=== PATIENT | female | born 1950 | race Caucasian/White ===

== ENCOUNTER → 2017-05-12 | Outpatient (CLI) | payer OTHER ==
[~2017-05-12] MED LIST: GLC5 PO; GLC500 PO; LISI-461 PO
--- NOTE | 2017-05-12 14:35 | MAMMOGRAPHY REPORT ---
BILATERAL DIGITAL SCREENING MAMMOGRAM TOMOSYNTHESIS WITH CAD: 05/12/2017 CLINICAL HISTORY: Routine screening. TECHNIQUE: Breast tomosynthesis in addition to standard 2D mammography was performed. Current study was also evaluated with a Computer Aided Detection (CAD) system. COMPARISON: Comparison is made to exams dated: 03/03/2016 mammogram, 02/28/2015 mammogram, 11/27/2013 m ammogram, 11/22/2012 mammogram, 04/21/2011 mammogram, and 03/16/2010 mammogram - [facility] enter. BREAST COMPOSITION: The tissue of both breasts is almost entirely fatty. FINDINGS: No suspicious masses, calcifications, or areas of architectural distortion are noted in ei ther breast. There has been no significant interval change compared to prior exams. Scattered bilate ral benign appearing calcifications are again noted. IMPRESSION: ACR BI-RADS CATEGORY 2: BENIGN There is no mammographic evidence of malignancy. A 1 year screening mammogram is recommended. The pa tient will receive written notification of the results. Approximately 10% of breast cancers are not detected with mammography. A negative mammographic report should not delay biopsy if a clinically suggestive mass is present. Shilpa Bernardo M.D. ah/:05/12/2017 14:06:32 [employer]: Mir RAMIREZ(R)(M), [facility] letter sent: Normal 1/2 BI-RADS Code: ACR BI-RADS Category 2: Benign
== END | disposition home or self-care (01) ==
LOC: C.MAMM 13:41
PROVIDERS: ATTEND Family Medicine
DX: Z12.31 Encounter for screening mammogram for malignant neoplasm of breast (principal)

== ENCOUNTER 2017-10-24 22:41 | Observation (INO) | payer OTHER ==
[~2017-10-24] VITALS: Ht 165.1 cm; Wt 80.8 kg
[2017-10-24] MEDS ORDERED: ASPIRIN 324 MG CHEW PO STA (23:04)
[2017-10-24 23:15] LABS: HEMATOCRIT 39.4 % (37-47); HEMOGLOBIN 14.1 g/dL (12.0-16.0); MEAN CELL VOLUME 82.3 fL (80-100); MEAN CORPUSCULAR HEMOGLOBIN 29.4 pg (25-34); MEAN CORPUSCULAR HGB CONC 35.8 g/dl (32-36); MEAN PLATELET VOLUME 9.2 fL (7.4-10.4); PLATELET COUNT 322 K/uL (130-400); RED CELL DISTRIBUTION WIDTH CV 13.8 % (11.5-14.5); RED CELL DISTRIBUTION WIDTH SD 41.3 fL (36.4-46.3); WHITE BLOOD COUNT 9.13 K/uL (4.8-10.8)
--- NOTE | 2017-10-24 23:18 | DIAGNOSTIC IMAGING REPORT ---
CHEST ONE VIEW PORTABLE CLINICAL HISTORY: 67 years-old Female presenting with chest pain. TECHNIQUE: Portable upright AP view of the chest was obtained. COMPARISON: None. FINDINGS: Cardiomediastinal silhouette normal. Main pulmonary artery may be enlarged. No focal opacity. No large effusion or pneumothorax. Osseous structures normal. Upper abdomen normal. IMPRESSION: 1. No acute cardiopulmonary disease. 2. Main pulmonary artery may be enlarged, which could suggest pulmonary hypertension. Electronically signed by: James Craig M.D. 10/24/2017 11:17 PM Dictated Date/Time: 10/24/2017 11:16 PM
[2017-10-24 23:51] LABS: CALCIUM 9.3 mg/dl (8.5-10.1); CKMB 2.8 ng/ml (0.5-3.6); CREATININE 1.06 mg/dl (0.60-1.20); TOTAL PROTEIN 8.9 gm/dl (6.4-8.2)
[2017-10-24 23:59] LABS: BASO % 0.4 %; BASO ABS # 0.04 K/uL (0-0.2); EOS % 1.6 %; EOS ABS # 0.15 K/uL (0-0.5); IG# 0.01 K/uL (0.00-0.02); LYMPH % 50.5 %; LYMPH ABS # 4.61 K/uL (1.2-3.4); MONO % 7.3 %; MONO ABS # 0.67 K/uL (0.11-0.59); NEUT % 40.1 %; NEUT ABS # 3.65 K/uL (1.4-6.5)
[2017-10-24] MEDS ORDERED: SITA100T3 PO (23:59)
[2017-10-24] MEDS ORDERED: METF-383 PO (23:59)
[2017-10-25] VITALS (20 sets, daily range): BP systolic 74–166; BP diastolic 66–101; PULSE 67–99; TEMP 36.3–37; O2SAT 95–99; Ht 165.1 cm; Wt 80.8 kg
[2017-10-25] MEDS ORDERED: MULT-506 PO
[2017-10-25 00:01] LABS: POTASSIUM 4.1 mmol/L (3.5-5.1)
[2017-10-25] MEDS ORDERED: CINN1CAP2 PO (00:01)
[2017-10-25] MEDS ORDERED: OMEG10007 PO (00:01)
[2017-10-25] MEDS ORDERED: GLUCPOW41 PO (00:02)
[2017-10-25] MEDS ORDERED: IV FLUIDS COMPLETED PRN (01:45)
--- NOTE | 2017-10-25 03:29 | History and Physical ---
History & Physical Date & Time of Service: October 25, 2017 at 03:06 Chief Complaint: Chest Pain Primary Care Physician: Sydney Macario M.D. History of Present Illness Source: patient, clinic records, hospital records 67 years old female with past medical history of type 2 diabetes, dyslipidemia, hypertension presented to the ER with chief complaint of chest pain. Patient said today while walking with her dog she developed a substernal chest pain. She said that she thought the pain seems to be related with her acid since she had her dinner about 2 hours prior and she was burping before the pain start. Patient said she went home and lying down, she said the pain worsening and it was located now in the left side of her chest. Then, she developed an achy pain in her left upper extremity and her facial area. Patient described the left-sided chest pain as achy like, grade 5/10. She said by the time she got to the ER the pain resolved. Denies any diaphoresis, vomiting, shortness of breath, palpitation, fever and chills. Past Medical/Surgical History Medical Problems: (1) Chest pain Social History Smoking Status: Never Smoker Allergies Coded Allergies: Albuterol (Verified Allergy, Unknown, tachycardia, 10/25/17) Home Medications Scheduled Aspirin (Aspir-81), 81 MG PO DAILY Metformin Hcl (Glucophage), 850 MG PO BID Multivitamin (Multivitamin), 1 TAB PO DAILY Sitagliptin Phosphate (Januvia), 100 MG PO DAILY Review of Systems Constitutional: No fever, No chills, No sweats Eyes: No eye pain, No diplopia ENT: No nasal symptoms, No sore throat Respiratory: No cough, No sputum, No wheezing, No shortness of breath Cardiovascular: + chest pain, No orthopnea, No claudication, No palpitations Abdomen: No pain, No vomiting, No diarrhea Musculoskeletal: No calf pain Genitourinary - Female: No dysuria Neurologic: No paralysis, No weakness Psychiatric: No substance abuse Endocrine: No fatigue Hematologic / Lymphatic: No abnormal bleeding/bruising Integumentary: No rash, No itch Physical Exam Vital Signs Date Time Temp Pulse Resp B/P (MAP) Pulse Ox O2 Delivery O2 Flow Rate FiO2 10/25/17 02:28 36.6 97 16 164/92 97 Room Air 10/25/17 01:48 92 16 149/84 98 10/25/17 00:01 100 19 146/87 100 Room Air 10/24/17 23:50 91 18 167/88 94 Room Air 10/24/17 23:00 93 20 177/88 99 Room Air 10/24/17 22:55 109 10/24/17 22:51 100 Room Air 10/24/17 22:50 100 Room Air 10/24/17 22:44 36.4 96 20 190/91 97 Room Air General Appearance: WD/WN, no apparent distress Head: normocephalic, atraumatic Eyes: PERRL, EOMI ENT: hearing grossly normal Neck: no JVD, trachea midline Respiratory/Chest: chest non-tender, normal breath sounds, no respiratory distress, no accessory muscle use Cardiovascular: regular rate, rhythm, no JVD Abdomen/GI: normal bowel sounds, non tender, soft Back: no CVA tenderness Extremities/Musculoskelatal: no calf tenderness Neurologic/Psych: no motor/sensory deficits, alert, normal mood/affect, oriented x 3 Skin: warm/dry, no rash Diagnostics Laboratory Results Results Past 24 Hours Test 10/24/17 22:53 10/24/17 23:03 10/25/17 02:17 Range/Units White Blood Count 9.13 4.8-10.8 K/uL Red Blood Count 4.79 4.2-5.4 M/uL Hemoglobin 14.1 12.0-16.0 g/dL Hematocrit 39.4 37-47 % Mean Corpuscular Volume 82.3 80-100 fL Mean Corpuscular Hemoglobin 29.4 25-34 pg Mean Corpuscular Hemoglobin Concent 35.8 32-36 g/dl Platelet Count 322 130-400 K/uL Mean Platelet Volume 9.2 7.4-10.4 fL Neutrophils (%) (Auto) 40.1 % Lymphocytes (%) (Auto) 50.5 % Monocytes (%) (Auto) 7.3 % Eosinophils (%) (Auto) 1.6 % Basophils (%) (Auto) 0.4 % Neutrophils # (Auto) 3.65 1.4-6.5 K/uL Lymphocytes # (Auto) 4.61 1.2-3.4 K/uL Monocytes # (Auto) 0.67 0.11-0.59 K/uL Eosinophils # (Auto) 0.15 0-0.5 K/uL Basophils # (Auto) 0.04 0-0.2 K/uL RDW Standard Deviation 41.3 36.4-46.3 fL RDW Coefficient of Variation 13.8 11.5-14.5 % Immature Granulocyte % (Auto) 0.1 % Immature Granulocyte # (Auto) 0.01 0.00-0.02 K/uL Red Blood Cell Morphology Unremarkable Sodium Level 139 136-145 mmol/L Potassium Level 4.1 3.5-5.1 mmol/L Chloride Level 102 98-107 mmol/L Carbon Dioxide Level 29 21-32 mmol/L Anion Gap 8.0 3-11 mmol/L Blood Urea Nitrogen 16 7-18 mg/dl Creatinine 1.06 0.60-1.20 mg/dl Est Creatinine Clear Calc Drug Dose 55.1 ml/min Estimated GFR () 63.4 Estimated GFR (Non- 54.7 BUN/Creatinine Ratio 14.7 10-20 Random Glucose 192 70-99 mg/dl Calcium Level 9.3 8.5-10.1 mg/dl Total Bilirubin 0.2 0.2-1 mg/dl Aspartate Amino Transf (AST/SGOT) 26 15-37 U/L Alanine Aminotransferase (ALT/SGPT) 29 12-78 U/L Alkaline Phosphatase 52 45-117 U/L Total Creatine Kinase 106 26-192 U/L Creatine Kinase MB 2.8 0.5-3.6 ng/ml Creatine Kinase MB Ratio 2.6 0-3.0 Total Protein 8.9 6.4-8.2 gm/dl Albumin 4.0 3.4-5.0 gm/dl Globulin 4.9 2.5-4.0 gm/dl Albumin/Globulin Ratio 0.8 0.9-2 Chemistry Specimen Hemolysis Bedside Troponin I < 0.030 0-0.045 ng/ml Bedside Glucose 157 70-90 mg/dl Diagnostic Radiology CHEST ONE VIEW PORTABLE CLINICAL HISTORY: 67 years-old Female presenting with chest pain. TECHNIQUE: Portable upright AP view of the chest was obtained. COMPARISON: None. FINDINGS: Cardiomediastinal silhouette normal. Main pulmonary artery may be enlarged. No focal opacity. No large effusion or pneumothorax. Osseous structures normal. Upper abdomen normal. IMPRESSION: 1. No acute cardiopulmonary disease. 2. Main pulmonary artery may be enlarged, which could suggest pulmonary hypertension. Electronically signed by: James Craig M.D. 10/24/2017 11:17 PM Dictated Date/Time: 10/24/2017 11:16 PM Impression Assessment and Plan Chest pain Rule out ACS EKG showed T waves inversion Initial troponin negative Check troponin 2, Consult cardiology Check echo in a.m. Keep n.p.o. for now Continue aspirin Check lipid panel in a.m. repeat EKG in am Currently asymptomatic Continue monitoring telemetry Diabetes type 2 Last hemoglobin A1c 6.8 on 06/30 Hold metformin and Januvia for now Insulin sliding scale Monitor blood sugar DVT prophylaxis On Lovenox subq CODE STATUS full code Advanced Directives Existing Living Will: No Existing Power of Cook Mayonnaise: No Resuscitation Status VTE Prophylaxis Will order VTE Prophylaxis: Yes
[2017-10-25] MEDS ORDERED: ASPI-232 PO (03:38)
[2017-10-25] MEDS ORDERED: GLUCOSE 10 TABS/TUBE PO PRN (03:45)
[2017-10-25] MEDS ORDERED: CARBOHYDRATES FOR HYPOGLYCEMIA PO PRN (03:45)
[2017-10-25] MEDS ORDERED: GLUCOSE 40% GEL 15 GM TUBE PO PRN (03:45)
[2017-10-25] MEDS ORDERED: DEXTROSE 50% 50 ML SYR IV PRN (03:45)
[2017-10-25] MEDS ORDERED: GLUCAGON FOR INJ 1 MG VIAL SQ PRN (03:45)
--- NOTE | 2017-10-25 04:08 | EMERGENCY ROOM VISIT NOTE ---
ED Visit Note First contact with patient: 22:50 I have personally evaluated and examined this patient. I agree with assessment and plan of Queenie Medrano PA-C.
--- NOTE | 2017-10-25 04:43 | EMERGENCY ROOM VISIT NOTE ---
History First contact with patient: 22:49 Chief Complaint: CHEST PAIN Stated Complaint: CHEST PAIN Nursing Triage Summary: pt with indigestion (belching) that started about 1 hr [employer]LECT[employer]UMENT [employer]PA[employer]. then it went into L jaw, L chest, and L arm. pt with nausea and chills at the time. pt describes the pain as "aching" and rates at 2/10 History of Present Illness The patient is a 67 year old female who presents to the Emergency Room with complaints of chest pain. The patient reports that approximately 1 hour prior to arrival, she was walking and developed indigestion. She then developed a discomfort in her left chest, shoulder and jaw. She states the pain was an aching sensation and rates that initial discomfort a 5/10. The indigestion has improved and she states the pain has also improved and now rates her discomfort a 2/10. She was initially nauseous but is no longer nauseous. She states that a few months ago, she had an episode of indigestion, nausea, vomiting and chest pressure. She had some dizziness at that time. Her symptoms resolved and she was not initially evaluated. She has since followed up with her PCP and had an MRI of her brain which was normal. The patient denies any cardiac history but does have a history of diabetes and hypertension. She reports a family history of heart disease in 4 of her 6 siblings, including a brother who of an GA at age 48. She does not smoke. She denies shortness of breath, palpitations or syncope. Review of Systems A complete 10 point review of systems was reviewed with the patient with pertinent positives and negatives as per history of present illness. All else were negative. Past Medical/Surgical History Medical Problems: (1) Chest pain Medical Problems: (1) Chest pain (2) Diabetes mellitus, type II Family History Heart disease Social History Smoking Status: Never Smoker Marital Status: Housing Status: lives with family Current/Historical Medications Scheduled Aspirin (Aspir-81), 81 MG PO DAILY Metformin Hcl (Glucophage), 850 MG PO BID Multivitamin (Multivitamin), 1 TAB PO DAILY Sitagliptin Phosphate (Januvia), 100 MG PO DAILY Physical Exam Vital Signs Date Time Temp Pulse Resp B/P (MAP) Pulse Ox O2 Delivery O2 Flow Rate FiO2 10/25/17 00:01 100 19 146/87 100 Room Air 10/24/17 23:50 91 18 167/88 94 Room Air 10/24/17 23:00 93 20 177/88 99 Room Air 10/24/17 22:55 109 10/24/17 22:51 100 Room Air 10/24/17 22:50 100 Room Air 10/24/17 22:44 36.4 96 20 190/91 97 Room Air Physical Exam VITALS: Vitals are noted on the nurse's note and reviewed by myself. Vital signs stable. GENERAL: This is a 67-year-old female, in no acute distress, nondiaphoretic, well-developed well-nourished. SKIN: The skin was without rashes. HEAD: Normocephalic atraumatic. EARS: External auditory canals clear, tympanic membranes pearly dunn without erythema or effusion bilaterally. EYES: Pupils equal round and reactive to light and accommodation. MOUTH: Mucous membranes moist. Tonsils are not enlarged. Pharynx without erythema or exudate. HEART: Regular rate and rhythm without murmurs gallops or rubs. ABDOMEN: Soft, nontender to palpation. MUSCULOSKELETAL: Strength 5/5 throughout. NEURO: Patient was alert and oriented to person place and time. Medical Decision & Procedures ER Provider Diagnostic Interpretation: CHEST ONE VIEW PORTABLE FINDINGS: Cardiomediastinal silhouette normal. Main pulmonary artery may be enlarged. No focal opacity. No large effusion or pneumothorax. Osseous structures normal. Upper abdomen normal. IMPRESSION: 1. No acute cardiopulmonary disease. 2. Main pulmonary artery may be enlarged, which could suggest pulmonary hypertension. Electronically signed by: James Craig M.D. Laboratory Results 10/24/17 22:53 Red Blood Count 4.79, Mean Corpuscular Volume 82.3, Mean Corpuscular Hemoglobin 29.4, Mean Corpuscular Hemoglobin Concent 35.8, Mean Platelet Volume 9.2, Neutrophils (%) (Auto) 40.1, Lymphocytes (%) (Auto) 50.5, Monocytes (%) (Auto) 7.3, Eosinophils (%) (Auto) 1.6, Basophils (%) (Auto) 0.4, Neutrophils # (Auto) 3.65, Lymphocytes # (Auto) 4.61, Monocytes # (Auto) 0.67, Eosinophils # (Auto) 0.15, Basophils # (Auto) 0.04 10/24/17 22:53 Test 10/24/17 22:53 10/24/17 23:03 White Blood Count 9.13 K/uL (4.8-10.8) Red Blood Count 4.79 M/uL (4.2-5.4) Hemoglobin 14.1 g/dL (12.0-16.0) Hematocrit 39.4 % (37-47) Mean Corpuscular Volume 82.3 fL (80-100) Mean Corpuscular Hemoglobin 29.4 pg (25-34) Mean Corpuscular Hemoglobin Concent 35.8 g/dl (32-36) Platelet Count 322 K/uL (130-400) Mean Platelet Volume 9.2 fL (7.4-10.4) Neutrophils (%) (Auto) 40.1 % Lymphocytes (%) (Auto) 50.5 % Monocytes (%) (Auto) 7.3 % Eosinophils (%) (Auto) 1.6 % Basophils (%) (Auto) 0.4 % Neutrophils # (Auto) 3.65 K/uL (1.4-6.5) Lymphocytes # (Auto) 4.61 K/uL (1.2-3.4) Monocytes # (Auto) 0.67 K/uL (0.11-0.59) Eosinophils # (Auto) 0.15 K/uL (0-0.5) Basophils # (Auto) 0.04 K/uL (0-0.2) RDW Standard Deviation 41.3 fL (36.4-46.3) RDW Coefficient of Variation 13.8 % (11.5-14.5) Immature Granulocyte % (Auto) 0.1 % Immature Granulocyte # (Auto) 0.01 K/uL (0.00-0.02) Red Blood Cell Morphology Unremarkable Anion Gap 8.0 mmol/L (3-11) Est Creatinine Clear Calc Drug Dose 55.1 ml/min Estimated GFR () 63.4 Estimated GFR (Non- 54.7 BUN/Creatinine Ratio 14.7 (10-20) Calcium Level 9.3 mg/dl (8.5-10.1) Total Bilirubin 0.2 mg/dl (0.2-1) Aspartate Amino Transf (AST/SGOT) 26 U/L (15-37) Alanine Aminotransferase (ALT/SGPT) 29 U/L (12-78) Alkaline Phosphatase 52 U/L (45-117) Total Creatine Kinase 106 U/L (26-192) Creatine Kinase MB 2.8 ng/ml (0.5-3.6) Creatine Kinase MB Ratio 2.6 (0-3.0) Total Protein 8.9 gm/dl (6.4-8.2) Albumin 4.0 gm/dl (3.4-5.0) Globulin 4.9 gm/dl (2.5-4.0) Albumin/Globulin Ratio 0.8 (0.9-2) Chemistry Specimen Hemolysis Bedside Troponin I < 0.030 ng/ml (0-0.045) Medications Administered Medications (Trade) Dose Ordered Sig/Saul Route Start Time Stop Time Status Last Admin Dose Admin Aspirin (Aspirin Chew) 324 mg NOW STAT PO 10/24/17 23:04 10/24/17 23:07 DC 10/24/17 23:13 324 MG ECG Per My Interpretation Indication: chest pain Rate (beats per minute): 96 Rhythm: normal sinus Findings: T-wave inversion (Inferior), no ectopy Comparison ECG Date: T-wave inversions are new Medical Decision Differential diagnosis includes acute coronary syndrome, pulmonary embolism, pneumothorax, pericarditis, myocarditis, endocarditis, anxiety, musculoskeletal pain, GERD, costochondritis, pneumonia, among others. The patient is a 67-year-old female who presents today complaining of chest pain. Labs revealed no leukocytosis, anemia or concerning electrolyte abnormalities. Initial troponin was found to be negative. Patient's history is concerning for cardiac source of pain. She is a diabetic and has a strong family history of heart disease. Her EKG shows new T-wave inversions in the inferior leads. The patient was agreeable to admission/observation for further cardiac workup. She was admitted to the [facility] service. The patient was independently evaluated by Dr. River, ED attending physician , who agreed with my assessment and treatment plan. Medication Reconcilliation Current Medication List: was personally reviewed by me Blood Pressure Screening Patient's blood pressure: Elevated blood pressure (Will be followed by hospitalist) Impression Primary Impression: Left sided chest pain Departure Information Dispostion Still a Patient Condition GOOD Referrals Sydney Macario M.D. (PCP) Forms Call Back Authorization, HOME CARE DOCUMENTATION FORM, IMPORTANT VISIT INFORMATION Patient Instructions My [facility]
[2017-10-25] MEDS ORDERED: NURSING VERBAL MED ORDER ONE ×2 (05:00→16:15)
[2017-10-25] MEDS: INSULIN ASPART 100 UNITS/ML 3 ML PEN SC SCH ×4 (05:54→21:00)
[2017-10-25 06:25] LABS: HEMOGLOBIN A1C 6.6 % (4.5-5.6)
[2017-10-25] MEDS ORDERED: INSULIN ASPART 100 UNITS/ML 3 ML PEN SC SCH (06:30)
[2017-10-25] MEDS ORDERED: NITROGLYCERIN 0.4 MG SL PER TAB CHARGE SL PRN (07:00)
[2017-10-25] MEDS: MULTIVITAMIN TAB PO SCH (08:42)
[2017-10-25] MEDS: PANTOprazole SOD 40 MG TAB PO SCH (08:42)
--- NOTE | 2017-10-25 08:42 | Cardiology Consultation ---
Cardiology Consultation Date of Consultation: October 25, 2017 History of Present Illness Virgen Patterson is a 67 year old female seen in cardiology follow up per the request of Dr Jameson for the evaluation of chest discomfort. Patient was in her normal state of health until last evening when she was walking her dog. She experiences dyspepsia with belching that then progressed to left sided chest discomfort that radiated down her left arm and also to her face around her mouth. Her initial vital signs taken at 2244 last night included an elevated initial blood pressure of 190/91 EKG performed at 2250 revealed sinus rhythm at 96 bpm, with findings concerning for a new inferior lateral function pattern with new T- wave inversion in lead aVF, III, nonspecific lateral T-wave with flattening and loss of R-wave progression compared to prior tracing in 2015. Her initial troponin level was within normal limits. Repeat troponin this morning at 529 was mildly elevated at 0.134 repeat EKG was performed at 8:17 AM today with improvement in the lateral R-wave progression. T-wave inversion in leads aVF and III are still present but it is less prominent. The patient states that she feels well. She is completely free of chest discomfort. She states that her entire episode lasted approximately 1/2-2 hours and resolved on its own and she does not think there is a medical intervention that helped. Patient describes having been on medications for several years for type 2 diabetes mellitus. She has a strong family history of ischemic heart disease in her siblings with 2 sisters that have had myocardial infarctions and 2 brothers with coronary heart disease. One brother apparently due to myocardial infarction and another brother had bypass surgery in the past. Past Medical/Surgical History Problem List: Medical Problems: (1) Chest pain (2) Diabetes mellitus, type II History Past Medical History: Past Surgical History: Social History: Family History: Review Of Systems See above for pertinent positives & negatives. A total of 10 systems reviewed and were otherwise negative. Allergies Coded Allergies: Albuterol (Verified Allergy, Unknown, tachycardia, 10/25/17) Medications Reported Home Medications Medications Dose Route/Sig Max Daily Dose Days Date Category Aspir-81 (Aspirin) 81 Mg Tab 81 Mg PO DAILY 10/25/17 Reported Multivitamin (Multivitamins) Tab 1 Tab PO DAILY 10/25/17 Reported Januvia (Sitagliptin Phosphate) 100 Mg Tab 100 Mg PO DAILY 10/24/17 Reported Glucophage (Metformin Hcl) 850 Mg Tab 850 Mg PO BID 10/24/17 Reported Physical Exam Vital Signs (Last 8hrs): Last 8 Hrs Date Time Temp Pulse Resp B/P (MAP) Pulse Ox O2 Delivery O2 Flow Rate FiO2 10/25/17 07:58 36.3 99 16 137/86 (103) 99 Room Air 10/25/17 04:23 36.4 96 16 155/88 (110) 98 Room Air 10/25/17 04:00 Room Air 10/25/17 02:28 36.6 97 16 164/92 97 Room Air 10/25/17 01:48 92 16 149/84 98 General Appearance: Alert and Oriented x3. NAD. Head: Normocephalic Atraumatic. Eyes: PERRLA, EOMI, conjunctiva and sclera clear Neck: Supple. No carotid bruits noted. No JVD. No HJD. Respiratory: Breath sounds clear to auscultation bilaterally. No w/r/r. Cardiovascular: Reg rate and rhythm. S1 and S2 noted. No murmurs, rubs, gallops. PMI non displace. Abdomen: Normal bowel sounds, soft nontender. no abdominal bruits. Extremities: No edema, no clubbing or cyanosis. distal pulses 2/4 bilaterally. Neuro: No focal deficits. Psychiatric: Normal affect. Data Last Resulted 10/24/17 22:53 Red Blood Count 4.79, Mean Corpuscular Volume 82.3, Mean Corpuscular Hemoglobin 29.4, Mean Corpuscular Hemoglobin Concent 35.8, Mean Platelet Volume 9.2, Neutrophils (%) (Auto) 40.1, Lymphocytes (%) (Auto) 50.5, Monocytes (%) (Auto) 7.3, Eosinophils (%) (Auto) 1.6, Basophils (%) (Auto) 0.4, Neutrophils # (Auto) 3.65, Lymphocytes # (Auto) 4.61, Monocytes # (Auto) 0.67, Eosinophils # (Auto) 0.15, Basophils # (Auto) 0.04 Last Resulted 10/24/17 22:53 Past 24 Hours Test 10/24/17 22:53 10/25/17 05:29 Range/Units Creatine Kinase MB 2.8 0.5-3.6 ng/ml Creatine Kinase MB Ratio 2.6 0-3.0 Total Creatine Kinase 106 26-192 U/L Prothromb Time International Ratio 1.0 0.9-1.1 Prothrombin Time 10.0 9.0-12.0 SECONDS Troponin I 0.134 *H 0-0.045 ng/ml EKG as noted above. Telemetry reveals sinus rhythm with occasional PVCs. Assessment & Plan Impression: 67-year-old female 1. Chest pain with transient EKG abnormalities and mild troponin elevation, consistent with non-ST segment elevation acute coronary syndrome 2. Cardiac risk factors of underlying type 2 diabetes mellitus and strong family history of ischemic heart disease 3. Hypertension, blood pressure improved Recommendations: Continue ASA. Bedside echo in process. Recommend definitive cardiac catheterization which will be scheduled for today. Keep NPO except medications. Add metoprolol and statin.
[2017-10-25] MEDS ORDERED: ATORVASTATIN 10 MG TAB PO ONE (08:50)
[2017-10-25] MEDS ORDERED: ENOXAPARIN 40 MG/0.4 ML SYR SQ SCH (09:00)
[2017-10-25] MEDS ORDERED: ASPIRIN 81 MG ECTAB PO SCH (09:00)
[2017-10-25] MEDS ORDERED: ASPIRIN 81 MG CHEW PO STA (09:00)
[2017-10-25] MEDS ORDERED: SODIUM CHLORIDE 0.9% 1000ML 1,000 ML IV SCH ×2 (09:00→10:45)
[2017-10-25] MEDS ORDERED: PERFLUTREN LIPID MICROSPHERE (DEFINITY) IV ONE (09:03)
[2017-10-25] MEDS: METOPROLOL TARTRATE 25 MG TAB PO SCH ×2 (09:12→21:32)
[2017-10-25] MEDS ORDERED: MIDAZOLAM HCL 1 MG/ML 2ML VIAL ONE (09:22)
[2017-10-25] MEDS ORDERED: NiCARDipine HCL INJ 2.5 MG/ML 10 ML AMP ONE (09:22)
[2017-10-25] MEDS ORDERED: HEPARIN SOD (PORCINE) 1000 UNIT/ML 10 ML VIAL ONE (09:22)
[2017-10-25] MEDS ORDERED: NITROGLYCERIN/D5W 100MCG/ML 20ML SYR ONE (09:23)
[2017-10-25] MEDS ORDERED: ASPIRIN 81 MG CHEW ONE (09:26)
[2017-10-25] MEDS ORDERED: FENTANYL CITRATE INJ 50 MCG/1 ML 2 ML VIAL ONE (10:09)
--- NOTE | 2017-10-25 10:21 | Pre Sedation Assessment ---
Pre Sedation Assessment General Date of Sedation: October 25, 2017. Vital Signs Past 12 Hours Date Time Temp Pulse Resp B/P (MAP) Pulse Ox O2 Delivery O2 Flow Rate FiO2 10/25/17 08:00 Room Air 10/25/17 07:58 36.3 99 16 137/86 (103) 99 Room Air 10/25/17 04:23 36.4 96 16 155/88 (110) 98 Room Air 10/25/17 04:00 Room Air 10/25/17 02:28 36.6 97 16 164/92 97 Room Air 10/25/17 01:48 92 16 149/84 98 10/25/17 00:01 100 19 146/87 100 Room Air 10/24/17 23:50 91 18 167/88 94 Room Air 10/24/17 23:00 93 20 177/88 99 Room Air 10/24/17 22:55 109 10/24/17 22:51 100 Room Air 10/24/17 22:50 100 Room Air 10/24/17 22:44 36.4 96 20 190/91 97 Room Air Review Cardiovascular: regular rate, rhythm Lungs: lungs clear Pre-Sedation Airway Assessment Smoking Status: Never Smoker Hx of Sleep Apnea: No Hx of difficult intubation: No Short Thick Neck: No Thyro-mental Distance: > 3 Finger Breadths Oral Cavity: WNL Mallampati Classification: Class II (Sft palate,uvula,fauces visib.) ASA Classification: Class II NPO Status Date of Last Intake of Fluids: October 25, 2017 Time of Last Intake of Fluids: 00:03 Date of Last Intake of Solids: October 25, 2017 Time of Last Intake of Solids: 00:03 Procedure Planning Contraindications for Sedation: None Current Medications Reviewed: Yes Notes The planned sedation has been discussed with the patient. Informed Consent was obtained. I have identified the patient, determined the appropriateness of sedation and have assessed the patient immediately prior to the procedure. All medicine(s) and interventions are by my order.
--- NOTE | 2017-10-25 10:21 | Post Sedation Assessment ---
Post Sedation Assessment General Date of Sedation October 25, 2017. Vital Signs: Vital Signs Past 12 Hours Date Time Temp Pulse Resp B/P (MAP) Pulse Ox O2 Delivery O2 Flow Rate FiO2 10/25/17 08:00 Room Air 10/25/17 07:58 36.3 99 16 137/86 (103) 99 Room Air 10/25/17 04:23 36.4 96 16 155/88 (110) 98 Room Air 10/25/17 04:00 Room Air 10/25/17 02:28 36.6 97 16 164/92 97 Room Air 10/25/17 01:48 92 16 149/84 98 10/25/17 00:01 100 19 146/87 100 Room Air 10/24/17 23:50 91 18 167/88 94 Room Air 10/24/17 23:00 93 20 177/88 99 Room Air 10/24/17 22:55 109 10/24/17 22:51 100 Room Air 10/24/17 22:50 100 Room Air 10/24/17 22:44 36.4 96 20 190/91 97 Room Air Post Procedure Recovery Score Activity: (2) Moves 4 extremities * Respiration: (2) Deep breath/cough Circulation: (2) +/-20% PreAnes Value Consciousness: (2) Fully Awake Oxygen Saturation: (2) > 92% On Room Air Post Anesthesia Score: 10 Discharge Sedation Level of Care: Fast Track Phase II Post Sedation Plan On clinical assessment, the patient appears to have tolerated the sedation without complications. Patient is recovering as anticipated. Patient will continue to be monitored by nursing and may be discharged when sedation discharge criteria are met per below protocol. Upon Completions of procedure and additional 15 minutes continue every 5 minute vital signs and the P.A.R. score; then discharge to a Phase I or Fast Track to Phase II per the following guidelines: * Discharge Patient to appropriate Phase II area if PAR is 8 or greater or return to pre- procedure baseline. The post - procedure orders will be as directed. * If PAR score is less than 8 or not return to pre-procedure baseline then patient will follow Phase I monitoring till PAR is reached for Phase II. The Phase I may be done in procedure room or may call to secure a Phase I area. * If naloxone or flumazenil are used for reversal, hold in Phase I for an additional 60 -120 minutes before discharge to Phase II. Please call the Sedation Physician to re-evaluate and complete post-note for discharge to Phase II area. Do NOT discharge from procedure sedation or Phase 1 until post- sedation evaluation note is complete by procedure /sedation MD Sedation Discharge Instructions to be given to the patient at discharge to home.
--- NOTE | 2017-10-25 10:26 | ECHOCARDIOGRAM REPORT ---
*NOTICE TO RECEIVING LIBERTARIAN AGENCY This information is strictly Confidential and protected under [place] law. [place] law prohibits you from making any further disclosure of this information unless further disclosure is expressly permitted by the written consent of the person to whom it pertains or is authorized by law. A general authorization for the release of medical or other information is not sufficient for this purpose. Hospital accepts no responsibility if the information is made available to any other person, INCLUDING THE PATIENT. Interpretation Summary * Name: MAIKOL MORENO Study Date: 10/25/2017 08:28 AM BP: 137/86 mmHg * Patient Location: [facility] HR: 99 * : 1950 (M/d/yyyy) Gender: Female Height: 65 in * Age: 67 yrs Ethnicity: [place] Weight: 179 lb * Ordering Physician: Ulysses Jameson * Performed By: Khushboo Mello RDCS * * Reason For Study: CHEST PAIN * BSA: 1.9 m2 * -- Conclusions -- * There is mild concentric left ventricular hypertrophy. * There is a moderate sized septal, anteroseptal, and inferior wall motion abnormality with hypokinesis of the segments. * Left ventricular systolic function is mildly reduced. * The LV Ejection Fraction = 45-50%. * Grade I diastolic dysfunction, (abnormal relaxation pattern). * The right ventricular chamber size and systolic function is normal. * There is no significant valvular heart disease. Procedure Details * A complete two-dimensional transthoracic echocardiogram was performed (2D, M-mode, Doppler and color flow Doppler). * A contrast injection of Definity was performed to improve assessment of LV function. * Contrast was injected into an intravenous site in the left arm. * One vial of Definity ultrasound contrast was diluted in normal saline to a total volume of 10 ml. A total of '3' ml of solution was administered during imaging. * Lot # [id number] of Definity utilized for procedure. * Expiration date 08/01. * The attending nurse who injected the contrast agent was MALCOLM LAZO RN. Left Ventricle * The left ventricle is normal in size. * There is mild concentric left ventricular hypertrophy. * Ejection Fraction = 45-50%. * Left ventricular systolic function is mildly reduced. * There is a moderate sized septal, anteroseptal, and inferior wall motion abnormality with hypokinesis of the segments. Right Ventricle * The right ventricle is normal size. * The right ventricular systolic function is normal as assessed by tricuspid annular plane systolic excursion (TAPSE) (normal >1.5 cm). Atria * The left atrial size is normal. * Right atrial size is normal. * There is no evidence of atrial septal defect, but resolution does not allow assessment for a patent foramen ovale. Mitral Valve * The mitral valve is normal. * There is no mitral valve stenosis. * Significant mitral regurgitation is absent. Tricuspid Valve * The tricuspid valve is normal. * There is no tricuspid stenosis. * Significant tricuspid regurgitation is absent. Aortic Valve * The aortic valve is trileaflet. * Aortic stenosis is absent. * There is no significant aortic regurgitation. Pulmonic Valve * The pulmonary valve is not well seen, but the Doppler examination is normal without significant regurgitation or stenosis. Great Vessels * The aortic root and proximal ascending aorta are normal sized. Pericardium/Pleural * There is no pericardial effusion. Great Vessels * Normal inferior vena cava diameter and respiratory variation suggests normal central venous pressure. Left Ventricular Diastolic Function * Grade I diastolic dysfunction, (abnormal relaxation pattern). MMode 2D Measurements and Calculations IVSd 1.4 cm IVSs 1.5 cm LVIDd 4.7 cm LVIDs 3.4 cm LVPWd 0.90 cm LVPWs 1.8 cm IVS/LVPW 1.5 FS 26.8 % EDV(Teich) 101.2 ml ESV(Teich) 48.3 ml EF(Teich) 52.3 % EDV(cubed) 102.3 ml ESV(cubed) 40.2 ml EF(cubed) 60.7 % % IVS thick 13.0 % % LVPW thick 95.5 % LV mass(C)d 194.8 grams LV mass(C)dI 103.2 grams/m\S\2 LV mass(C)s 221.8 grams LV mass(C)sI 117.5 grams/m\S\2 SV(Teich) 52.9 ml SI(Teich) 28.0 ml/m\S\2 SV(cubed) 62.1 ml SI(cubed) 32.9 ml/m\S\2 ACS 1.4 cm LA dimension 4.0 cm asc Aorta Diam 2.7 cm LVOT diam 1.8 cm LVOT area 2.6 cm\S\2 LVAd ap4 29.0 cm\S\2 LVLd ap4 7.8 cm EDV(MOD-sp4) 88.2 ml EDV(sp4-el) 91.3 ml LVAs ap4 18.1 cm\S\2 LVLs ap4 6.4 cm ESV(MOD-sp4) 44.2 ml ESV(sp4-el) 43.4 ml EF(MOD-sp4) 49.8 % EF(sp4-el) 52.5 % LVAd ap2 31.6 cm\S\2 LVLd ap2 7.4 cm EDV(MOD-sp2) 114.6 ml EDV(sp2-el) 115.2 ml LVAs ap2 21.3 cm\S\2 LVLs ap2 6.8 cm ESV(MOD-sp2) 55.7 ml ESV(sp2-el) 56.5 ml EF(MOD-sp2) 51.4 % EF(sp2-el) 50.9 % LVLd %diff -5.95 % EDV(MOD-bp) 104.4 ml LVLs %diff 6.3 % ESV(MOD-bp) 50.5 ml EF(MOD-bp) 51.6 % SV(MOD-sp4) 43.9 ml SI(MOD-sp4) 23.3 ml/m\S\2 SV(MOD-sp2) 58.9 ml SI(MOD-sp2) 31.2 ml/m\S\2 SV(MOD-bp) 53.9 ml SI(MOD-bp) 28.6 ml/m\S\2 SV(sp4-el) 48.0 ml SI(sp4-el) 25.4 ml/m\S\2 SV(sp2-el) 58.6 ml SI(sp2-el) 31.1 ml/m\S\2 Doppler Measurements and Calculations MV E max hina 66.3 cm/sec MV A max hina 118.1 cm/sec MV E/A 0.56 MV dec time 0.15 sec Ao V2 max 114.7 cm/sec Ao max PG 5.3 mmHg Ao max PG (full) 2.6 mmHg KAILEY(V,A) 1.8 cm\S\2 KAILEY(V,D) 1.8 cm\S\2 LV V1 max PG 2.7 mmHg LV V1 max 82.0 cm/sec PA V2 max 60.4 cm/sec PA max PG 1.5 mmHg
--- NOTE | 2017-10-25 10:27 | Cardiac Catheterization ---
Procedure Note Procedure Date October 25, 2017. Pre-Procedure Diagnosis Non STEMI AUC Score 9 Post-Procedure Diagnosis Severe CAD, Decreased LV Systolic Function, Normal Intracardiac Pressures Procedure(s) Performed Coronary Angiography, Left Heart Cath, LV Angiography Name Plate Stamping Machine Operator Dr. Duncan Wharf Hand(s) None Estimated Blood Loss None Medication(s) Heparin, Versed, Lidocaine 1% Summary of Findings See dictated report Hemodynamics Rest Ao: 138/70 Final Ao: 144/76 LV: 138/13 Recommendations PCI without planned CABG Specimens None Radiation Exposure (mGy) 1692 Contrast (mls) 127 Procedural Complication(s) None Disposition PCU ACC Data Cardiac Status Clinical evaluation leading to the procedure CAD Presntation: Unstable angina Coronary Anatomy Dominant: Right Left Main (% Stenosis): Distal (30%) LAD (% Stenosis): Mid (30%) Circumflex (% Stenosis): Normal RCA (% Stenosis): Mid (99%) Left Ventricular Angiography EF (%): 40% Wall Motion: Inferior (Hypokinetic) Closure Device Percutaneous Entry Location: Radial Closure Device: Radial Band
--- NOTE | 2017-10-25 10:32 | Procedure Note ---
Cardiac Cath Report Procedure: 1. Left heart catheterization 2. Coronary angiography 3. Left ventriculogram History: This is a 67-year-old female who was admitted with chest pain and had elevation in her cardiac markers consistent with a non-STEMI. Procedure summary: After informed consent was obtained the patient was taken to the cardiac catheterization lab where she was prepped and draped in the usual manner for right transradial approach. Preformed 5 [place] diagnostic catheters were utilized for the coronary angiograms. A 5 [place] pigtail catheter was utilized for left heart pressures and left ventriculogram. Following the procedure the patient underwent coronary intervention and then was admitted in stable condition. Coronary angiography: Selective injections of the right coronary artery reveal an ulcerated subtotaled stenosis in its mid segment. The right coronary artery is dominant. Selective injections of the left coronary artery reveal a 30% tapering of the distal left main trunk. The left circumflex artery consists principally of a large lateral marginal branch. The left circumflex artery has minor luminal irregularities but is widely patent. The LAD extends to the apex of the heart. The LAD has a 20-30% narrowing in its proximal and mid segment with the remainder the artery being widely patent. The LAD gives off a single first diagonal branch which has a 20-30% narrowing at its origin. The remainder of the diagonal is patent. Left ventriculogram: The left ventricle is of normal size. There is hypokinesis of the inferior and inferior basilar myocardium. The estimated left ventricular ejection fraction is 40%. The mitral valve is competent. The aortic root and ascending aorta have normal morphology and diameter. The LVEDP is 13. Summary: The patient essentially has single vessel coronary artery disease with an ulcerated subtotal stenosis of the right coronary artery. There is hypokinesis of the inferior and inferior basilar myocardium. Recommendations: The patient will have intervention on the right coronary artery.
[2017-10-25] MEDS ORDERED: TICAGRELOR 90 MG TAB PO ONE (10:41)
--- NOTE | 2017-10-25 10:44 | [facility] Post Operative Brief Note ---
Preliminary Procedure Note Procedure Date October 25, 2017. Pre-Procedure Diagnosis Non STEMI AUC Score 8 Post-Procedure Diagnosis Severe CAD, Successful PCI Procedure(s) Performed Drug Eluting Stent Milled Rubber Tender [employer](s) Keila Estimated Blood Loss 10 Medication(s) Heparin, Nitroglycerin Preliminary Findings 90% diffuse mid RCA stenosis with thrombus Successful PCI with single SHARLENE (2.75 x 26 [place]; post-dilated with 3.0 NC). Recommendations PCI without planned CABG Specimens None Anesthesia Moderate Procedural Complication(s) None Disposition PCU
--- NOTE | 2017-10-25 12:50 | Progress Note ---
Medicine Progress Note Date & Time of Visit: October 25, 2017 at 12:50. Subjective Seen resting in bed comfortable Status post cardiac cath and stent placement Chest pain-free Denies dyspnea, dizziness, palpitations, nausea No wrist pain Denies other symptoms Objective Last 8 Hrs Date Time Temp Pulse Resp B/P (MAP) Pulse Ox O2 Delivery O2 Flow Rate FiO2 10/25/17 12:15 74 19 10/25/17 12:00 84 18 10/25/17 12:00 Room Air 10/25/17 11:31 69 16 166/88 (114) 95 10/25/17 11:30 71 14 98 10/25/17 11:16 67 19 151/91 (111) 99 10/25/17 11:15 68 16 98 10/25/17 11:03 68 21 144/84 (104) 95 10/25/17 11:02 70 16 144/84 (104) 97 Room Air 10/25/17 11:00 78 17 10/25/17 10:45 71 147/79 (101) 96 Room Air 10/25/17 10:40 68 18 140/79 (99) 96 Room Air 10/25/17 08:00 Room Air 10/25/17 07:58 36.3 99 16 137/86 (103) 99 Room Air Physical Exam: General-oriented 3, not in distress, speaking sentences, no accessory muscle use Head- atraumatic Eyes- PERRL, EOMI, anicteric ENT- oropharynx clear Neck- supple, no JVD, no adenopathy, no thyromegaly Lungs- clear breath sounds bilaterally, no rales or wheezes Heart- regular rhythm; no murmur, normal rate Abdomen- normal bowel sounds, soft, nontender, nondistended Extremities- no pretibial edema, no calf tenderness; peripheral pulses intact Neuro- alert, oriented x 3; no gross focal motor or sensory deficits Skin- warm & dry Laboratory Results: Last 24 Hours Test 10/24/17 22:53 10/24/17 23:03 10/25/17 02:17 10/25/17 05:29 White Blood Count 9.13 K/uL Red Blood Count 4.79 M/uL Hemoglobin 14.1 g/dL Hematocrit 39.4 % Mean Corpuscular Volume 82.3 fL Mean Corpuscular Hemoglobin 29.4 pg Mean Corpuscular Hemoglobin Concent 35.8 g/dl Platelet Count 322 K/uL Mean Platelet Volume 9.2 fL Neutrophils (%) (Auto) 40.1 % Lymphocytes (%) (Auto) 50.5 % Monocytes (%) (Auto) 7.3 % Eosinophils (%) (Auto) 1.6 % Basophils (%) (Auto) 0.4 % Neutrophils # (Auto) 3.65 K/uL Lymphocytes # (Auto) 4.61 K/uL Monocytes # (Auto) 0.67 K/uL Eosinophils # (Auto) 0.15 K/uL Basophils # (Auto) 0.04 K/uL RDW Standard Deviation 41.3 fL RDW Coefficient of Variation 13.8 % Immature Granulocyte % (Auto) 0.1 % Immature Granulocyte # (Auto) 0.01 K/uL Red Blood Cell Morphology Unremarkable Sodium Level 139 mmol/L Potassium Level 4.1 mmol/L Chloride Level 102 mmol/L Carbon Dioxide Level 29 mmol/L Anion Gap 8.0 mmol/L Blood Urea Nitrogen 16 mg/dl Creatinine 1.06 mg/dl Est Creatinine Clear Calc Drug Dose 55.1 ml/min Estimated GFR () 63.4 Estimated GFR (Non- 54.7 BUN/Creatinine Ratio 14.7 Random Glucose 192 mg/dl Calcium Level 9.3 mg/dl Total Bilirubin 0.2 mg/dl Aspartate Amino Transf (AST/SGOT) 26 U/L Alanine Aminotransferase (ALT/SGPT) 29 U/L Alkaline Phosphatase 52 U/L Total Creatine Kinase 106 U/L Creatine Kinase MB 2.8 ng/ml Creatine Kinase MB Ratio 2.6 Total Protein 8.9 gm/dl Albumin 4.0 gm/dl Globulin 4.9 gm/dl Albumin/Globulin Ratio 0.8 Chemistry Specimen Hemolysis Bedside Troponin I < 0.030 ng/ml Bedside Glucose 157 mg/dl Prothrombin Time 10.0 SECONDS Prothromb Time International Ratio 1.0 Estimated Average Glucose 143 mg/dl Hemoglobin A1c 6.6 % Troponin I 0.134 ng/ml Triglycerides Level 92 mg/dl Cholesterol Level 179 mg/dl HDL Cholesterol 53 mg/dl LDL Cholesterol, Calculated 108 mg/dl VLDL Cholesterol, Calculated 18 mg/dl Cholesterol/HDL Ratio 3.4 Test 10/25/17 05:53 10/25/17 10:28 10/25/17 11:01 10/25/17 11:32 Bedside Glucose 157 mg/dl 134 mg/dl Kaolin Activated Coagulation Time 246 SECONDS Troponin I 0.290 ng/ml Assessment & Plan NON-ST ELEVATION [place] Status post cardiac cath with stent placement to the RCA on October 25, [address] En Aguilar added to aspirin Metoprolol started Continue atorvastatin Appreciate cardiology service recommendations DIABETES MELLITUS TYPE 2 Last hemoglobin A1c 6.8 on 06/30 Hold metformin and Januvia for now Insulin sliding scale Monitor blood sugar DVT prophylaxis On Lovenox subq CODE STATUS full code DISPOSITION Anticipate discharge home tomorrow when cleared by cardiology Current Inpatient Medications: Current Inpatient Medications Medications (Trade) Dose Ordered Sig/Saul Route Start Time Stop Time Status Last Admin Dose Admin Miscellaneous (Iv Fluids Completed) 1 ea PRN PRN N/A 10/25/17 01:45 10/25/18 01:44 Multivitamins (Multivitamin Tab) 1 tab DAILY PO 10/25/17 09:00 11/24/17 08:59 Glucose (Glucose 40% Gel) 15-30 GRAMS 15 GRAMS... UD PRN PO 10/25/17 03:45 11/24/17 03:44 Glucose (Glucose Chew Tab) 4-8 Tablets 4 Tabl... UD PRN PO 10/25/17 03:45 11/24/17 03:44 Dextrose (Dextrose 50% 50ML Syringe) 25-50ML 25ML FOR ... UD PRN IV 10/25/17 03:45 11/24/17 03:44 Glucagon (Glucagon Inj) 1 mg UD PRN SQ 10/25/17 03:45 11/24/17 03:44 Carbohydrates (Carbohydrates For Hypoglycemia) 15-30 GRAMS 15 grams if BSG 54-69... UD PRN PO 10/25/17 03:45 11/24/17 03:44 Pantoprazole Sodium (Protonix Tab) 40 mg QAM PO 10/25/17 09:00 11/24/17 08:59 Insulin Aspart (novoLOG ASPART) SLIDING SCALE If C... Q6 SC 10/25/17 06:00 11/24/17 05:59 Nitroglycerin (Nitrostat Tab) 0.4 mg PRN PRN SL 10/25/17 07:00 11/24/17 06:59 Atorvastatin Calcium (Lipitor Tab) 10 mg QAM PO 10/26/17 09:00 11/25/17 08:59 Metoprolol Tartrate (Lopressor Tab) 25 mg BID PO 10/25/17 09:00 11/24/17 08:59 10/25/17 09:12 25 MG Sodium Chloride 1,000 ml @ 100 mls/hr Q10H IV 10/25/17 09:00 10/25/17 18:59 10/25/17 09:11 100 MLS/HR Aspirin (Ecotrin Tab) 81 mg QAM PO 10/26/17 09:00 11/25/17 08:59 Sodium Chloride 1,000 ml @ 100 mls/hr Q10H IV 10/25/17 10:45 10/25/17 15:44 10/25/17 12:44 100 MLS/HR Ticagrelor (Brilinta Tab) 90 mg BID PO 10/25/17 21:00 11/24/17 20:59
--- NOTE | 2017-10-25 15:08 | Cardiac Catheterization ---
Procedure Note Procedure Date October 25, 2017. Pre-Procedure Diagnosis Non STEMI AUC Score 8 Post-Procedure Diagnosis Severe CAD, Successful PCI Procedure(s) Performed Drug Eluting Stent Laceworker anabel Cost And Risk Analysis Manager(s) wendie Estimated Blood Loss 15 Medication(s) Fentanyl, Heparin, Nicardipine, Nitroglycerin, Versed, Lidocaine 1% ticagrelor Summary of Findings Indication: High risk NSTEMI Access: 6 FR right radial artery Catheters: JR4 guide Findings: For full details of patient's coronary angiography please cath report dictated by Dr. Duncan. Briefly, patient found to have single vessel disease with a 90% stenosis involving the mid RCA. Decision to proceed with PCI. -- PCI -- Antithrombotic therapy: Heparin, Ticagrelor Procedure: RCA cannulated with JR4 guide BMW wire passed across lesion into distal vessel Mid RCA lesion predilated with 2.5 compliant balloon Dilated lesion stented with 2.75 x 26 [place] SHARLENE Stent post-dilated with 3.0 noncompliant balloon IC vasodilators administered for spasm Post procedure THERESE 3 flow, stent well expanded with minimal residual stenosis and no apparent cardiac complications. Arterial Closure: TR Band Summary: 1. Successful PCI of mid RCA with single drug-eluting stent (2.75 x 26 [place]; post dilated with 3.0 NC) Recommendations: To PCU for continued monitoring Loaded with ticagrelor Continue dual-antiplatelet therapy for at least 1 year Continue statin, and ASCVD risk factor modification Consult cardiac Rehab Hemodynamics Rest Ao: 138/70/101 Final Ao: 129/64/91 LV: 138/13 Recommendations PCI without planned CABG Specimens None Radiation Exposure (mGy) 2824 Contrast (mls) 157 Fluids (cc crystalloids) 105 Drains None Anesthesia Moderate Procedural Complication(s) None Disposition PCU ACC Data Cardiac Status Clinical evaluation leading to the procedure CAD Presntation: Non STEMI Anginal Classification: CCS IV Heart Failure: No, NYHA Class: CCS I Cardiogenic Shock w/in 24Hrs: No Cardiac Arrest w/in 24Hrs: No Imaging studies past 6 months: Yes Stress studies past 6 months: No Diagnostic Physician's Name: Chang Duncan, DO Status: Urgent Closure Device Percutaneous Entry Location: Radial Closure Device: Radial Band Recommendations: PCI without planned CABG PCI Indication: PCI for high risk Non-STEMI Lesion Segment Name: mid RCA Culprit Artery: Yes Stenosis Prior to Rx (%): 90 Chronic Total Occlusion: No IVUS: No FFR: No Pre-Procedure THERESE Flow: 3 Previously Treated Lesion: No Lesion Complexity: Non-High/Non-C Lesion Length (mm): 20 Thrombus Present: Yes Bifurcation Lesion: No Guidewire Across Lesion: Yes Guidewire: Stenosis Post-Procedure (%): 0 Post-Procedure THERESE Flow: 3 Device(s) Deployed: Yes Intraprocedure Events Significant Dissection: No Perforation: No
[2017-10-25] MEDS: TICAGRELOR 90 MG TAB PO SCH (21:33)
[2017-10-26 05:19] VITALS: BP 116/50; PULSE 84; TEMP 36.6; O2SAT 97
[2017-10-26] MEDS: INSULIN ASPART 100 UNITS/ML 3 ML PEN SC SCH ×2 (07:00→11:00)
[2017-10-26 08:00] VITALS: BP 134/67; PULSE 82; TEMP 36.8; O2SAT 97
[2017-10-26] MEDS: TICAGRELOR 90 MG TAB PO SCH (08:12)
[2017-10-26] MEDS: PANTOprazole SOD 40 MG TAB PO SCH (09:00)
[2017-10-26] MEDS: MULTIVITAMIN TAB PO SCH (09:00)
[2017-10-26] MEDS ORDERED: ATORVASTATIN 10 MG TAB PO SCH (09:00)
[2017-10-26] MEDS ORDERED: ASPIRIN 81 MG ECTAB PO SCH (09:00)
[2017-10-26] MEDS ORDERED: ATORVASTATIN 20 MG TAB PO ONE (09:20)
[2017-10-26] MEDS ORDERED: LISINOPRIL 2.5 MG TAB PO ONE (09:20)
--- NOTE | 2017-10-26 09:55 | Cardiology Follow-Up ---
Subjective General Date of Service: October 26, 2017. Chief Complaint: follow up chest pain Pt evaluation today including: conversation w/ patient, physical exam History of Present Illness The patient is a 67 year old female seen in follow up. She feels well. Denies chest pain or shortness of breath. Am EKG is pending. Allergies Coded Allergies: Albuterol (Verified Allergy, Unknown, tachycardia, 10/25/17) Social History Smoking Status: Never Smoker Hx Tobacco Use In Past Year?: No Hx Alcohol Use - Type And Amou: Yes (Occasional 1/2 glass wine or beer) Hx Substance Use - Type And Am: No Problem List Medical Problems: (1) Left sided chest pain Status: Acute Physical Exam Vital Signs Last Vital Signs Documentation Date Time Temp Pulse Resp B/P (MAP) Pulse Ox O2 Delivery O2 Flow Rate FiO2 10/26/17 08:00 36.8 82 16 134/67 (89) 97 Room Air Physical Exam Constitutional: Level of Distress: NAD Neck: supple Lungs: Auscultation: no wheezing, no rales/crackles, no rhonchi Cardiovascular: Heart Auscultation: RRR, normal S2, no rubs Extremities: no edema, no varicosities, pertinent finding (right wrist , clean dry and intact. ) Neurologic: Gait & Station: pertinent finding (no focal deficits ) Assessment and Plan Assessment and Plan Impression: 67 year old female 1. NSTEMI, 90% culprit mid RCA stenosis treated with a drug eluting stent (2.75 x 26 [place]) 2. Dyslipidemia 3. DM2 Plan: Patient has significant concerns about medications. She had declined taking her am medications with the exception of ASA and Brilinta. She has cost concerns about the Brilinta. Declined metoprolol and atorvastatin. She notes that she had lightheadedness with lisinopril in the past and declines this medication. Her LVEF was > 40% without clinical heart failure, however given DM2 would like for her to be on lisinopril half-way. Plan: Continue Low dose ASA 81 mg , life long. Pt agreeable to this. Due to cost concerns , will DC Brilinta and transition to clopidogrel. Need to load with clopidogrel, 300 mg this afternoon (just had Brilinta) so need to wait a few hours, then clopidogrel 75 mg daily after starting am of 10/27. Metoprolol succinate 25 mg daily. Pt agreeable to trial of atorvastatin 10 mg. I would have like her to take at least 20 mg however she declines. Plan for cardiology follow up in 2-4 weeks. Pt stable for DC after clopidogrel dose at 4 pm. Laboratory Results Last 24 Hours Test 10/25/17 10:28 10/25/17 11:01 10/25/17 11:32 10/25/17 16:28 Kaolin Activated Coagulation Time 246 SECONDS Bedside Glucose 134 mg/dl 127 mg/dl Troponin I 0.290 ng/ml Test 10/25/17 20:45 10/26/17 07:36 Bedside Glucose 119 mg/dl 182 mg/dl
[2017-10-26] MEDS ORDERED: METOPROLOL SUCC 25MG EXT REL TAB PO ONE (10:00)
[2017-10-26] MEDS ORDERED: ATORVASTATIN 10 MG TAB PO ONE (10:15)
--- NOTE | 2017-10-26 10:17 | Cardiology Progress Note ---
Cardiology Progress Note Date of Service October 26, 2017. Cardiology Progress Note EKG performed this morning was reviewed and reveals stable findings of sinus rhythm. Inferior T-wave inversion is noted as well as subtle T-wave inversion in leads V3 to V6. These EKG changes are consistent with her RCA territory infarct for which she underwent PCI yesterday.
[2017-10-26 12:23] VITALS: BP 163/77; PULSE 79; TEMP 36.9; O2SAT 99
[2017-10-26] MEDS ORDERED: CLOP1TAB5 PO (13:47)
[2017-10-26] MEDS ORDERED: NTRSLP4 SL (13:47)
[2017-10-26] MEDS ORDERED: LPT10 PO (13:47)
[2017-10-26] MEDS ORDERED: TPRSR25 PO (13:47)
--- NOTE | 2017-10-26 13:57 | Progress Note ---
Medicine Progress Note Date & Time of Visit: October 26, 2017 at 13:49. Subjective seen resting in bed, comfortable in good spirits states she feels much better overall denies recurrence of chest pain no dyspnea, dizziness, nausea no bleeding denies other symptoms states she is ready and would like to be discharged today Objective Last 8 Hrs Date Time Temp Pulse Resp B/P (MAP) Pulse Ox O2 Delivery O2 Flow Rate FiO2 10/26/17 12:23 36.9 79 20 163/77 (105) 99 Room Air 10/26/17 08:00 Room Air 10/26/17 08:00 36.8 82 16 134/67 (89) 97 Room Air Physical Exam: General-oriented 3, not in distress, speaking sentences, no accessory muscle use Eyes- anicteric Neck- supple, no JVD Lungs- clear breath sounds bilaterally Heart- regular rhythm; no murmur, normal rate Abdomen- normal bowel sounds, soft, nontender Extremities- no pretibial edema, no calf tenderness Neuro- alert, oriented x 3; no gross focal motor or sensory deficits Skin- warm & dry Laboratory Results: Last 24 Hours Test 10/25/17 16:28 10/25/17 20:45 10/26/17 07:36 Bedside Glucose 127 mg/dl 119 mg/dl 182 mg/dl Assessment & Plan NON-ST ELEVATION MYOCARDIAL INFARCTION Status post cardiac cath with stent placement to the RCA on October 25, [address] En Aguilar added to aspirin Metoprolol started Continue atorvastatin discharge medications per Cardiology recommendations: ASA 81mg po daily Plavix 75mg po daily Metoprolol 25mg po daily Atorvastatin 10mg po daily ff up with [facility] Dr. Fish in 2 weeks DIABETES MELLITUS TYPE 2 A1c 6.6 resume Metformin 72 hours after Cardiac Cath (Sunday October 29, 2017) resume Januvia CODE STATUS full code DISPOSITION discharge home ff up with PCP in 3-5 days ff up with [facility] Dr. Fish in 2 weeks Current Inpatient Medications: Current Inpatient Medications Medications (Trade) Dose Ordered Sig/Saul Route Start Time Stop Time Status Last Admin Dose Admin Miscellaneous (Iv Fluids Completed) 1 ea PRN PRN N/A 10/25/17 01:45 10/25/18 01:44 Multivitamins (Multivitamin Tab) 1 tab DAILY PO 10/25/17 09:00 11/24/17 08:59 Glucose (Glucose 40% Gel) 15-30 GRAMS 15 GRAMS... UD PRN PO 10/25/17 03:45 11/24/17 03:44 Glucose (Glucose Chew Tab) 4-8 Tablets 4 Tabl... UD PRN PO 10/25/17 03:45 11/24/17 03:44 Dextrose (Dextrose 50% 50ML Syringe) 25-50ML 25ML FOR ... UD PRN IV 10/25/17 03:45 11/24/17 03:44 Glucagon (Glucagon Inj) 1 mg UD PRN SQ 10/25/17 03:45 11/24/17 03:44 Carbohydrates (Carbohydrates For Hypoglycemia) 15-30 GRAMS 15 grams if BSG 54-69... UD PRN PO 10/25/17 03:45 11/24/17 03:44 Pantoprazole Sodium (Protonix Tab) 40 mg QAM PO 10/25/17 09:00 11/24/17 08:59 Nitroglycerin (Nitrostat Tab) 0.4 mg PRN PRN SL 10/25/17 07:00 11/24/17 06:59 Aspirin (Ecotrin Tab) 81 mg QAM PO 10/26/17 09:00 11/25/17 08:59 10/26/17 08:12 81 MG Insulin Aspart (novoLOG ASPART) SLIDING SCALE If C... ACHS SC 10/25/17 16:15 11/24/17 16:14 Clopidogrel Bisulfate (plAVix TAB) 300 mg TODAY@1600 ONCE PO 10/26/17 16:00 10/26/17 16:01 Metoprolol Succinate (Toprol Xl Tab) 25 mg QAM PO 10/27/17 09:00 11/26/17 08:59 Atorvastatin Calcium (Lipitor Tab) 10 mg QAM PO 10/27/17 09:00 11/26/17 08:59
--- NOTE | 2017-10-26 14:07 | Discharge Instructions ---
Discharge Instructions Date of Service October 26, 2017. Admission Reason for Admission: Chest Pain Discharge Discharge Diagnosis / Problem: NON ST ELEVATION MYOCARDIAL INFARCTION Discharge Goals Goal(s): Diagnostic testing, Therapeutic intervention Activity Recommendations Activity Limitations: as noted below (NO HEAVY EXERTION UNTIL RE-EVALUATED BY PRIMARY CARE PHYSICIAN.) Lifting Limitations: until after follow-up appointment Exercise/Sports Limitations: until after follow-up appointment Driving or Machine Use: NO DRIVING UNTIL RE-EVALUATED BY PRIMARY CARE PHYSICIAN . Instructions / Follow-Up Instructions / Follow-Up PLEASE REVIEW YOUR NEW MEDICATION LIST AND ALWAYS FOLLOW INSTRUCTIONS CAREFULLY. DO NOT TAKE METFORMIN UNTIL SUNDAY OCTOBER 29, 2017. FOLLOW UP WITH PRIMARY CARE PHYSICIAN DR. ISAMAR PAZ (ASSOCIATE OF DR. MG) ON SATURDAY OCTOBER 28, 2017 AT 1:00PM AT [facility]. FOLLOW UP WITH DISASTER OR DAMAGE CONTROL SPECIALIST DR. BOYLE IN 2 WEEKS. THE CLINIC WILL CALL YOU FOR AN APPOINTMENT. Home Care: * Take your medications exactly as directed. Don't skip doses. * Remember that recovery after a heart attack takes time. Plan to rest for at lease 4-8 weeks while you recover. Then return to normal activity when your doctor says it's okay. * Ask your doctor about joining a heart rehabilitation program. * Tell your doctor if you are feeling depressed. Feelings of sadness are common after a heart attack, but it is important that you speak to someone if you are feeling overwhelmed by these feelings. * If you are having chest pain, call 911 for an ambulance. Do NOT drive yourself to the hospital. * Ask your family members to learn CPR. * Learn to take your own blood pressure and pulse. Keep a record of your results. Ask your doctor when you should seek emergency medical attention. He or she will tell you which blood pressure reading is dangerous. Lifestyle Changes: * Maintain a healthy weight. Get help to lose any extra pounds. * Cut back on salt. * Limit canned, dried, packaged, and fast foods. * Don't add salt to your food. * Season foods with herbs instead of salt when you cook. * Break the smoking habit. Enroll in a stop-smoking program to improve your chances of success. * Limit fatty foods. * Ask your doctor about having your lipid levels checked regularly. * Build up your activity according to your doctor's recommendation. * Ask your doctor when it's okay to resume sexual activity. * Try to manage stress. Follow Up: It is important for you to keep your follow up appointments with your medical provider. Current Hospital Diet Patient's current hospital diet: Diabetes Type 2 Diet, AHA Diet (Heart Healthy) Discharge Diet Recommended Diet: AHA Diet (Heart Healthy), Diabetes Type 2 Diet Procedures Procedures Performed: CARDIAC CATHETERIZATION Pending Studies Studies pending at discharge: yes List of pending studies: REPEAT BLOODWORK SCHEDULED Laboratory Results Hemoglobin A1c Test 10/25/17 05:29 Range/Units Estimated Average Glucose 143 mg/dl Hemoglobin A1c 6.6 H 4.5-5.6 % Lipid Panel Test 10/25/17 05:29 Range/Units Triglycerides Level 92 0-150 mg/dl Cholesterol Level 179 0-200 mg/dl HDL Cholesterol 53 mg/dl Cholesterol/HDL Ratio 3.4 LDL Cholesterol, Calculated 108 mg/dl Medical Emergencies . Who to Call and When: Medical Emergencies: If at any time you feel your situation is an emergency, please call 911 immediately. Call 911 immediately or go to your nearest Emergency Room if you experience any of the following: Warning Signs and Symptoms of a Heart Attack * Chest pain that is not relieved by medication * Shortness of breath . Non-Emergent Contact Non-Emergency issues call your: Primary Care Provider, Analyst Business Analysis Call Non-Emergent contact if: you have a fever, your pain is not controlled, your pain is worsening, wound has increased drainage, wound has increased redness, wound has increased pain, you have any medication questions . . "Provider Documentation" section prepared by Alexander Mtz. . AMI Core Measures Reason no ASA as I/P: Treatment provided - N/A Reason no ASA at D/C: Treatment provided - N/A Reason no statin as I/P: Treatment provided - N/A Reason no statin at D/C: Treatment provided - N/A
--- NOTE | 2017-10-26 14:15 | Discharge Summary ---
Discharge Summary Date of Service October 26, 2017. Discharge Summary Admission Date: October 25, 2017 at 01:18 Discharge Date: October 26, 2017 Discharge Disposition: Home Principal Diagnosis: NON-ST ELEVATION MYOCARDIAL INFARCTION Secondary Diagnoses/Problems: Please refer to hospital course below. Procedures: s/p CARDIAC CATHETERIZATION/STENT TO THE RCA PLACEMENT DR. OCAMPO/ DR. ZACKARY HILL Consultations: AQUATIC DIRECTOR DR. BOYLE Pending Studies/Follow-Up: PLEASE REFER TO HOSPITAL COURSE BELOW. Medication Reconciliation New Medications: Clopidogrel Bisulfate (Plavix) 75 Mg Tab 1 TAB PO DAILY for 30 Days, #30 TAB 2 Refills Atorvastatin (Lipitor) 10 Mg Tab 10 MG PO QAM for 30 Days, #30 TAB 2 Refills Metoprolol Succinate (Metoprolol Succinate ER) 25 Mg Tabcr 25 MG PO QAM for 30 Days, #30 TAB 2 Refills Nitroglycerin (Nitrostat) 0.4 Mg/1 Tab Subl 0.4 MG SL PRN PRN for Chest Pain for 30 Days, #20 TABS 1 Refill take 1 dose for chest pain. If pain is unrelieved3 to 5 minutes after 1 dose, call 911 immediately Continued Medications: Aspirin (Aspir-81) 81 Mg Tab 81 MG PO DAILY, TAB Metformin Hcl (Glucophage) 850 Mg Tab 850 MG PO BID, TAB Multivitamin (Multivitamin) Tab 1 TAB PO DAILY, TAB Sitagliptin Phosphate (Januvia) 100 Mg Tab 100 MG PO DAILY, TAB Admission Information HPI (per Admitting provider): 67 years old female with past medical history of type 2 diabetes, dyslipidemia, hypertension presented to the ER with chief complaint of chest pain. Patient said today while walking with her dog she developed a substernal chest pain. She said that she thought the pain seems to be related with her acid since she had her dinner about 2 hours prior and she was burping before the pain start. Patient said she went home and lying down, she said the pain worsening and it was located now in the left side of her chest. Then, she developed an achy pain in her left upper extremity and her facial area. Patient described the left-sided chest pain as achy like, grade 5/10. She said by the time she got to the ER the pain resolved. Denies any diaphoresis, vomiting, shortness of breath, palpitation, fever and chills. Physical Exam (per Admitting): General Appearance: WD/WN, no apparent distress Head: normocephalic, atraumatic Eyes: PERRL, EOMI ENT: hearing grossly normal Neck: no JVD, trachea midline Respiratory/Chest: chest non-tender, normal breath sounds, no respiratory distress, no accessory muscle use Cardiovascular: regular rate, rhythm, no JVD Abdomen/GI: normal bowel sounds, non tender, soft Back: no CVA tenderness Extremities/Musculoskelatal: no calf tenderness Neurologic/Psych: no motor/sensory deficits, alert, normal mood/affect, oriented x 3 Skin: warm/dry, no rash Hospital Course NON-ST ELEVATION MYOCARDIAL INFARCTION presented with left sided chest discomfort troponin increased from 0.1 to 0.2 ekg showed new t wave changes - lead III and avf Status post cardiac cath with stent placement to the RCA on October 25, [address] Zackary Hill Brilinta added to aspirin--> changed to Plavix for insurance coverage reasons Metoprolol started Continued atorvastatin discharge medications per Cardiology recommendations: ASA 81mg po daily Plavix 75mg po daily Metoprolol 25mg po daily Atorvastatin 10mg po daily ff up with Super[employer]ide[employer] Dr. Boyle in 2 weeks DIABETES MELLITUS TYPE 2 A1c 6.6 resume Metformin 72 hours after Cardiac Cath (Sunday October 29, 2017) resume Januvia DISPOSITION discharge home ff up with PCP in 3-5 days ff up with Supervising Film [employer] Videot[employer] Editor Dr. Boyle in 2 weeks Total time spent on discharge = 40 minutes This includes examination of the patient, discharge planning, medication reconciliation, and communication with other providers. Discharge Instructions Discharge Instructions Date of Service October 26, 2017. Admission Reason for Admission: Chest Pain Discharge Discharge Diagnosis / Problem: NON ST ELEVATION MYOCARDIAL INFARCTION Discharge Goals Goal(s): Diagnostic testing, Therapeutic intervention Activity Recommendations Activity Limitations: as noted below (NO HEAVY EXERTION UNTIL RE-EVALUATED BY PRIMARY CARE PHYSICIAN.) Lifting Limitations: until after follow-up appointment Exercise/Sports Limitations: until after follow-up appointment Driving or Machine Use: NO DRIVING UNTIL RE-EVALUATED BY PRIMARY CARE PHYSICIAN . Instructions / Follow-Up Instructions / Follow-Up PLEASE REVIEW YOUR NEW MEDICATION LIST AND ALWAYS FOLLOW INSTRUCTIONS CAREFULLY. DO NOT TAKE METFORMIN UNTIL SUNDAY OCTOBER 29, 2017. FOLLOW UP WITH PRIMARY CARE PHYSICIAN DR. ISAMAR PAZ (ASSOCIATE OF DR. MG) ON SATURDAY OCTOBER 28, 2017 AT 1:00PM AT [facility]. FOLLOW UP WITH AQUATIC DIRECTOR DR. BOYLE IN 2 WEEKS. THE CLINIC WILL CALL YOU FOR AN APPOINTMENT. Home Care: * Take your medications exactly as directed. Don't skip doses. * Remember that recovery after a heart attack takes time. Plan to rest for at lease 4-8 weeks while you recover. Then return to normal activity when your doctor says it's okay. * Ask your doctor about joining a heart rehabilitation program. * Tell your doctor if you are feeling depressed. Feelings of sadness are common after a heart attack, but it is important that you speak to someone if you are feeling overwhelmed by these feelings. * If you are having chest pain, call 911 for an ambulance. Do NOT drive yourself to the hospital. * Ask your family members to learn CPR. * Learn to take your own blood pressure and pulse. Keep a record of your results. Ask your doctor when you should seek emergency medical attention. He or she will tell you which blood pressure reading is dangerous. Lifestyle Changes: * Maintain a healthy weight. Get help to lose any extra pounds. * Cut back on salt. * Limit canned, dried, packaged, and fast foods. * Don't add salt to your food. * Season foods with herbs instead of salt when you cook. * Break the smoking habit. Enroll in a stop-smoking program to improve your chances of success. * Limit fatty foods. * Ask your doctor about having your lipid levels checked regularly. * Build up your activity according to your doctor's recommendation. * Ask your doctor when it's okay to resume sexual activity. * Try to manage stress. Follow Up: It is important for you to keep your follow up appointments with your medical provider. Current Hospital Diet Patient's current hospital diet: Diabetes Type 2 Diet, AHA Diet (Heart Healthy) Discharge Diet Recommended Diet: AHA Diet (Heart Healthy), Diabetes Type 2 Diet Procedures Procedures Performed: CARDIAC CATHETERIZATION Pending Studies Studies pending at discharge: yes List of pending studies: REPEAT BLOODWORK SCHEDULED Laboratory Results Hemoglobin A1c Test 10/25/17 05:29 Range/Units Estimated Average Glucose 143 mg/dl Hemoglobin A1c 6.6 H 4.5-5.6 % Lipid Panel Test 10/25/17 05:29 Range/Units Triglycerides Level 92 0-150 mg/dl Cholesterol Level 179 0-200 mg/dl HDL Cholesterol 53 mg/dl Cholesterol/HDL Ratio 3.4 LDL Cholesterol, Calculated 108 mg/dl Medical Emergencies . Who to Call and When: Medical Emergencies: If at any time you feel your situation is an emergency, please call 911 immediately. Call 911 immediately or go to your nearest Emergency Room if you experience any of the following: Warning Signs and Symptoms of a Heart Attack * Chest pain that is not relieved by medication * Shortness of breath . Non-Emergent Contact Non-Emergency issues call your: Primary Care Provider, Supervising Film Or Videotape Editor Call Non-Emergent contact if: you have a fever, your pain is not controlled, your pain is worsening, wound has increased drainage, wound has increased redness, wound has increased pain, you have any medication questions . . "Provider Documentation" section prepared by Alexander Mtz. . AMI Core Measures Reason no ASA as I/P: Treatment provided - N/A Reason no ASA at D/C: Treatment provided - N/A Reason no statin as I/P: Treatment provided - N/A Reason no statin at D/C: Treatment provided - N/A
[2017-10-26 15:47] VITALS: BP 163/77; PULSE 79; TEMP 36.9; O2SAT 99
[2017-10-26] MEDS ORDERED: CLOPIDOGREL BISULFATE 300 MG TAB PO ONE (16:00)
[2017-10-26 16:15] VITALS: BP 114/86; PULSE 108; TEMP 36.7; O2SAT 95
[2017-10-27] MEDS ORDERED: ATORVASTATIN 20 MG TAB PO SCH (09:00)
[2017-10-27] MEDS ORDERED: LISINOPRIL 2.5 MG TAB PO SCH (09:00)
[2017-10-27] MEDS ORDERED: ATORVASTATIN 10 MG TAB PO SCH (09:00)
[2017-10-27] MEDS ORDERED: METOPROLOL SUCC 25MG EXT REL TAB PO SCH (09:00)
== END 2017-10-26 16:15 | disposition home or self-care (01) ==
LOC: C.EDB 22:42 → C.MED 10-25 01:18 → ENRESERV 10-25 01:40 → C.2E 10-25 11:05
PROVIDERS: ADMIT Internal Medicine; ATTEND Internal Medicine
DX: I21.4 Non-ST elevation (NSTEMI) myocardial infarction (principal); I25.10 Atherosclerotic heart disease of native coronary artery without angina pectoris; E11.9 Type 2 diabetes mellitus without complications; I10 Essential (primary) hypertension; E78.5 Hyperlipidemia, unspecified; Z82.49 Family history of ischemic heart disease and other diseases of the circulatory system; Z79.82 Long term (current) use of aspirin; Z79.84 Long term (current) use of oral hypoglycemic drugs; Z79.899 Other long term (current) drug therapy; Z88.8 Allergy status to other drugs, medicaments and biological substances
CPT/HCPCS: 93458; C9600

== ENCOUNTER 2023-05-19 00:05 | Inpatient (IN) ==
[2023-05-19] MEDS ORDERED: oxyCODONE HCL IR 5 MG TAB (IMMEDIATE RELEASE) PO STA (00:57)
--- NOTE | 2023-05-19 00:59 | Emergency Department Note ---
History of Present Illness General Chief complaint: Wrist Pain Stated complaint: WRIST INJURY - RT Time Seen by Provider: 05/19/23 00:20 History of Present Illness Maximum Pain Intensity: 2 NAME: MAIKOL MORENO AGE: 73 SEX: F : 1950 ARRIVES VIA: Walk-In INFORMANT: Patient ED PROVIDER(S): SANGEETA Dobbs, Bernardino Jenkins MD The patient is a 73-year-old female who arrives to the emergency department for evaluation of right wrist pain after walking her dog and tripping. The patient has an obvious deformity, there is ecchymosis noted to the top of the hand. She is neurovascularly intact upon assessment. She denies any pain in her forearm elbow or shoulder. She did not hit her head, and she had no precipitating events. Home Medications Medication Instructions Recorded Confirmed Type aspirin 81 mg tablet,delayed 81 mg PO QAM 05/19/23 05/19/23 History release glipizide 5 mg tablet, extended 5 mg PO QAM 05/19/23 05/19/23 History release 24 hr metformin 850 mg tablet 850 mg PO BID 05/19/23 05/19/23 History metoprolol succinate 25 mg 37.5 mg PO QAM 05/19/23 05/19/23 History tablet,extended release 24 hr multivitamin 1 tab PO DAILY 05/19/23 05/19/23 History nitroglycerin 0.4 mg sublingual 0.4 mg sublingual UD PRN Chest Pain 05/19/23 05/19/23 History tablet rosuvastatin 5 mg tablet 5 mg PO QAM 05/19/23 05/19/23 History Allergies Allergy/AdvReac Type Severity Reaction Status Date / Time albuterol Allergy Unknown tachycardia Verified 05/19/23 01:00 Past Med/Surg History Medical History Diabetes mellitus, type II Surgical History (Updated 05/19/23 @ 01:44 by Pablo Roque MD) Stented coronary artery Social History Smoking Status: Former smoker Tobacco Type: Cigarettes Feels Safe at Home: Yes Physical Exam Vital Signs Vital Signs - 24 hr 05/19/23 00:12 05/19/23 01:28 05/19/23 01:28 Temperature 36.0 C L Temperature Source Temporal Artery Scan Pulse Rate 80 85 Pulse Rate from SpO2 Sensor Respiratory Rate 20 15 Respiratory Effort / Characteristics Non-Labored Spontaneous Respiratory Depth Normal Blood Pressure 148/66 H 154/71 H Blood Pressure Mean 93 92 Pulse Oximetry 100 Oxygen Delivery Method Room Air Sepsis New/Unexplained Change in Mental Status No Sepsis Action Taken by Nursing No Action Required 05/19/23 01:30 05/19/23 01:30 05/19/23 01:40 Temperature Temperature Source Pulse Rate 90 104 H Pulse Rate from SpO2 Sensor 90 Respiratory Rate 16 24 Respiratory Effort / Characteristics Respiratory Depth Blood Pressure 164/81 H Blood Pressure Mean 122 Pulse Oximetry 100 Oxygen Delivery Method Sepsis New/Unexplained Change in Mental Status Sepsis Action Taken by Nursing 05/19/23 01:50 05/19/23 02:00 Temperature Temperature Source Pulse Rate 88 89 Pulse Rate from SpO2 Sensor 88 89 Respiratory Rate 18 14 Respiratory Effort / Characteristics Respiratory Depth Blood Pressure Blood Pressure Mean Pulse Oximetry 100 99 Oxygen Delivery Method Sepsis New/Unexplained Change in Mental Status Sepsis Action Taken by Nursing General: Awake, alert and oriented. No acute distress. Well developed, hydrated and nourished. Appears stated age. Skin: Skin in warm, dry and intact without rashes or lesions. Appropriate color for ethnicity. Nailbeds pink with no cyanosis or clubbing. Head: The head is normocephalic and atraumatic without tenderness, visible or palpable masses, depressions, or scarring. Hair is of normal texture and evenly distributed. Neck: The neck is supple without adenopathy. Trachea is midline. Thyroid gland is normal without masses. Carotid pulse 2+ bilaterally without bruit. No JVD. Cardiac: The external chest is normal in appearance without lifts, heaves, or thrills. Heart rate and rhythm are normal. No murmurs, gallops, or rubs are auscultated. S1 and S2 are heard and are of normal intensity. Respiratory: The chest wall is symmetric and without deformity. No signs of trauma. Chest wall is non-tender. No signs of respiratory distress. Lung sounds are clear in all lobes bilaterally without rales, rhonchi, or wheezes. Abdominal: Abdomen is soft, symmetric, and non-tender without distention. There are no visible lesions or scars. The aorta is midline without bruit or visible pulsation. Umbilicus is midline without herniation. Bowel sounds are present and normoactive in all four quadrants. No masses, hepatomegaly, or splenomegaly are noted. Spine: Neck and back are without deformity, external skin changes, or signs of trauma. Curvature of the cervical, thoracic, and lumbar spine are within normal limits. Bony features of the shoulders and hips are of equal height bilaterally. No tenderness noted on palpation of the spinous processes. Spinous processes are midline. Cervical, thoracic, and lumbar paraspinal muscles are not tender and are without spasm. No discomfort is noted with flexion, extension, and mxbw-[id number] rotation of the cervical spine, full range of motion is noted. Full range of motion including flexion, extension, and [id number] rotation of the thoracic and lumbar spine are noted and without discomfort. Straight leg raise test is negative bilaterally. Sensation to the upper and lower extremities is normal bilaterally. No clonus is noted. Credit Rating Inspector strength is normal bilaterally. Dorsi/plantar flexion is normal bilaterally. Extremities: Lower extremities are atraumatic in appearance without tenderness or deformity. Right wrist deformity, edema, ecchymosis. Pt is able to touch thumb to all fingers, and make hitchiker sign. Muscle strength is 5/5 bilaterally. Tendon function is normal. Capillary refill is less than 3 seconds in all extremities. Pulses palpable. Neurological: The patient is awake, alert and oriented to person, place, and time with normal speech. Motor function is normal with muscle strength 5/5 bilaterally to upper and lower extremities. Sensation is intact bilaterally. Reflexes 2+ bilaterally. Cranial nerves are intact. Cerebellar function is intact. Memory is normal and thought process is intact. Psychiatric: Appropriate mood and affect. Good judgement and insight. No visual or auditory hallucinations. No suicidal or homicidal ideation. Course Consultations Consultation #1: Dr. Roque was consulted for orthopedic reduction. He will use a hematoma block for anesthetic. Time: 01:39 Consultation #2: Dr. Mclean was consulted for the incidental EKG findings. Troponin 5.0. Time: 02:05 Administered Medications Heparin Sodium/Dextrose (Heparin Sodium/Dextrose) 25,000 units in 500 mls @ 14 mls/hr IV .Q24H [facility]; Protocol Stop: 06/18/23 02:44 Last Admin: 05/19/23 03:33 Dose: 700 units/hr, 14 mls/hr Documented By: KIA Co-signed By: NAINA Discontinued Medications Aspirin (Aspirin Chew 324 Mg) 324 mg PO NOW STA Stop: 05/19/23 02:49 Last Admin: 05/19/23 03:09 Dose: 324 mg Documented By: KIA Bupivacaine HCl (Bupivacaine 0.5 % 5 Mg/1 Ml Mpf 30ml Vial) 30 ml INFIL NOW ONE Stop: 05/19/23 01:27 Last Admin: 05/19/23 01:42 Dose: 30 ml Documented By: VICENAT Heparin Sodium (Porcine) (Heparin Sod (Porcine) 1000 Unit/Ml) 4,000 units IV NOW ONE Stop: 05/19/23 03:01 Last Admin: 05/19/23 03:35 Dose: 4,000 units Documented By: KIA Co-signed By: NAINA Heparin Sodium/Dextrose (Heparin Iv Adult Wt-Based Low-Dose W/ Initial Bolus Protocol) 1 each IV NOW STA; Protocol Stop: 05/19/23 02:25 Last Admin: 05/19/23 03:34 Dose: 1 each Documented By: KIA Lidocaine/Epinephrine (Lidocaine 1%/Epinephrine 1:100,000 50 Ml Vial) 30 ml INFIL NOW ONE Stop: 05/19/23 01:27 Last Admin: 05/19/23 01:42 Dose: 30 ml Documented By: VICENTA Oxycodone HCl (Oxycodone Hcl Ir 5 Mg Tab (Immediate Release)) 5 mg PO NOW STA Stop: 05/19/23 00:58 Last Admin: 05/19/23 01:10 Dose: 5 mg Documented By: VICENTA Medical Decision Making Differential Diagnosis Fracture, subluxation, dislocation, contusion, ligamentous injury, neurovascular, compartment syndrome, rhabdomyolysis, as well as other pathologies. Medical Records Attestation: I reviewed the patient's medical records. Home Medications Current Medication List: was personally reviewed by me Laboratory Data Slight leukocytosis, troponin 5.0. 05/19/23 01:11 05/19/23 01:11 Lab Results 05/19/23 05/19/23 05/19/23 Range/Units 01:11 01:40 02:54 WBC 10.92 H (4.8-10.8) K/ul RBC 4.29 (4.20-5.40) M/uL Hgb 12.4 (12.0-16.0) g/dl Hct 36.3 L (37.0-47.0) % MCV 84.6 (80.0-100.0) fL MCH 28.9 (25.0-34.0) pg MCHC 34.2 (32.0-36.0) g/dL RDW Std Deviation 39.8 (36.4-46.3) fL RDW Coeff of Kirill 13.1 (11.5-14.5) % Plt Count 300 (130-400) K/uL MPV 9.4 (9.4-12.4) fL Immature Gran % (Auto) 0.3 % Neut % (Auto) 69.9 % Lymph % (Auto) 22.7 % [place] % (Auto) 6.0 % Eos % (Auto) 0.6 % Baso % (Auto) 0.5 % Neut # (Auto) 7.64 H (1.40-6.50) K/uL Lymph # (Auto) 2.48 (1.20-3.40) K/uL [place] # (Auto) 0.65 H (0.11-0.59) K/uL Eos # (Auto) 0.07 (0.00-0.50) K/uL Baso # (Auto) 0.05 (0.00-0.20) K/uL Immature Gran # (Auto) 0.03 (0.01-0.20) K/uL PT 10.9 (9.0-12.0) Seconds INR 1.0 (0.9-1.1) APTT 26 (21-31) Seconds PTT Ratio 0.9 Heparin Anti-Xa, Unfract < 0.10 L (0.3-0.7) IU/ml Sodium 131 L (136-145) mmol/L Potassium 4.3 (3.5-5.1) mmol/L Chloride 97 L (98-107) mmol/L Carbon Dioxide 24 (21-32) mmol/L Anion Gap 10 (3-11) BUN 21 (6-23) mg/dl Creatinine 0.74 (0.6-1.2) mg/dl Est Cr Clr Drug Dosing 61.8 ml/min Est GFR ( Amer) 93.8 ml/min Est GFR (Non-Af Amer) 80.9 ml/min BUN/Creatinine Ratio 28.4 H (10-20) Glucose 142 H (70-99(Fasting)) mg/dl Calcium 10.0 (8.6-10.3) mg/dl Total Bilirubin 0.4 (0.2-1.0) mg/dl AST 28 (13-39) U/L ALT 17 (7-52) U/L Alkaline Phosphatase 35 (34-104) U/L Troponin I High Sens 5.0 4.9 (0-14) pg/ml Total Protein 7.8 (6.0-8.3) gm/dl Albumin 4.3 (3.4-5.0) gm/dl Globulin 3.5 (2.5-4.0) gm/dl Albumin/Globulin Ratio 1.2 (0.9-2) Imaging Data Attestation: I personally reviewed and interpreted this imaging study as follows: My Impression: Initial impression distal radial head fracture, dislocation, ulnar styloid fracture. Blood Pressure Blood Pressure Findings: Elevated blood pressure Blood Pressure Disposition: elevated BP felt to be situational Head Trauma GCS Score: 15 MDM Narrative The patient is a 73-year-old female who arrives to the emergency department for the above-stated complaint. Upon examination the patient is neurovascularly intact. The patient does have an obvious deformity of the right wrist. X-ray imaging shows a distal radial head fracture with dislocation, as well as a ulnar styloid fracture. The patient was provided 5 mg of oxycodone by mouth for pain. Dr. Roque was consulted as well as my attending physician Dr. Jenkins. Dr. Roque initially recommended moderate sedation with reduction. An EKG was performed for a preop purpose, which showed an incidental ST depression lateral and inferiorly. The patient does have a known history of a prior PCI. The patient reports no chest pain now or within the last few months to a year. I have the access was obtained, basic labs as well as a troponin were ordered. Based on the EKG findings and the short timeframe since the patient last ate Dr. Roque chose to do a hematoma block. Cardiology will be consulted with the results of troponin as well as the incidental EKG findings. Dr. Mclean was consulted, he recommended to consult interventional cardiology based on the infarct pattern of the EKG. The patient was admitted to [facility] at [address]30. Dr. Jenkins placed orders to heparinize the patient, a repeat EKG was ordered at this time at this time, which looks closer to baseline. Impression & Plan Fracture of wrist Discharge Plan Visit Data Chief Complaint: Wrist Pain Stated Complaint: WRIST INJURY - RT ED Provider: Bernardino Jenkins ED Midlevel Provider: Evangelina Bhatti Discharge Problem: Fracture of wrist Discharge Instructions Interventions: ED Discharge Assessment Last Done: 05/19/23 03:49
[2023-05-19] MEDS ORDERED: BUPIVACAINE 0.5 % 5 MG/1 ML MPF 30ML VIAL INFIL ONE (01:26)
[2023-05-19] MEDS ORDERED: LIDOCAINE 1%/EPINEPHRINE 1:100,000 50 ML VIAL INFIL ONE (01:26)
--- NOTE | 2023-05-19 01:47 | Orthopedic Consultation ---
Date of Consultation May 19, 2023 Assessment & Plan (1) Closed fracture of right wrist: IMPRESSION: R distal radius and Ulnar styloid fractures, displaced, closed. PLAN: Discussed findings with patient and . Recommended closed reduction following hematoma block. Risks and benefits discussed. Consent signed. RICE Patient tolerated CR well refer to procedure note for further details Cast care instructions and compartment syndrome warning signs given. Follow-up in 1 week in the office with x-rays in plaster. Present on Admission?: Yes History of Present Illness Reason for Consultation: R wrist fracture Requesting Physician: Claudette Roque Attending Physician: Fabrizio Bhatti History of Present Illness 73 yo RHD female FODUANE injuring her R wrist. Came to ED x-rays were obtained and I was consulted for further evaluation and treatment of displaced distal radius and ulnar styloid fractures. Patient noting some numbness in her ulnar 1.5 digits. Allergies Allergy/AdvReac Type Severity Reaction Status Date / Time albuterol Allergy Unknown tachycardia Verified 05/19/23 01:00 Home Medications Medication Instructions Recorded Confirmed Type aspirin 81 mg tablet,delayed 81 mg PO QAM 05/19/23 05/19/23 History release glipizide 5 mg tablet, extended 5 mg PO QAM 05/19/23 05/19/23 History release 24 hr metformin 850 mg tablet 850 mg PO BID 05/19/23 05/19/23 History metoprolol succinate 25 mg 37.5 mg PO QAM 05/19/23 05/19/23 History tablet,extended release 24 hr multivitamin 1 tab PO DAILY 05/19/23 05/19/23 History nitroglycerin 0.4 mg sublingual 0.4 mg sublingual UD PRN Chest Pain 05/19/23 05/19/23 History tablet rosuvastatin 5 mg tablet 5 mg PO QAM 05/19/23 05/19/23 History Patient History Medical History Diabetes mellitus, type II Surgical History (Updated 05/19/23 @ 01:44 by Pablo Roque MD) Stented coronary artery Social History Smoking Status: Former smoker Tobacco Type: Cigarettes Feels Safe at Home: Yes Review of Systems Review of Systems: All systems reviewed & are unremarkable except as noted in HPI & below Physical Exam Physical Exam: RUE:Sensation to light touch intact to median distribution, diminished to ulnar 1.5 digits. Motor intact to median, radial, ulnar, AIN, PIN. 2+ radial pulse. Obvious deformity. Skin intact. Tenderness to palpation, distal radius and ulna. No tenderness in anatomic snuff box or volarly about the scaphoid. Results & Data Vital Signs (Past 12 Hours) Vital Signs Temp Pulse Resp BP Pulse Ox O2 Del Method 05/19/23 01:30 90 16 100 05/19/23 01:30 164/81 H 05/19/23 01:28 154/71 H 05/19/23 01:28 85 15 05/19/23 00:12 36.0 C L 80 20 148/66 H 100 Room Air Diagnostic Findings Laboratory Results WBC 10.92 K/ul (4.8-10.8) H 05/19/23 01:11 RBC 4.29 M/uL (4.20-5.40) 05/19/23 01:11 Hgb 12.4 g/dl (12.0-16.0) 05/19/23 01:11 Hct 36.3 % (37.0-47.0) L 05/19/23 01:11 MCV 84.6 fL (80.0-100.0) 05/19/23 01:11 MCH 28.9 pg (25.0-34.0) 05/19/23 01:11 MCHC 34.2 g/dL (32.0-36.0) 05/19/23 01:11 RDW Std Deviation 39.8 fL (36.4-46.3) 05/19/23 01:11 RDW Coeff of Kirill 13.1 % (11.5-14.5) 05/19/23 01:11 Plt Count 300 K/uL (130-400) 05/19/23 01:11 MPV 9.4 fL (9.4-12.4) 05/19/23 01:11 Immature Gran % (Auto) 0.3 % 05/19/23 01:11 Neut % (Auto) 69.9 % 05/19/23 01:11 Lymph % (Auto) 22.7 % 05/19/23 01:11 [place] % (Auto) 6.0 % 05/19/23 01:11 Eos % (Auto) 0.6 % 05/19/23 01:11 Baso % (Auto) 0.5 % 05/19/23 01:11 Neut # (Auto) 7.64 K/uL (1.40-6.50) H 05/19/23 01:11 Lymph # (Auto) 2.48 K/uL (1.20-3.40) 05/19/23 01:11 [place] # (Auto) 0.65 K/uL (0.11-0.59) H 05/19/23 01:11 Eos # (Auto) 0.07 K/uL (0.00-0.50) 05/19/23 01:11 Baso # (Auto) 0.05 K/uL (0.00-0.20) 05/19/23 01:11 Immature Gran # (Auto) 0.03 K/uL (0.01-0.20) 05/19/23 01:11 Radiology: 3 views right wrist show a displaced distal radius and ulnar styloid fractures. (1) Closed fracture of right wrist Encounter type: initial encounter Qualified Code(s): S62.101A - Fracture of unspecified carpal bone, right wrist, initial encounter for closed fracture
--- NOTE | 2023-05-19 01:50 | Emergency Department Note ---
ED Visit Note I was consulted by the Advanced Practice Provider SANGEETA Dobbs. I personally made/approved the management plan and take responsibility for the patient management. I performed a substantive portion of the visit. This includes the aspects of: -MDM Patient presented due to concern for a fall while playing with the dog and suffered a right wrist fracture. After speak with orthopedics they were requesting a possible sedation so screening EKG and blood work were obtained given the patient's prior history of CAD. Patient's EKG showed possible inferior [place] elevations with associated depressions in the lateral and high lateral leads. The seem to be an acute change from the comparison I could review from December 23, 2021 given these concerns does not think the patient could be sedated and would need to be discussed further with cardiology. After further discussion recommend repeating an EKG and potentially discussing with interventional cardiology. Patient has no chest pain or shortness of breath this does not feel similar to when she had prior CA in the past which was associated with chest discomfort associated jaw pain and burping. I consulted with Dr. Roque who did perform a hematoma block and reduce the patient's right upper extremity fracture. Subsequently did speak with Dr. Mclean with [facility] cardiology room recommended EKG and if still concerning considering discussing with interventional cardiology. Patient was ordered IV heparin and aspirin. After review of the patient's repeat EKG he does agree the patient should be admitted but does not necessarily think that the patient needs to go to the [facility] especially in light of the patient's lack of symptoms. Repeat troponin is negative. I did convey these recommendations to Dr. Tapia who is the admitting physician. Critical Care: I have personally spent 35 minutes of critical care time in direct management of this patient. This includes bedside care, interpretation of diagnostic studies, and testing, discussion with consultants, patient, and family members, and other require inpatient management activities. This 35 minutes is in excess of all separately billable procedures. -I independently interpreted the following studies: EKG at 116 Normal sinus rhythm, rate of 80, normal intervals, right axis deviation, borderline elevation inferiorly with depressions in the lateral and high lateral leads which is an acute change from comparison December 23, 2021 Repeat EKG obtained at 244 Normal sinus rhythm, rate of 79, normal intervals, normal axis, T wave inversions and depressions inferiorly. This is a change from the prior completed. Imaging: I informally interpreted the patient's right wrist x-ray which does show fracture. .
[2023-05-19 01:54] LABS: Basophils # (auto) 0.05 K/uL (0.00-0.20); Basophils % (auto) 0.5 %; Eosinophils # (auto) 0.07 K/uL (0.00-0.50); Eosinophils % (auto) 0.6 %; Hematocrit (blood only) 36.3 % (37.0-47.0); Hemoglobin 12.4 g/dl (12.0-16.0); Immature Granulocytes # (auto) 0.03 K/uL (0.01-0.20); Immature Granulocytes % (auto) 0.3 %; Lymphocytes # (auto) 2.48 K/uL (1.20-3.40); Lymphocytes % (auto) 22.7 %; Mean Corpuscular Hemoglobin 28.9 pg (25.0-34.0); Mean Corpuscular Hgb Conc 34.2 g/dL (32.0-36.0); Mean Corpuscular Volume 84.6 fL (80.0-100.0); Mean Platelet Volume 9.4 fL (9.4-12.4); Monocytes # (auto) 0.65 K/uL (0.11-0.59); Neutrophils # (auto) 7.64 K/uL (1.40-6.50); Neutrophils % (auto) 69.9 %; Platelet Count 300 K/uL (130-400); RDW Coefficient of Variation 13.1 % (11.5-14.5); RDW Standard Deviation 39.8 fL (36.4-46.3); Red Blood Count 4.29 M/uL (4.20-5.40); White Blood Count 10.92 K/ul (4.8-10.8)
[2023-05-19 02:05] LABS: Albumin Globulin Ratio 1.2 (0.9-2); Albumin Level 4.3 gm/dl (3.4-5.0); BUN Creatinine Ratio 28.4 (10-20); Bilirubin,Total 0.4 mg/dl (0.2-1.0); Creatinine Clr Calc Pharmacy 61.8 ml/min; Est GFR (African American) 93.8 ml/min; Est GFR (Non-African American) 80.9 ml/min; Globulin 3.5 gm/dl (2.5-4.0); Potassium 4.3 mmol/L (3.5-5.1); Total Protein 7.8 gm/dl (6.0-8.3)
--- NOTE | 2023-05-19 02:09 | Operative Report ---
Post Operative Report Pre & Post Diagnosis Pre-Op Dx: Closed, displaced distal radius and non displaced ulnar styloid fractures Post-Op Dx: Closed, displaced distal radius and non displaced ulnar styloid fractures I identified the patient and participated in the time-out.: Yes Procedure Closed reduction right wrist fracture Surgeon Pablo Roque MD Horse Racetrack Manager n/a Estimated Blood Loss 0 Findings Consistent with Post-Op Diagnosis Specimens n/a Complications none Indications 73 yo RHD F sustained a displaced R wrist fx following a FOOSH. Description of Procedure A multidisciplinary time-out was performed identifying the correct patient and the right upper limb as the correct and operative limb for closed reduction. The fracture was palpated and dorsal edge marked. The area was prepped with Betadine followed by an alcohol wipe.Then a combination of 1% Lidocaine with epi and 0.5% Marcaine for total of 10 cc was used to preform a hematoma block in the standard fashion. The patient was placed in finger traps with 10 pounds of counter traction on the humerus. After several minutes, a closed reduction was preformed in the standard fashion by re-creating the injury and reducing the fragments. There was improved alignment. There was near anatomic reduction of the distal radius and ulna fractures that was maintained while applying the sugar tong splint. The sugar tongue splint was well padded and given a 3-point mold. Portable x- rays again showed a near anatomic reduction. The patient tolerated the procedure well and had improved sensation in all digits, her motor was intact, her pain was reduced. POST-OP INSTRUCTIONS. The patient will continue with the splint until their follow-up for minimum 2 weeks. The patient will follow up with me within 7 days with repeat x-rays AP and lateral of the right wrist in plaster. Pain medication was given to be used as needed. Ice and elevate the affected hand. They were given cast care and compartment syndrome warning signs. No lifting with affected hand. I attest to the content of the Intraoperative Record and any orders documented therein. Any exceptions are noted below.
[2023-05-19] MEDS ORDERED: Heparin IV Adult Wt-Based Low-Dose w/ INITIAL Bolus Protocol IV STA (02:24)
[2023-05-19] MEDS ORDERED: HEPARIN SOD (PORCINE) 1000 UNIT/ML IV ONE ×2 (02:40→03:00)
[2023-05-19] MEDS ORDERED: ASPIRIN CHEW 324 MG PO STA (02:48)
[2023-05-19 03:24] LABS: ANTI-Xa, UFH(UnfractionatedHep < 0.10 IU/ml (0.3-0.7); Partial Thromboplastin Ratio 0.9; Partial Thromboplastin Time 26 Seconds (21-31); Prothrombin Time 10.9 Seconds (9.0-12.0)
[2023-05-19] MEDS: HEPARIN SODIUM/DEXTROSE 25,000 UNITS/500 ML BAG IV SCH (03:33)
[2023-05-19] MEDS ORDERED: NITROGLYCERIN SL 0.4 MG/TAB TAB SL PRN ×2 (03:48)
[2023-05-19] MEDS ORDERED: POLYETHYLENE (MIRALAX) 17 GM PACK PO PRN (03:48)
[2023-05-19] MEDS ORDERED: MoRPHine SULFATE 4 MG/ML 1 ML CARP\\VIAL IV PRN (03:48)
[2023-05-19] MEDS ORDERED: SODIUM CHLORIDE 0.9% 1,000 ML IV SCH (03:48)
[2023-05-19] MEDS ORDERED: GLUCOSE 40% GEL 15 GM TUBE PO PRN (05:27)
[2023-05-19] MEDS ORDERED: GLUCAGON FOR INJ 1 MG VIAL SQ PRN (05:27)
[2023-05-19] MEDS ORDERED: GLUCOSE 10 TAB/TUBE PO PRN (05:27)
[2023-05-19] MEDS ORDERED: CARBOHYDRATES FOR HYPOGLYCEMIA PO PRN (05:27)
[2023-05-19] MEDS ORDERED: DEXTROSE 50% 50 ML SYRINGE IV PRN (05:27)
--- NOTE | 2023-05-19 05:44 | History & Physical Report ---
Date of Service May 19, 2023 Assessment & Plan (1) Fracture of wrist: Plan: 71-year-old female with past medical history significant for type 2 diabetes, hyperlipidemia, history of paroxysmal SVT, hypertension, history of CAD s/p stent, history of microscopic colitis, history of hyponatremia presents with fall and found to have Closed right displaced distal radius and nondisplaced ulnar styloid fractures and abnormal ekg. Status post mechanical fall Closed right displaced distal radius and nondisplaced ulnar styloid fractures S/p closed reduction by Ortho in ER Pain control Further management as per orthopedics Abnormal EKG Patient had borderline ST elevations in inferior leads and repeat EKG showing ST depressions inferior leads History of CAD s/p RCA stent Patient asymptomatic. 2 sets of troponin negative ER discussed with cardiology Currently starting on IV heparin and received aspirin npo for now We will follow serial cardiac enzymes and echo Close monitor in tele Cardiology consult in a.m. History of CAD s/p stent On aspirin , statin and beta-toño Diabetes We will hold glipizide and metformin Insulin sliding scale We will monitor blood sugars Hyperlipidemia On statin History of SVT On metoprolol DVT prophylaxis IV heparin Disposition Telemetry floor Full code Admission and Anticipated Discharge Date Admission Date: May 19, 2023 History of Present Illness Chief Complaint: S/p fall, right distal radius fracture. EKG changes Primary Care Provider: Yenny Miller MD 71-year-old female with past medical history significant for type 2 diabetes, hyperlipidemia, history of paroxysmal SVT, hypertension, history of CAD s/p stent, history of microscopic colitis, history of hyponatremia presents with fall and found to have Closed right displaced distal radius and nondisplaced uln ar styloid fractures . Patient states she was playing with her dog when she fell on her right hand. Did not hit her head. Denies any headache. Vision is okay. No runny nose. No cough. No chest pain/shortness of breath. No nausea. No sweating. No dizziness. No abdominal pain. Normal bowel and bladder movements. No blood in the stools or black stools. Patient states she walked about 6000 steps today and she did not had any chest pain while walking. Currently resting comfortably and hemodynamically stable. Past medical history. As mentioned above. Past surgical history. Cardiac cath .colonoscopy. Bilateral cataracts. Social history. Smoked 1.5 pack a day for 15 years. Quit in 1980. Alcohol 2 standard drinks of alcohol per week. No drug use. Family history. Mother had breast cancer. Father had stroke. Sister had diabetes, hypertension, heart disorder. Brother has diabetes. Allergies Allergy/AdvReac Type Severity Reaction Status Date / Time albuterol Allergy Unknown tachycardia Verified 05/19/23 01:00 Home Medications Medication Instructions Recorded Confirmed Type aspirin 81 mg tablet,delayed 81 mg PO QAM 05/19/23 05/19/23 History release glipizide 5 mg tablet, extended 5 mg PO QAM 05/19/23 05/19/23 History release 24 hr metformin 850 mg tablet 850 mg PO BID 05/19/23 05/19/23 History metoprolol succinate 25 mg 37.5 mg PO QAM 05/19/23 05/19/23 History tablet,extended release 24 hr multivitamin 1 tab PO DAILY 05/19/23 05/19/23 History nitroglycerin 0.4 mg sublingual 0.4 mg sublingual UD PRN Chest Pain 05/19/23 05/19/23 History tablet rosuvastatin 5 mg tablet 5 mg PO QAM 05/19/23 05/19/23 History Past Med/Surg History Medical History Diabetes mellitus, type II Surgical History (Updated 05/19/23 @ 01:44 by Pablo Roque MD) Stented coronary artery Social History Smoking Status: Former smoker Tobacco Type: Cigarettes Feels Safe at Home: Yes Review of Systems Review of Systems: All systems reviewed & are unremarkable except as noted in HPI & below Physical Exam Physical Exam: General- Not in distress Head- atraumatic Eyes- PERRL. ENT- oropharynx clear Neck- supple, no JVD. Lungs- clear to auscultation no wheezing or crackles Heart- regular rhythm; no murmur, no gallop. Abdomen- normal bowel sounds, soft, nontender, no distension Extremities- no pretibial edema, right hand and forearm in dressing Neuro- alert, oriented x 3; PERRL, no facial palsy; no dysarthria; moves extremities. Skin- warm & dry Results & Data Results & Data Vital Signs (Past 12 Hours) Vital Signs Temp Pulse Resp BP Pulse Ox O2 Del Method 05/19/23 04:35 71 05/19/23 03:45 80 05/19/23 02:00 89 14 99 05/19/23 01:50 88 18 100 05/19/23 01:40 104 H 24 05/19/23 01:30 90 16 100 05/19/23 01:30 164/81 H 05/19/23 01:28 154/71 H 05/19/23 01:28 85 15 05/19/23 00:12 36.0 C L 80 20 148/66 H 100 Room Air Diagnostic Findings Laboratory Results WBC 10.92 K/ul (4.8-10.8) H 05/19/23 01:11 RBC 4.29 M/uL (4.20-5.40) 05/19/23 01:11 Hgb 12.4 g/dl (12.0-16.0) 05/19/23 01:11 Hct 36.3 % (37.0-47.0) L 05/19/23 01:11 MCV 84.6 fL (80.0-100.0) 05/19/23 01:11 MCH 28.9 pg (25.0-34.0) 05/19/23 01:11 MCHC 34.2 g/dL (32.0-36.0) 05/19/23 01:11 RDW Std Deviation 39.8 fL (36.4-46.3) 05/19/23 01:11 RDW Coeff of Kirill 13.1 % (11.5-14.5) 05/19/23 01:11 Plt Count 300 K/uL (130-400) 05/19/23 01:11 MPV 9.4 fL (9.4-12.4) 05/19/23 01:11 Immature Gran % (Auto) 0.3 % 05/19/23 01:11 Neut % (Auto) 69.9 % 05/19/23 01:11 Lymph % (Auto) 22.7 % 05/19/23 01:11 Clare % (Auto) 6.0 % 05/19/23 01:11 Eos % (Auto) 0.6 % 05/19/23 01:11 Baso % (Auto) 0.5 % 05/19/23 01:11 Neut # (Auto) 7.64 K/uL (1.40-6.50) H 05/19/23 01:11 Lymph # (Auto) 2.48 K/uL (1.20-3.40) 05/19/23 01:11 Clare # (Auto) 0.65 K/uL (0.11-0.59) H 05/19/23 01:11 Eos # (Auto) 0.07 K/uL (0.00-0.50) 05/19/23 01:11 Baso # (Auto) 0.05 K/uL (0.00-0.20) 05/19/23 01:11 Immature Gran # (Auto) 0.03 K/uL (0.01-0.20) 05/19/23 01:11 PT 10.9 Seconds (9.0-12.0) 05/19/23 01:40 INR 1.0 (0.9-1.1) 05/19/23 01:40 APTT 26 Seconds (21-31) 05/19/23 01:40 PTT Ratio 0.9 05/19/23 01:40 Heparin Anti-Xa, Unfract < 0.10 IU/ml (0.3-0.7) L 05/19/23 01:40 Sodium 131 mmol/L (136-145) L 05/19/23 01:11 Potassium 4.3 mmol/L (3.5-5.1) 05/19/23 01:11 Chloride 97 mmol/L (98-107) L 05/19/23 01:11 Carbon Dioxide 24 mmol/L (21-32) 05/19/23 01:11 Anion Gap 10 (3-11) 05/19/23 01:11 BUN 21 mg/dl (6-23) 05/19/23 01:11 Creatinine 0.74 mg/dl (0.6-1.2) 05/19/23 01:11 Est Cr Clr Drug Dosing 61.8 ml/min 05/19/23 01:11 Est GFR ( Amer) 93.8 ml/min 05/19/23 01:11 Est GFR (Non-Af Amer) 80.9 ml/min 05/19/23 01:11 BUN/Creatinine Ratio 28.4 (10-20) H 05/19/23 01:11 Glucose 142 mg/dl (70-99(Fasting)) H 05/19/23 01:11 Calcium 10.0 mg/dl (8.6-10.3) 05/19/23 01:11 Total Bilirubin 0.4 mg/dl (0.2-1.0) 05/19/23 01:11 AST 28 U/L (13-39) 05/19/23 01:11 ALT 17 U/L (7-52) 05/19/23 01:11 Alkaline Phosphatase 35 U/L (34-104) 05/19/23 01:11 Troponin I High Sens 4.9 pg/ml (0-14) 05/19/23 02:54 Total Protein 7.8 gm/dl (6.0-8.3) 05/19/23 01:11 Albumin 4.3 gm/dl (3.4-5.0) 05/19/23 01:11 Globulin 3.5 gm/dl (2.5-4.0) 05/19/23 01:11 Albumin/Globulin Ratio 1.2 (0.9-2) 05/19/23 01:11 ECG Additional Comments: ECG. Normal sinus rhythm rate of 80. Borderline ST elevations in inferior leads. Repeat ECG. Normal sinus rhythm rate of 79. ST depressions in inferior leads Code Status & VTE Plan VTE Prophylaxis Plan VTE Prophylaxis will be ordered: Yes
[2023-05-19] MEDS: traMADol HCL 50 MG TABLET PO PRN ×2 (06:33→11:44)
[2023-05-19] MEDS: INSULIN ASPART PER UNIT CHARGE SC SCH ×3 (06:41→18:21)
--- NOTE | 2023-05-19 06:51 | XRay Report ---
XR wrist RT min 3V routine CLINICAL HISTORY: post reduction COMPARISON: Right wrist radiographs performed earlier today. FINDINGS: Interval reduction and casting is noted. Alignment of the distal right radial fracture has significantly improved post reduction. Fracture is in near anatomic alignment. Ulnar styloid fractur e is again noted. No additional fractures are present. IMPRESSION: 1. Significant improvement in alignment of the distal right radial fracture post reduction. 2. Redemonstration of the ulnar styloid fracture. ACT 112: Negative or not required by law. Electronically signed by: Enoch Cason M.D. 05/19/2023 6:50 AM
--- NOTE | 2023-05-19 07:13 | XRay Report ---
XR wrist RT min 3V routine CLINICAL HISTORY: Right wrist trauma. COMPARISON: None FINDINGS: There is an acute moderately displaced and comminuted distal right radial fracture with in tra-articular extension. There is dorsal tilt of the distal component. There is a mildly displaced fr acture of the ulnar styloid. Carpal bones are intact. No additional fractures are identified. There i s right wrist soft tissue swelling. Vascular calcification is incidentally noted. IMPRESSION: 1. Acute moderately displaced, comminuted distal right radial fracture with intra-articular extension and dorsal tilt of the distal component. 2. Acute mildly displaced fracture of the ulnar styloid. ACT 112: Negative or not required by law. Electronically signed by: Enoch Cason M.D. 05/19/2023 7:11 AM
[2023-05-19 07:28] LABS: Basophils # (auto) 0.04 K/uL (0.00-0.20); Basophils % (auto) 0.4 %; Eosinophils # (auto) 0.01 K/uL (0.00-0.50); Eosinophils % (auto) 0.1 %; Hematocrit (blood only) 32.6 % (37.0-47.0); Hemoglobin 11.2 g/dl (12.0-16.0); Immature Granulocytes # (auto) 0.03 K/uL (0.01-0.20); Immature Granulocytes % (auto) 0.3 %; Lymphocytes # (auto) 2.43 K/uL (1.20-3.40); Lymphocytes % (auto) 21.8 %; Mean Corpuscular Hemoglobin 28.9 pg (25.0-34.0); Mean Corpuscular Hgb Conc 34.4 g/dL (32.0-36.0); Mean Platelet Volume 9.2 fL (9.4-12.4); Monocytes # (auto) 0.54 K/uL (0.11-0.59); Monocytes % (auto) 4.8 %; Neutrophils % (auto) 72.6 %; Platelet Count 282 K/uL (130-400); RDW Standard Deviation 38.9 fL (36.4-46.3); Red Blood Count 3.88 M/uL (4.20-5.40); White Blood Count 11.15 K/ul (4.8-10.8)
[2023-05-19 07:32] LABS: BUN Creatinine Ratio 29.3 (10-20); Calcium 9.2 mg/dl (8.6-10.3); Creatinine Clr Calc Pharmacy 78.9 ml/min; Est GFR (African American) 106.7 ml/min; Est GFR (Non-African American) 92.1 ml/min; Magnesium 1.7 mg/dl (1.7-2.4)
[2023-05-19 07:40] LABS: Troponin I High Sensitivity 4.7 pg/ml (0-14)
[2023-05-19 08:39] LABS: Estimated Average Glucose 134 mg/dl; Hemoglobin A1C 6.3 % (4.5-5.6)
[2023-05-19] MEDS: ROSUVASTATIN CALCIUM 5 MG TAB PO SCH (08:40)
[2023-05-19] MEDS: ASPIRIN 81 MG ECTAB PO SCH (08:40)
[2023-05-19] MEDS: MULTIVITAMIN TAB PO SCH (08:40)
[2023-05-19] MEDS: METOPROLOL SUCC 25MG EXT REL TAB PO SCH (08:40)
--- OUTSIDE RECORDS SUMMARY | 2023-05-19 09:12 | External Medical Summary ---
Author Name Unknown Address Unknown Organization [id number]:LAB[facility] [place] - [address] [facility] [address] Laboratory Report Ordering Provider Test Date Status GUALBERTO DIAZ 04/05/2023 15:17:39 Final Observation Date Value Abnormality Reference (Units ) Status HbA1C 04/05/2023 15:17:39 6.1 Above high normal 4. 0-5.6 (%) Final The use of HbA1c to monitor glycemic status is based on normal hemoglobin and HbA composition. This test should not be used in patients with abnormal hemoglobin that affects the half life of the red blood cell or the in vivo glycation rates. Glucose, estimated average 04/05/2023 15:17:39 128 Above high normal <126 (mg/dL) Virgil blackwood Performing Location [facility] [place] - [address] [facility] [address]
--- OUTSIDE RECORDS SUMMARY | 2023-05-19 09:12 | External Medical Summary | Summary of Care ---
Author Name Unknown Organization [facility] Address [address] [place] [address] Phone [phone] Care Team Providers Care Director Of Environmental Services Name Role Phone Yenny Miller MD Primary Care Provider [phone] Encounter Details Date Type Department Care Team (Late st Contact Info) Description 05/09/2023 11:30 AM EST Nurse Only Ancillary [facility] [address] [place] [id number] [facility] [address] Ar[facility] Allergies Active Allergy Reactions Criticality Noted Date Comments Albuterol Sulfate 03/23/2006 Heart racing documented as of this encounter (statuses as of 05/09/2023) Medications Medication Sig Dispensed Refills Start Date End Date Status Glucose Blood (FASTTAKE TEST) STRP Test up to 4 times a day 100 Strip 5 04/12/2016 Active Aspirin 81 MG Tablet Take 1 Tablet by mouth in the morning. 0 Active Co Q 10 100 MG Oral Capsule one pill each day 0 10/01/2021 Active Glucosamine-Chondroi tin 500-400 MG Oral Capsule Take 1 Capsule by mouth in the morning. 0 10/01/2021 Active NATURAL SUPPLEMENT Take by mouth daily. Melva curcumin supplement. Takes it once daily. Also has boswellin in it 0 Active Rosuvastatin Calcium 5 MG Oral Tablet (Crestor)Indications :Dyslipidemia, goal LDL below 70,Coronary artery disease involving [place] coronary artery of [place] heart without angina pectoris,S/P drug eluting coronary stent placement TAKE ONE TABLET BY MOUTH EVERY MORNING 90 Tablet 3 10/01/2022 10/01/2023 Active Metoprolol Succinate ER 25 MG Oral Tablet Extended Release 24 Hour (toPROL XL)Indications:Old [place] (myocardial infarction),Paroxysm al SVT (supraventricular tachycardia) TAKE ONE AND ONE-HALF TABLETS BY MOUTH EVERY MORNING 135 Tablet 2 02/15/2023 Active glipiZIDE ER 5 MG Oral Tablet Extended Release 24 Hour (Glucotrol XL)Indications:Type 2 diabetes mellitus with hemoglobin A1c goal of less than 8.0% (HCC) TAKE ONE TABLET BY MOUTH EVERY DAY 100 Tablet 1 03/11/2023 Active Nitroglycerin 0.4 MG Sublingual Tablet Sublingual (Nitrostat)Indicatio ns:Chest discomfort,S/P drug eluting coronary stent placement,Coronary artery disease involving [place] coronary artery of [place] heart without angina pectoris Place 1 Tablet under the tongue as needed for Chest pain. May repeat 3 times. If chest pain continues, call 911. 25 Tablet 1 03/14/2023 Active metFORMIN HCl 850 MG Oral Tablet (Glucophage)Indicati ons:Type 2 diabetes mellitus with hemoglobin A1c goal of less than 7.0% (HCC) TAKE ONE TABLET BY MOUTH TWICE A DAY 200 Tablet 1 04/05/2023 04/04/2024 Active Niacinamide 100 MG Oral Tablet Take 100 mg by mouth in the morning. 0 Active Zoster Vac Recomb Adjuvanted 50 MCG/0.5ML Intramuscular Suspension Reconstituted (Shingrix)Indication s:Need for shingles vaccine Inject 0.5 mL into a large muscle now and repeat dose in 60 to 180 days 1 Each 1 04/05/2023 Active documented as of this encounter (statuses as of 05/09/2023) Active Problems Problem Noted Date Diagnosed Date Paroxysmal SVT (supraventricular tachycardia) Hyponatremia 10/09/2021 Arthritis of knee 10/01/2021 FHx: breast cancer in first degree relative 01/2021 Thyroid nodule 06/30/2020 Overview: 09/01--Stable thyroid nodules 08/03-US>2 colloid cysts in the right thyroid lobe measuring about 1.2 x 0.6 x 0.8 cm and a small 0.5 cm nodule in the left inferior lobe., TSH normal 12/30, repeat ultrasound in 1 year Microscopic colitis 02/20/2020 Overview: csoep 03/02--bx-c/w same -DrSuvock rec -Pepto Bismol 3 caplets three times per day.x 8 wks. History of colonoscopy 07/30/2019 Encounter for screening mammogram for breast can cer 07/30/2019 Overview: 11/30-benign, fatty, boo like Ca+-stable--rpt 1 yr Mom breast ca age 58, sister age 66. Screening for osteoporosis 07/30/2019 Bilateral hearing loss 05/16/2018 S/P drug eluting coronary stent placement 2017 Overview: 10/2017; stress echo 09/25/21>fixed inferior and inferoseptal wall motion abnormality without ischemia.Exercise capacity is below average .Test terminated secondary shortness of breath, fatigue, and hip discomfort.; EF 55-59%,mild LVH, gr 1 DD, mild aortic sclerosis;Basal inferior scar with akinesis now present. History of non-ST elevation myocardial infarctio n (NSTEMI) 10/28/2017 Coronary artery disease invo lving [place] coronary artery of [place] heart without angina pectoris 10/28/2017 Dyslipidemia, goal LDL below 70 10/28/2017 HTN, goal below 140/80 01/31/2012 Overview: Per HTN Protocol #27. Type 2 diabetes mellitus wit h hemoglobin A1c goal of less than 8.0% 04/10/2009 Overview: Per Diabetes Taxonomy. ICD-10 update of inactive term History of nonadherence to medical treatment 05/2006 documented as of this encounter (statuses as of 05/09/2023) Resolved Problems Problem Noted Date Diagnosed Date Resolved Date Type 2 diabetes mellitus with polyneuropathy 9 07/30/2019 Asthma in remission 09/24/2014 08/04/19 18 Severe obesity with body mas s index (BMI) of 35.0 to 39.9 with serious comorbidity 11/24/2009 Overview: Per Obesity Protocol, #19 ICD-10 update of inactive diagnosis Acute bronchitis, antibiotics not indicated 10/05/2009 01/13/2010 HTN, GOAL BELOW 130/80 07/09/200902/02 Overview: Per HTN Taxonomy. Dyslipidemia, goal LDL below 100 05/26/2009 10/28/2017 Overview: Per Lipid Taxonomy. BENIGN NEOPLASM LG BOWEL 06/28/2006 Overview: Colonoscopy 06/20/06--hyperplastic polyps--repeat 5 years ADVANCE DIRECTIVE INFORMATION 03/23/2006 10/28/2017 Overview: No, Advance Directive brochure offered , patient declined. Non-toxic multinodular goiter 01/08/2005 07/30/2019 Diabetic polyneuropathy 09/14/200407/14 Overview: ICD-10 update of inactive term HTN, goal below 140/90 03/12/200307/09 Overview: Per HTN Taxonomy. Chronic rhinitis 01/11/2003 03/24/2006 Allergic rhinitis 08/07/2002 03/24/2006 MENOPAUSE - age 49 05/28/1999 6 Type 2 diabetes mellitus wit h hemoglobin A1c goal of less than 7.0% 05/20/1998 04/10/2009 Overview: Per Diabetes Taxonomy. ICD-10 update of inactive term Mixed dyslipidemia 03/31/1998 9 Overview: Per Lipid Taxonomy. Menstruation, irregular 03/25/199803/13 documented as of this encounter (statuses as of 05/09/2023) Immunizations Name Administration Dates Next Due COVID-19 mRNA, LNP-s, No Pre serve, 2-Dose Series (Moderna) 08/18/2020,07/21/2020 COVID-19, mRNA, LNP-s, PF, B ooster, 100mcg/0.5mg (Moderna) 01/25/2022,04/17/2021 Pneumococcal Conjugate Vacc, 13 Valent (Prevnar) 02/21/2017 Pneumococcal Conjugate Vaccine, 20-valent (Prevn ar20) 05/09/2023 Seasonal Influenza, Quadrivalent Hd (Fluzone Hd) 04/02/2022 Seasonal Influenza, Quadrivalent, No Preserve, I M 04/13/2019,03/24/2018 Seasonal Influenza, Split, IIV3, With Preserve, Inj 04/19/2007 TD, Preservative Free 12/18/2020 TDAP (age 11 and older)(Adacel) 03/04/2009 Varicella Zoster Vaccine (Adult) 09/24/2014 Zoster Vaccine Recombinant (Shingrix) 04/05/2023 documented as of this encounter Social History Tobacco Use Types Packs/Day Years Used Date Smoking Tobacco: Former Cigarettes 1.5 15 Smokeless Tobacco: Never Quit: 06/13/1982 Comments:quit 1980 Alcohol Use Standard Drinks/Week Comments Yes 2 (1 standard drink = 0.6 oz pur e alcohol) week AUDIT-C Answer Date Recorded Q1: How often do you have a drink containing alc ohol? 2-3 times a week 03/11/2021 Q2: How many drinks containi ng alcohol do you have on a typical day when you are drinking? 1 or 2 03/11/2021 Q3: How often do you have si x or more drinks on one occasion? Not asked 03/11/2021 PHQ-2 Answer Date Recorded PHQ Adult Total Score 0 10/01/2022 Hunger Vital Sign Answer Date Recorded Worried About Running Out of Food in the Last Ye ar Never true 07/30/2019 Ran Out of Food in the Last Year Never true 07/30/2019 Sex and Gender Information Value Date Recorded Sex Assigned at Female 07/30/2019 2:18 PM EST Gender Identity Female 07/30/2019 2:18 PM EST Sexual Orientation Straight 07/30/2019 2: 18 PM EST Job Start Date Occupation Industry Not on file Not on file Not on file documented as of this encounter Nursing Notes * Sisi Orellana LPN - 05/09/2023 11:25 AM EST Pre-Administration Time Out Procedure Performed: Yes Patient Identified (Ask Name/Date of ): Yes Does the patient have a fever greater than 101 degrees today? No Patient allergic to latex? No Has the patient ever fainted after receiving an injection? No VFC Stock: No Immunization(s) verified: Yes, Immunization Name: Prevnar 20 (PCV20), VIS Sheet(s) given: Yes Verified Side and Site: Yes Verified Shot(s) with Parent(s)/Patient: Yes documented in this encounter Plan of Treatment Upcoming Encounters Date Type Department Care Team (Late st Contact Info) Description 06/15/2023 11:00 AM EST Nurse Only Ancillary [facility] [place] [address] [facility] [place] [id number] Nurse, Int Med [address] [facility] [place] [address] 10/07/2023 11:00 AM EDT Office Visit General Internal Medicine [facility] [place] [address] [facility] [place] [phone] Yenny Miller MD [address] [facility] [place] [id number] Health Maintenance Due Date Last Done Comments DXA Scan 1950 Hepatitis C Screening 1969 Cologuard 1996 Fecal Occult Blood Test 1996 Sigmoidoscopy 1996 Hepatitis B (1 of 3 - Risk 3-dose series) 2011 COVID-19 Vaccine ( season) 2023 01/25/2022, 04/17/2021, 08/18/2020, Additional history exists Influenza Vaccine (FLU shot) (#1) 2023 04/02/2022, 04/13/2019, 03/24/2018, Additional history exists Zoster Vaccines (3 of 3) 05/31/2023 04/05/2023, 09/11 Mammogram 08/21/2023 08/20/2022, 07/15, 11/26/2019, Additional history exists Diabetic Eye Exam 09/08/2023 09/07/2022, , 05/12/2021, Additional history exists Albumin/Creatinine Ratio 09/30/2023 023, 10/01/2021, 06/23/2020, Additional history exists B-12 09/30/2023 09/29/2022, 05/13, 10/01/2021, Additional history exists Depression Screening 10/02/2023 10/01/2022 Diabetic Foot Exam 10/02/2023 10/01/2022, 0 10/01/2021, 06/23/2020, Additional history exists HbA1c 10/05/2023 04/05/2023, 09/11, 05/07/2022, Additional history exists GFR 04/05/2024 04/05/2023, 09/11, 04/30/2022, Additional history exists Colonoscopy 02/12/2030 02/13/2020, 07/2019, 03/27/2012, Additional history exists Colorectal Cancer Screening 02/12/2030 DTaP,Tdap,and Td Vaccines (3 - Td or Tdap) 12/18/2030 12/18/2020, 03/04/2009 Pneumococcal Vaccine: 65+ Years Completed 05/09/2023, 02/21/2017, 03/12/2003 GARDASIL-HPV IMMUNIZATION SERIES Aged Out No longer eligible based on patient's age to complete this topic MENINGOCOCCAL (MENACTRA/MENVEO) Aged Out No longer eligible based on patient's age to complete this topic documented as of this encounter Medical Devices Implanted Type Area Enterprise Application Architect Device Identifier Shelf Expiration Date Model / Serial / Lot Lens Intraoc 17.0 - [id number] - [id number] Implanted:Qty: 1 on 10/19/2022 by Monty Farmer MD at OR [facility] Left: Eye [employer] 01/10/2027 [id number] / [id number] / [id number] Lens Intraoc 15.5 - [id number] - [id number] Implanted:Qty: 1 on 10/26/2022 by Monty Farmer MD at OR [facility] Right: Eye [employer] 05/12/2027 [id number] / [id number] / [id number] documented as of this encounter Visit Diagnoses Diagnosis Need for pneumococcal vaccination- Primary Need for prophylactic vaccination against streptococcus pneumoniae (pneumococcus) documented in this encounter Advance Directives Latest Code Status on File Code Status Date Activated Date Inactivated Comments No Code 10/26/2022 7:56 AM 10/26/2022 1:58 PM This order reflects the patients wishes and were consensually agreed upon. Question Answer Comments Discussion of Advance Directives occurred with: Patient Does the patient have a Living Will? No Does the patient have Health Care Power of Geospatial Developer? No Code Status History Code Status Date Activated Date Inactivated Comments No Code 10/19/2022 6:54 AM 10/19/2022 1:31 PM This or daksha reflects the patients wishes and were consensually agreed upon. Question Answer Comments Discussion of Advance Directives occurred with: Patient Does the patient have a Living Will? No Does the patient have Health Care Power of Geospatial Developer? No Care Teams Director Of Environmental Services Relationship Specialty Start Date End Date Yenny Miller MD [address] [place] [address] PCP - General Internal Medicine 07/30/19 documented as of this encounter
--- OUTSIDE RECORDS SUMMARY | 2023-05-19 09:12 | External Medical Summary | Summary of Care ---
Author Name Unknown Organization [facility] Address [address] [place] [address] Phone [phone] Care Team Providers Care Mine Captain Name Role Phone Yenny Miller MD Primary Care Provider [phone] Reason for Visit * Reason Comments Medication Refill Encounter Details Date Type Department Care Team (Late st Contact Info) Description 04/05/2023 Refill General Internal Medicine [facility] [address] [facility] [place] [id number] Yenny Miller [facility] [address] [facility] [address] Type 2 diabetes mellitus with hemoglobin A1c goal of less than 7.0% ([facility]) Allergies Active Allergy Reactions Criticality Noted Date Comments Albuterol Sulfate 03/23/2006 Heart racing documented as of this encounter (statuses as of 04/05/2023) Medications Medication Sig Dispensed Refills Start Date End Date Status Glucose Blood (FASTTAKE TEST) STRP Test up to 4 times a day 100 Strip 5 04/12/2016 Active Aspirin 81 MG Tablet Take 1 Tablet by mouth in the morning. 0 Active Co Q 10 100 MG Oral Capsule one pill each day 0 10/01/2021 Active Glucosamine-Chondro itin 500-400 MG Oral Capsule Take 1 Capsule by mouth in the morning. 0 10/01/2021 Active NATURAL SUPPLEMENT Take by mouth daily. Melva curcumin supplement. Takes it once daily. Also has boswellin in it 0 Active Zoster Vac Recomb Adjuvanted 50 MCG/0.5ML Intramuscular Suspension Reconstituted (Shingrix)Indicatio ns:Need for shingles vaccine Inject 0.5 mL into a large muscle now and repeat dose in 60 to 180 days 1 Each 1 10/01/2022 Active Rosuvastatin Calcium 5 MG Oral Tablet (Crestor)Indication s:Dyslipidemia, goal LDL below 70,Coronary artery disease involving [place] coronary artery of [place] heart without angina pectoris,S/P drug eluting coronary stent placement TAKE ONE TABLET BY MOUTH EVERY MORNING 90 Tablet 3 10/01/2022 4 Active Metoprolol Succinate ER 25 MG Oral Tablet Extended Release 24 Hour (toPROL XL)Indications:Old [place] (myocardial infarction),Paroxys mal SVT (supraventricular tachycardia) TAKE ONE AND ONE-HALF TABLETS BY MOUTH EVERY MORNING 135 Tablet 2 02/15/2023 Active glipiZIDE ER 5 MG Oral Tablet Extended Release 24 Hour (Glucotrol XL)Indications:Type 2 diabetes mellitus with hemoglobin A1c goal of less than 8.0% (HCC) TAKE ONE TABLET BY MOUTH EVERY DAY 100 Tablet 1 03/11/2023 Active Nitroglycerin 0.4 MG Sublingual Tablet Sublingual (Nitrostat)Indicati ons:Chest discomfort,S/P drug eluting coronary stent placement,Coronary artery disease involving [place] coronary artery of [place] heart without angina pectoris Place 1 Tablet under the tongue as needed for Chest pain. May repeat 3 times. If chest pain continues, call 911. 25 Tablet 1 03/14/2023 Active metFORMIN HCl 850 MG Oral Tablet (Glucophage)Indicat ions:Type 2 diabetes mellitus with hemoglobin A1c goal of less than 7.0% (HCC) TAKE ONE TABLET BY MOUTH TWICE A DAY 200 Tablet 1 04/05/2023 4 Active metFORMIN HCl 850 MG Oral Tablet (Glucophage)Indicat ions:Type 2 diabetes mellitus with hemoglobin A1c goal of less than 7.0% (HCC) TAKE ONE TABLET BY MOUTH TWICE A DAY 200 Tablet 1 09/21/2022 3 Discontinue d(Refill) documented as of this encounter (statuses as of 04/05/2023) Active Problems Problem Noted Date Diagnosed Date Paroxysmal SVT (supraventricular tachycardia) Hyponatremia 10/09/2021 Arthritis of knee 10/01/2021 FHx: breast cancer in first degree relative 07/0 01/2021 Thyroid nodule 06/30/2020 Overview: 09/01--Stable thyroid [...] (NSTEMI) 10/28/2017 Coronary artery disease invo lving [place] coronary artery of [place] heart without angina pectoris 10/28/2017 Dyslipidemia, goal LDL below 70 10/28/2017 HTN, goal below 140/80 01/31/2012 Overview: Per HTN Protocol #27. Type 2 diabetes mellitus wit h hemoglobin A1c goal of less than 8.0% 04/10/2009 Overview: Per Diabetes Taxonomy. ICD-10 update of inactive term History of nonadherence to medical treatment 05/2006 documented as of this encounter (statuses as of 04/05/2023) Resolved Problems Problem Noted Date Diagnosed Date [...] as of this encounter (statuses as of 04/05/2023) Immunizations Name Administration Dates Next Due COVID-19 mRNA, LNP-s, No Pre serve, 2-Dose Series (Moderna) 08/18/2020,07/21/2020 COVID-19, mRNA, LNP-s, PF, B ooster, 100mcg/0.5mg (Moderna) 01/25/2022,04/17/2021 Pneumococcal Conjugate Vacc, 13 Valent (Prevnar) 02/21/2017 Seasonal Influenza, Quadrivalent Hd (Fluzone Hd) 04/02/2022 Seasonal Influenza, Quadrivalent, No Preserve, I M 04/13/2019,03/24/2018 Seasonal Influenza, Split, IIV3, With Preserve, Inj 04/19/2007 TD, Preservative Free 12/18/2020 TDAP (age 11 and older)(Adacel) 03/04/2009 Varicella Zoster Vaccine (Adult) 09/24/2014 documented as of this encounter Social History [...] on file documented as of this encounter Miscellaneous Notes * Telephone Encounter - Chavez Brown, [facility] - 04/05/2023 12:45 PM EDTSigned Prescriptions: Disp Refills metFORMIN HCl 850 MG Oral Tablet (Glucopha*200 Ta*1 Sig: TAKE ONE TABLET BY MOUTH TWICE A DAYAuthorizing Provider: Neelima MILLER User: CHAVEZ BROWN------ documented in this encounter Plan of Treatment Upcoming Encounters Date Type Department Care Team (Late st Contact Info) Description 04/05/2023 2:00 PM EDT Office Visit General Internal Medicine [facility] [place] [address] [place], [place] [phone] Yenny Miller MD [address] [place] [address] Health Maintenance Due Date Last Done Comments DXA Scan 1950 Hepatitis C Screening 1969 Cologuard 1996 Fecal Occult Blood Test 1996 Sigmoidoscopy 1996 Hepatitis B (1 of 3 - Risk 3-dose series) 2011 Zoster Vaccines (2 of 3) 11/19/2014 09/24/2014 Pneumococcal Vaccine: 65+ Years (3 - PPSV23 or PCV20) 02/21/2018 02/21/2017, 03/12/2003 COVID-19 Vaccine ( season) 2023 01/25/2022, 04/17/2021, 08/18/2020, Additional history exists Influenza Vaccine (FLU shot) (#1) 2023 04/02/2022, 04/13/2019, 03/24/2018, Additional history exists HbA1c 03/31/2023 09/29/2022, 04/14, 10/01/2021, Additional history exists Mammogram 08/21/2023 08/20/2022, 07/15, 11/26/2019, Additional history exists DIABETES-EYE EXAM 09/08/2023 09/07/2022, , 05/12/2021, Additional history exists Albumin/Creatinine Ratio 09/30/2023 023, 10/01/2021, 06/23/2020, Additional history exists B-12 09/30/2023 09/29/2022, 05/13, 10/01/2021, Additional history exists GFR 09/30/2023 09/29/2022, 04/13, 03/03/2022, Additional history exists Depression Screening 10/02/2023 10/01/2022 Diabetic Foot Exam 10/02/2023 10/01/2022, 0 10/01/2021, 06/23/2020, Additional history exists Colonoscopy 02/12/2030 02/13/2020, 07/2019, 03/27/2012, Additional history exists Colorectal Cancer Screening 02/12/2030 DTaP,Tdap,and Td Vaccines (3 - Td or Tdap) 12/18/2030 12/18/2020, 03/04/2009 GARDASIL-HPV IMMUNIZATION SERIES Aged Out No longer eligible based on patient's age to complete this topic MENINGOCOCCAL (MENACTRA/MENVEO) Aged Out No longer eligible based on patient's age to complete this topic documented as of this encounter Medical Devices Implanted Type Area Community Health Educator Device Identifier Shelf Expiration Date Model / Serial / Lot Lens Intraoc 17.0 - [id number] - [id number] Implanted:Qty: 1 on 10/19/2022 by Monty Farmer MD at [facility] Left: Eye [employer] LOMB 01/10/2027 [id number] / [id number] / [id number] Lens Intraoc 15.5 - [id number] - [id number] Implanted:Qty: 1 on 10/26/2022 by Monty Farmer MD at [facility] Right: Eye [employer]CH [employer] LOMB 05/12/2027 [id number] / [id number] / [id number] documented as of this encounter Visit Diagnoses Diagnosis Type 2 diabetes mellitus with hemoglobin A1c goal of less than 7.0% (HCC) documented in this encounter Advance Directives Latest Code Status on File Code Status Date Activated Date Inactivated Comments No Code 10/26/2022 7:56 AM 10/26/2022 1:58 PM This order reflects the patients wishes and were consensually agreed upon. Question Answer Comments Discussion of Advance Directives occurred with: Patient Does the patient have a Living Will? No Does the patient have Health Care Power of Sports Lawyer? No Code Status History Code Status Date Activated Date Inactivated Comments No Code 10/19/2022 6:54 AM 10/19/2022 1:31 PM This or daksha reflects the patients wishes and were consensually agreed upon. Question Answer Comments Discussion of Advance Directives occurred with: Patient Does the patient have a Living Will? No Does the patient have Health Care Power of Sports Lawyer? No Care Teams Mine Captain Relationship Specialty Start Date End Date Yenny Miller MD [address] [place] [address] PCP - General Internal Medicine 07/30/19 documented as of this encounter
--- OUTSIDE RECORDS SUMMARY | 2023-05-19 09:12 | External Medical Summary | Summary of Care ---
Author Name Unknown Organization [facility] Address [address] [place] [address] Phone [phone] Care Team Providers Care Cone Winder Name Role Phone Yenny Miller MD Primary Care Provider [phone] Reason for Visit * Reason Comments Outpatient Testing Encounter Details Date Type Department Care Team (Late st Contact Info) Description 04/05/2023 3:10 PM EDT Laboratory Laboratory [facility] [address] [place] [id number] [facility] [address] [facility] [place] [address] Dyslipidemia, goal LDL below 70; Type 2 diabetes mellitus with hemoglobin A1c goal of less than 8.0% ([facility]); HTN, goal below 140/80; History of hepatitis B vaccination Allergies Active Allergy Reactions Criticality Noted Date [...] goal LDL below 70,Coronary artery disease involving [place] coronary artery of [place] heart without angina pectoris,S/P drug eluting coronary stent placement TAKE ONE TABLET BY MOUTH EVERY MORNING 90 Tablet 3 10/01/2022 10/01/2023 Active Metoprolol Succinate ER 25 MG Oral Tablet Extended Release 24 Hour (toPROL XL)Indications:Old [place] (myocardial infarction),Paroxysm al SVT (supraventricular tachycardia) TAKE [...] eluting coronary stent placement,Coronary artery disease involving [place] coronary artery of [place] heart without angina pectoris Place 1 Tablet [...] FHx: breast cancer in first degree relative /01/2021 Thyroid nodule 06/30/2020 Overview: 09/01--Stable thyroid nodules [...] (NSTEMI) 10/28/2017 Coronary artery disease invo lving [place] coronary artery of [place] heart without angina pectoris 10/28/2017 Dyslipidemia, goal [...] on file documented as of this encounter Plan of Treatment Upcoming Encounters Date Type Department Care Team (Late st Contact Info) Description 05/09/2023 11:30 AM EST Nurse Only [facility] [address] [place] [address] Nurse, Int Med [address] [place] [address] 06/15/2023 11:00 AM EST Nurse Only Ancillary [facility] [place] [address] [place] [address] Nurse, Int Med [address] [facility] [place] [address] 10/07/2023 11:00 AM EDT Office Visit [facility] [place] [address] [facility] [place] [address] Yenny Miller MD [address] [facility] [place] [id number] Pending Results Name Type Priority Associated Diagnoses Date /Time ALT Lab Routine Dyslipidemia, goal LDL below 70 Type 2 diabetes mellitus with hemoglobin A1c goal of less than 8.0% (HCC) 04/05/2023 3:17 PM EDT HEMOGLOBIN A1C Lab Routine Type 2 diabetes mellitus with hemoglobin A1c goal of less than 8.0% ([facility]) 04/05/2023 3:17 PM EDT LDL CHOLESTEROL (DIRECT MEASURE) Lab Routine Dyslipidemia, goal LDL below 70 Type 2 diabetes mellitus with hemoglobin A1c goal of less than 8.0% ([facility]) 04/05/2023 3:17 PM EDT BASIC METABOLIC PANEL Lab Routine Type 2 diabetes mellitus with hemoglobin A1c goal of less than 8.0% (HCC) HTN, goal below 140/80 04/05/2023 3:17 PM EDT HEPATITIS B SURFACE ANTIBODY Lab Routine History of hepatitis B vaccination 04/05/2023 3:17 PM EDT Health Maintenance Due Date Last Done Comments DXA Scan 1950 Hepatitis C Screening 1969 Cologuard 1996 Fecal Occult Blood Test 1996 Sigmoidoscopy 1996 Hepatitis B (1 of 3 - Risk 3-dose series) 2011 Pneumococcal Vaccine: 65+ Years (3 - PPSV23 or PCV20) 02/21/2018 02/21/2017, 03/12/2003 COVID-19 Vaccine ( season) 2023 01/25/2022, 04/17/2021, 08/18/2020, Additional history exists Influenza Vaccine (FLU shot) (#1) 2023 04/02/2022, 04/13/2019, 03/24/2018, Additional history exists HbA1c 03/31/2023 09/29/2022, 04/14, 10/01/2021, Additional history exists Zoster Vaccines (3 of [...] 06/23/2020, Additional history exists Colonoscopy 02/12/2030 02/13/2020, 090 07/2019, 03/27/2012, Additional history exists Colorectal Cancer Screening 02/12/2030 DTaP,Tdap,and Td Vaccines (3 - Td or Tdap) 12/18/2030 12/18/2020, 03/04/2009 GARDASIL-HPV IMMUNIZATION SERIES Aged Out No longer eligible based on patient's age to complete this topic MENINGOCOCCAL (MENACTRA/MENVEO) Aged Out No longer eligible based on patient's age to complete this topic documented as of this encounter Medical Devices Implanted Type Area Tunneling Machine Operator Device Identifier Shelf Expiration Date Model / Serial / Lot Lens Intraoc 17.0 - [id number] - [id number] Implanted:Qty: 1 on 10/19/2022 by Monty Farmer MD at [facility] Left: Eye [employer]OMB 01/10/2027 [id number] / [id number] / [id number] Lens Intraoc 15.5 - [id number] - [id number] Implanted:Qty: 1 on 10/26/2022 by Monty Farmer MD at [facility] Right: Eye [employer]CH [employer] LOMB 05/12/2027 [id number] / [id number] / [id number] documented as of this encounter Visit Diagnoses Diagnosis Dyslipidemia, goal LDL below 70 Other and unspecified hyperlipidemia Type 2 diabetes mellitus with hemoglobin A1c goal of less than 8.0% (HCC) HTN, goal below 140/80 Unspecified essential hypertension History of hepatitis B vaccination Other specified conditions influencing health status documented in this encounter Advance Directives Latest Code Status on File Code Status Date Activated Date Inactivated Comments No Code 10/26/2022 7:56 AM 10/26/2022 1:58 PM This order reflects the patients wishes and were consensually agreed upon. Question Answer Comments Discussion of Advance Directives occurred with: Patient Does the patient have a Living Will? No Does the patient have Health Care Power of External Relations Director? No Code Status History Code Status Date Activated Date Inactivated Comments No Code 10/19/2022 6:54 AM 10/19/2022 1:31 PM This or daksha reflects the patients wishes and were consensually agreed upon. Question Answer Comments Discussion of Advance Directives occurred with: Patient Does the patient have a Living Will? No Does the patient have Health Care Power of External Relations Director? No Care Teams Cone Winder Relationship Specialty Start Date End Date Yenny Miller MD [address] [place] [address] PCP - General Internal Medicine 07/30/19 documented as of this encounter
--- OUTSIDE RECORDS SUMMARY | 2023-05-19 09:12 | External Medical Summary | Summary of Care ---
Author Name Unknown Organization [facility] Address [address] [place] [address] Phone [phone] Care Team Providers Care Simulation Educator Name Role Phone Yenny Miller MD Primary Care Provider [phone] Reason for Visit * Reason Comments Follow Up The pt stated she is here for a routine follow up appointment today Encounter Details Date Type Department Care Team (Late st Contact Info) Description 04/05/2023 2:00 PM EDT Office Visit General Internal Medicine [facility] [address] [facility] [place] [id number] Yenny Miller MD [address] [place] [address] Type 2 diabetes mellitus with hemoglobin A1c goal of less than 8.0% ([facility])*; Need for shingles vaccine; Dyslipidemia, goal LDL below 70; Coronary artery disease involving [place] coronary artery of [place] heart without angina pectoris; HTN, goal below 140/80; Paroxysmal SVT (supraventricular tachycardia); Screening for osteoporosis; Encounter for screening mammogram for breast cancer; Need for pneumococcal vaccination; Status post cataract extraction, unspecified laterality; Encounter for long-term (current) use of medications; History of hepatitis B vaccination Allergies Active [...] one pill each day 0 10/01/2021 Active Glucosamine-Chondr oitin 500-400 MG Oral Capsule Take 1 Capsule by mouth in the morning. 0 10/01/2021 Active NATURAL SUPPLEMENT Take by mouth daily. Melva curcumin supplement. Takes it once daily. Also has boswellin in it 0 Active Rosuvastatin Calcium 5 MG Oral Tablet (Crestor)Indicatio ns:Dyslipidemia, goal LDL below 70,Coronary artery disease involving [place] coronary artery of [place] heart without angina pectoris,S/P drug eluting coronary stent placement TAKE ONE TABLET BY MOUTH EVERY MORNING 90 Tablet 3 10/01/2022 4 Active Metoprolol Succinate ER 25 MG Oral Tablet Extended Release 24 Hour (toPROL XL)Indications:Old DE (myocardial infarction),Paroxy smal SVT (supraventricular tachycardia) TAKE ONE AND ONE-HALF TABLETS BY MOUTH EVERY MORNING 135 Tablet 2 02/15/2023 Active glipiZIDE ER 5 MG Oral Tablet Extended Release 24 Hour (Glucotrol XL)Indications:Typ e 2 diabetes mellitus with hemoglobin A1c goal of less than 8.0% (HCC) TAKE ONE TABLET BY MOUTH EVERY DAY 100 Tablet 1 03/11/2023 Active Nitroglycerin 0.4 MG Sublingual Tablet Sublingual (Nitrostat)Indicat ions:Chest discomfort,S/P drug eluting coronary stent placement,Coronary artery disease involving [place] coronary artery of [place] heart without angina pectoris Place 1 Tablet under the tongue as needed for Chest pain. May repeat 3 times. If chest pain continues, call 911. 25 Tablet 1 03/14/2023 Active metFORMIN HCl 850 MG Oral Tablet (Glucophage)Indica tions:Type 2 diabetes mellitus with hemoglobin A1c goal of less than 7.0% (HCC) TAKE ONE TABLET BY MOUTH TWICE A DAY 200 Tablet 1 04/05/2023 4 Active Niacinamide 100 MG Oral Tablet Take 100 mg by mouth in the morning. 0 Active Zoster Vac Recomb Adjuvanted 50 MCG/0.5ML Intramuscular Suspension Reconstituted (Shingrix)Indicati ons:Need for shingles vaccine Inject 0.5 mL into a large muscle now and repeat dose in 60 to 180 days 1 Each 1 04/05/2023 Active Zoster Vac Recomb Adjuvanted 50 MCG/0.5ML Intramuscular Suspension Reconstituted (Shingrix)Indicati ons:Need for shingles vaccine Inject 0.5 mL into a large muscle now and repeat dose in 60 to 180 days 1 Each 1 10/01/2022 3 Discontinued Zoster Vac Recomb Adjuvanted 50 MCG/0.5ML Intramuscular Suspension Reconstituted (Shingrix) Inject 0.5 mL into a large muscle now and repeat dose in 60 to 180 days 1 Each 1 04/05/2023 3 Discontinued documented as of this encounter (statuses as [...] (NSTEMI) 10/28/2017 Coronary artery disease invo lving [place] coronary artery of [place] heart without angina pectoris 10/28/2017 Dyslipidemia, goal [...] on file documented as of this encounter Last Filed Vital Signs Vital Sign Reading Time Taken Comments Blood Pressure 106/60 04/05/2023 2:06 PM EDT Pulse 79 04/05/2023 2:06 PM EDT Temperature 36.3 C (97.3 F) 04/05/2023 2:06 PM ED T Respiratory Rate - - Oxygen Saturation 98% 04/05/2023 2:06 PM EDT Inhaled Oxygen Concentration - - Weight 67.6 kg (149 lb) 04/05/2023 2:06 PM EDT Height - - Body Mass Index 24.79 10/26/2022 8:00 AM EDT documented in this encounter Progress Notes * Francisco J Conway LPN - 04/05/2023 2:14 PM EDT Pre-Administration Time Out Procedure Performed: Yes Patient Identified (Ask Name/Date of ): Yes Does the patient have a fever greater than 101 degrees today? No Patient allergic to latex? No Has the patient ever fainted after receiving an injection? No VFC Stock: Yes, medicare Immunization(s) verified: Yes, Immunization Name: Shingrix, VIS Sheet(s) given: Yes Verified Side and Site: Yes Verified Shot(s) with Parent(s)/Patient: Yes * Yenny Miller MD - 04/05/2023 2:00 PM EDT SUBJECTIVE: Virgen Patterson is a 71 year old female. 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 She follows up with Dr. Fish. Last ekg rev. On metoprolol XL 25 mg and taken off lisinopril during that time, was on Plavix for about a year and half and she went off of it in April and resumed aspirin. , also on Crestor 5 mg daily, nitroglycerin p.r.n. sublingual 08/10/21- c/o chest discomfort and lightheadedness. Notes 1st episode was 08/05/2021, had a burning sensation/chest pressure in her retrosternal area which is relieved with sublingual nitroglycerin, since then had intermittent episodes of lightheadedness, dizziness, maybe a little palpitations which is short-lived, no shortness of breath or diaphoresis. Today after breakfast she had another feeling of lightheadedness and dizziness and a a bubble like feeling her chest which lasted for about an hour and resolved spontaneously. Most of these have occurred at rest, none on exertion. Denies symptoms of heartburn. No URI symptoms. No unilateral weakness or numbness of the extremities. No swaying to any particular side. 08/10/21>EKG--NSR at 73 bpm, LAD, minimal voltage criteria for LVH maybe normal variant, inferiorinfarct as well as anterolateral infarct age undetermined, similar to prior EKG 08/22/21>7 day zio monitor--predominantly NSR. rare ectopic beats, 13 short runs of SVT fastest of 6 beats at 164 bpm, longest at 10 seconds at rate of 131 bpm, sx correlated with sensed ectopics and atrial bigeminy. Trial of increasing metoprolol xl 25 mg 1 tablet to 1.5 tablets =37.5 mg/per day 09/23/21>ExSE>Interpretation Summary The stress echo demonstrates a fixed inferior and inferoseptal wall motion abnormality without ischemia. Exercise capacity is below average .>Test terminated secondary shortness of breath, fatigue, andhip discomfort. Resting Study: The qualitative LV ejection fraction is 55-59% (normal). The wall thickness is mildly increased in segments with normal wall motion. The base inferior wall appears scarred and akinetic. The base inferoseptum is hypokinetic. The left ventricular diastolic function is mildly abnormal (grade I). Mild aortic valve sclerosis is present. There is no evidence of pulmonary hypertension. Compared to last available study changes are noted as follows: Basal inferior scar with akinesis now present. 10/01/2021--tolerating higher dose of the metoprolol, denies any fatigue or weakness. No recurrent chest discomfort. Denies any symptoms of claudication in the lower extremities 04/03--had cardiology follow-up in October, 1 year follow-up was advised. Evaluated by Dr. Demarco for hyponatremia since 11/01, adv -decrease intake of fluids by 10% and increase protein in her diet. She drinks about 4-5 cups of regular coffee and about 4 cups of water per day. She has not changed fluid intake, has tried increase protein in her diet, advised of the need for labs in 2 weeks after the changes as per last result note by Dr. Demarco Admits symptoms of a burning sensation her mouth and cannot eat spices or certain toothpaste, saw her dentist who recommended a different type of a toothpaste without the froth called her low toothpaste. Denies any heartburn or sour eructations. No ulcers in the mouth or angle of the mouth. Denies drinking very hot fluids. Exam is normal, advised to decrease intake of caffeine in the diet 10/03--She had been given Kenalog in oral base by her dentist. seen in May for symptoms of glossitis-normal CBC, ferritin 30, T sat 22% normal B12, folate, zinc-. Symptoms have resolved now, she had lost weight, states she is gaining back now. 02/01/23--seen for RS CP 01/21/23> EKG unchanged, has not had any recurrent symptoms, last stress test negative in September 2021, advisedthat if she has any recurrent symptoms she will need to come in for eval or go to the ED for evaluation. Blood pressure lower than normal, remains asymptomatic, continue same dose for now. 04/04--no sx now, saw card 03/14/23--no chg done. Gradual wt loss 20 lbs in last yr--is eating less since senior living, has more energy, no symptoms ofdizziness, all other ROS neg 07/03--c/o mild short term memory problem few months--inc in last 2 mths. No safety issues. Older sister 06/01 from compln diabetes. No LOPEZ. No weakness/numbness/tingling of face or extremities. -reads novels. -does not do puzzles-has ordered books, MRI brain 2017--chr sm vs ds. 07/0380-zyjl-iac- and refer to Neurology--had eval 09/24/20--rec neuropsych testing--was not yunier and she defesr now in December 3104/03--states she received a call to schedule her neuropsychology appointment and she is to call them back. Did not yunier Type 2 diabetes for greater than 20 years. Urine for microalbumin-10/29.-, 07/03; Eye exam -05/03/19.DrTalone->05/12/21->03/05 Foot exam normal-07/30/2019, 06/23/2020, B12 normal at 05/31.,10/03 Was on lisinopril 10mg dc -since 2017 after nstemi when bb added--consider adding 2.5mg--defers today SP cataract surgery by Dr. Farmer Left 10/19/2022, Right 10/26/2022 at [facility]. Got bifocals line which she ware snot like' Was On Invokana since 02/2015, metformin 850 mg twice a day many years.--lost close to 30 lb since then. 11/30 A1c was 7.3%, was off invokana sec uti and n/t metformin reg due to recent diarrhoea. --adv to resume Metformin as no diff off med. 07/03-now on glipzide 5 mg since 01/23/20 . Gained back few lbs. Diarrhea better now 12/31-sl wt gain, eating more, labs due -denies symptoms of hypoglycemia--04/03;10/03 04/04--no sx hypoglycemia despite wt loss, labs awaited. Carotid Doppler:<50% stenosis 07/01 Rpt 2 years.>same 07/03 H/o goiter on the chart, last ultrasound many years ago showed 1 lobe slightly larger than the other and subcentimeter nodules. She denies feeling a lump.TSH nml 2011. 08/31 US NECK-2 COLLOID CYST RIGHT THYROID LOBE LARGEST 1.2 X 0.6 X 0.8 CM, SMALL HYPOECHOIC NODULE INFERIOR LEFT THYROID LOBE 0.5 CM RECOMMEND FOLLOW-UP ULTRASOUND IN 1 YEAR 08/19/21>Ultrasound of the neck .Multiple colloid cysts noted bilaterally, the largest measuring approximately 0.5 x 0.8 x 1.2 cm in the right interpolar region.A hypoechoic nodule in the isthmus measures 0.3 x 0.7 x 0.9 cm.--stable TSH nml 10/01;04/02 HYpercalcemia: 07/03-Urine Microalbumin test Is negative. A1c improved,nml lipids,b12,neg RPR. Sodium low at 132, Calcium high at 10.4. - 10/01--Calcium remains high, sodium at 134,normal vitamin-D, PTH,TSH, negative thyroid antibodies.LFT normal except total protein borderline high 10/31-SPEP;BJP neg, LEWIS nml--refer endo -appt 01/08/21 12/18/20-ch labs 10/01/2021--Endocrinology telemedicine visit 04/02- CMP Na 134, Ca hi nl 10.2-; PTH supp at 19, VD 32, nml TSH,Ft4,Mg,phos,PTHRp,--nml was advised to STOP calcium supplement and vitamin A and advised to schedule DEXA scan, f/u prn. 10/03-ca ULN, willing to yunier dexa Chronic tinnitus. MRI of the brain 09/28 no acute findings, chronic small vessel ischemic changes. Ex-smoker smoked 1 and half pack a day for 15 years quit in 1982. Denies drug or alcohol use. Osteoarthritis of the knee left greater than right had x-rays 11/2017 Also has a mild chronic swelling of her right 3rd finger and uses a splint at night, history of trigger finger in the past. She takes collagen supplement. Colonoscopy 2007 hyperplastic polyp. 03/24 no polyps,erythema the colon which was biopsied, sigmoid diverticulosis, pathology showed microscopic colitis and was advised to follow-up if had sx Diarrhea-repeat was recommended in 10 years. 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 --stool culture, O/P,c diff ordered.--all neg 01/02/20 Ultrasound abdomen-. Labs-. Normal TSH, lipase, CBC CMP except potassium low, started potassium supplements XRAY KUB-Opacity in the pelvis which might be distended urinary bladder but other etiologies are inthe differential including pelvic mass>>pelvic US was ordered US abd >Mild hepatic steatosis.;Gallbladder adenomyomatosis. Layering sludge in the gallbladder.No evidence of acute cholecystitis. Refer to GI, has appointment 01/11/2020>> rec CTAP; low residue diet, yunier csope, daily probiotic, bentyl 10mg bid 01/16/20---continues to have intermittent diarrhea somewhat better, has not started Bentyl yet due tofear of side effects Only CT abd was ordered>wants to know if she needs it or wait till US pelvis. Csope 02/13/20-nml ex sig tics>-path c/w lymphocytic colitis. Saw GI 03/26/20-- having ongoing diarrhea, w nausea, weight loss, despite use of PeptoBismol + Imodium. - Trial Budesonide 9mg daily x 8 weeks, then 6mg daily x 2 weeks, 3mg daily x 3 weeks - Bentyl 10mg BID prn abd cramping - Continue to avoid NSAIDs, PPIs, high dose ASAs. 07/03--took budesonide few wks only--sx better now.--did take bentyl prn cramps. 10/03-denies gi sx., no sx 04/04., nml BM 1/d G2/P 1 L1 A1. Pap negative 2013. US pelvis 01/18/20--Ultrasound of the pelvis was technically limited due to overlying gas but overallno abnormalities were noted.;TV study not tolerated. FH breast ca -mother at age 58, sister age 66. Mammogram [facility] Neg 04/2017-benign, fatty, boo like Ca+-stable--rpt 1 yr>neg 08/05/21;08/20/22 Willing to yunier dexa now-ordered 10/01/2022-not yunier yet No headache,UR symptoms, neck swelling, chest pain, palpitations, shortness of breath, leg edema No nausea,vomiting or heartburn, constipation or diarrhea, blood in the stool or black stool, abdominal pain. No blood in the urine, no urinary problems. No night sweats, no unusual bleeding/bruising, no weight loss and no swollen nodes. No excessive thirst Or urination. No fatigue/xs dry skin. No rash, new/changing skin lesions. Denies feelings of depression or anxiety, sleeps good. No snoring/ skidder operator headache/excessive daytime sleepiness or fatigue Discussed reg shingrix vaccine- and had deferred in past---willing to get today Defers flu vac today Discussed about covid booster, RSV vaccine. Needs prevnar 20--defers today Immunization History Administered Date(s) Administered COVID-19 mRNA, LNP-s, No Preserve, 2-Dose Series (Moderna) 07/21/2020, 08/18/2020 COVID-19, mRNA, LNP-s, PF, Booster, 100mcg/0.5mg (Moderna) 04/17/2021, 01/25/2022 Pneumococcal Conjugate Vacc, 13 Valent (Prevnar) 02/21/2017 Pneumococcal Polysaccharide PPV23 (Pneumovax) 03/12/2003 Seasonal Influenza, Quadrivalent Hd (Fluzone Hd) 04/02/2022 Seasonal Influenza, Quadrivalent, No Preserve, IM 03/24/2018, 04/13/2019 Seasonal Influenza, Split, IIV3, With Preserve, Inj 04/19/2007 TD, Preservative Free 12/18/2020 TDAP (age 11 and older)(Adacel) 03/04/2009 Varicella Zoster Vaccine (Adult) 09/24/2014 Hemoglobin AIC Results: Lab Results Component Value Date/Time HEMOGLOBIN A1C - [facility] 6.3 (H) 09/29/2022 11:01 AM HEMOGLOBIN A1C - [facility] 6.3 (H) 05/07/2022 11:08 AM HEMOGLOBIN A1C - [facility] 6.3 (H) 10/01/2021 09:29 AM HEMOGLOBIN A1C - [facility] 6.2 (H) 06/23/2020 04:20 PM HEMOGLOBIN A1C - [facility] 7.4 (H) 11/29/2019 04:35 PM HEMOGLOBIN A1C - [facility] 7.3 (H) 05/18/2019 02:41 PM Hemoglobin Results: Lab Results Component Value Date/Time HGB - [facility] 13.1 09/29/2022 11:01 AM HGB - [facility] 12.8 05/25/2022 01:20 PM HGB - [facility] 14.4 01/01/2020 01:32 PM HGB - [facility] 14.1 06/21/2014 03:38 PM HGB - [facility] 13.4 03/21/2008 09:34 AM Sodium Results: Lab Results Component Value Date/Time SODIUM - [facility] 136 09/29/2022 11:01 AM SODIUM - [facility] 134 (L) 04/30/2022 12:40 PM SODIUM - [facility] 133 (L) 03/03/2022 12:23 PM SODIUM - [facility] 132 (L) 06/23/2020 04:20 PM SODIUM - [facility] 141 01/12/2020 12:07 PM SODIUM - [facility] 142 01/07/2020 11:29 AM SODIUM, RANDOM URINE - [facility] 25 04/30/2022 12:40 PM SODIUM, RANDOM URINE - [facility] 53 03/03/2022 12:27 PM SODIUM, RANDOM URINE - [facility] 69 10/19/2021 04:11 PM Results for orders placed or performed during the hospital encounter of 10/26/22 GLUCOSE METER, POINT OF CARE Result Value Ref Range Glucose Meter 124 (H) 70 - 120 mg/dL . Patient Active Problem List Diagnosis Code History of nonadherence to medical treatment Z91.199 Type 2 diabetes mellitus with hemoglobin A1c goal of less than 8.0% (HCC) E11.9 HTN, goal below 140/80 I10 S/P drug eluting coronary stent placement Z95.5 History of non-ST elevation myocardial infarction (NSTEMI) I25.2 Coronary artery disease involving [place] coronary artery of [place] heart without angina pectoris I25.10 Dyslipidemia, goal LDL below 70 E78.5 Bilateral hearing loss H91.93 History of colonoscopy Z98.890 Encounter for screening mammogram for breast cancer Z12.31 Screening for osteoporosis Z13.820 Microscopic colitis K52.839 Thyroid nodule E04.1 FHx: breast cancer in first degree relative Z80.3 Arthritis of knee M17.10 Hyponatremia E87.1 Paroxysmal SVT (supraventricular tachycardia) I47.10 Current Outpatient Medications Medication Sig Dispense Refill Aspirin 81 MG Tablet Take 1 Tablet by mouth in the morning. Co Q 10 100 MG Oral Capsule one pill each day glipiZIDE ER 5 MG Oral Tablet Extended Release 24 Hour (Glucotrol XL) TAKE ONE TABLET BY MOUTH EVERY DAY 100 Tablet 1 Glucosamine-Chondroitin 500-400 MG Oral Capsule Take 1 Capsule by mouth in the morning. Glucose Blood (FASTTAKE TEST) STRP Test up to 4 times a day 100 Strip 5 metFORMIN HCl 850 MG Oral Tablet (Glucophage) TAKE ONE TABLET BY MOUTH TWICE A DAY 200 Tablet 1 Metoprolol Succinate ER 25 MG Oral Tablet Extended Release 24 Hour (toPROL XL) TAKE ONE AND ONE-HALF TABLETS BY MOUTH EVERY MORNING 135 Tablet 2 NATURAL SUPPLEMENT Take by mouth daily. Melva curcumin supplement. Takes it once daily. Also has boswellin in it Niacinamide 100 MG Oral Tablet Take 100 mg by mouth in the morning. Nitroglycerin 0.4 MG Sublingual Tablet Sublingual (Nitrostat) Place 1 Tablet under the tongue as needed for Chest pain. May repeat 3 times. If chest pain continues, call 911. 25 Tablet 1 Rosuvastatin Calcium 5 MG Oral Tablet (Crestor) TAKE ONE TABLET BY MOUTH EVERY MORNING 90 Tablet 3 No current facility-administered medications for this visit. Review of patient's allergies indicates: Allergen Reactions Albuterol Sulfate Heart racing Social History Tobacco Use Smoking status: Former Packs/day: 1.50 Years: 15.00 Additional pack years: 0.00 Total pack years: 22.50 Types: Cigarettes Smokeless tobacco: Never Tobacco comments: quit 1980 Vaping Use Vaping Use: Never used Substance Use Topics Alcohol use: Yes Alcohol/week: 2.0 standard drinks of alcohol Types: 2 5 oz of wine per week Comment: week Drug use: No OBJECTIVE: BP 106/60 | Pulse 79 | Temp 36.3 C (97.3 F) | Wt 67.6 kg (149 lb) | LMP 02/24/1998 | SpO2 98% |BMI 24.79 kg/m | BSA 1.76 m PHYSICAL EXAM: General: alert, healthy, no distress, well nourished and well developed Head: Normocephalic, atraumatic Eye Exam: PERRLA, EOMI, Conjunctiva are pink and non-injected, sclera clear Ears: External ears normal, Canal clear, Tm normal (jill LOPEZ) Nose: no mucosal erythema, no mucosal edema, no purulent discharge Oropharynx: no exudate and no erythema, mucous membranes moist, mid tongue is fissured, no erythema Neck: supple, no bruits, no JVD, thyroid normal size, non-tender, without nodularity Lymph: No palpable lymphadenopathy. Heart: Regular rhythm and rate, no murmurs and no gallops Lungs: lungs clear to auscultation Abdomen: Soft, loose skin folds from wt loss non-tender, normal bowel sounds, no masses or organomegaly, no bruits Extremities: no edema, no clubbing, no cyanosis. FROM hips, Rt knee, sl dec flexion lt knee with crepitus left >rt Neuro Exam: alert & oriented x 3 with fluent speech, no focal motor/sensory deficits, gait normal Skin: skin color, texture, turgor are normal, no rashes ASSESSMENT/PLAN: Type 2 diabetes mellitus with hemoglobin A1c goal of less than 8.0% ([facility]) (Primary) Labs on file today - VITAMIN B12; Future; Expected date: 10/05/2023 - ALT; Future; Expected date: 10/05/2023 - BASIC METABOLIC PANEL; Future; Expected date: 10/05/2023 - LIPID PANEL WITH DIRECT LDL IF TG IS HIGH; Future; Expected date: 10/05/2023 - HEMOGLOBIN A1C; Future; Expected date: 10/05/2023 - ALBUMIN / CREATININE RATIO, URINE; Future; Expected date: 10/05/2023 Need for shingles vaccine - ZOSTER VACCINE RECOMB, 2 DOSE, IM (SHINGRIX) - Zoster Vac Recomb Adjuvanted 50 MCG/0.5ML Intramuscular Suspension Reconstituted (Shingrix); Inject 0.5 mL into a large muscle now and repeat dose in 60 to 180 days Dyslipidemia, goal LDL below 70 - ALT; Future; Expected date: 10/05/2023 - LIPID PANEL WITH DIRECT LDL IF TG IS HIGH; Future; Expected date: 10/05/2023 Coronary artery disease involving [place] coronary artery of [place] heart without angina pectoris - ALT; Future; Expected date: 10/05/2023 - LIPID PANEL WITH DIRECT LDL IF TG IS HIGH; Future; Expected date: 10/05/2023 HTN, goal below 140/80 - BASIC METABOLIC PANEL; Future; Expected date: 10/05/2023 Paroxysmal SVT (supraventricular tachycardia) Screening for osteoporosis Encounter for screening mammogram for breast cancer [place] Need for pneumococcal vaccination - PNEUMOCOCCAL VACC, PCV20, IM ([id number]); Future; Expected date: 04/19/2023 Status post cataract extraction, unspecified laterality Encounter for long-term (current) use of medications - VITAMIN B12; Future; Expected date: 10/05/2023 History of hepatitis B vaccination - HEPATITIS B SURFACE ANTIBODY; Future; Expected date: 04/05/2023 ct current meds Await labs See f/u below 40 min total time spent with patient, time spent reviewing subspecialty notes, diagnostic studies done, follow-up orders/medication refills,over 1/2 time spent in counseling, coordinating care. Follow Up: Return in about 6 months (around 10/05/2023) for Return with Physician, Labs Today, Fasting Labs 2-5 Days Before Next Visit. | For: Return with Physician, Labs Today, Fasting Labs 2-5 Days Before Next Visit | Check-out note: Nurse appt 1 mth prevnar 20, 2 mths shingrix #2. Yunier dexa (This note was completed using the dictation program Fluency Direct. As such, there may be misspellings, word substitutions, or other variations that should not change the essence of the clinical content of this encounter note. If there is need for further clarification, please direct questions to the provider listed above.) Patient and / caregiver verbalizes understanding of above instructions and agrees with plan of care. Yenny Miller MD 04/05/2023 documented in this encounter Nursing Notes * Francisco J Conway LPN - 04/05/2023 2:06 PM EDT Chief Complaint Patient presents with Follow Up The pt stated she is here for a routine follow up appointment today documented in this encounter Plan of Treatment Upcoming Encounters Date Type Department Care Team (Late st Contact Info) Description 05/09/2023 11:30 AM EST Nurse Only Ancillary [facility] [address] [facility] [place] [id number] Nurse, Int Med [address] [place] [address] [place] [id number] 06/15/2023 11:00 AM EST Nurse Only Ancillary [facility] [address] [facility] [place] [address] Nurse, Int Med [address] [facility] [place] [id number] 10/07/2023 11:00 AM EDT Office Visit General Internal Medicine [facility] [address] [facility] [place] [id number] [facility] [address] Pending Results Name Type Priority Associated Diagnoses Date /Time HEPATITIS B SURFACE ANTIBODY Lab Routine History of hepatitis B vaccination 04/05/2023 3:17 PM EDT Scheduled Orders Name Type Priority Associated Diagnoses Orde r Schedule VITAMIN B12 Lab Routine Type 2 diabetes mellitus with hemoglobin A1c goal of less than 8.0% (HCC) Encounter for long-term (current) use of medications Expected: 10/05/2023 (Approximate), Expires: 04/05/2024 ALT Lab Routine Type 2 diabetes mellitus with hemoglobin A1c goal of less than 8.0% (HCC) Dyslipidemia, goal LDL below 70 Coronary artery disease involving [place] coronary artery of [place] heart without angina pectoris Expected: 10/05/2023 (Approximate), Expires: 04/05/2024 BASIC METABOLIC PANEL Lab Routine Type 2 diabetes mellitus with hemoglobin A1c goal of less than 8.0% (HCC) HTN, goal below 140/80 Expected: 10/05/2023 (Approximate), Expires: 04/05/2024 LIPID PANEL WITH DIRECT LDL IF TG IS HIGH Lab Routine Type 2 diabetes mellitus with hemoglobin A1c goal of less than 8.0% (HCC) Dyslipidemia, goal LDL below 70 Coronary artery disease involving [place] coronary artery of [place] heart without angina pectoris Expected: 10/05/2023 (Approximate), Expires: 04/05/2024 HEMOGLOBIN A1C Lab Routine Type 2 diabetes mellitus with hemoglobin A1c goal of less than 8.0% ([facility]) Expected: 10/05/2023 (Approximate), Expires: 04/05/2024 ALBUMIN / CREATININE RATIO, URINE Lab Routine Type 2 diabetes mellitus with hemoglobin A1c goal of less than 8.0% ([facility]) Expected: 10/05/2023 (Approximate), Expires: 04/05/2024 HEPATITIS B SURFACE ANTIBODY Lab Routine History of hepatitis B vaccination Expected: 04/05/2023 (Approximate), Expires: 04/04/2024 Health Maintenance Due Date Last Done Comments DXA Scan 1950 Hepatitis C Screening 1969 Cologuard 1996 Fecal Occult Blood Test 1996 Sigmoidoscopy 1996 Hepatitis B (1 of 3 - Risk 3-dose series) 2011 Pneumococcal Vaccine: 65+ Years (3 - PPSV23 or PCV20) 02/21/2018 02/21/2017, 03/12/2003 COVID-19 Vaccine ( - season) 2023 01/25/2022, 04/17/2021, 08/18/2020, Additional history [...] 10/01/2022, 0 10/01/2021, 06/23/2020, Additional history exists GFR 04/05/2024 04/05/2023, 09/11, [...] this encounter Medical Devices Implanted Type Area Crumb Packer Device Identifier Shelf Expiration Date Model / Serial / Lot Lens Intraoc 17.0 - [id number] - [id number] Implanted:Qty: 1 on 10/19/2022 by Monty Farmer MD at [facility] Left: Eye [employer] 01/10/2027 [id number] / [id number] / [id number] Lens Intraoc 15.5 - [id number] - [id number] Implanted:Qty: 1 on 10/26/2022 by Monty Farmer MD at [facility] Right: Eye [employer] 05/12/2027 [id number] / [id number] / [id number] documented as of this encounter Visit Diagnoses Diagnosis Type 2 diabetes mellitus with hemoglobin A1c goal of less than 8.0% (HCC)- Primary Need for shingles vaccine Need for prophylactic vaccination and inoculation against other viral diseases Dyslipidemia, goal LDL below 70 Other and unspecified hyperlipidemia Coronary artery disease involving [place] coronary artery of [place] heart without angina pectoris HTN, goal below 140/80 Unspecified essential hypertension Paroxysmal SVT (supraventricular tachycardia) Paroxysmal supraventricular tachycardia Screening for osteoporosis Special screening for osteoporosis Encounter for screening mammogram for breast cancer Need for pneumococcal vaccination Need for prophylactic vaccination against streptococcus pneumoniae (pneumococcus) Status post cataract extraction, unspecified laterality Encounter for long-term (current) use of medications Encounter for long-term (current) use of other medications History of hepatitis B vaccination Other specified [...] the patient have Health Care Power of Snowboard Instructor? No Code Status History Code Status Date Activated Date Inactivated Comments No Code 10/19/2022 6:54 AM 10/19/2022 1:31 PM This or daksha reflects the patients wishes and were consensually agreed upon. Question Answer Comments Discussion of Advance Directives occurred with: Patient Does the patient have a Living Will? No Does the patient have Health Care Power of Snowboard Instructor? No Care Teams Simulation Educator Relationship Specialty Start Date End Date Yenny Miller MD [address] [place] [address] PCP - General Internal Medicine 07/30/19 documented as of this encounter"
--- OUTSIDE RECORDS SUMMARY | 2023-05-19 09:12 | External Medical Summary ---
Author Name Unknown Address Unknown Organization K09:[facility] [place] [address] Laboratory Report Ordering Provider Test Date Status GUALBERTO DIAZ 04/05/2023 15:17:39 Final Observation Date Value Abnormality Reference (Units ) Status ALT (Alanine aminotransferase) 04/05/2023 15:17:39 18 10-35 (U/L) Final Performing Location [facility] [place] [address]
--- OUTSIDE RECORDS SUMMARY | 2023-05-19 09:12 | External Medical Summary ---
Author Name Unknown Address Unknown Organization [id number]:[facility] [place] [address] [place] [address] Laboratory Report Ordering Provider Test Date Status GUALBERTO DIAZ 04/05/2023 15:17:39 Final Observation Date Value Abnormality Reference (Units ) Status LDL, (direct) 04/05/2023 15:17:39 51 <=129 (mg/dL) Final LDL Cholesterol Reference Ra nges (mg/dL):
<70 Target level for high risk ASCVD patient
<100 Optimal for general population
100-129 Near optimal for general population
130-159 Borderline high
160-189 High
>=190 Very high Performing Location [facility] - [address] [place] [address]
--- OUTSIDE RECORDS SUMMARY | 2023-05-19 09:13 | External Medical Summary | Summary of Care ---
Author Name Unknown Organization [facility] Address [address] [place] [address] Phone [phone] Care Team Providers Care Chief Lock Tender Operator Name Role Phone Yenny Miller MD Primary Care Provider [phone] Reason for Visit * Reason Comments Follow Up Encounter Details Date Type Department Care Team Description 03/14/2023 Office Visit Cardiology, [facility] [address] [place] [id number] Sheeba Thao PA-C [address] [place] [id number] Coronary artery disease involving [place] coronary artery of [place] heart without angina pectoris*; Chest discomfort; S/P drug eluting coronary stent placement; Dyslipidemia, goal LDL below 70; HTN, goal below 140/80 Allergies Active Allergy Reactions Severity Noted Date Comments Albuterol Sulfate 03/23/2006 Heart racing documented as of this encounter (statuses as of 04/01/2023) Medications Medication Sig Dispensed Refills Start Date [...] goal LDL below 70,Coronary artery disease involving [place] coronary artery of [place] heart without angina pectoris,S/P drug eluting coronary stent placement TAKE ONE TABLET BY MOUTH EVERY MORNING 90 Tablet 3 10/01/2022 4 Active metFORMIN HCl 850 MG Oral Tablet (Glucophage)Indicat ions:Type 2 diabetes mellitus with hemoglobin A1c goal of less than 7.0% (HCC) TAKE ONE TABLET BY MOUTH TWICE A DAY 200 Tablet 1 09/21/2022 4 Active Metoprolol Succinate ER 25 MG Oral Tablet Extended Release 24 Hour (toPROL XL)Indications:Old [place] (myocardial infarction),Paroxys mal SVT (supraventricular tachycardia) TAKE [...] eluting coronary stent placement,Coronary artery disease involving [place] coronary artery of [place] heart without angina pectoris Place 1 Tablet under the tongue as needed for Chest pain. May repeat 3 times. If chest pain continues, call 911. 25 Tablet 1 03/14/2023 Active Nitroglycerin 0.4 MG Sublingual Tablet Sublingual (Nitrostat)Indicati ons:Chest discomfort,Coronary artery disease involving [place] coronary artery of [place] heart without angina pectoris,S/P drug eluting coronary stent placement Place under the tongue 1 Tablet as needed for Pain, Chest. May repeat 3 times. If chest pain continues, call 911. 25 Tablet 0 08/10/2021 3 Discontinue d(Refill) documented as of this encounter (statuses as of 04/01/2023) Active Problems Problem Noted Date Paroxysmal SVT (supraventricular tachyca rdia) 04/02/2022 Hyponatremia 10/09/2021 Arthritis of knee 10/01/2021 FHx: breast cancer in first degree relat lian 12/18/2020 Thyroid nodule 06/30/2020 Overview: 09/01--Stable thyroid nodules [...] colonoscopy 07/30/2019 Encounter for screening mammogram for br east cancer 07/30/2019 Overview: 11/30-benign, fatty, boo like Ca+-stable--rpt 1 yr Mom breast ca age 58, sister age 66. Screening for osteoporosis 07/30/2019 Bilateral hearing loss 05/16/2018 S/P drug eluting coronary stent placemen t 10/28/2017 Overview: 10/2017; stress echo 09/25/21>fixed inferior and inferoseptal wall motion abnormality without ischemia.Exercise capacity is below average .Test terminated secondary shortness of breath, fatigue, and hip discomfort.; EF 55-59%,mild LVH, gr 1 DD, mild aortic sclerosis;Basal inferior scar with akinesis now present. History of non-ST elevation myocardial i nfarction (NSTEMI) 10/28/2017 Coronary artery disease invo lving [place] coronary artery of [place] heart without angina pectoris 10/28/2017 Dyslipidemia, goal LDL below 70 10/29/19 HTN, goal below 140/80 01/31/2012 Overview: Per HTN Protocol #27. Type 2 diabetes mellitus with hemoglobin A1c goal of less than 8.0% 04/10/2009 Overview: Per Diabetes Taxonomy. ICD-10 update of inactive term History of nonadherence to medical treat ment 03/24/2006 documented as of this encounter (statuses as of 04/01/2023) Resolved Problems Problem Noted Date Resolved Date Type 2 diabetes mellitus with polyneuropathy 08/201807/30/2019 Asthma in remission 09/24/2014 08/04/2017 Severe obesity with body mas s index (BMI) of 35.0 to 39.9 with serious comorbidity 11/24/2009 10/28/2017 Overview: Per Obesity Protocol, #19 ICD-10 update of inactive diagnosis Acute bronchitis, antibiotics not indicated 09/1201/13/2010 HTN, GOAL BELOW 130/80 07/09/2009 2 Overview: Per HTN Taxonomy. Dyslipidemia, goal LDL below 100 05/26/2009 10/28/2017 Overview: Per Lipid Taxonomy. BENIGN NEOPLASM LG BOWEL 06/28/2006 018 Overview: Colonoscopy 06/20/06--hyperplastic polyps--repeat 5 years ADVANCE DIRECTIVE INFORMATION 03/23/2006 Overview: No, Advance Directive brochure offered , patient declined. Non-toxic multinodular goiter 01/08/2005 Diabetic polyneuropathy 09/14/2004 07/30/19 20 Overview: ICD-10 update of inactive term HTN, goal below 140/90 03/12/2003 0 Overview: Per HTN Taxonomy. Chronic rhinitis 01/11/2003 03/24/2006 Allergic rhinitis 08/07/2002 03/24/2006 MENOPAUSE - age 49 05/28/1999 03/24/2006 Type 2 diabetes mellitus wit h hemoglobin A1c goal of less than 7.0% 05/20/1998 04/10/2009 Overview: Per Diabetes Taxonomy. ICD-10 update of inactive term Mixed dyslipidemia 03/31/1998 05/26/2009 Overview: Per Lipid Taxonomy. Menstruation, irregular 03/25/1998 03/24/20 06 documented as of this encounter (statuses as of 04/01/2023) Immunizations Name Administration Dates Next Due COVID-19 [...] 1.5 15 Smokeless Tobacco: Never Quit: 06/13/1982 Tobacco Cessation:Counseling Given: Not Answered Comments:quit 1980 Alcohol Use Standard Drinks/Week Comments Yes 2 (1 standard drink = 0.6 oz pur e alcohol) week Alcohol Habits Answer Date Recorded How often do you have a drink containing alcohol ? 2-3 times a week 03/11/2021 How many drinks containing a lcohol do you have on a typical day when you are drinking? 1 or 2 03/11/2021 How often do you have six or more drinks on one occasion? Not asked 03/11/2021 Food Insecurity Answer Date Recorded Within the past 12 months, y ou worried that your food would run out before you got money to buy more. Never true 07/30/2019 Within the past 12 months, t he food you bought just didn't last and you didn't have money to get more. Never true 07/30/2019 Sex Assigned at Date Recorded Female 07/30/2019 2:[address] Job Start Date Occupation Industry Not on file Not on file Not on file documented as of this encounter Last Filed Vital Signs Vital Sign Reading Time Taken Comments Blood Pressure 136/66 03/14/2023 10:33 AM EDT Pulse 72 03/14/2023 10:33 AM EDT Temperature - - Respiratory Rate 12 03/14/2023 10:33 AM EDT Oxygen Saturation 93% 03/14/2023 10:33 AM EDT Inhaled Oxygen Concentration - - Weight 67.8 kg (149 lb 8 oz) 03/14/2023 10:33 AM EDT Height - - Body Mass Index 24.88 10/26/2022 8:00 AM EDT documented in this encounter Progress Notes * Sheeba Thao PA-C - 03/14/2023 10:37 AM EDT Cardiology F/U: CHIEF COMPLAINT: coronary heart disease, dyslipidemia SUBJECTIVE: Virgen Patterson is a 72 year old female who presents today for routine cardiology follow-up. Last clinic evaluation approximately 1.[address] Fish. History includes: 1. Coronary heart disease, NSTEMI, 90% culprit mid RCA stenosis treated with a drug eluting stent (2.75 x 26 [place]) 10/25/17 with Nonobstructive disease was noted elsewhere including a 30% distal left main stenosis, mild luminal irregularities in the circumflex coronary artery, 20-30% stenosis in theproximal to mid LAD, and 20 to 30% stenosis at the ostium of the first diagonal. Evidence of inferior WMA noted on echo 2. Dyslipidemia 3. DM2 4. Aortic valve sclerosis She presents today feeling well. Denies acute complaints. BP controlled. She recalls an episode of chest pain many months ago, took 1 SL nitro but unsure if this helped. No recurrence. No exertional chest pain. No chest pain, shortness of breath, palpitations, dizziness, syncope or near syncope. No orthopnea,PND, or increased lower extremity edema. No fever, chills, cough, hematochezia, melena, or hemoptysis. Review of Systems: See HPI for pertinent positives. All others negative, other than those noted in HPI. Patient Active Problem List Diagnosis Code History of nonadherence to medical treatment Z91.199 Type 2 diabetes mellitus with hemoglobin A1c goal of less than 8.0% (HCC) E11.9 HTN, goal below 140/80 I10 S/P drug eluting coronary stent placement Z95.5 History of non-ST elevation myocardial infarction (NSTEMI) I25.2 Coronary artery disease involving [place] coronary artery of [place] heart without angina pectoris I25.10 Dyslipidemia, goal LDL below 70 E78.5 Bilateral hearing loss H91.93 History of colonoscopy Z98.890 Encounter for screening mammogram for breast cancer Z12.31 Screening for osteoporosis Z13.820 Microscopic colitis K52.839 Thyroid nodule E04.1 FHx: breast cancer in first degree relative Z80.3 Arthritis of knee M17.10 Hyponatremia E87.1 Paroxysmal SVT (supraventricular tachycardia) I47.10 Social History Tobacco Use Smoking status: Former Packs/day: 1.50 Years: 15.00 Pack years: 22.50 Types: Cigarettes Smokeless tobacco: Never Tobacco comments: quit 1980 Vaping Use Vaping Use: Never used Substance Use Topics Alcohol use: Yes Alcohol/week: 2.0 standard drinks Types: 2 5 oz of wine per week Comment: week Drug use: No Family History Problem Relation Age of Onset Cancer Mother breast cancer, at age 63 Stroke Father Diabetes Brother Diabetes Brother Diabetes Sister Diabetes Sister Hypertension Sister Heart Disorder Sister Heart Disorder Sister Endocrine Disorder Sister thyroid Past Surgical History: Procedure Laterality Date CARDIAC CATH INJ. FOR CORONARY ANGIOGRAPHY COLONOSCOPY, DIAGNOSTIC (RECTUM) 03/27/2012 COLONOSCOPY FLEXIBLE PROXIMAL DIAGNOSTIC performed by Tobi Matt MD at [facility] , REPEAT COLONOSCOPY IN 10 YEARS COLONOSCOPY, DIAGNOSTIC (RECTUM) 02/13/2020 microscopic colitis on bx / COLONOSCOPY FLEXIBLE PROXIMAL DIAGNOSTIC performed by Khushboo Sandoval DO at ENDOSCOPY [facility] COLONOSCOPY, GI REFERRAL OP 06/20/2006 hyperplastic polyps--repeat 5 years REMOVE CATARACT, INSERT LENS PROSTH Left 10/19/2022 Left EXTRACAPSULAR CATARACT REMOVAL WITH INTRAOCULAR LENS performed by Monty Farmer MD at OR [facility] REMOVE CATARACT, INSERT LENS PROSTH Right 10/26/2022 Right EXTRACAPSULAR CATARACT REMOVAL WITH INTRAOCULAR LENS performed by Monty Farmer MD at OR [facility] VAGINAL DELIVERY ONLY x 1 Review of patient's allergies indicates: Allergen Reactions Albuterol Sulfate Heart racing Current Outpatient Medications Medication Sig Dispense Refill Aspirin 81 MG Tablet Take 1 Tablet by mouth in the morning. Nitroglycerin 0.4 MG Sublingual Tablet Sublingual (Nitrostat) Place under the tongue 1 Tablet as needed for Pain, Chest. May repeat 3 times. If chest pain continues, call 911. 25 Tablet 0 Co Q 10 100 MG Oral Capsule one pill each day Glucosamine-Chondroitin 500-400 MG Oral Capsule Take 1 Capsule by mouth in the morning. NATURAL SUPPLEMENT Take by mouth daily. Melva curcumin supplement. Takes it once daily. Also has boswellin in it Rosuvastatin Calcium 5 MG Oral Tablet (Crestor) TAKE ONE TABLET BY MOUTH EVERY MORNING 90 Tablet 3 metFORMIN HCl 850 MG Oral Tablet (Glucophage) TAKE ONE TABLET BY MOUTH TWICE A DAY 200 Tablet 1 Metoprolol Succinate ER 25 MG Oral Tablet Extended Release 24 Hour (toPROL XL) TAKE ONE AND ONE-HALF TABLETS BY MOUTH EVERY MORNING 135 Tablet 2 glipiZIDE ER 5 MG Oral Tablet Extended Release 24 Hour (Glucotrol XL) TAKE ONE TABLET BY MOUTH EVERY DAY 100 Tablet 1 Glucose Blood (FASTTAKE TEST) STRP Test up to 4 times a day 100 Strip 5 Zoster Vac Recomb Adjuvanted 50 MCG/0.5ML Intramuscular Suspension Reconstituted (Shingrix) Inject 0.5 mL into a large muscle now and repeat dose in 60 to 180 days 1 Each 1 No current facility-administered medications for this visit. OBJECTIVE/PHYSICAL EXAMINATION: BP 136/66 (BP Site: Left Arm, BP Position: Sitting, BP Cuff Size: Regular) | Pulse 72 | Resp 12 | Wt 67.8 kg (149 lb 8 oz) | LMP 02/24/1998 | SpO2 93% | BMI 24.88 kg/m | BSA 1.76 m On my repeat 130/58 General: no acute distress and stated age Eyes: conjunctiva are pink and non-injected, sclera clear Neck: normal jugular venous pulse, no hepatojugular reflux Chest: normal shape and normal respiratory effort Lungs: clear to auscultation and percussion Cardiac Exam: - regular heart sounds, no murmurs, rubs, or gallops Abdomen: not examined Musculoskeletal: no gait disturbance, no weakness Extremities: no edema and no cyanosis Neuro: grossly normal exam Psych: appropriate affect and insight. Data: EKG reviewed from January 2023: Normal sinus rhythm Left axis deviation Inferior infarct (cited on or before 04-FEB-2020) Abnormal ECG When compared with ECG of 10-AUG-2021 15:20, Criteria for Anterior infarct are no longer Present Criteria for Anterolateral infarct are no longer Present Summary of exercise stress echocardiogram performed 09/23/2021: Exercise capacity is below average . With patient completing 3 minutes and 44 seconds on a Markie protocol Test terminated secondary shortness of breath, fatigue, and hip discomfort. Resting Study: The qualitative LV ejection [...] Basal inferior scar with akinesis now present. Seven day ZIO classroom monitor performed July, with predominant rhythm sinus rhythm averageheart 70 beats per minute. Thirteen relatively brief episodes of SVT were observed. Latest Reference Range & Units 09/29/22 11:01 Triglycerides <=174 mg/dL 59 Cholesterol <200 mg/dL 130 Non-HDL Cholesterol <=159 mg/dL 60 HDL Cholesterol >49 mg/dL 70 LDL Cholesterol <=129 mg/dL 48 Latest Reference Range & Units Most Recent Sodium 135 - 146 mmol/L 136 09/29/22 11:01 Potassium 3.5 - 5.1 mmol/L 4.4 09/29/22 11:01 Chloride 98 - 107 mmol/L 99 09/29/22 11:01 CO2 22 - 32 mmol/L 26 09/29/22 11:01 BUN 6 - 20 mg/dL 14 09/29/22 11:01 Creatinine 0.5 - 1.0 mg/dL 0.8 09/29/22 11:01 Estimated Glomerular Filtration Rate >=60 mL/min 84 09/29/22 11:01 Anion Gap 7 - 15 mmol/L 11 09/29/22 11:01 Glucose 70 - 120 mg/dL 127 (H) 09/29/22 11:01 Calcium 8.4 - 10.2 mg/dL 10.2 09/29/22 11:01 Calcium, Ionized 1.13 - 1.32 mmol/L 1.34 (H) 12/18/20 09:50 Magnesium 1.5 - 2.6 mg/dL 1.8 03/18/21 11:49 Phosphorus 2.5 - 4.8 mg/dL 4.1 03/18/21 11:49 Protein 6.0 - 8.3 g/dL 7.7 03/18/21 11:49 Cortisol 2.5 - 19.5 ug/dL 14.8 01/07/21 09:27 Estimated Average Glucose <126 mg/dL 134 (H) 09/29/22 11:01 Folic Acid >4.5 ng/mL >20.0 05/25/22 13:20 Lipase 13 - 60 U/L 17 01/01/20 13:32 Osmolality, Serum 278 - 305 mOsm/kg 310 (H) 04/30/22 12:40 Vitamin A (Retinol) 38 - 98 mcg/dL 57 03/18/21 11:49 ZINC 60 - 130 mcg/dL 88 05/25/22 13:20 (H): Data is abnormally high ASSESSMENT: 70 year old year old female ICD-10-CM 1. Coronary artery disease involving [place] coronary artery of [place] heart without angina [id number] 2. Chest discomfort R07.89 3. S/P drug eluting coronary stent placement Z95.5 4. Dyslipidemia, goal LDL below 70 E78.5 5. HTN, goal below 140/80 I10 PLAN: One episode of remote chest pain reported, many months ago. No acute EKG changes in January 2023, after event. No recurrence. Stress echo last year was negative for inducible ischemia but low workload achieved. Will continue to monitor symptoms. Patient to notify clinic with any new or worsening issues BP controlled Lipids controlled The patient is to continue all current medications as listed above. No changes were made at today'svisit. Recommend regular aerobic exercise. [place] goal would be minimum of 30 minutes done daily. Exercise can be done in divided time periods if needed. Told to avoid extremes in temperature. I spent a total of 30 minutes on the date of service in preparation, delivery, and documentation ofthe care provided to Virgen Patterson excluding any time spent in the performance of separately billed services. The patient agrees to the above plan and will call with additional questions or concerns. ER with all emergencies advised. Follow-up: Return in about 6 months (around 09/13/2023). | Check-out note: [address] Abe Thao PA-C Department of Cardiology This chart was completed in part utilizing [employer] Speech Voice Recognition Software. Grammatical errors, random word insertions, prounoun errors, and incomplete sentences are an occasional consequence of this system due to software limitations, ambient noise, and hardware issues. Any formal questions or concerns about the content, text, or information contained within the body of this dictation should be directly addressed to the provider for clarification. documented in this encounter Nursing Notes * Megan Urrutia CMA - 03/14/2023 10:30 AM EDT Examination Room: 1 Name: Virgen Patterson Date of : (1950). Reason for Visit: f/u Interim Hospitalization(s): none Problems/Concerns: denies Chest Pain/SOB: denies [facility] Discussed: No My [facility] is a way you can talk to your provider online through e-mail. Would you like to sign up? I can activate it for you? ALREADY ACTIVE Patient was instructed to not get up on the exam table until directed and assisted by their provider; patient is to remain seated in the chair/ wheelchair/ exam table for fall prevention and safety reasons. Patient is aware to have assistance to step down off exam table with personnel. Patient voiced full comprehension of instructions. documented in this encounter Plan of Treatment Upcoming Encounters Date Type Specialty Care Team Description 04/05/2023 Office Visit Internal Medicine Yenny Miller MD [address] [place] [address] Health Maintenance Due Date Last Done Comments DXA Scan 1950 Hepatitis C Screening 1969 Cologuard 1996 Fecal Occult Blood Test 1996 Sigmoidoscopy 1996 Zoster Vaccines (2 of 3) 11/19/2014 09/24/2014 [...] on patient's age to complete this topic Hepatitis B Aged Out No longer eligi ble based on patient's age to complete this topic MENINGOCOCCAL (MENACTRA/MENVEO) Aged Out No longer eligible based on patient's age to complete this topic documented as of this encounter Medical Devices Implanted Type Area Sludge Control Attendant Device Identifier Shelf Expiration Date Model / Serial / Lot Lens Intraoc 17.0 - [id number] - [id number] Implanted:Qty: 1 on 10/19/2022 by Monty Farmer MD at OR [facility] Left: Eye [employer]OM[employer] 01/10/2027 [id number] / [id number] / [id number] Lens Intraoc 15.5 - [id number] - [id number] Implanted:Qty: 1 on 10/26/2022 by Monty Farmer MD at OR [facility] Right: Eye BA[employer]CH [employer] LOMB 05/12/2027 [id number] / [id number] / [id number] documented as of this encounter Visit Diagnoses Diagnosis Coronary artery disease involving [place] coronary artery of [place] heart without angina pectoris- Primary Chest discomfort Other chest pain S/P drug eluting coronary stent placement Postsurgical percutaneous transluminal coronary angioplasty status Dyslipidemia, goal LDL below 70 Other and unspecified hyperlipidemia HTN, goal below 140/80 Unspecified essential hypertension documented in this encounter Advance Directives Latest Code Status on File Code Status Date Activated Date Inactivated Comments No Code 10/26/2022 7:56 AM 10/26/2022 1:58 PM This order reflects the patients wishes and were consensually agreed upon. Question Answer Comments Discussion of Advance Directives occurred with: Patient Does the patient have a Living Will? No Does the patient have Health Care Power of Station Inspector? No Code Status History Code Status Date Activated Date Inactivated Comments No Code 10/19/2022 6:54 AM 10/19/2022 1:31 PM This or daksha reflects the patients wishes and were consensually agreed upon. Question Answer Comments Discussion of Advance Directives occurred with: Patient Does the patient have a Living Will? No Does the patient have Health Care Power of Station Inspector? No Care Teams Chief Lock Tender Operator Relationship Specialty Start Date End Date Yenny Miller MD [address] [place] [address] PCP - General Internal Medicine 07/30/19 documented as of this encounter"
--- OUTSIDE RECORDS SUMMARY | 2023-05-19 09:13 | External Medical Summary ---
Author Name Unknown Address Unknown Organization K09:[facility] [place] [address] Laboratory Report Ordering Provider Test Date Status GUALBERTO DIAZ 04/05/2023 15:17:39 Final Observation Date Value Abnormality Reference (Units ) Status BUN 04/05/2023 15:17:39 13 6-20 (mg/dL) Final Creatinine 04/05/2023 15:17:39 0.7 0.5-1.0 (mg/dL) Final Glomerular filtration rate/1.73 sq M.predicted [Volume Rate/Area] in Serum, Plasma or Blood by Creatinine-based formula (CKD-EPI) 04/05/2023 15:17:39 >90 >=60 (mL/min) Final eGFR is calculated based on the CKD-EPI 2020 equation SODIUM 04/05/2023 15:17:39 135 135-146 (m mol/L) Final Potassium 04/05/2023 15:17:39 4.3 3.5-5.1 (m mol/L) Final Cl 04/05/2023 15:17:39 97 Below low normal 98- 107 (mmol/L) Final CO2 04/05/2023 15:17:39 27 22-32 (mmo l/L) Final Anion gap 04/05/2023 15:17:39 11 7-15 (mmol /L) Final Glucose 04/05/2023 15:17:39 251 Above high normal 70 -120 (mg/dL) Final Calcium 04/05/2023 15:17:39 10.1 8.4-10.2 ( mg/dL) Final Performing Location [facility] [place] [address]
--- OUTSIDE RECORDS SUMMARY | 2023-05-19 09:13 | External Medical Summary | Summary of Care ---
Author Name Unknown Organization [facility] Address [address] [place] [address] Phone [phone] Care Team Providers Care Speech Teacher Name Role Phone Yenny Miller MD Primary Care Provider [phone] Encounter Details Date Type Department Care Team Description 02/28/2023 Orders Only General Internal Medicine [facility] 200 [facility] [place] [address] Yenny Miller MD 200 [place] [address] Allergies Active Allergy Reactions Severity Noted Date Comments Albuterol Sulfate 03/23/2006 Heart racing documented as of this encounter (statuses as of 02/28/2023) Medications Medication Sig Dispensed Refills Start Date End Date Status Glucose Blood (FASTTAKE TEST) STRP Test up to 4 times a day 100 Strip 5 04/12/2016 Active Aspirin 81 MG Tablet Take 1 Tablet by mouth in the morning. 0 Active Nitroglycerin 0.4 MG Sublingual Tablet Sublingual (Nitrostat)Indicatio ns:Chest discomfort,Coronary artery disease involving [place] coronary artery of [place] heart without angina pectoris,S/P drug eluting coronary stent placement Place under the tongue 1 Tablet as needed for Pain, Chest. May repeat 3 times. If chest pain continues, call 911. 25 Tablet 0 08/10/2021 Active Co Q 10 100 MG Oral [...] goal LDL below 70,Coronary artery disease involving [place] coronary artery of [place] heart without angina pectoris,S/P drug eluting coronary stent placement TAKE ONE TABLET BY MOUTH EVERY MORNING 90 Tablet 3 10/01/2022 10/01/2023 Active metFORMIN HCl 850 MG Oral Tablet (Glucophage)Indicati ons:Type 2 diabetes mellitus with hemoglobin A1c goal of less than 7.0% (HCC) TAKE ONE TABLET BY MOUTH TWICE A DAY 200 Tablet 1 09/21/2022 09/21/2023 Active glipiZIDE ER 5 MG Oral Tablet Extended Release 24 Hour (Glucotrol XL)Indications:Type 2 diabetes mellitus with hemoglobin A1c goal of less than 8.0% (HCC) TAKE ONE TABLET BY MOUTH EVERY DAY 100 Tablet 1 08/27/2022 08/27/2023 Active Metoprolol Succinate ER 25 MG Oral Tablet Extended Release 24 Hour (toPROL XL)Indications:Old [place] (myocardial infarction),Paroxysm al SVT (supraventricular tachycardia) (HCC) TAKE ONE AND ONE-HALF TABLETS BY MOUTH EVERY MORNING 135 Tablet 2 02/15/2023 Active documented as of this encounter (statuses as of 02/28/2023) Active Problems Problem Noted Date Paroxysmal SVT [...] (NSTEMI) 10/28/2017 Coronary artery disease invo lving [place] coronary artery of [place] heart without angina pectoris 10/28/2017 Dyslipidemia, goal LDL below 70 10/29/19 HTN, goal below 140/80 01/31/2012 Overview: Per HTN Protocol #27. Type 2 diabetes mellitus with hemoglobin A1c goal of less than 8.0% 04/10/2009 Overview: Per Diabetes Taxonomy. ICD-10 update of inactive term History of nonadherence to medical treat ment 03/24/2006 documented as of this encounter (statuses as of 02/28/2023) Resolved Problems Problem Noted Date Resolved Date [...] as of this encounter (statuses as of 02/28/2023) Immunizations Name Administration Dates Next Due COVID-19 [...] Encounters Date Type Specialty Care Team Description 03/14/2023 Office Visit Cardiology Sheeba hTao PA-C [address] [place] [address] 04/05/2023 Office Visit [facility] [address] Health Maintenance Due Date Last Done Comments DXA Scan 1950 Hepatitis C Screening 1968 Cologuard 1996 Fecal Occult Blood Test 1996 Sigmoidoscopy 1996 Zoster Vaccines (2 of 3) 11/19/2014 09/24/2014 Pneumococcal Vaccine: 65+ Years (3 - PPSV23 or PCV20) 02/21/2018 02/21/2017, 03/12/2003 COVID-19 Vaccine (5 - Moderna series) 03/22/2022 01/25/2022, 04/17/2021, 08/18/2020, Additional history exists Influenza Vaccine (FLU shot) (#1) 2023 04/02/2022, 04/13/2019, 03/24/2018, Additional history exists HbA1c 03/31/2023 09/29/2022, 04/14, 10/01/2021, Additional history exists Mammogram 08/21/2023 08/20/2022, 07/15, 11/26/2019, Additional history exists Albumin/Creatinine Ratio 09/30/2023 023, 10/01/2021, 06/23/2020, Additional history exists B-12 09/30/2023 09/29/2022, 05/13, 10/01/2021, Additional history exists GFR 09/30/2023 09/29/2022, 04/13, 03/03/2022, Additional history exists Depression Screening 10/02/2023 10/01/2022 Diabetic Foot Exam 10/02/2023 10/01/2022, 0 10/01/2021, 06/23/2020, Additional history exists DIABETES-EYE EXAM 02/29/2024 09/07/2022, , 05/12/2021, Additional history exists Colonoscopy 02/12/2030 02/13/2020, 0907/2019, 03/27/2012, Additional history exists Colorectal Cancer Screening [...] this encounter Medical Devices Implanted Type Area Photographic Laboratory Technician Device Identifier Shelf Expiration Date Model / Serial / Lot Lens Intraoc 17.0 - [id number] - [id number] Implanted:Qty: 1 on 10/19/2022 by Monty Farmer MD at OR [facility] Left: Eye BAUSCH & LOMB 01/10/2027 [id number] / [id number] / [id number] Lens Intraoc 15.5 - [id number] - [id number] Implanted:Qty: 1 on 10/26/2022 by Monty Farmer MD at OR [facility] Right: Eye BAUSCH & LOMB 05/12/2027 [id number] / [id number] / [id number] documented as of this encounter Procedures Procedure Name Priority Date/Time Associated Diagnosis Comments DIABETIC EYE EXAM Routine 07/14/2022 documented in this encounter Results * DIABETIC EYE EXAM (07/14/2022) 07/14/2022 History Per Patient OTHER OUTSIDE LAB (SEE SCANNED REPORT) documented in this encounter Advance Directives Latest Code Status on File Code Status Date Activated Date Inactivated Comments No Code 10/26/2022 7:56 AM 10/26/2022 1:58 PM This order reflects the patients wishes and were consensually agreed upon. Question Answer Comments Discussion of Advance Directives occurred with: Patient Does the patient have a Living Will? No Does the patient have Health Care Power of Sap Solutions Architect? No Code Status History Code Status Date Activated Date Inactivated Comments No Code 10/19/2022 6:54 AM 10/19/2022 1:31 PM This or daksha reflects the patients wishes and were consensually agreed upon. Question Answer Comments Discussion of Advance Directives occurred with: Patient Does the patient have a Living Will? No Does the patient have Health Care Power of Sap Solutions Architect? No Care Teams Speech Teacher Relationship Specialty Start Date End Date Yenny Miller MD [address] [place] [address] PCP - General Internal Medicine 07/30/19 documented as of this encounter
--- OUTSIDE RECORDS SUMMARY | 2023-05-19 09:13 | External Medical Summary | Summary of Care ---
Author Name Unknown Organization [facility] Address [address] [place] [address] Phone [phone] Care Team Providers Care Spot Welder Name Role Phone Yenny Miller MD Primary Care Provider [phone] Encounter Details Date Type Department Care Team Description 02/23/2023 Orders Only General Internal Medicine [facility] 200 [facility] [place] [address] Yenny Miller MD 200 [facility] [place] [address] Allergies Active Allergy Reactions Severity Noted Date Comments Albuterol Sulfate 03/23/2006 Heart racing documented as of this encounter (statuses as of 02/23/2023) Medications Medication Sig Dispensed Refills Start Date End Date Status Glucose Blood (FASTTAKE TEST) STRP Test up to 4 times a day 100 Strip 5 04/12/2016 Active Aspirin 81 MG Tablet Take 1 Tablet by mouth in the morning. 0 Active Nitroglycerin 0.4 MG Sublingual Tablet Sublingual (Nitrostat)Indicatio ns:Chest discomfort,Coronary artery disease involving [place] coronary artery of [place] heart without angina pectoris,S/P drug eluting coronary [...] goal LDL below 70,Coronary artery disease involving [place] coronary artery of [place] heart without angina pectoris,S/P drug eluting coronary [...] Tablet Extended Release 24 Hour (toPROL XL)Indications:Old [place] (myocardial infarction),Paroxysm al SVT (supraventricular tachycardia) (HCC) TAKE ONE AND ONE-HALF TABLETS BY MOUTH EVERY MORNING 135 Tablet 2 02/15/2023 Active documented as of this encounter (statuses as of 02/23/2023) Active Problems Problem Noted Date Paroxysmal SVT [...] (NSTEMI) 10/28/2017 Coronary artery disease invo lving [place] coronary artery of [place] heart without angina pectoris 10/28/2017 Dyslipidemia, goal LDL below 70 10/29/19 HTN, goal below 140/80 01/31/2012 Overview: Per HTN Protocol #27. Type 2 diabetes mellitus with hemoglobin A1c goal of less than 8.0% 04/10/2009 Overview: Per Diabetes Taxonomy. ICD-10 update of inactive term History of nonadherence to medical treat ment 03/24/2006 documented as of this encounter (statuses as of 02/23/2023) Resolved Problems Problem Noted Date Resolved Date [...] as of this encounter (statuses as of 02/23/2023) Immunizations Name Administration Dates Next Due COVID-19 [...] Team Description 03/14/2023 Office Visit Cardiology Sheeba Thao PA-C [address] [place] [address] 04/05/2023 Office Visit Internal Medicine [facility] [address] Health Maintenance Due Date Last Done Comments [...] 07/15, 11/26/2019, Additional history exists DIABETES-EYE EXAM 09/09/2023 09/07/2022, , 05/03/2019, Additional history exists Albumin/Creatinine Ratio 09/30/2023 023, 10/01/2021, 06/23/2020, Additional history exists B-12 09/30/2023 09/29/2022, 05/13, 10/01/2021, Additional history exists GFR 09/30/2023 09/29/2022, 04/13, 03/03/2022, Additional history exists Depression Screening 10/02/2023 10/01/2022 Diabetic Foot Exam 10/02/2023 10/01/2022, 0 10/01/2021, 06/23/2020, Additional history exists Colonoscopy 02/12/2030 02/13/2020, 09/0 07/2019, 03/27/2012, Additional history exists Colorectal Cancer [...] this encounter Medical Devices Implanted Type Area City Tax Auditor Device Identifier Shelf Expiration Date Model / Serial / Lot Lens Intraoc 17.0 - [id number] - [id number] Implanted:Qty: 1 on 10/19/2022 by Monty Farmer MD at OR [facility] Left: Eye BAUSCH & LOMB 01/10/2027 [id number] / [id number] / [id number] Lens Intraoc 15.5 - [id number] - [id number] Implanted:Qty: 1 on 10/26/2022 by Monty Farmer MD at OR [facility] Right: Eye BAUSCH & LOMB 05/12/2027 [id number] / [id number] / [id number] documented as of this encounter Procedures Procedure Name Priority Date/Time Associated Diagnosis Comments DIABETIC EYE EXAM Routine 09/07/2022 documented in this encounter Results * DIABETIC EYE EXAM (09/07/2022) 09/07/2022 Monty Farmer MD OTHER OUTSIDE LAB (SEE SCANNED REPORT) documented [...] the patient have Health Care Power of Dipper Clock And Watch Hands? No Code Status History Code Status Date Activated Date Inactivated Comments No Code 10/19/2022 6:54 AM 10/19/2022 1:31 PM This or daksha reflects the patients wishes and were consensually agreed upon. Question Answer Comments Discussion of Advance Directives occurred with: Patient Does the patient have a Living Will? No Does the patient have Health Care Power of Dipper Clock And Watch Hands? No Care Teams Spot Welder Relationship Specialty Start Date End Date Yenny Miller MD 200 [place] [address] PCP - General Internal Medicine 07/30/19 documented as of this encounter
--- OUTSIDE RECORDS SUMMARY | 2023-05-19 09:13 | External Medical Summary | Summary of Care ---
Author Name Unknown Organization [facility] Address [address] [place] [address] Phone [phone] Care Team Providers Care Dog Licenser Name Role Phone Yenny Miller MD Primary Care Provider [phone] Reason for Visit * Reason Comments Medication Refill Encounter Details Date Type Department Care Team Description 03/10/2023 Refill General Internal Medicine [facility] 200 [facility] [place], [place] [id number] Yenny Miller MD 200 [facility] [place], [place] [id number] Type 2 diabetes mellitus with hemoglobin A1c goal of less than 8.0% ([facility]) Allergies Active Allergy Reactions Severity Noted Date Comments Albuterol Sulfate 03/23/2006 Heart racing documented as of this encounter (statuses as of 03/11/2023) Medications Medication Sig Dispensed Refills Start Date End Date Status Glucose Blood (FASTTAKE TEST) STRP Test up to 4 times a day 100 Strip 5 04/12/2016 Active Aspirin 81 MG Tablet Take 1 Tablet by mouth in the morning. 0 Active Nitroglycerin 0.4 MG Sublingual Tablet Sublingual (Nitrostat)Indicati ons:Chest discomfort,Coronary artery disease involving [place] coronary artery of [place] heart without angina pectoris,S/P drug eluting coronary [...] goal LDL below 70,Coronary artery disease involving [place] coronary artery of [place] heart without angina pectoris,S/P drug eluting coronary [...] EVERY DAY 100 Tablet 1 03/11/2023 Active glipiZIDE ER 5 MG Oral Tablet Extended Release 24 Hour (Glucotrol XL)Indications:Type 2 diabetes mellitus with hemoglobin A1c goal of less than 8.0% (HCC) TAKE ONE TABLET BY MOUTH EVERY DAY 100 Tablet 1 08/27/2022 3 Discontinue d(Refill) documented as of this encounter (statuses as of 03/11/2023) Active Problems Problem Noted Date Paroxysmal SVT (supraventricular tachyca rdia) 04/02/2022 Hyponatremia 10/09/2021 Arthritis of knee 10/01/2021 FHx: breast cancer in first degree relat lian 12/18/2020 Thyroid nodule 06/30/2020 Overview: 3/22--Stable thyroid nodules 08/03-US>2 colloid cysts in the [...] (NSTEMI) 10/28/2017 Coronary artery disease invo lving [place] coronary artery of [place] heart without angina pectoris 10/28/2017 Dyslipidemia, goal LDL below 70 10/29/19 18 HTN, goal below 140/80 01/31/2012 Overview: Per HTN Protocol #27. Type 2 diabetes mellitus with hemoglobin A1c goal of less than 8.0% 04/10/2009 Overview: Per Diabetes Taxonomy. ICD-10 update of inactive term History of nonadherence to medical treat ment 03/24/2006 documented as of this encounter (statuses as of 03/11/2023) Resolved Problems Problem Noted Date Resolved Date [...] as of this encounter (statuses as of 03/11/2023) Immunizations Name Administration Dates Next Due COVID-19 [...] encounter Miscellaneous Notes * Telephone Encounter - Tita Cope, [facility] - 03/11/2023 6:38 AM EDTSigned Prescriptions: Disp Refills glipiZIDE ER 5 MG Oral Tablet Extended Rel*100 Ta*1 Sig: TAKE ONE TABLET BY MOUTH EVERY DAYAuthorizing Provider: Neelima MILLER User: TITA COPE------ documented in this encounter Plan of Treatment Upcoming Encounters Date Type Specialty Care Team Description 03/14/2023 Office Visit Cardiology Sheeba Thao PA-C [address] [place] [address] 04/05/2023 Office Visit Internal Medicine Yenny Miller MD 200 [facility] [place] [address] Health Maintenance Due Date Last Done Comments [...] this encounter Medical Devices Implanted Type Area Profile Grinder Technician Device Identifier Shelf Expiration Date Model / Serial / Lot Lens Intraoc 17.0 - [id number] - [id number] Implanted:Qty: 1 on 10/19/2022 by Monty aFrmer MD at OR [facility] Left: Eye BAUSCH & LOMB 01/10/2027 [id number] / [id number] / [id number] Lens Intraoc 15.5 - [id number] - [id number] Implanted:Qty: 1 on 10/26/2022 by Monty Farmer MD at [facility] Right: Eye BAUSCH & LOMB 05/12/2027 [id number] / [id number] / [id number] documented as of this encounter Visit Diagnoses Diagnosis Type 2 diabetes mellitus with hemoglobin A1c goal of less than 8.0% (HCC) documented in this encounter Advance Directives [...] the patient have Health Care Power of Power Saw Operator? No Code Status History Code Status Date Activated Date Inactivated Comments No Code 10/19/2022 6:54 AM 10/19/2022 1:31 PM This or daksha reflects the patients wishes and were consensually agreed upon. Question Answer Comments Discussion of Advance Directives occurred with: Patient Does the patient have a Living Will? No Does the patient have Health Care Power of Power Saw Operator? No Care Teams Dog Licenser Relationship Specialty Start Date End Date Yenny Miller MD [address] [place] [address] PCP - General Internal Medicine 07/30/19 documented as of this encounter
--- OUTSIDE RECORDS SUMMARY | 2023-05-19 09:13 | External Medical Summary ---
Author Name Unknown Address Unknown Organization K01:[facility] [address] [place] [address] Laboratory Report Ordering Provider Test Date Status GUALBERTO DIAZ 04/05/2023 15:17:39 Final Observation Date Value Abnormality Reference (Units) Status Hepatitis B virus surface Ab [Units/volume] in Serum or Plasma by Immunoassay 04/05/2023 15:17:39 10.9 (mIU/mL) Final Hepatitis B virus surface Ab [Presence] in Serum by Immunoassay 04/05/2023 15:17:39 Indeterminate Final HEPATITIS B SURFACE ANTIBODY, INTERPRETATION 04/05/2023 15:17:39 Suggest repeat testing in 1 to 3 months. Final POSITIVE: >=11.5 mIU/mL
INDETERMINATE: 8.5-<11.5 mIU/mL
NEGATIVE: <8.5 mIU/mL Performing Location [facility] [address] [place] [address]
--- OUTSIDE RECORDS SUMMARY | 2023-05-19 09:13 | External Medical Summary | Summary of Care ---
Author Name Unknown Organization [facility] Address [address] [place] [address] Phone [phone] Care Team Providers Care Armoured Corps Officer Name Role Phone Yenny Miller MD Primary Care Provider [phone] Reason for Visit * Reason Onset Date Comments Health Maintenance 02/21/2023 Encounter Details Date Type Department Care Team Description 02/21/2023 Telephone General Internal Medicine [facility] [place] 200 [facility] [place] [id number] [facility] MD 200 [facility] [address] [facility] Allergies Active Allergy Reactions Severity Noted Date Comments Albuterol Sulfate 03/23/2006 Heart racing documented as of this encounter (statuses as of 02/21/2023) Medications Medication Sig Dispensed Refills Start Date End Date Status Glucose Blood (FASTTAKE TEST) STRP Test up to 4 times a day 100 Strip 5 04/12/2016 Active Aspirin 81 MG Tablet Take 1 Tablet by mouth in the morning. 0 Active Nitroglycerin 0.4 MG Sublingual Tablet Sublingual (Nitrostat)Indicatio ns:Chest discomfort,Coronary artery disease involving [place] coronary artery of [place] heart without angina pectoris,S/P drug eluting coronary [...] goal LDL below 70,Coronary artery disease involving [place] coronary artery of [place] heart without angina pectoris,S/P drug eluting coronary [...] Tablet Extended Release 24 Hour (toPROL XL)Indications:Old [place] (myocardial infarction),Paroxysm al SVT (supraventricular tachycardia) (HCC) TAKE ONE AND ONE-HALF TABLETS BY MOUTH EVERY MORNING 135 Tablet 2 02/15/2023 Active documented as of this encounter (statuses as of 02/21/2023) Active Problems Problem Noted Date Paroxysmal SVT [...] (NSTEMI) 10/28/2017 Coronary artery disease invo lving [place] coronary artery of [place] heart without angina pectoris 10/28/2017 Dyslipidemia, goal LDL below 70 10/29/19 HTN, goal below 140/80 01/31/2012 Overview: Per HTN Protocol #27. Type 2 diabetes mellitus with hemoglobin A1c goal of less than 8.0% 04/10/2009 Overview: Per Diabetes Taxonomy. ICD-10 update of inactive term History of nonadherence to medical treat ment 03/24/2006 documented as of this encounter (statuses as of 02/21/2023) Resolved Problems Problem Noted Date Resolved Date [...] as of this encounter (statuses as of 02/21/2023) Immunizations Name Administration Dates Next Due COVID-19 [...] encounter Miscellaneous Notes * Telephone Encounter - Hali Beard LPN - 02/21/2023 12:03 PM EDT Care Gaps Comprehensive Care Outreach Last Office/Telemedicine Visit: 01/31/2023 (in office), Visit date not found (telemedicine) Next Office Visit: 04/05/2023 Hemoglobin AIC Results: Lab Results Component Value Date/Time HEMOGLOBIN A1C - [facility] 6.3 (H) 09/29/2022 11:01 AM HEMOGLOBIN A1C - [facility] 6.3 (H) 05/07/2022 11:08 AM HEMOGLOBIN A1C - [facility] 6.3 (H) 10/01/2021 09:29 AM HEMOGLOBIN A1C - [facility] 6.2 (H) 06/23/2020 04:20 PM HEMOGLOBIN A1C - [facility] 7.4 (H) 11/29/2019 04:35 PM HEMOGLOBIN A1C - [facility] 7.3 (H) 05/18/2019 02:41 PM Reviewed Health Maintenance below: Health Maintenance Topic Date Due DXA Scan Never done Hepatitis C Screening Never done Zoster Vaccines (2 of 3) 11/19/2014 Pneumococcal Vaccine: 65+ Years (3 - PPSV23 or PCV20) 02/21/2018 COVID-19 Vaccine (5 - Moderna series) 03/22/2022 DIABETES-EYE EXAM 05/12/2022 Influenza Vaccine (FLU shot) (1) 02/11/2023 HbA1c 03/31/2023 Dexa Eye requested Labs already ordered Care Gap Outreach Action Taken: Unable to reach documented in this encounter Plan of Treatment Upcoming Encounters Date Type Specialty Care Team Description 03/14/2023 Office Visit Cardiology Sheeba Thao PA-C [address] [place] [address] 04/05/2023 Office Visit Internal Medicine Yenny Miller MD 200 [place] [address] Health Maintenance Due Date Last Done Comments DXA Scan 1950 Hepatitis C Screening 1969 Cologuard 1996 Fecal Occult Blood Test 1996 Sigmoidoscopy 1996 Zoster Vaccines (2 of 3) 11/19/2014 09/24/2014 Pneumococcal Vaccine: 65+ Years (3 - PPSV23 or PCV20) 02/21/2018 02/21/2017, 03/12/2003 COVID-19 Vaccine (5 - Moderna series) 03/22/2022 01/25/2022, 04/17/2021, 08/18/2020, Additional history exists DIABETES-EYE EXAM 05/12/2022 05/12/2021, , 12/09/2016, Additional history exists Influenza Vaccine (FLU shot) [...] this encounter Medical Devices Implanted Type Area Admissions Coordinator Device Identifier Shelf Expiration Date Model / Serial / Lot Lens Intraoc 17.0 - [id number] - [id number] Implanted:Qty: 1 on 10/19/2022 by Monty Farmer MD at [facility] Left: Eye BAUSCH & LOMB 01/10/2027 [id number] / [id number] / [id number] Lens Intraoc 15.5 - [id number] - [id number] Implanted:Qty: 1 on 10/26/2022 by Monty Farmer MD at OR [facility] Right: Eye BAUSCH & LOMB 05/12/2027 [id number] / [id number] / [id number] documented as of this encounter Advance Directives Latest Code Status on File Code Status Date Activated Date Inactivated Comments No Code 10/26/2022 7:56 AM 10/26/2022 1:58 PM This order reflects the patients wishes and were consensually agreed upon. Question Answer Comments Discussion of Advance Directives occurred with: Patient Does the patient have a Living Will? No Does the patient have Health Care Power of Placing Judge? No Code Status History Code Status Date Activated Date Inactivated Comments No Code 10/19/2022 6:54 AM 10/19/2022 1:31 PM This or daksha reflects the patients wishes and were consensually agreed upon. Question Answer Comments Discussion of Advance Directives occurred with: Patient Does the patient have a Living Will? No Does the patient have Health Care Power of Placing Judge? No Care Teams Armoured Corps Officer Relationship Specialty Start Date End Date Yenny Miller MD 200 [place] [address] PCP - General Internal Medicine 07/30/19 documented as of this encounter
--- OUTSIDE RECORDS SUMMARY | 2023-05-19 09:14 | External Medical Summary | Summary of Care ---
Author Name Unknown Organization [facility] Address [address] [place] [address] Phone [phone] Care Team Providers Care Hand Bander Name Role Phone Yenny Miller MD Primary Care Provider [phone] Reason for Visit * Reason Comments Follow Up Encounter Details Date Type Department Care Team Description 01/31/2023 Office Visit General Internal Medicine [facility] [address] [facility] [place] [id number] Yenny Miller MD [address] [place], [place] [id number] History of chest pain*; Coronary artery disease involving [place] coronary artery of [place] heart without angina pectoris; Screening for osteoporosis Allergies Active Allergy Reactions Severity Noted Date Comments Albuterol Sulfate 03/23/2006 Heart racing documented as of this encounter (statuses as of 02/14/2023) Medications Medication Sig Dispensed Refills Start Date End Date Status Glucose Blood (FASTTAKE TEST) STRP Test up to 4 times a day 100 Strip 5 04/12/2016 Active Aspirin 81 MG Tablet Take 1 Tablet by mouth in the morning. 0 Active Nitroglycerin 0.4 MG Sublingual Tablet Sublingual (Nitrostat)Indicat ions:Chest discomfort,Coronar y artery disease involving [place] coronary artery of [place] heart without angina pectoris,S/P drug eluting coronary [...] goal LDL below 70,Coronary artery disease involving [place] coronary artery of [place] heart without angina pectoris,S/P drug eluting coronary stent placement TAKE ONE TABLET BY MOUTH EVERY MORNING 90 Tablet 3 10/01/2022 4 Active metFORMIN HCl 850 MG Oral Tablet (Glucophage)Indica tions:Type 2 diabetes mellitus with hemoglobin A1c goal of less than 7.0% (HCC) TAKE ONE TABLET BY MOUTH TWICE A DAY 200 Tablet 1 09/21/2022 4 Active glipiZIDE ER 5 MG Oral Tablet Extended Release 24 Hour (Glucotrol XL)Indications:Typ e 2 diabetes mellitus with hemoglobin A1c goal of less than 8.0% (HCC) TAKE ONE TABLET BY MOUTH EVERY DAY 100 Tablet 1 08/27/2022 4 Active Metoprolol Succinate ER 25 MG Oral Tablet Extended Release 24 Hour (toPROL XL)Indications:Old [place] (myocardial infarction),Paroxy smal SVT (supraventricular tachycardia) (HCC) TAKE ONE AND ONE-HALF TABLETS BY MOUTH EVERY MORNING 135 Tablet 1 07/31/2022 4 Active Triamcinolone Acetonide 0.1 % Mouth/Throat Paste (Kenalog In Orabase) 0 05/18/2022 3 Discontinued documented as of this encounter (statuses as of 02/14/2023) Active Problems Problem Noted Date Paroxysmal SVT [...] (NSTEMI) 10/28/2017 Coronary artery disease invo lving [place] coronary artery of [place] heart without angina pectoris 10/28/2017 Dyslipidemia, goal LDL below 70 10/29/19 18 HTN, goal below 140/80 01/31/2012 Overview: Per HTN Protocol #27. Type 2 diabetes mellitus with hemoglobin A1c goal of less than 8.0% 04/10/2009 Overview: Per Diabetes Taxonomy. ICD-10 update of inactive term History of nonadherence to medical treat ment 03/24/2006 documented as of this encounter (statuses as of 02/14/2023) Resolved Problems Problem Noted Date Resolved Date [...] as of this encounter (statuses as of 02/14/2023) Immunizations Name Administration Dates Next Due COVID-19 mRNA, LNP-s, No Pre serve, 2-Dose Series (Moderna) 08/18/2020,07/21/2020 Covid-19 Mrna, Lnp-s, No Preserve, Booster (Mode rna) 01/25/2022,04/17/2021 Pneumococcal Conjugate Vacc, 13 Valent (Prevnar) [...] Sign Reading Time Taken Comments Blood Pressure 104/58 01/31/2023 7:56 AM EDT Pulse 72 01/31/2023 7:56 AM EDT Temperature 35.8 C (96.4 F) 01/31/2023 7:56 AM ED T Respiratory Rate - - Oxygen Saturation 99% 01/31/2023 7:56 AM EDT Inhaled Oxygen Concentration - - Weight 68.5 kg (151 lb) 01/31/2023 7:56 AM EDT Height - - Body Mass Index 25.13 10/26/2022 8:00 AM EDT documented in this encounter Progress Notes * Yenny Miller MD - 01/31/2023 8:13 AM EDT SUBJECTIVE: Virgen Patterson is a 72 year old female. Chief Complaint Patient presents with Follow Up HPI: Patient presents today for follow-up regarding chest pain. She called in on January 22 after having had an episode of chest pain on 01/21/2023 after she had been doing some yd work. Pain was located behind the sternum, radiated to the neck. Did not have any associated shortness of breath dizziness or diaphoresis. She thinks it may have lasted for about 10 minutes, took 1 nitroglycerin with re lief, had headache thereafter has not had any recurrent symptoms since. She is continued to do exertional activities like yd work and walking. Denies any symptoms of heartburn Has lost 7 lb since September, states she is been busy with [employer] work. Has a good appetite, no fever chills or night sweats. Wt Readings from Last 4 Encounters: 01/31/23 68.5 kg (151 lb) 10/26/22 71.7 kg (158 lb) 10/19/22 71.7 kg (158 lb) 10/01/22 71.7 kg (158 lb 1.6 oz) BP Readings from Last 4 Encounters: 01/31/23 104/58 10/26/22 115/48 10/19/22 128/57 10/01/22 124/56 PMH-Hypertension, dyslipidemia, Non ST-elevation [place] 10/28, had drug-eluting stent to the RCA, 30% blockages other arteries. She follows up with Dr. Fish. On metoprolol XL 25 mg and taken off lisinopril during that time, was on Plavix for about a year and half and she went off of it in April and resumed aspirin. , also on Crestor 5 mg daily, nitroglycerin p.r.n. sublingual 08/10/21>EKG--NSR at 73 bpm, LAD, minimal voltage [...] of breath, fatigue, andhip discomfort. Resting Study: EF 55-59%, mild LVH ;The base inferior wall appears scarred and akinetic., base inferoseptum is hypokinetic. Gr 1 DD, A sclerosis : Basal inferior scar with akinesis now present. 10/01/2021--tolerating higher dose of the metoprolol, denies any fatigue or weakness. No recurrent chest discomfort. Denies any symptoms of claudication in the lower extremities 04/03--had cardiology follow-up in October, 1 year follow-up was advised. 01/31/[id number] at 67 bpm, LAD, inf inf -is to prior ekg SP cataract surgery Discussed Pneumovax she defers, discussed Shingrix, defers today TSH Results: Lab Results Component Value Date/Time TSH - [facility] 1.08 04/30/2022 12:40 PM TSH - [facility] 0.92 03/18/2021 11:49 AM TSH - [facility] 1.02 09/24/2020 09:04 AM TSH - [facility] 0.42 01/01/2020 01:32 PM TSH - [facility] 1.33 12/16/2011 09:13 AM TSH - [facility] 1.04 03/21/2008 09:34 AM Patient Active Problem List Diagnosis Code History of nonadherence to medical treatment Z91.199 Type 2 diabetes mellitus with hemoglobin A1c goal of less than 8.0% ([facility]) E11.9 HTN, goal below 140/80 I10 S/P drug eluting coronary stent placement Z95.5 History of non-ST elevation myocardial infarction (NSTEMI) I25.2 Coronary artery disease involving [place] coronary artery of [place] heart without angina pectoris I25.10 Dyslipidemia, goal LDL below 70 E78.5 Bilateral hearing loss H91.93 History of colonoscopy Z98.890 Encounter for screening mammogram for breast cancer Z12.31 Screening for osteoporosis Z13.820 Microscopic colitis K52.839 Thyroid nodule E04.1 FHx: breast cancer in first degree relative Z80.3 Arthritis of knee M17.10 Hyponatremia E87.1 Paroxysmal SVT (supraventricular tachycardia) (HCC) I47.1 Current Outpatient Medications Medication Sig Dispense Refill Glucose Blood (FASTTAKE TEST) STRP Test up to 4 times a day 100 Strip 5 Aspirin 81 MG Tablet Take 1 Tablet [...] MOUTH TWICE A DAY 200 Tablet 1 glipiZIDE ER 5 MG Oral Tablet Extended Release 24 Hour (Glucotrol XL) TAKE ONE TABLET BY MOUTH EVERY DAY 100 Tablet 1 Metoprolol Succinate ER 25 MG Oral Tablet Extended Release 24 Hour (toPROL XL) TAKE ONE AND ONE-HALF TABLETS BY MOUTH EVERY MORNING 135 Tablet 1 Nitroglycerin 0.4 MG Sublingual Tablet Sublingual (Nitrostat) Place under the tongue 1 Tablet as needed for Pain, Chest. May repeat 3 times. If chest pain continues, call 911. 25 Tablet 0 Zoster Vac Recomb Adjuvanted 50 MCG/0.5ML Intramuscular Suspension Reconstituted (Shingrix) Inject 0.5 mL into a large muscle now and repeat dose in 60 to 180 days 1 Each 1 No current facility-administered medications for this visit. Review of patient's allergies indicates: Allergen Reactions Albuterol Sulfate Heart racing OBJECTIVE: BP 104/58 | Pulse 72 | Temp 35.8 C (96.4 F) (Tympanic) | Wt 68.5 kg (151 lb) | LMP 02/24/1998 |SpO2 99% | BMI 25.13 kg/m | BSA 1.77 m PHYSICAL EXAM: General: alert, healthy, no distress, well developed Neck: supple, no adenopathy, thyroid Not enlarged without nodularity Heart: regular rhythm and rate,No murmurs. Lungs: lungs clear to auscultation Extremities: no edema ASSESSMENT/PLAN: History of chest pain (Primary) - EKG; Future; Expected date: 01/31/2023 - EKG Coronary artery disease involving [place] coronary artery of [place] heart without angina pectoris - EKG; Future; Expected date: 01/31/2023 - EKG --EKG -NSR at 67 bpm., LAD, inferior infarct seen on prior EKG, EKG unchanged, has not had any recurrent symptoms, last stress test negative in September 2021, advisedthat if she has any recurrent symptoms she will need to come in for eval or go to the ED for evaluation. Blood pressure lower than normal, remains asymptomatic, continue same dose for now. Screening for osteoporosis Follow Up: Return in about 2 months (around 04/02/2023) for Return with Physician, Fasting Labs 2-5Days Before Next Visit. | For: Return with Physician, Fasting Labs 2-5 Days Before Next Visit | Check-out note: Pl yunier dexa, ordered in September (This note was completed using the dictation program Fluency Direct. As such, there may be misspellings, word substitutions, or other variations that should not change the essence of the clinical content of this encounter note. If there is need for further clarification, please direct questions to the provider listed above.) Patient and / caregiver verbalize understanding of above instructions and agrees with plan of care. Yenny Miller MD 01/31/2023 documented in this encounter Procedure Notes * Jarrett Mclean MD - 01/31/2023 8:47 AM EDTAssociated Order(s): EKG REASON FOR STUDY: H\\O CHEST PAIN CONCLUSIONS: Normal sinus rhythm Left axis deviation Inferior infarct (cited on or before 04-FEB-2020) Abnormal ECG When compared with ECG of 10-AUG-2021 15:20, Criteria for Anterior infarct are no longer Present Criteria for Anterolateral infarct are no longer Present Ventricular Rate: 67 Atrial Rate: 67 [place] Interval: 148 QRS Duration: 110 QT/QTc: 400/422 ms P-R-T [place]: 18 : -35 : -2 degrees documented in this encounter Nursing Notes * Sisi Orellana LPN - 01/31/2023 7:56 AM EDT Chief Complaint Patient presents with Follow Up documented in this encounter Plan of Treatment Upcoming Encounters Date Type Specialty Care Team Description 03/14/2023 Office Visit Cardiology Sheeba Thao PA-C [address] [place] [address] 04/05/2023 [facility] Visit [facility] [address] [facility] Maintenance Due Date Last Done Comments [...] 09/30/2023 09/29/2022, 04/13, 03/03/2022, Additional history exists DIABETES-FOOT EXAM 10/02/2023 10/01/2022, 0 10/01/2021, 06/23/2020, Additional history exists Depression Screening, Annual for Pts 12 and Over 10/02/2023 10/01/2022 Colonoscopy 02/12/2030 02/13/2020, 07/2019, 03/27/2012, Additional history [...] this encounter Medical Devices Implanted Type Area Flag Maker Device Identifier Shelf Expiration Date Model / Serial / Lot Lens Intraoc 17.0 - [id number] - [id number] Implanted:Qty: 1 on 10/19/2022 by Monty Farmer MD at OR [facility] Left: Eye BAUSCH & LOMB 01/10/2027 [id number] / [id number] / [id number] Lens Intraoc 15.5 - [id number] - [id number] Implanted:Qty: 1 on 10/26/2022 by Monty Farmer MD at OR [facility] Right: Eye BAUSCH & LOMB 05/12/2027 [id number] / [id number] / [id number] documented as of this encounter Procedures Procedure Name Priority Date/Time Associated Diagnosis Comments [place] ECG ROUTINE ECG W/LEAST 12 LDS I&R ONLY Routine 01/31/2023 8:47 AM EDT History of chest pain Coronary artery disease involving [place] coronary artery of [place] heart without angina pectoris documented in this encounter Results * EKG (01/31/2023 8:47 AM EDT) 01/31/2023 8:47 AM EDT Procedure Note Jarrett Mclean MD - 01/31/2023 8:47 AM EDT REASON FOR STUDY: H\\O CHEST PAIN CONCLUSIONS: Normal sinus rhythm Left axis deviation Inferior infarct (cited on or before 04-FEB-2020) Abnormal ECG When compared with ECG of 10-AUG-2021 15:20, Criteria for Anterior infarct are no longer Present Criteria for Anterolateral infarct are no longer Present Ventricular Rate: 67 Atrial Rate: 67 [place] Interval: 148 QRS Duration: 110 QT/QTc: 400/422 ms P-R-T [place]: 18 : -35 : -2 degrees Yenny Miller MD EKG [facility] documented in this encounter Visit Diagnoses Diagnosis History of chest pain- Primary Personal history of other specified diseases Coronary artery disease involving [place] coronary artery of [place] heart without angina pectoris Screening for osteoporosis Special screening for osteoporosis documented in this encounter Advance Directives Latest Code Status on File Code Status Date Activated Date Inactivated Comments No Code 10/26/2022 7:56 AM 10/26/2022 1:58 PM This order reflects the patients wishes and were consensually agreed upon. Question Answer Comments Discussion of Advance Directives occurred with: Patient Does the patient have a Living Will? No Does the patient have Health Care Power of Senior Ios Software Engineer? No Code Status History Code Status Date Activated Date Inactivated Comments No Code 10/19/2022 6:54 AM 10/19/2022 1:31 PM This or daksha reflects the patients wishes and were consensually agreed upon. Question Answer Comments Discussion of Advance Directives occurred with: Patient Does the patient have a Living Will? No Does the patient have Health Care Power of Senior Ios Software Engineer? No Care Teams Hand Bander Relationship Specialty Start Date End Date Yenny Miller MD [address] [place] [id number] PCP - General Internal Medicine 07/30/19 documented as of this encounter"
--- OUTSIDE RECORDS SUMMARY | 2023-05-19 09:14 | External Medical Summary | Summary of Care ---
Author Name Unknown Organization [facility] Address [address] [place] [address] Phone [phone] Care Team Providers Care Kinesiology Internship Name Role Phone Yenny Miller MD Primary Care Provider [phone] Reason for Visit * Reason Comments Medication Refill Encounter Details Date Type Department Care Team Description 02/13/2023 Refill General Internal Medicine [facility] 200 [facility] [place] [id number] Yenny Miller MD [address] [place], [place] [id number] [place] (myocardial infarction); Paroxysmal SVT (supraventricular tachycardia) ([facility]) Allergies Active Allergy Reactions Severity Noted Date Comments Albuterol Sulfate 03/23/2006 Heart racing documented as of this encounter (statuses as of 02/15/2023) Medications Medication Sig Dispensed Refills Start Date End Date Status Glucose Blood (FASTTAKE TEST) STRP Test up to 4 times a day 100 Strip 5 04/12/2016 Active Aspirin 81 MG Tablet Take 1 Tablet by mouth in the morning. 0 Active Nitroglycerin 0.4 MG Sublingual Tablet Sublingual (Nitrostat)Indicati ons:Chest discomfort,Coronary artery disease involving [place] coronary artery of [place] heart without angina pectoris,S/P drug eluting coronary [...] goal LDL below 70,Coronary artery disease involving [place] coronary artery of [place] heart without angina pectoris,S/P drug eluting coronary [...] Tablet Extended Release 24 Hour (toPROL XL)Indications:Old [place] (myocardial infarction),Paroxys mal SVT (supraventricular tachycardia) (HCC) TAKE ONE AND ONE-HALF TABLETS BY MOUTH EVERY MORNING 135 Tablet 2 02/15/2023 Active Metoprolol Succinate ER 25 MG Oral Tablet Extended Release 24 Hour (toPROL XL)Indications:Old [place] (myocardial infarction),Paroxys mal SVT (supraventricular tachycardia) (HCC) TAKE ONE AND ONE-HALF TABLETS BY MOUTH EVERY MORNING 135 Tablet 1 07/31/2022 3 Discontinue d(Refill) documented as of this encounter (statuses as of 02/15/2023) Active Problems Problem Noted Date Paroxysmal SVT [...] (NSTEMI) 10/28/2017 Coronary artery disease invo lving [place] coronary artery of [place] heart without angina pectoris 10/28/2017 Dyslipidemia, goal LDL below 70 10/29/19 18 HTN, goal below 140/80 01/31/2012 Overview: Per HTN Protocol #27. Type 2 diabetes mellitus with hemoglobin A1c goal of less than 8.0% 04/10/2009 Overview: Per Diabetes Taxonomy. ICD-10 update of inactive term History of nonadherence to medical treat ment 03/24/2006 documented as of this encounter (statuses as of 02/15/2023) Resolved Problems Problem Noted Date Resolved Date [...] as of this encounter (statuses as of 02/15/2023) Immunizations Name Administration Dates Next Due COVID-19 [...] encounter Miscellaneous Notes * Telephone Encounter - Jacinto Ayon, [facility] - 02/15/2023 9:56 AM EDT Signed Prescriptions: Disp Refills Metoprolol Succinate ER 25 MG Oral Tablet *135 Ta*2 Sig: TAKE ONE AND ONE-HALF TABLETS BY MOUTH EVERY MORNINGAuthorizing Provider: Neelima MILLER User: JACINTO AYON documented in this encounter Plan of Treatment Upcoming Encounters Date Type Specialty Care Team Description 03/14/2023 Office Visit Cardiology Sheeba Thao, [place] [address] [place] [address] 04/05/2023 Office Visit [facility] [address] [facility] Maintenance Due Date Last Done Comments [...] this encounter Medical Devices Implanted Type Area Federal Mediation Commissioner Device Identifier Shelf Expiration Date Model / Serial / Lot Lens Intraoc 17.0 - [id number] - [id number] Implanted:Qty: 1 on 10/19/2022 by Monty Farmer MD at OR [facility] Left: Eye BAUSCH & LOMB 01/10/2027 [id number] / [id number] / [id number] Lens Intraoc 15.5 - [id number] - [id number] Implanted:Qty: 1 on 10/26/2022 by Monty Farmer MD at OR [facility] Right: Eye BAUSCH & LOMB 05/12/2027 [id number] / [id number] / [id number] documented as of this encounter Visit Diagnoses Diagnosis Old [place] (myocardial infarction) Old myocardial infarction Paroxysmal SVT (supraventricular tachycardia) (HCC) Paroxysmal supraventricular tachycardia documented in this encounter Advance Directives Latest Code Status on File Code Status Date Activated Date Inactivated Comments No Code 10/26/2022 7:56 AM 10/26/2022 1:58 PM This order reflects the patients wishes and were consensually agreed upon. Question Answer Comments Discussion of Advance Directives occurred with: Patient Does the patient have a Living Will? No Does the patient have Health Care Power of Child Nutrition Director? No Code Status History Code Status Date Activated Date Inactivated Comments No Code 10/19/2022 6:54 AM 10/19/2022 1:31 PM This or daksha reflects the patients wishes and were consensually agreed upon. Question Answer Comments Discussion of Advance Directives occurred with: Patient Does the patient have a Living Will? No Does the patient have Health Care Power of Child Nutrition Director? No Care Teams Kinesiology Internship Relationship Specialty Start Date End Date Yenny Miller MD 200 [place] [address] PCP - General Internal Medicine 07/30/19 documented as of this encounter
[2023-05-19 10:07] LABS: ANTI-Xa, UFH(UnfractionatedHep 0.53 IU/ml (0.3-0.7)
--- NOTE | 2023-05-19 12:33 | Cardiology Consultation ---
Date of Consultation May 19, 2023 Assessment & Plan (1) Abnormal EKG: (2) Chronic coronary artery disease: (3) Fracture of wrist: Plan 73-year-old female with known coronary disease prior right coronary stent implantation 2018 presents with a mechanical fall and right wrist fracture. Patient with severe wrist pain while in the ER. EKG done as part of preoperative screening demonstrated transient ST elevation in inferior leads. ST segment abnormalities resolved with pain relief Serial troponins negative EKG today without persistent ST elevation but with deeper T wave inversion inferiorly Echocardiogram with preserved LV systolic function very subtle hypokinesis in ferior posterior base Impression: 1. Abnormal EKG with acute and transient ST elevation possibly vagal mediated with severe pain. No evidence of infarct by EKG, echo and troponin post resolve. Would continue aspirin metoprolol as per prehospital, lipid-lowering therapy IV heparin begun after EKG. Would continue 24 hours Consider further investigation versus stress test depending on clinical Cardiology will follow History of Present Illness Reason for Consultation: Abnormal EKG Requesting Physician: Dr. Alegria Attending Physician: Kaleb Alegria MD History of Present Illness Patient is a 73-year-old female with ongoing cardiac concerns which include 1. Coronary heart disease, NSTEMI, 90% culprit mid RCA stenosis treated with a drug eluting stent (2.75 x 26 [place]) 10/25/17 with Nonobstructive disease was noted elsewhere including a 30% distal left main stenosis, mild luminal irregularities in the circumflex coronary artery, 20-30% stenosis in the proximal to mid LAD, and 20 to 30% stenosis at the ostium of the first diagonal. Evidence of inferior WMA noted on echo. Normal stress echocardiogram 09/13/2021 2. Dyslipidemia 3. DM2 4. Aortic valve sclerosis Patient presented this admission having suffered a mechanical fall while playing with her dog with resultant injury to her right wrist. No cardiac complaints of chest pain shortness of breath tachycardia palpitations dizziness lightheadedness syncope or near syncope Patient compliant with previous medications In ER substantial pain in the right wrist, underwent closed reduction of fracture with relief of pain EKG prior to procedure demonstrated ST elevation in inferior leads which resolved on repeat EKG Troponin serially negative Given substantial EKG changes patient anticoagulated Currently without complaint this morning. No recent change in exercise capacity, angina or congestive heart failure No fevers chills unexplained infections. No bleeding difficulties Allergies Allergy/AdvReac Type Severity Reaction Status Date / Time albuterol Allergy Unknown tachycardia Verified 05/19/23 01:00 Home Medications Medication Instructions Recorded Confirmed Type aspirin 81 mg tablet,delayed 81 mg PO QAM 05/19/23 05/19/23 History release glipizide 5 mg tablet, extended 5 mg PO QAM 05/19/23 05/19/23 History release 24 hr metformin 850 mg tablet 850 mg PO BID 05/19/23 05/19/23 History metoprolol succinate 25 mg 37.5 mg PO QAM 05/19/23 05/19/23 History tablet,extended release 24 hr multivitamin 1 tab PO DAILY 05/19/23 05/19/23 History nitroglycerin 0.4 mg sublingual 0.4 mg sublingual UD PRN Chest Pain 05/19/23 05/19/23 History tablet rosuvastatin 5 mg tablet 5 mg PO QAM 05/19/23 05/19/23 History Patient History Medical History Diabetes mellitus, type II Surgical History Stented coronary artery Social History Smoking Status: Never smoker Tobacco Type: Cigarettes Second Hand Exposure: No; Do You Dip or Chew Tobacco: No; Tobacco Cessation Education Requested by Patient: No Hx Alcohol Use: Yes Alcohol type: wine and hard liquor Hx Substance Use: No Preferred Language: Tajik Communication Ability: Effective Film Editor Required: No Beliefs That Will Affect Care: None Current Living Situation: Spouse Other Information That Helps Us Care for You: No Feels Safe at Home: Yes Safety Concerns: Feels Safe At This Time Assistive Devices: None Review of Systems Review of Systems: All systems reviewed & are unremarkable except as noted in HPI & below Physical Exam Constitutional: WD/WN, vitals as above Eyes: PERRL, conjunctivae normal, anicteric sclerae ENMT: external ear and nose normal, oropharynx normal Neck: trachea midline, no thyromegaly Respiratory: normal respiratory effort, lungs clear to auscultation Cardiovascular: Rate/Rhythm: regular rate and regular rhythm Heart Sounds: normal S1 and normal S2; no gallop and no murmur Palpation: normal PMI Vessels: normal carotid upstroke; no JVD and no carotid bruit Extremities: no edema Gastrointestinal (Abdomen): normal bowel sounds, soft, nontender, no hepatosplenomegaly Skin: no rashes, warm and dry Right wrist bandaged Neurologic: PERRL, EOMI, accommodation nl, no face palsy, no dysarthria Psychiatric: A+Ox3, euthymic affect Results & Data Vital Signs (Past 12 Hours) Vital Signs Temp Pulse Pulse Resp BP BP Pulse Ox 05/19/23 08:14 36.6 C 79 20 124/66 96 05/19/23 07:37 05/19/23 07:37 77 18 124/66 97 05/19/23 06:45 75 05/19/23 04:35 71 05/19/23 03:45 80 05/19/23 02:00 89 14 99 05/19/23 01:50 88 18 100 05/19/23 01:40 104 H 24 05/19/23 01:30 90 16 100 05/19/23 01:30 164/81 H 05/19/23 01:28 154/71 H 05/19/23 01:28 85 15 Pulse Ox O2 Del Method O2 Del Method 05/19/23 08:14 Room Air 05/19/23 07:37 97 Room Air 05/19/23 07:37 Room Air 05/19/23 06:45 05/19/23 04:35 05/19/23 03:45 05/19/23 02:00 05/19/23 01:50 05/19/23 01:40 05/19/23 01:30 05/19/23 01:30 05/19/23 01:28 05/19/23 01:28 Laboratory Results Laboratory Results - last 24 hr 05/19/23 05/19/23 05/19/23 01:11 01:40 02:54 WBC 10.92 H RBC 4.29 Hgb 12.4 Hct 36.3 L MCV 84.6 MCH 28.9 MCHC 34.2 RDW Std Deviation 39.8 RDW Coeff of Kirill 13.1 Plt Count 300 MPV 9.4 Immature Gran % (Auto) 0.3 Neut % (Auto) 69.9 Lymph % (Auto) 22.7 [place] % (Auto) 6.0 Eos % (Auto) 0.6 Baso % (Auto) 0.5 Neut # (Auto) 7.64 H Lymph # (Auto) 2.48 [place] # (Auto) 0.65 H Eos # (Auto) 0.07 Baso # (Auto) 0.05 Immature Gran # (Auto) 0.03 PT 10.9 INR 1.0 APTT 26 PTT Ratio 0.9 Heparin Anti-Xa, Unfract < 0.10 L Sodium 131 L Potassium 4.3 Chloride 97 L Carbon Dioxide 24 Anion Gap 10 BUN 21 Creatinine 0.74 Est Cr Clr Drug Dosing 61.8 Est GFR ( Amer) 93.8 Est GFR (Non-Af Amer) 80.9 BUN/Creatinine Ratio 28.4 H Glucose 142 H POC Glucose Estimat Average Glucose Hemoglobin A1c Calcium 10.0 Magnesium Total Bilirubin 0.4 AST 28 ALT 17 Alkaline Phosphatase 35 Troponin I High Sens 5.0 4.9 Total Protein 7.8 Albumin 4.3 Globulin 3.5 Albumin/Globulin Ratio 1.2 05/19/23 05/19/23 05/19/23 07:02 09:34 12:20 WBC 11.15 H RBC 3.88 L Hgb 11.2 L Hct 32.6 L MCV 84.0 MCH 28.9 MCHC 34.4 RDW Std Deviation 38.9 RDW Coeff of Kirill 13.0 Plt Count 282 MPV 9.2 L Immature Gran % (Auto) 0.3 Neut % (Auto) 72.6 Lymph % (Auto) 21.8 [place] % (Auto) 4.8 Eos % (Auto) 0.1 Baso % (Auto) 0.4 Neut # (Auto) 8.10 H Lymph # (Auto) 2.43 [place] # (Auto) 0.54 Eos # (Auto) 0.01 Baso # (Auto) 0.04 Immature Gran # (Auto) 0.03 PT INR APTT PTT Ratio Heparin Anti-Xa, Unfract 0.53 Sodium 130 L Potassium 4.0 Chloride 100 Carbon Dioxide 22 Anion Gap 8 BUN 17 Creatinine 0.58 L Est Cr Clr Drug Dosing 78.9 Est GFR ( Amer) 106.7 Est GFR (Non-Af Amer) 92.1 BUN/Creatinine Ratio 29.3 H Glucose 134 H POC Glucose 146 H Estimat Average Glucose 134 Hemoglobin A1c 6.3 H Calcium 9.2 Magnesium 1.7 Total Bilirubin AST ALT Alkaline Phosphatase Troponin I High Sens 4.7 Total Protein Albumin Globulin Albumin/Globulin Ratio
--- NOTE | 2023-05-19 13:51 | Communication Note ---
Date of Service: May 19, 2023 Patient seen and examined at bedside. She reports mild discomfort on her right arm; no other complaints No complaints of chest pain or pressure Discussed with cardiology; recommended to keep on IV heparin for another day Continue to monitor on telemetry On physical examination; Constitutional: WD/WN, vitals as above, NAD, sitting up in bed, pleasant, conversing easily Respiratory: normal respiratory effort, lungs clear to auscultation, no wheeze, rales, rhonchi. Normal insp/exp effort, no accessory muscle use Cardiovascular: RRR, no murmur, no edema Vessels: no JVD or carotid bruit Chest: normal inspection of chest Abdomen: normal bowel sounds, soft, nontender, no hepatosplenomegaly Musculoskeletal: no cyanosis or clubbing, extremities motor strength 5/5 Skin: no rashes, warm and dry normal turgor Neurologic: PERRL, EOMI, accommodation nl, no face palsy, no dysarthria CN's II- XI intact bilaterally and moves all extremities Psychiatric: A+Ox3, euthymic affect
--- NOTE | 2023-05-19 14:18 | Electrocardiogram Report ---
Test Reason : Blood Pressure : / mmHG Vent. Rate : 080 BPM Atrial Rate : 080 BPM P-R Int : 146 ms QRS Dur : 112 ms QT Int : 372 ms P-R-T Axes : -07 063 067 degrees QTc Int : 429 ms Normal sinus rhythm Nonspecific ST and T wave abnormality Abnormal ECG When compared with ECG of 23-DEC-2021 16:37, Fusion complexes are no longer Present QRS axis Shifted right ST now depressed in Lateral leads Nonspecific T wave abnormality now evident in Lateral leads Confirmed by Tobi Galvan ([id number]) on 05/19/2023 2:18:45 PM Referred By: REFERRED SELF Confirmed By:Tobi Galvan
--- NOTE | 2023-05-19 14:19 | Electrocardiogram Report ---
Test Reason : Blood Pressure : / mmHG Vent. Rate : 084 BPM Atrial Rate : 084 BPM P-R Int : 160 ms QRS Dur : 100 ms QT Int : 362 ms P-R-T Axes : 038 -13 011 degrees QTc Int : 427 ms Normal sinus rhythm Septal infarct , age undetermined Abnormal ECG When compared with ECG of 19-MAY-2023 01:16, (unconfirmed) Questionable change in QRS axis ST now depressed in Inferior leads Nonspecific T wave abnormality now evident in Inferior leads Confirmed by Tobi Galvan ([id number]) on 05/19/2023 2:18:54 PM Referred By: REFERRED SELF Confirmed By:Tobi Galvan
--- NOTE | 2023-05-19 14:20 | Electrocardiogram Report ---
Test Reason : Blood Pressure : / mmHG Vent. Rate : 079 BPM Atrial Rate : 079 BPM P-R Int : 170 ms QRS Dur : 100 ms QT Int : 370 ms P-R-T Axes : 028 -17 -13 degrees QTc Int : 424 ms Normal sinus rhythm Anteroseptal infarct (cited on or before 19-MAY-2023) Abnormal ECG When compared with ECG of 19-MAY-2023 02:31, (unconfirmed) No significant change was found Confirmed by Tobi Galvan ([id number]) on 05/19/2023 2:19:57 PM Referred By: REFERRED SELF Confirmed By:Tobi Galvan
--- NOTE | 2023-05-19 14:29 | Electrocardiogram Report ---
Test Reason : Blood Pressure : / mmHG Vent. Rate : 069 BPM Atrial Rate : 069 BPM P-R Int : 150 ms QRS Dur : 106 ms QT Int : 388 ms P-R-T Axes : 008 -40 -18 degrees QTc Int : 415 ms Normal sinus rhythm Left axis deviation Inferior infarct , age undetermined Cannot rule out Anterior infarct (cited on or before 19-MAY-2023) Abnormal ECG When compared with ECG of 19-MAY-2023 02:44, (unconfirmed) Inferior infarct is now Present Confirmed by Tobi Galvan ([id number]) on 05/19/2023 2:29:12 PM Referred By: REFERRED SELF Confirmed By:Tobi Galvan
--- NOTE | 2023-05-19 14:56 | Orthopedic Progress Note ---
Date of Service May 19, 2023 Assessment & Plan (1) Fracture of wrist: Plan: The importance of icing and elevating the wrist frequently was discussed with the patient. The tingling of the finger may be related to the finger traps that were used. It may also be related to swelling and her fracture. We will continue to monitor this. It should resolve with time. Importance of moving her digits as well as icing and elevating to reduce swelling was discussed. Nothing by mouth until she is evaluated by cardiology. She is stable from an orthopedic standpoint and may be discharged when ready. Input from the other services should be obtained to assess appropriateness for discharge. Follow-up in the office in 1 week for x-rays in her plaster. Appointment has been made for May 26 at 230. Call with any other concerns. Admission and Anticipated Discharge Date Admission Date: May 19, 2023 Subjective This 73 year old female was seen in her room C9, for reevaluation of her right wrist. She was splinted in plaster overnight. She currently states that her wrist is painful. She is wondering when she can eat. She is also being evaluated by cardiology. She denies any numbness or tingling. No other complaints. Physical Exam Physical Exam: General: Well-developed, well-nourished, elderly female, in no acute distress. Sitting in bed. Alert and oriented. Skin: Warm and dry with good turgor. Splint is in place on the right forearm and wrist. She has visible edema at her digits. No ecchymosis yet. Musculoskeletal: Evaluation of the right wrist reveals it to be in a plaster splint. She has intact motor function to the FDS and FDP tendons through isolation when each digit. She is unable to make a full fist secondary to swelling. Thumb circumduction, extension, flexion, and abduction are intact. Neurologic: Gross sensation is intact across each of the digits of the right hand. She complains of some decreased sensation across the pad of the ring finger. Capillary refill is equal for each of the digits. Results & Data Vital Signs (Past 12 Hours) Vital Signs Temp Pulse Pulse Resp BP Pulse Ox Pulse Ox 05/19/23 08:14 36.6 C 79 20 124/66 96 05/19/23 07:37 97 05/19/23 07:37 77 18 124/66 97 05/19/23 06:45 75 05/19/23 04:35 71 05/19/23 03:45 80 O2 Del Method O2 Del Method 05/19/23 08:14 Room Air 05/19/23 07:37 Room Air 05/19/23 07:37 Room Air 05/19/23 06:45 05/19/23 04:35 05/19/23 03:45
[2023-05-19 16:28] LABS: ANTI-Xa, UFH(UnfractionatedHep 0.37 IU/ml (0.3-0.7)
[2023-05-19] MEDS ORDERED: PNEUMOCOCCAL VACCINE (PCV20) 20-VAL CONJ-DIP CRM/PF 0.5 ML SYR IM ONE (18:00)
[2023-05-19] MEDS ORDERED: INFLUENZA VACCINE HIGH-DOSE (HD-IIV4) PF 65+ 0.7mL SYR IM ONE (18:00)
[2023-05-19] MEDS: ACETAMINOPHEN 325 MG TAB PO PRN (19:36)
[2023-05-19 23:01] LABS: ANTI-Xa, UFH(UnfractionatedHep 0.29 IU/ml (0.3-0.7)
[2023-05-20] MEDS: INSULIN ASPART PER UNIT CHARGE SC SCH ×2 (00:20→11:52)
[2023-05-20] MEDS: HEPARIN SODIUM/DEXTROSE 25,000 UNITS/500 ML BAG IV SCH (04:49)
[2023-05-20] MEDS: ACETAMINOPHEN 325 MG TAB PO PRN (05:43)
[2023-05-20 06:03] LABS: ANTI-Xa, UFH(UnfractionatedHep 0.36 IU/ml (0.3-0.7)
[2023-05-20] MEDS ORDERED: INSULIN ASPART PER UNIT CHARGE SC SCH (07:50)
[2023-05-20] MEDS: MULTIVITAMIN TAB PO SCH (10:11)
[2023-05-20] MEDS: ROSUVASTATIN CALCIUM 5 MG TAB PO SCH (10:11)
[2023-05-20] MEDS: METOPROLOL SUCC 25MG EXT REL TAB PO SCH (10:12)
[2023-05-20] MEDS: ASPIRIN 81 MG ECTAB PO SCH (10:12)
[2023-05-20 11:49] LABS: ANTI-Xa, UFH(UnfractionatedHep 0.24 IU/ml (0.3-0.7)
--- NOTE | 2023-05-20 12:37 | Cardiology Progress Note ---
Date of Service May 20, 2023 Assessment & Plan (1) Abnormal EKG: (2) Chronic coronary artery disease: (3) Fracture of wrist: Plan Discussed options of management in detail with patient patient currently asymptomatic. Acute ST segment changes on EKG likely precipitated by acute response to pain, blood pressure and heart Underlying coronary disease remains concerning but no recent symptoms of angina or decline in exercise capacity Patient to be discharged today Stress nuclear imaging as outpatient Follow-up cardiology being arranged Admission and Anticipated Discharge Date Admission Date: May 19, 2023 Subjective Patient seen and examined, chart, medications, telemetry reviewed Only issues are her right wrist pain no chest pains, shortness of breath, tachypalpitations No arrhythmias on telemetry EKG without acute changes with improved T wave inversion inferiorly Troponin serially negative Results & Data Vital Signs (Past 12 Hours) Vital Signs Pulse Pulse Resp BP Pulse Ox O2 Del Method 05/20/23 08:18 79 18 138/61 96 Room Air 05/20/23 07:14 64 05/20/23 05:48 66 18 148/58 H 96 Room Air 05/20/23 05:00 68 9 L 97 05/20/23 04:00 75 14 05/20/23 03:00 58 L 14 05/20/23 02:00 67 14 05/20/23 01:00 74 12 Laboratory Results Laboratory Results - last 24 hr 05/19/23 05/19/23 05/19/23 12:53 15:04 16:16 Heparin Anti-Xa, Unfract 0.37 POC Glucose 213 H Troponin I High Sens 4.5 05/19/23 05/19/23 05/19/23 18:07 18:56 22:26 Heparin Anti-Xa, Unfract 0.29 L POC Glucose 129 H Troponin I High Sens 5.5 05/20/23 05/20/23 05/20/23 00:02 05:18 08:15 Heparin Anti-Xa, Unfract 0.36 POC Glucose 185 H 137 H Troponin I High Sens 05/20/23 11:09 Heparin Anti-Xa, Unfract 0.24 L POC Glucose Troponin I High Sens
--- NOTE | 2023-05-20 12:40 | Electrocardiogram Report ---
Test Reason : Blood Pressure : / mmHG Vent. Rate : 077 BPM Atrial Rate : 077 BPM P-R Int : 154 ms QRS Dur : 110 ms QT Int : 372 ms P-R-T Axes : 032 -38 023 degrees QTc Int : 420 ms Normal sinus rhythm Left axis deviation Minimal voltage criteria for LVH, may be normal variant Possible Anterior infarct (cited on or before 19-MAY-2023) Abnormal ECG When compared with ECG of 19-MAY-2023 10:12, T wave inversion no longer evident in Inferior leads Nonspecific T wave abnormality no longer evident in Anterolateral leads Confirmed by Tobi Galvan ([id number]) on 05/20/2023 12:40:09 PM Referred By: REFERRED SELF Confirmed By:Tobi Galvan
--- NOTE | 2023-05-20 15:28 | Discharge Summary ---
Date of Service May 20, 2023 Admission HPI Per Admitting Provider 71-year-old female with past medical history significant for type 2 diabetes, hyperlipidemia, history of paroxysmal SVT, hypertension, history of CAD s/p stent, history of microscopic colitis, history of hyponatremia presents with fall and found to have Closed right displaced distal radius and nondisplaced ulnar styloid fractures . Patient states she was playing with her dog when she fell on her right hand. Did not hit her head. Denies any headache. Vision is okay. No runny nose. No cough. No chest pain/shortness of breath. No nausea. No sweating. No dizziness. No abdominal pain. Normal bowel and bladder movements. No blood in the stools or black stools. Patient states she walked about 6000 steps today and she did not had any chest pain while walking. Currently resting comfortably and hemodynamically stable. Past medical history. As mentioned above. Past surgical history. Cardiac cath .colonoscopy. Bilateral cataracts. Social history. Smoked 1.5 pack a day for 15 years. Quit in 1980. Alcohol 2 standard drinks of alcohol per week. No drug use. Family history. Mother had breast cancer. Father had stroke. Sister had diabetes, hypertension, heart disorder. Brother has diabetes. Admission Exam Per Admitting Provider General- Not in distress Head- atraumatic Eyes- PERRL. ENT- oropharynx clear Neck- supple, no JVD. Lungs- clear to auscultation no wheezing or crackles Heart- regular rhythm; no murmur, no gallop. Abdomen- normal bowel sounds, soft, nontender, no distension Extremities- no pretibial edema, right hand and forearm in dressing Neuro- alert, oriented x 3; PERRL, no facial palsy; no dysarthria; moves extremities. Skin- warm & dry Principal Diagnosis Abnormal EKG Fracture of right wrist Discharge Exam Constitutional: WD/WN, vitals as above, NAD, sitting up in bed, pleasant, conversing easily Respiratory: normal respiratory effort, lungs clear to auscultation, no wheeze, rales, rhonchi. Normal insp/exp effort, no accessory muscle use Cardiovascular: RRR, no murmur, no edema Vessels: no JVD or carotid bruit Chest: normal inspection of chest Abdomen: normal bowel sounds, soft, nontender, no hepatosplenomegaly Musculoskeletal: Splint present over right wrist. Skin: no rashes, warm and dry normal turgor Neurologic: PERRL, EOMI, accommodation nl, no face palsy, no dysarthria CN's II- XI intact bilaterally and moves all extremities Psychiatric: A+Ox3, euthymic affect Discharge Data Allergies Allergy/AdvReac Type Severity Reaction Status Date / Time albuterol Allergy Unknown tachycardia Verified 05/19/23 01:00 Consultations 05/19/23 02:28 ED Decision to Admit Stat 05/19/23 08:00 Consult Cardiology Routine Consult Orthopedic Surgery Routine Hospital Course (1) Fracture of wrist: 71-year-old female with past medical history significant for type 2 diabetes, hyperlipidemia, history of paroxysmal SVT, hypertension, history of CAD s/p stent, history of microscopic colitis, history of hyponatremia presents with fall and found to have Closed right displaced distal radius and nondisplaced ulnar styloid fractures and abnormal ekg. Mechanical fall Closed right displaced distal radius and nondisplaced ulnar styloid fractures S/p closed reduction by Ortho in ER Pain control Follow-up as outpatient with orthopedics Abnormal EKG Patient had borderline ST elevations in inferior leads and repeat EKG showing ST depressions inferior leads History of CAD s/p RCA stent Patient asymptomatic. 2 sets of troponin negative ER discussed with cardiology Currently starting on IV heparin and received aspirin Patient was placed on heparin drip for 24 hours. Discharged home with instruction to follow-up with cardiology and outpatient stress test Total Time Total Time Spent Total Time Spent (In Minutes): 35 Total Time Includes: Examination of the Patient, Discharge Planning, Medication Reconciliation, Communication With Other Providers and Other Discharge Plan Discharge Items Patient Disposition: Home - Self-Care Reason For Visit: FALL, EKG CHANGES Discharge Diagnosis: Fracture of wrist status post reduction Unstable angina Activity: Resume your previous activity Non-emergency contact: Primary Care Provider Call non-emergency contact if: you have any medication questions and your symptoms worsen Follow-up/Referrals: Pablo Roque MD [Physician] - 05/26/23 2:30 pm Yenny Miller MD [Primary Care Provider] - (Date & Time 05/25/2023 4:00 PM Provider Yenny Miller MD Department General Internal Medicine [facility] ) Diet: Regular Addtl Attending Provider Instructions: You were admitted to the hospital due to fracture of right distal radius. Dr. Pablo Roque from orthopedic saw you during the hospitalization. He recommends to continue the splint until follow-up for minimum of 2 weeks. Need to follow-up with him within 7 days and repeat x-ray AP and lateral of right wrist in plaster. You can use [id number] Tylenol for pain control. Ice and elevate the affected hand. You were also evaluated by cardiology during the hospitalization due to EKG changes. Please continue to take your medication as prescribed. Cardiology will call you with an appointment for stress test. Ice and elevate the arm frequently to reduce pain/swelling. Keep the splint on and dry at all times call the orthopedic office for any sudden increase in pain Pending Studies at Discharge: No Stand-Alone Forms: My [facility], Smoking Cessation Medications and DC Order Prescriptions: Continued glipizide 5 mg tablet extended release 24hr 5 mg PO QAM metformin 850 mg tablet 850 mg PO BID nitroglycerin 0.4 mg tablet, sublingual 0.4 mg sublingual UD PRN (Reason: Chest Pain) rosuvastatin 5 mg tablet 5 mg PO QAM multivitamin Tablet 1 tab PO DAILY metoprolol succinate 25 mg tablet extended release 24 hr 37.5 mg PO QAM aspirin 81 mg Tablet,Delayed Release (Dr/Ec) 81 mg PO QAM Discharge Orders: Discharge Order (Routine); Ordered 05/20/23 Ordered By: Kaleb Rodriguez/Other Patient Handouts: Managing Type 2 Diabetes Admission Data Admit Date/Time: 05/19/23 03:13 Attending Provider: Kaleb Alegria Admit Provider: Bradford Tapia Primary Care Provider: Yenny Miller Other Providers: Bradford Tapia; Jarrett Mclean; Pablo Roque Other Interventions: Discharge Summary Assessment (RN) Last Done: 05/20/23 12:20
== END 2023-05-20 12:50 | disposition home or self-care (01) | DRG 563 ==
LOC: ED 00:05 → EDINP 03:13

== ENCOUNTER 2023-12-03 20:53 | Inpatient (IN) ==
--- OUTSIDE RECORDS SUMMARY | 2023-12-03 20:59 | External Medical Summary | Summary of Care ---
Author Name Unknown Organization [facility] Address [address] [place] [address] Phone [phone] Care Team Providers Care Chair Frame Builder Name Role Phone Yenny Miller MD Primary Care Provider Reason for Visit * Reason Comments Outpatient Testing Encounter Details Date Type Department Care Team (Late st Contact Info) Description 11/01/2023 11:00 AM EDT Laboratory Laboratory, [facility] [address] [place] [address] [facility] [address] [place] [address] Hyponatremia Allergies Active Allergy Reactions Criticality Noted Date Comments Albuterol Sulfate 03/23/2006 Heart racing documented as of this encounter (statuses as of 11/01/2023) Medications Medication Sig Dispensed Refills Start Date End Date Status Glucose Blood (FASTTAKE TEST) STRP Test up to 4 times a day 100 Strip 5 04/12/2016 Active Aspirin 81 MG Tablet Take 1 Tablet by mouth in the morning. Active Co Q 10 100 MG Oral Capsule one pill each day 10/01/2021 Activ e Glucosamine-Chondr oitin 500-400 MG Oral Capsule Take 1 Capsule by mouth in the morning. 10/01/2021 Active NATURAL SUPPLEMENT Take by mouth daily. Melva curcumin supplement. Takes it once daily. Also has boswellin in it Active Metoprolol Succinate ER 25 MG Oral Tablet Extended Release 24 Hour (toPROL XL)Indications:Old [place] (myocardial infarction),Paroxy smal SVT (supraventricular tachycardia) (HCC) TAKE ONE AND ONE-HALF TABLETS BY MOUTH EVERY MORNING 135 Tablet 2 02/15/2023 Active Nitroglycerin 0.4 MG Sublingual Tablet Sublingual (Nitrostat)Indicat ions:Chest discomfort,S/P drug eluting coronary stent placement,Coronary artery disease involving douglas coronary artery of douglas heart without angina pectoris Place 1 Tablet under the tongue as needed for Chest pain. May repeat 3 times. If chest pain continues, call 911. 25 Tablet 1 03/14/2023 Active Niacinamide 100 MG Oral Tablet Take 100 mg by mouth in the morning. Active metFORMIN HCl 850 MG Oral Tablet (Glucophage)Indica tions:Type 2 diabetes mellitus with hemoglobin A1c goal of less than 7.0% (HCC) TAKE ONE TABLET BY MOUTH TWICE A DAY 200 Tablet 1 09/20/2023 09/19/2024 Active glipiZIDE ER 5 MG Oral Tablet Extended Release 24 Hour (Glucotrol XL)Indications:Typ e 2 diabetes mellitus with hemoglobin A1c goal of less than 8.0% (HCC) TAKE ONE TABLET BY MOUTH EVERY DAY 100 Tablet 2 09/26/2023 Active Rosuvastatin Calcium 5 MG Oral Tablet (Crestor)Indicatio ns:Dyslipidemia, goal LDL below 70,Coronary artery disease involving douglas coronary artery of douglas heart without angina pectoris,S/P drug eluting coronary stent placement TAKE ONE TABLET BY MOUTH EVERY day 90 Tablet 1 09/30/2023 09/29/2024 Active documented as of this encounter (statuses as of 11/01/2023) Active Problems Problem Noted Date Diagnosed Date [...] day.x 8 wks. History of colonoscopy 07/30/2019 Bilateral hearing loss 05/16/2018 S/P drug [...] (NSTEMI) 10/28/2017 Coronary artery disease invo lving douglas coronary artery of douglas heart without angina pectoris 10/28/2017 Dyslipidemia, goal LDL below 70 10/28/2017 HTN, goal below 140/80 01/31/2012 Overview: Per HTN Protocol #27. Type 2 diabetes mellitus wit h hemoglobin A1c goal of less than 8.0% 04/10/2009 Overview: Per Diabetes Taxonomy. ICD-10 update of inactive term History of nonadherence to medical treatment 05/2006 documented as of this encounter (statuses as of 11/01/2023) Resolved Problems Problem Noted Date Diagnosed Date Resolved Date Encounter for screening mamm ogram for breast cancer 07/30/2019 10/06/2023 Overview: 11/30-benign, fatty, boo like Ca+-stable--rpt 1 yr Mom breast ca age 58, sister age 66. Screening for osteoporosis 07/30/2019 0 10/06/2023 Type 2 diabetes mellitus with polyneuropathy 9 [...] ICD-10 update of inactive term Mixed dyslipidemia 03/31/1998200 9 Overview: Per Lipid Taxonomy. Menstruation, irregular 03/25/199803/13 documented as of this encounter (statuses as of 11/01/2023) Immunizations Name Administration Dates Next Due COVID-19 [...] Vaccine (Adult) 09/24/2014 Zoster Vaccine Recombinant (Shingrix) 06/15/2023 ,04/05/2023 documented as of this encounter Social History [...] Answer Date Recorded PHQ Adult Total Score 4 10/07/2023 Hunger Vital Sign Answer Date Recorded Worried [...] Care Team (Late st Contact Info) Description 01/03/2024 11:45 AM EDT Imaging [facility] 2nd Floor Cardiology, [place] [address] [address] Gw, Excess Time Radiology [address] [address] 02/02/2024 1:30 PM EDT Office Visit Cardiology, [facility] [address] [place] [address] Devin Fish DO [address] [place] [address] 03/06/2024 2:30 PM EDT Imaging Radiology, [facility] [address] [facility] [place] [address] 04/09/2024 8:20 AM EDT Office Visit General Internal Medicine [facility] [address] [facility] [place] [address] Yenny Miller MD [address] [facility] [place] [address] Pending Results Name Type Priority Associated Diagnoses Date /Time TSH WITH FREE T4 IF INDICATED Lab Routine Hyponatremia 11/01/2023 11:10 AM EDT OSMOLALITY, SERUM Lab Routine Hyponatremia 11/01/2023 11:10 AM EDT HEPATIC FUNCTION PANEL Lab Routine Hyponatremia 11/01/2023 11:10 AM EDT BASIC METABOLIC PANEL Lab Routine Hyponatremia 11/01/2023 11:10 AM EDT Health Maintenance Due Date Last Done Comments DXA Scan 1950 Hepatitis C Screening 1969 Cologuard 1996 Fecal Occult Blood Test 1996 Sigmoidoscopy 1996 COVID-19 Vaccine ( season) 2023 01/25/2022, 04/17/2021, 08/18/2020, Additional history exists Diabetic Eye Exam 09/08/2023 09/07/2022, , 07/14/2022, Additional history exists Influenza Vaccine (FLU shot) (Season Ended) 2024 04/02/2022, 04/13/2019, 03/24/2018, Additional history exists HbA1c 04/07/2024 10/07/2023, 03/14, 09/29/2022, Additional history exists Mammogram 08/22/2024 08/23/2023, 08/11, 08/20/2022, Additional history exists Albumin/Creatinine Ratio 10/06/2024 024, 09/29/2022, 10/01/2021, Additional history exists B-12 10/06/2024 10/07/2023, 09/11, 05/25/2022, Additional history exists Depression Screening 10/06/2024 10/07/2023, 10/07/19 24 Diabetic Foot Exam 10/06/2024 10/07/2023, 0 10/01/2022, 10/01/2021, Additional history exists GFR 10/06/2024 10/07/2023, 03/14, 09/29/2022, Additional history exists Colonoscopy 02/12/2030 02/13/2020, 07/2019, 03/27/2012, Additional history exists Colorectal Cancer Screening 02/12/2030 DTaP,Tdap,and Td Vaccines (3 - Td or Tdap) 12/18/2030 12/18/2020, 03/04/2009 Pneumococcal Vaccine: 65+ Years Completed 05/09/2023, 02/21/2017, 03/12/2003 Zoster Vaccines Completed 06/15/2023, 03/14, 09/24/2014 GARDASIL-HPV IMMUNIZATION SERIES Aged Out No longer eligible based on patient's age to complete this topic Hepatitis B Aged Out No longer eligi ble based on patient's age to complete this topic MENINGOCOCCAL (MENACTRA/MENVEO) Aged Out No longer eligible based on patient's age to complete this topic documented as of this encounter Medical Devices Implanted Type Area Nail Artist Device Identifier Shelf Expiration Date Model / Serial / Lot Lens Intraoc 17.0 - [id number] - [id number] Implanted:Qty: 1 on 10/19/2022 by Monty Farmer MD at OR [facility] Left: Eye [employer]USCH [employer] LOMB 01/10/2027 [id number] / [id number] / [id number] Lens Intraoc 15.5 - [id number] - [id number] Implanted:Qty: 1 on 10/26/2022 by Monty Farmer MD at [facility] Right: Eye BAUSCH & LOMB 05/12/2027 [id number] / [id number] / [id number] documented as of this encounter Visit Diagnoses Diagnosis Hyponatremia Hyposmolality and/or hyponatremia documented in this encounter Advance Directives * No Code (Latest Code Status on File) Date Activated Date Inactivated Comments 10/26/2022 7:56 AM 10/26/2022 1:58 PM This order r eflects the patients wishes and were consensually agreed upon. Question Answer Comments Discussion of Advance Directives occurred with: Patient Does the patient have a Living Will? No Does the patient have Health Care Power of Attor rocío? No * No Code Date Activated Date Inactivated Comments 10/19/2022 6:54 AM 10/19/2022 1:31 PM This order ref lects the patients wishes and were consensually agreed upon. Question Answer Comments Discussion of Advance Directives occurred with: Patient Does the patient have a Living Will? No Does the patient have Health Care Power of Attor rocío? No Care Teams Chair Frame Builder Relationship Specialty Start Date End Date Yenny Miller MD [address] [facility] [place] [address] PCP - General Internal Medicine 07/30/19 documented as of this encounter
--- OUTSIDE RECORDS SUMMARY | 2023-12-03 20:59 | External Medical Summary | Summary of Care ---
Author Name Unknown Organization [facility] Address [address] [place] [address] Phone [phone] Care Team Providers Care Meat Scrubber Name Role Phone Yenny Miller MD Primary Care Provider [phone] Encounter Details Date Type Department Care Team (Late st Contact Info) Description 11/18/2023 Orders Only General Internal Medicine [facility] [address] [facility] [place] [id number] Yenny Miller MD [address] [place] [address] Allergies Active Allergy Reactions Criticality Noted Date Comments Albuterol Sulfate 03/23/2006 Heart racing documented as of this encounter (statuses as of 11/18/2023) Medications Medication Sig Dispensed Refills Start Date [...] daily. Also has boswellin in it Active Nitroglycerin 0.4 MG Sublingual Tablet Sublingual (Nitrostat)Indicat ions:Chest discomfort,S/P drug eluting coronary stent placement,Coronary artery disease involving [place] coronary artery of [place] heart without angina pectoris Place 1 [...] goal LDL below 70,Coronary artery disease involving [place] coronary artery of [place] heart without angina pectoris,S/P drug eluting coronary stent placement TAKE ONE TABLET BY MOUTH EVERY day 90 Tablet 1 09/30/2023 09/29/2024 Active Metoprolol Succinate ER 25 MG Oral Tablet Extended Release 24 Hour (toPROL XL)Indications:Old [place] (myocardial infarction),Paroxy smal SVT (supraventricular tachycardia) (HCC) TAKE ONE AND ONE-HALF TABLETS BY MOUTH EVERY MORNING 135 Tablet 2 11/08/2023 Active documented as of this encounter (statuses as of 11/18/2023) Active Problems Problem Noted Date Diagnosed Date [...] (NSTEMI) 10/28/2017 Coronary artery disease invo lving [place] coronary artery of [place] heart without angina pectoris 10/28/2017 Dyslipidemia, goal LDL below 70 10/28/2017 HTN, goal below 140/80 01/31/2012 Overview: Per HTN Protocol #27. Type 2 diabetes mellitus wit h hemoglobin A1c goal of less than 8.0% 04/10/2009 Overview: Per Diabetes Taxonomy. ICD-10 update of inactive term History of nonadherence to medical treatment 05/2006 documented as of this encounter (statuses as of 11/18/2023) Resolved Problems Problem Noted Date Diagnosed Date [...] as of this encounter (statuses as of 11/18/2023) Immunizations Name Administration Dates Next Due COVID-19 [...] Preserve, Inj 04/19/2007 TD, Preservative Free 12/18/2020 TDAP, Age 7 and older, IM (Adacel) 03/04/2009 Varicella Zoster Vaccine (Adult) 09/24/2014 Zoster [...] Care Team (Late st Contact Info) Description 12/13/2023 1:40 PM EDT Office Visit Nephrology, [facility] [address] [place] [address] [address] Russell Morales MD [address] [place] [address] 01/03/2024 11:45 AM EDT Imaging [facility] 2nd Floor Cardiology, [place] [address] [facility] [place] [address] Gw, Excess Time Radiology [address] [place] [address] 02/02/2024 1:30 PM EDT Office Visit Cardiology, [facility] [address] [facility] [place] [address] Devin Fish, DO [address] [place] [address] 03/06/2024 2:30 PM EDT Imaging Radiology, [address] [place] [address] 04/09/2024 8:20 AM EDT Office Visit General Internal Medicine [facility] [address] [facility] [place] [address] Yenny Miller MD [address] [facility] [place] [address] 05/22/2024 8:30 AM EST Therapy Neuropsychology [facility] [address] [facility] [place] [address] Prince Horner, PhD [address] [facility] [place] [address] Pending Results Name Type Priority Associated Diagnoses Date /Time DIABETIC EYE EXAM Other Routine 024 Health Maintenance Due Date Last Done Comments [...] 0 10/01/2022, 10/01/2021, Additional history exists GFR 11/09/2024 11/10/2023, 10/12, 10/07/2023, Additional history exists Colonoscopy 02/12/2030 02/13/2020, 07/2019, [...] this encounter Medical Devices Implanted Type Area Dispatcher Automobile Rental Device Identifier Shelf Expiration Date Model / Serial / Lot Lens Intraoc 17.0 - [id number] - [id number] Implanted:Qty: 1 on 10/19/2022 by Monty Farmer MD at [facility] Left: Eye [employer]USCH [employer] LOMB 01/10/2027 [id number] / [id number] / [id number] Lens Intraoc 15.5 - [id number] - [id number] Implanted:Qty: 1 on 10/26/2022 by Monty Farmer MD at [facility] Right: Eye BAUSCH & LOMB 05/12/2027 [id number] / [id number] / [id number] documented as of this encounter Advance Directives * No Code [...] Power of Attor rocío? No Care Teams Meat Scrubber Relationship Specialty Start Date End Date Yenny Miller MD [address] [place] [address] PCP - General Internal Medicine 07/30/19 documented as of this encounter
--- OUTSIDE RECORDS SUMMARY | 2023-12-03 20:59 | External Medical Summary | Summary of Care ---
Author Name Unknown Organization [facility] Address [address] [place] [address] Phone [phone] Care Team Providers Care Wool Classer Name Role Phone Yenny Miller MD Primary Care Provider [phone] Reason for Visit * Reason Onset Date Comments Test Results 11/11/2023 Encounter Details Date Type Department Care Team (Late st Contact Info) Description 11/11/2023 [facility] [address] [facility] [place] [address] Jocelyn Demarco MD [facility] [address] Test Results Allergies Active Allergy Reactions Criticality Noted Date Comments Albuterol Sulfate 03/23/2006 Heart racing documented as of this encounter (statuses as of 11/17/2023) Medications Medication Sig Dispensed Refills Start Date [...] eluting coronary stent placement,Coronary artery disease involving hug[place] coronary artery of hughes heart without angina pectoris Place 1 Tablet [...] goal LDL below 70,Coronary artery disease involving hughes coronary artery of hughes heart without angina pectoris,S/P drug eluting coronary [...] as of this encounter (statuses as of 11/17/2023) Active Problems Problem Noted Date Diagnosed Date [...] (NSTEMI) 10/28/2017 Coronary artery disease invo lving hughes coronary artery of hughes heart without angina pectoris 10/28/2017 Dyslipidemia, goal LDL below 70 10/28/2017 HTN, goal below 140/80 01/31/2012 Overview: Per HTN Protocol #27. Type 2 diabetes mellitus wit h hemoglobin A1c goal of less than 8.0% 04/10/2009 Overview: Per Diabetes Taxonomy. ICD-10 update of inactive term History of nonadherence to medical treatment 05/2006 documented as of this encounter (statuses as of 11/17/2023) Resolved Problems Problem Noted Date Diagnosed Date [...] as of this encounter (statuses as of 11/17/2023) Immunizations Name Administration Dates Next Due COVID-19 [...] encounter Miscellaneous Notes * Telephone Encounter - Kathya García LPN - 11/17/2023 9:53 AM EDT Noted * Telephone Encounter - Kathya García LPN - 11/11/2023 11:43 AM EDT Valve Inspector Please find apt in end November for follow up Thank you * Telephone Encounter - Kathya García LPN - 11/11/2023 11:23 AM EDT Spoke with patient She has had no n/v/d Denies confusion Taking po fluids without difficulty Last fall was in 06/04 She does advise nurse her normal fluid intake is about 80 oz per day but week before labs reduced to 50 oz daily Pt unsure why she has follow up will Dr Morales would like to remain with Dr Demarco's care Pt aware will do repeat labs Pt is advised not to change fluid intake for these labs Orders placed in [facility] lab system Pt advised will have her scheduled with Dr Demarco infollow up * Telephone Encounter - Kathya García LPN - 11/11/2023 11:19 AM EDT ----- Message from Jocelyn Demarco MD sent at 11/11/2023 5:34 AM EDT ----- Haven't seen this pt in over a year, so somewhat out of touch on her status. She does have upcoming appt w/ a partner of mine, advise she keep that appt >any worse diarrhea than usual? >how much fluid drinking in a day? >recommend bmp, ur/ser osms, ur electrolytes -ER if falls, n/v, confusion, inability to tolerate po, other worrisome sx Dr Antwan dial documented in this encounter Plan of Treatment Upcoming Encounters Date Type Department Care Team (Late st Contact Info) Description 12/13/2023 1:40 PM EDT Office Visit Nephrology, [facility] [address] [place] [address] [place] [address] Russell Morales MD [address] [facility] [place] [address] 01/03/2024 11:45 AM EDT Imaging [facility] 2nd Floor Cardiology, [place] [address] [place] [address] Gw, Excess Time Radiology [address] [place] [address] 02/02/2024 1:30 PM EDT Office Visit Cardiology, [facility] [address] [place] [address] Devin Fish, DO [address] [place] [address] 03/06/2024 2:30 PM EDT Imaging Radiology, [address] [place] [address] 04/09/2024 8:20 AM EDT Office Visit General Internal Medicine [facility] [address] [facility] [place] [address] Yenny Miller MD [address] [facility] [place] [address] 05/22/2024 8:30 AM EST Therapy Neuropsychology [facility] [address] [facility] [place] [address] Prince Horner, PhD [address] [facility] [place] [address] Scheduled Orders Name Type Priority Associated Diagnoses Orde r Schedule BASIC METABOLIC PANEL Lab Routine Hyponatremia HTN, goal below 140/80 Expected: 11/11/2023 (Approximate), Expires: 11/10/2024 OSMOLALITY, URINE Lab Routine Hyponatremia HTN, goal below 140/80 Expected: 11/11/2023 (Approximate), Expires: 11/10/2024 OSMOLALITY, SERUM Lab Routine Hyponatremia HTN, goal below 140/80 Expected: 11/11/2023 (Approximate), Expires: 11/10/2024 ELECTROLYTES, RANDOM URINE Lab Routine Hyponatremia HTN, goal below 140/80 Expected: 11/11/2023 (Approximate), Expires: 11/10/2024 Health Maintenance Due Date Last Done Comments [...] this encounter Medical Devices Implanted Type Area Silver Service Waiter Device Identifier Shelf Expiration Date Model / Serial / Lot Lens Intraoc 17.0 - [id number] - [id number] Implanted:Qty: 1 on 10/19/2022 by Monty Faremr MD at OR [facility] Left: Eye BAUSCH [employer] LOMB 01/10/2027 [id number] / [id number] / [id number] Lens Intraoc 15.5 - [id number] - [id number] Implanted:Qty: 1 on 10/26/2022 by Monty Farmer MD at OR [facility] Right: Eye BAUSCH & LOMB 05/12/2027 [id number] / [id number] / [id number] documented as of this encounter Visit Diagnoses Diagnosis Hyponatremia- Primary Hyposmolality and/or hyponatremia HTN, goal below 140/80 Unspecified essential hypertension documented in this encounter Advance Directives * [...] Power of Attor rocío? No Care Teams Wool Classer Relationship Specialty Start Date End Date Yenny Miller MD [address] [place] [address], [place] [address] PCP - General Internal Medicine 07/30/19 documented as of this encounter
--- OUTSIDE RECORDS SUMMARY | 2023-12-03 20:59 | External Medical Summary ---
Author Name Unknown Address Unknown Organization [facility] [address] [place] [address] Laboratory Report Ordering Provider Test Date Status GUALBERTO DIAZ 11/01/2023 11:10:36 Final Observation Date Value Abnormality Reference (Units ) Status Albumin 11/01/2023 11:10:36 4.5 3.8-5.0 (g/dL) Final AST (Aspartate aminotransferase) 11/01/2023 11:10:36 24 10-35 (U/L) Final Alk Phos 11/01/2023 11:10:36 42 35-130 (U/L) Final ALT (Alanine aminotransferase) 11/01/2023 11:10:36 18 10-35 (U/L) Final Bilirubin, Total 11/01/2023 11:10:36 0.5 <=1.2 (mg/dL) Final Bilirubin, Direct 11/01/2023 11:10:36 <0.2 0.0-0.3 (mg/dL) Final Protein 11/01/2023 11:10:36 7.8 6.0-8.3 (g/dL) Final [facility] [address] [place] [address]
--- OUTSIDE RECORDS SUMMARY | 2023-12-03 20:59 | External Medical Summary | Summary of Care ---
Author Name Unknown Organization [facility] Address [address] [place] [address] Phone [phone] Care Team Providers Care Petroleum Refining Firer Name Role Phone Yenny Miller MD Primary Care Provider [phone] Encounter Details Date Type Department Care Team (Late st Contact Info) Description 10/12/2023 Telephone General Internal Medicine [facility] [address] [facility] [place] [id number] Yenny Miller MD 200 [place] [address] Allergies Active Allergy Reactions Criticality Noted Date Comments Albuterol Sulfate 03/23/2006 Heart racing documented as of this encounter (statuses as of 10/14/2023) Medications Medication Sig Dispensed Refills Start Date End Date Status Glucose Blood (FASTTAKE TEST) STRP Test up to 4 times a day 100 Strip 5 04/12/2016 Active Aspirin 81 MG Tablet Take 1 Tablet by mouth in the morning. 0 Active Co Q 10 100 MG Oral Capsule one pill each day 0 10/01/2021 Activ e Glucosamine-Chondr oitin 500-400 MG Oral Capsule Take 1 Capsule by mouth in the morning. 0 10/01/2021 Active NATURAL SUPPLEMENT Take by mouth daily. Melva curcumin supplement. Takes it once daily. Also has boswellin in it 0 Active Metoprolol Succinate ER 25 MG Oral Tablet Extended Release 24 Hour (toPROL XL)Indications:Old [place] (myocardial infarction),Paroxy smal SVT (supraventricular tachycardia) (HCC) TAKE ONE AND ONE-HALF TABLETS BY MOUTH EVERY MORNING 135 Tablet 2 02/15/2023 Active Nitroglycerin 0.4 MG Sublingual Tablet Sublingual (Nitrostat)Indicat ions:Chest discomfort,S/P drug eluting coronary stent placement,Coronary artery disease involving chickahominy indians-eastern division coronary artery of chickahominy indians-eastern division heart without angina pectoris Place 1 Tablet under the tongue as needed for Chest pain. May repeat 3 times. If chest pain continues, call 911. 25 Tablet 1 03/14/2023 Active Niacinamide 100 MG Oral Tablet Take 100 mg by mouth in the morning. 0 Active metFORMIN HCl 850 MG Oral Tablet [...] goal LDL below 70,Coronary artery disease involving chickahominy indians-eastern division coronary artery of chick[place]om[place] indians-eastern division heart without angina pectoris,S/P drug eluting coronary stent placement TAKE ONE TABLET BY MOUTH EVERY day 90 Tablet 1 09/30/2023 09/29/2024 Active documented as of this encounter (statuses as of 10/14/2023) Active Problems Problem Noted Date Diagnosed Date [...] (NSTEMI) 10/28/2017 Coronary artery disease invo lving chickahominy indians-eastern division coronary artery of chickahominy indians-eastern division heart without angina pectoris 10/28/2017 Dyslipidemia, goal LDL below 70 10/28/2017 HTN, goal below 140/80 01/31/2012 Overview: Per HTN Protocol #27. Type 2 diabetes mellitus wit h hemoglobin A1c goal of less than 8.0% 04/10/2009 Overview: Per Diabetes Taxonomy. ICD-10 update of inactive term History of nonadherence to medical treatment 05/2006 documented as of this encounter (statuses as of 10/14/2023) Resolved Problems Problem Noted Date Diagnosed Date [...] as of this encounter (statuses as of 10/14/2023) Immunizations Name Administration Dates Next Due COVID-19 [...] Care Team (Late st Contact Info) Description 02/02/2024 1:30 PM EDT Office Visit Cardiology, [facility] [address] [place] [address] Devin Fish DO [address] [place] [address] 03/06/2024 2:30 PM EDT Imaging Radiology, [address] [place] [address] 04/09/2024 8:20 AM EDT Office Visit General Internal Medicine [address] [place] [address] [place] [address] Yenny Miller MD [address] [facility] [place] [address] Health Maintenance Due Date Last Done Comments [...] this encounter Medical Devices Implanted Type Area Machine Assembler Supervisor Device Identifier Shelf Expiration Date Model / Serial / Lot Lens Intraoc 17.0 - [id number] - [id number] Implanted:Qty: 1 on 10/19/2022 by Monty Farmer MD at OR [facility] Left: Eye [employer] 01/10/2027 [id number] / [id number] / [id number] Lens Intraoc 15.5 - [id number] - [id number] Implanted:Qty: 1 on 10/26/2022 by Monty Farmer MD at OR [facility] Right: Eye [employer] 05/12/2027 [id number] / [id number] / [id number] documented as of this encounter Advance Directives [...] the patient have Health Care Power of Education Program Associate? No Code Status History Code Status Date Activated Date Inactivated Comments No Code 10/19/2022 6:54 AM 10/19/2022 1:31 PM This or daksha reflects the patients wishes and were consensually agreed upon. Question Answer Comments Discussion of Advance Directives occurred with: Patient Does the patient have a Living Will? No Does the patient have Health Care Power of Education Program Associate? No Care Teams Petroleum Refining Firer Relationship Specialty Start Date End Date Yenny Miller MD [address] [place], [place] [address] [place] [address] PCP - General Internal Medicine 07/30/19 documented as of this encounter
--- OUTSIDE RECORDS SUMMARY | 2023-12-03 20:59 | External Medical Summary ---
Author Name Unknown Address Unknown Organization K01:[facility] - [address] [place] [address] Laboratory Report Ordering Provider Test Date Status GUALBERTO DIAZ 11/01/2023 12:24:35 Final Observation Date Value Abnormality Reference (Units ) Status Sodium, Urine 11/01/2023 12:24:35 45 (mmol/ L) Final Performing Location [facility] - [address] [place] [address]
--- OUTSIDE RECORDS SUMMARY | 2023-12-03 20:59 | External Medical Summary ---
Author Name Unknown Address Unknown Organization K0G:[facility] - [address] [place] [address] Laboratory Report Ordering Provider Test Date Status GUALBERTO DIAZ 11/01/2023 11:10:36 Final Observation Date Value Abnormality Reference (Units ) Status BUN 11/01/2023 11:10:36 17 6-20 (mg/dL) Final Creatinine 11/01/2023 11:10:36 0.7 0.5-1.0 (mg/dL) Final Glomerular filtration rate/1.73 sq M.predicted [Volume Rate/Area] in Serum, Plasma or Blood by Creatinine-based formula (CKD-EPI) 11/01/2023 11:10:36 89 >=60 (mL/min) Final eGFR is calculated based on the CKD-EPI 2020 equation Sodium 11/01/2023 11:10:36 128 Below low normal 135 -146 (mmol/L) Final Potassium 11/01/2023 11:10:36 4.7 3.5-5.1 (m mol/L) Final Cl 11/01/2023 11:10:36 94 Below low normal 98- 107 (mmol/L) Final CO2 11/01/2023 11:10:36 22 22-32 (mmo l/L) Final Anion gap 11/01/2023 11:10:36 12 7-15 (mmol /L) Final Glucose 11/01/2023 11:10:36 146 Above high normal 70 -120 (mg/dL) Final Calcium 11/01/2023 11:10:36 10.0 8.4-10.2 ( mg/dL) Final Performing Location [facility] [address] - [address] [place] [address]
--- OUTSIDE RECORDS SUMMARY | 2023-12-03 20:59 | External Medical Summary | Continuity of Care Document ---
Author Name Unknown Organization [place] [address] [address] [place] [place] [address] Address [address] [place] [id number] Care Team Providers Care Early Head Start Teacher Name Role Phone Yenny Miller Primary Care Physician [phone] Encounter [facility] [id number] Date(s): 10/06/23 - 10/06/23 [facility] [address] [address] [facility] [address] [place] [address] Encounter Diagnosis Right wrist fracture(Discharge Diagnosis) - 10/06/23 Discharge Disposition: Home or Self Care Attending Physician: MD Mya, Pablo A Allergies, Adverse Reactions, Alerts Substance Reaction Severity Status albuterol tachycardia Active Medications aspirin Start: 05/26/23 14:45:00 EST, 81 mg =, PO, Daily Start Date: 05/26/23 Status: Ordered glipiZIDE 5 mg oral tablet, extended release Start: 05/26/23 14:44:00 EST, 1 tab, PO, Daily Start Date: 05/26/23 Status: Ordered metFORMIN 850 mg oral tablet Start: 05/26/23 14:44:00 EST, 1 tab, PO, bid Start Date: 05/26/23 Status: Ordered Metoprolol Succinate ER 25 mg oral tablet, extended release Start: 05/26/23 14:44:00 EST, 1 tab, PO, Daily Start Date: 05/26/23 Status: Ordered nitroglycerin 0.4 mg sublingual tablet Start: 05/26/23 14:44:00 EST Start Date: 05/26/23 Status: Ordered rosuvastatin 5 mg oral tablet Start: 05/26/23 14:44:00 EST, 1 tab, PO, Daily Start Date: 05/26/23 Status: Ordered Mental Status 10/06/23 Barriers to Learning one year None evide nt Mandatory Health Literacy Documentation Yes Health Literacy Communication Barriers N ever Primary Language Armenian Problem List Condition Confirmation Course Effective Dates Status Health St atus Informant Diabetes Confirmed Active Right wrist fracture Confirmed Active Heart disease Confirmed Active High blood pressure Confirmed Active Diagnosis Diagnosis Type Effective Dates Health Status Cl inical Service Informant Right wrist fracture Discharge Diagnosis 10/06/23 Social History Social History Type Response Smoking Status Never smoked cigaret selene Sex Female Ortho Outpt Note * MD Mya, Pablo A: MODIFY Jacinto Welch: PERFORM, MODIFY Jacinto Welch: MODIFY, MODIFY Jacinto Welch: MODIFY Event Display: Ortho Outpt Note Authored Date: [id number] Name:MAIKOL MORENO Patient Number:[id number] :1950 Date of Service:10/06/2023 CHIEF COMPLAINT: F/u right wrist HPI: [id number] presents today fora f/u of her right nondisplaced distal radius and ulnar styloid fracture that was reduced in the ER on 05/19/2023. She isdoing well and is out of the brace at today's visit. She has some occasional nighttime tingling, depending on her position. The tingling is in her entire hand. Today she rates her pain as a 0/10. ROS: Refer to the HPI. PHYSICAL EXAM: Focusing on the patient'srightupper extremity: Brisk cap refill < 2 seconds Sensation to light touch is intact distally Motor to the median, radial, ulnar, AIN,PIN nerves are intact. - Tenderness to palpation + Swelling on the ulna aspect ROM: Limited supination, lacks 5 Full pronation Lacking 15 wrist flexion Lacking 10 wrist extension RADIOGRAPHY: I obtained and personally interpreted3 views (AP, oblique and lateral) of the right wrist which shows acceptable alignment andrelatively well maintained alignment and increasedconsolidation of theintra-articular distal radius fracture and ulnar styloid fracture. I reviewed x-rays taken previously, 3 views (AP, oblique and lateral) of the right wrist which shows acceptable alignment andrelatively well maintained alignment and consolidation of theintra-articular distal radius fracture and ulnar styloid fracture. IMPRESSION: [id number] with 1) An intraarticular distal radius fracture and ulnar styloid fractures, closed,subsequent visit,routine healing, s/p closed reduction in the ER on 05/19/2023 with 2) Occasional hand numbness, potentially developing carpal tunnel syndrome vs diabetic neuropathy GOAL: Return to normal activity PLAN: - RICE. - They may use anti-inflammatories alternating with Tylenol as needed for pain. - Continue with formal PT for ROM and strengthening. Also work on nerve glide exercises. A new order was placed. - If tingling is persistent, consider use of nighttime wrist splint. If symptoms worsen consider anEMG/NCS study Follow-up in4-6 months for clinical evaluation ATTESTATION: IJacinto, scribing forand in the presence of, Pablo Roque, on this date,10/06/2023 11:04:15. I, Dr. Roque, saw and examined the patient with Jacinto Welch acting as my scribe. I reviewed thenote and agree with the documented findings and the plan of care I developed. Electronic Signature on File Electronically Reviewed/Signed by: Jacinto Welch Author Signature Dt/Tm:10/06/2023 11:08 AM Electronically Reviewed/Signed by: Jacinto Welch Cosigner Signature Dt/Tm: 10/06/2023 11:09 AM Electronically Reviewed/Signed by: Pablo Roque MD Cosigner Signature Dt/Tm: 10/06/2023 01:52 PM [facility] Die Tester Department of Orthopaedics and Rehabilitation [facility] [address], [place] [address] DS Patient Care team information Care Team Personnel Name: MD Paul, Yenny Position: Referring DIRECT Member Role: Primary Care Provider Address: Address: [address] [place] [address]
--- OUTSIDE RECORDS SUMMARY | 2023-12-03 20:59 | External Medical Summary | Summary of Care ---
Author Name Unknown Organization [facility] Address [address] [place] [address] Phone [phone] Care Team Providers Care Casino Operations Supervisor Name Role Phone Yenny Miller MD Primary Care Provider [phone] Reason for Referral * Evaluate & Treat - Unlimited Visits (Within 30 days (routine)) - Authorized Specialty Diagnoses / Procedures Referred By Carlton mccall Referred To Contact Nephrology Diagnoses Hyponatremia Yenny Miller MD [address] [place] [address] [place] [address] Referral ID Status Reason Start Date Expiration Date Visits Requested Visits Authorized [id number] Authorized Specialty Services Required 11/03/2023 999 999 Question Answer Referral Priority Within 30 days (routine) Where should this appointment be scheduled? [facility] What condition is this patient being seen for? Electrolyte Problem Reason for Visit * Reason Onset Date Comments Test Results 11/03/2023 Encounter Details Date Type Department Care Team (Late st Contact Info) Description 11/03/2023 Telephone General Internal Medicine [address] [place] [address] [facility] [place] [address] Yenny Miller MD 200 [facility] [place] [address] Test Results Allergies Active Allergy Reactions Criticality Noted Date Comments Albuterol Sulfate 03/23/2006 Heart racing documented as of this encounter (statuses as of 11/04/2023) Medications Medication Sig Dispensed Refills Start Date [...] eluting coronary stent placement,Coronary artery disease involving iroquois coronary artery of iroquois heart without angina pectoris Place 1 Tablet under the tongue as needed for Chest pain. May repeat 3 times. If chest pain continues, call 911. 25 Tablet 1 03/14/2023 Active Niacinamide 100 MG Oral Tablet Take 100 mg by mouth in the morning. Active metFORMIN HCl 850 MG Oral Tablet (Glucophage)Indica tions:Type 2 diabetes mellitus with hemoglobin A1c goal of less than 7.0% ([facility]) TAKE ONE TABLET BY MOUTH TWICE A [...] goal LDL below 70,Coronary artery disease involving iroquois coronary artery of iroquois heart without angina pectoris,S/P drug eluting coronary stent placement TAKE ONE TABLET BY MOUTH EVERY day 90 Tablet 1 09/30/2023 09/29/2024 Active documented as of this encounter (statuses as of 11/04/2023) Active Problems Problem Noted Date Diagnosed Date [...] (NSTEMI) 10/28/2017 Coronary artery disease invo lving iroquois coronary artery of iroquois heart without angina pectoris 10/28/2017 Dyslipidemia, goal LDL below 70 10/28/2017 HTN, goal below 140/80 01/31/2012 Overview: Per HTN Protocol #27. Type 2 diabetes mellitus wit h hemoglobin A1c goal of less than 8.0% 04/10/2009 Overview: Per Diabetes Taxonomy. ICD-10 update of inactive term History of nonadherence to medical treatment 05/2006 documented as of this encounter (statuses as of 11/04/2023) Resolved Problems Problem Noted Date Diagnosed Date [...] as of this encounter (statuses as of 11/04/2023) Immunizations Name Administration Dates Next Due COVID-19 [...] encounter Miscellaneous Notes * Telephone Encounter - Vaughn Leary OSA - 11/04/2023 1:00 PM EDT Pt is aware doesn't want to schedule an appt for the rash at this time will do labs after 11/08 * Telephone Encounter - Sola Stone MED ASSIST - 11/03/2023 10:33 AM EDT Myg sent and given number to schedule Please assist * Telephone Encounter - Yenny Miller MD - 11/03/2023 10:[address] [facility] appt for eval rash * Telephone Encounter - Sola Stone MED ASSIST - 11/03/2023 9:34 AM EDT Patient aware and verbalized understanding Referral pended for nephro Pt stated she has mites and has itchiness/rash since Tuesday and was wondering if something could besent - should she be seen? Please advise * Telephone Encounter - Sola Stone MED ASSIST - 11/03/2023 9:29 AM EDT ----- Message from Yenny Miller MD sent at 11/02/2023 7:54 PM EDT ----- Normal TSH, LFT,BMP with hyponatremia to 128 now, serum osmolality low normal -Strict fluid restriction to 40 oz per day, refer back to nephrology -repeat BMP 1 week ( -pl review and advice) documented in this encounter Plan of Treatment Upcoming Encounters Date Type Department Care Team (Late st Contact Info) Description 12/13/2023 1:40 PM EDT Office Visit Nephrology, [facility] [place] [address] [place] [address] Russell Morales MD 200 [facility] [place] [address] 01/03/2024 11:45 AM EDT Imaging [facility] [address] [employer] [place] [address] Gw, Excess Time Radiology 132 [facility] [place] [address] 02/02/2024 1:30 PM EDT Office Visit Cardiology, [facility] [address] [facility] [place] [address] Devin Fish, 132 [facility] [place] [address] 03/06/2024 2:30 PM EDT Imaging Radiology, [facility] [address] [place] [address] [place] [address] 04/09/2024 8:20 AM EDT Office Visit General Internal Medicine [facility] [address] [place] [address] Yenny Miller MD 200 [facility] [address] [facility] [place] [address] Scheduled Referrals Name Type Priority Associated Diagnoses Orde r Schedule NEPHROLOGY REFERRAL OP Referral Within 30 days (routine) Hyponatremia Ordered: 11/03/2023 Health Maintenance Due Date Last Done Comments [...] 0 10/01/2022, 10/01/2021, Additional history exists GFR 10/31/2024 11/01/2023, 09/12, 04/05/2023, Additional history exists Colonoscopy 02/12/2030 02/13/2020, 09/07/2019, 03/27/2012, Additional history exists Colorectal Cancer Screening [...] this encounter Medical Devices Implanted Type Area Air Conditioning Mechanic Device Identifier Shelf Expiration Date Model / Serial / Lot Lens Intraoc 17.0 - [id number] - [id number] Implanted:Qty: 1 on 10/19/2022 by Monty Farmer MD at OR [facility] Left: Eye [employer] 01/10/2027 [id number] / [id number] / [id number] Lens Intraoc 15.5 - [id number] - [id number] Implanted:Qty: 1 on 10/26/2022 by Monty Farmer MD at OR [facility] Right: Eye [employer]OMB 05/12/2027 [id number] / [id number] / [id number] documented as of this encounter Visit Diagnoses Diagnosis Hyponatremia- Primary Hyposmolality and/or hyponatremia documented in this encounter [...] Power of Attor rocío? No Care Teams Casino Operations Supervisor Relationship Specialty Start Date End Date Yenny Miller MD 200 [facility] [place], [place] [address] PCP - General Internal Medicine 07/30/19 documented as of this encounter
--- OUTSIDE RECORDS SUMMARY | 2023-12-03 20:59 | External Medical Summary ---
Author Name Unknown Address Unknown Organization K09:[facility] [place] [address] Laboratory Report Ordering Provider Test Date Status GUALBERTO DIAZ 11/10/2023 11:13:02 Final Observation Date Value Abnormality Reference (Units ) Status BUN 11/10/2023 11:13:02 15 6-20 (mg/dL) Final Creatinine 11/10/2023 11:13:02 0.7 0.5-1.0 (mg/dL) Final Glomerular filtration rate/1.73 sq M.predicted [Volume Rate/Area] in Serum, Plasma or Blood by Creatinine-based formula (CKD-EPI) 11/10/2023 11:13:02 >90 >=60 (mL/min) Final eGFR is calculated based on the CKD-EPI 2020 equation Sodium 11/10/2023 11:13:02 132 Below low normal 135 -146 (mmol/L) Final Potassium 11/10/2023 11:13:02 4.9 3.5-5.1 (m mol/L) Final Cl 11/10/2023 11:13:02 96 Below low normal 98- 107 (mmol/L) Final CO2 11/10/2023 11:13:02 25 22-32 (mmo l/L) Final Anion gap 11/10/2023 11:13:02 11 7-15 (mmol /L) Final Glucose 11/10/2023 11:13:02 219 Above high normal 70 -120 (mg/dL) Final Calcium 11/10/2023 11:13:02 10.0 8.4-10.2 ( mg/dL) Final Performing Location [facility] [place] [address]
--- OUTSIDE RECORDS SUMMARY | 2023-12-03 20:59 | External Medical Summary | Summary of Care ---
Author Name Unknown Organization [facility] Address [address] [place] [address] Phone [phone] Care Team Providers Care Boardmarker Name Role Phone Yenny Miller MD Primary Care Provider [phone] Reason for Visit * Reason Comments Outpatient Testing Encounter Details Date Type Department Care Team (Late st Contact Info) Description 11/10/2023 11:10 AM EDT Laboratory Laboratory [facility] [address] [place] [id number] [facility] [address] [place] [address] Hyponatremia Allergies Active Allergy Reactions Criticality Noted Date Comments Albuterol Sulfate 03/23/2006 Heart racing documented as of this encounter (statuses as of 11/10/2023) Medications Medication Sig Dispensed Refills Start Date [...] eluting coronary stent placement,Coronary artery disease involving [place] coronary artery of resighini heart without angina pectoris Place 1 Tablet [...] goal LDL below 70,Coronary artery disease involving [place] coronary artery of resigh[place] heart without angina pectoris,S/P drug eluting coronary stent placement TAKE ONE TABLET BY MOUTH EVERY day 90 Tablet 1 09/30/2023 09/29/2024 Active Metoprolol Succinate ER 25 MG Oral Tablet Extended Release 24 Hour (toPROL XL)Indications:Old [place] (myocardial infarction),Paroxy smal SVT (supraventricular tachycardia) (HCC) TAKE ONE AND ONE-HALF TABLETS BY MOUTH EVERY MORNING 135 Tablet 2 11/08/2023 Active documented as of this encounter (statuses as of 11/10/2023) Active Problems Problem Noted Date Diagnosed Date [...] (NSTEMI) 10/28/2017 Coronary artery disease invo lving resighini coronary artery of resighini heart without angina pectoris 10/28/2017 Dyslipidemia, goal LDL below 70 10/28/2017 HTN, goal below 140/80 01/31/2012 Overview: Per HTN Protocol #27. Type 2 diabetes mellitus wit h hemoglobin A1c goal of less than 8.0% 04/10/2009 Overview: Per Diabetes Taxonomy. ICD-10 update of inactive term History of nonadherence to medical treatment 05/2006 documented as of this encounter (statuses as of 11/10/2023) Resolved Problems Problem Noted Date Diagnosed Date [...] as of this encounter (statuses as of 11/10/2023) Immunizations Name Administration Dates Next Due COVID-19 [...] Description 12/13/2023 1:40 PM EDT Office Visit [facility] [address] [place] [address] [address] Russell Morales MD [address] [place] [address] [place] [address] 01/03/2024 11:45 AM EDT Imaging [facility] 2nd Floor Cardiology, [place] [address] [place] [address] Gw, Excess Time Radiology [address] [place] [address] 02/02/2024 1:30 PM EDT Office Visit Cardiology, [facility] [address] [place] [address] Devin Fish, DO [address] [place] [address] 03/06/2024 2:30 PM EDT Imaging Radiology, [facility] [address] [place] [address] 04/09/2024 8:20 AM EDT Office Visit General Internal Medicine [facility] [address] [place] [address] Yenny Miller MD [address] [facility] [place] [address] Pending Results Name Type Priority Associated Diagnoses Date /Time BASIC METABOLIC PANEL Lab STAT Hyponatremia 11/10/2023 11:13 AM EDT Health Maintenance Due Date Last [...] 04/05/2023, Additional history exists Colonoscopy 02/12/2030 02/13/2020, 07/2019, [...] this encounter Medical Devices Implanted Type Area Benzol Still Operator Device Identifier Shelf Expiration Date Model / Serial / Lot Lens Intraoc 17.0 - [id number] - [id number] Implanted:Qty: 1 on 10/19/2022 by Monty Farmer MD at OR [facility] Left: Eye BAUSCH & LOMB 01/10/2027 [id number] / [id number] / [id number] Lens Intraoc 15.5 - [id number] - [id number] Implanted:Qty: 1 on 10/26/2022 by Monty Farmer MD at OR [facility] Right: Eye BAUSCH & LOMB 05/12/2027 [id number] / [id number] / [id number] documented as of this encounter Visit Diagnoses [...] Power of Attor rocío? No Care Teams Boardmarker Relationship Specialty Start Date End Date Yenny Miller MD [address] [place] [address] PCP - General Internal Medicine 07/30/19 documented as of this encounter
--- OUTSIDE RECORDS SUMMARY | 2023-12-03 20:59 | External Medical Summary ---
Author Name Unknown Address Unknown Organization K01:LABORATORY [facility] - [address] [place] [address] Laboratory Report Ordering Provider Test Date Status GUALBERTO DIAZ 11/01/2023 12:24:35 Final Observation Date Value Abnormality Reference (Units ) Status Osmolality, Urine 11/01/2023 12:24:35 476 50 -1200 (mOsm/kg) Final Performing Location [facility] - [address] [place] [address]
--- OUTSIDE RECORDS SUMMARY | 2023-12-03 20:59 | External Medical Summary | Summary of Care ---
Author Name Unknown Organization [facility] Address [address] [place] [address] Phone [phone] Care Team Providers Care Vp Analytics Name Role Phone Yenny Miller MD Primary Care Provider [phone] Encounter Details Date Type Department Care Team (Late st Contact Info) Description 10/19/2023 Orders Only PATIENT PORTAL DO NOT DELETE THIS DEPT USED BY [place]A [place] [id number] Allergies Active Allergy Reactions Criticality Noted Date Comments Albuterol Sulfate 03/23/2006 Heart racing documented as of this encounter (statuses as of 10/19/2023) Medications Medication Sig Dispensed Refills Start Date [...] Tablet Extended Release 24 Hour (toPROL XL)Indications:Old [place] (myocardial infarction),Paroxy smal SVT (supraventricular tachycardia) (HCC) TAKE ONE AND ONE-HALF TABLETS BY MOUTH EVERY MORNING 135 Tablet 2 02/15/2023 Active Nitroglycerin 0.4 MG Sublingual Tablet Sublingual (Nitrostat)Indicat ions:Chest discomfort,S/P drug eluting coronary stent placement,Coronary artery disease involving [place] coronary artery of [place] heart without angina pectoris Place 1 Tablet [...] goal LDL below 70,Coronary artery disease involving [place] coronary artery of [place] heart without angina pectoris,S/P drug eluting coronary stent placement TAKE ONE TABLET BY MOUTH EVERY day 90 Tablet 1 09/30/2023 09/29/2024 Active documented as of this encounter (statuses as of 10/19/2023) Active Problems Problem Noted Date Diagnosed Date [...] (NSTEMI) 10/28/2017 Coronary artery disease invo lving [place] coronary artery of [place] heart without angina pectoris 10/28/2017 Dyslipidemia, goal LDL below 70 10/28/2017 HTN, goal below 140/80 01/31/2012 Overview: Per HTN Protocol #27. Type 2 diabetes mellitus wit h hemoglobin A1c goal of less than 8.0% 04/10/2009 Overview: Per Diabetes Taxonomy. ICD-10 update of inactive term History of nonadherence to medical treatment 05/2006 documented as of this encounter (statuses as of 10/19/2023) Resolved Problems Problem Noted Date Diagnosed Date [...] as of this encounter (statuses as of 10/19/2023) Immunizations Name Administration Dates Next Due COVID-19 [...] 02/02/2024 1:30 PM EDT Office Visit Cardiology, [facility] [address] [place] [address] Devin Fish, [address] [place] [address] 03/06/2024 2:30 PM EDT Imaging Radiology, [address] [place] [address] 04/09/2024 8:20 AM EDT Office Visit General Internal Medicine [address] [place] [address] [place] [address] Yenny Miller MD [address] [facility] [place] [address] Health Maintenance Due Date Last Done Comments [...] 09/29/2022, Additional history exists Colonoscopy 02/12/2030 02/13/2020, 09/0 [...] this encounter Medical Devices Implanted Type Area Well Puller Head Device Identifier Shelf Expiration Date Model / Serial / Lot Lens Intraoc 17.0 - [id number] - [id number] Implanted:Qty: 1 on 10/19/2022 by Monty Farmer MD at OR [facility] Left: Eye BAUSCH & LOMB 01/10/2027 [id number] / [id number] / [id number] Lens Intraoc 15.5 - [id number] - [id number] Implanted:Qty: 1 on 10/26/2022 by Monty Farmer MD at OR [facility] Right: Eye BAUSCH & LOMB 05/12/2027 [id number] / [id number] / [id number] documented as of this encounter Advance Directives [...] the patient have Health Care Power of Airconditioning Plant Operator? No Code Status History Code Status Date Activated Date Inactivated Comments No Code 10/19/2022 6:54 AM 10/19/2022 1:31 PM This or daksha reflects the patients wishes and were consensually agreed upon. Question Answer Comments Discussion of Advance Directives occurred with: Patient Does the patient have a Living Will? No Does the patient have Health Care Power of Airconditioning Plant Operator? No Care Teams Vp Analytics Relationship Specialty Start Date End Date Yenny Miller MD [address] [place] [address] PCP - General Internal Medicine 07/30/19 documented as of this encounter
--- OUTSIDE RECORDS SUMMARY | 2023-12-03 20:59 | External Medical Summary | Summary of Care ---
Author Name Unknown Organization [facility] Address [address] [place] [address] Phone [phone] Care Team Providers Care Staff Mechanical Engineer Name Role Phone Yenny Miller MD Primary Care Provider [phone] Reason for Visit * Reason Comments Outpatient Testing Encounter Details Date Type Department Care Team (Late st Contact Info) Description 11/01/2023 11:00 AM EDT Laboratory Laboratory, [facility] [address] [place] [address] [facility] [address] [place] [address] Hyponatremia Allergies Active Allergy Reactions Criticality Noted [...] eluting coronary stent placement,Coronary artery disease involving [place] coronary artery of [place] heart without angina pectoris Place 1 Tablet [...] goal LDL below 70,Coronary artery disease involving [place] coronary artery of [place] heart without angina pectoris,S/P drug eluting coronary [...] (NSTEMI) 10/28/2017 Coronary artery disease invo lving [place] coronary artery of [place] heart without angina pectoris 10/28/2017 Dyslipidemia, goal [...] Info) Description 01/03/2024 11:45 AM EDT Imaging [facility] 2nd Floor Cardiology, [place] [address] [address] Gw, Excess Time Radiology [address] [place] [address] 02/02/2024 1:30 PM EDT Office Visit Cardiology, [facility] [address] [place] [address] Devin Fish DO [address] [place] [address] 03/06/2024 2:30 PM EDT Imaging Radiology, [facility] [address] [facility] [place] [address] 04/09/2024 8:20 AM EDT Office Visit General Internal Medicine [facility] [address] [facility] [place] [address] Yenny Miller MD [address] [facility] [place] [address] Pending Results Name Type Priority Associated Diagnoses [...] this encounter Medical Devices Implanted Type Area Door Clamp Operator Device Identifier Shelf Expiration Date Model / Serial / Lot Lens Intraoc 17.0 - [id number] - [id number] Implanted:Qty: 1 on 10/19/2022 by Monty Farmer MD at OR [facility] Left: Eye BAUSCH & LOMB 01/10/2027 [id number] / [id number] / [id number] Lens Intraoc 15.5 - [id number] - [id number] Implanted:Qty: 1 on 10/26/2022 by Monty Farmer MD at [facility] Right: Eye BAUSCH & LOMB 05/12/2027 [id number] / [id number] / [id number] documented as of this encounter Visit Diagnoses [...] Power of Attor rocío? No Care Teams Staff Mechanical Engineer Relationship Specialty Start Date End Date Yenny Miller MD [address] [facility] [place] [place] [address] PCP - General Internal Medicine 07/30/19 documented as of this encounter
--- OUTSIDE RECORDS SUMMARY | 2023-12-03 20:59 | External Medical Summary | Summary of Care ---
Author Name Unknown Organization [facility] Address [address] [place] [address] Phone [phone] Care Team Providers Care Cotton Presser Name Role Phone Yenny Miller MD Primary Care Provider [phone] Reason for Visit * Reason Comments Outpatient Testing Encounter Details Date Type Department Care Team (Late st Contact Info) Description 11/01/2023 11:00 AM EDT Laboratory Laboratory, [facility] [address] [place] [address] [facility] [address] [place] [address] Hyponatremia Allergies Active Allergy Reactions Criticality Noted [...] Tablet Extended Release 24 Hour (toPROL XL)Indications:Old [place] (myocardial infarction),Paroxy smal SVT (supraventricular tachycardia) (HCC) TAKE ONE AND ONE-HALF TABLETS BY MOUTH EVERY MORNING 135 Tablet 2 02/15/2023 Active Nitroglycerin 0.4 MG Sublingual Tablet Sublingual (Nitrostat)Indicat ions:Chest discomfort,S/P drug eluting coronary stent placement,Coronary artery disease involving [place] coronary artery of mi'kmaq heart without angina pectoris Place 1 Tablet [...] goal LDL below 70,Coronary artery disease involving [place] coronary artery of [place] heart without angina pectoris,S/P drug eluting coronary [...] (NSTEMI) 10/28/2017 Coronary artery disease invo lving [place] coronary artery of mi'k[place] heart without angina pectoris 10/28/2017 Dyslipidemia, goal [...] Pneumococcal Conjugate Vaccine, 20-valent (Prevn ar20) 05/09/2023 Pneumococcal Polysaccharide PPV23 (Pneumovax) Seasonal Influenza, Quadrivalent Hd (Fluzone Hd) 04/02/2022 [...] Info) Description 01/03/2024 11:45 AM EDT Imaging [facility] [address] [place] [address] Gw, Excess Time Radiology [address] [place] [address] 02/02/2024 1:30 PM EDT Office Visit Cardiology, [facility] [address] [place] [address] Devin Fish DO [address] [place] [address] 03/06/2024 2:30 PM EDT Imaging Radiology, [facility] [address] [facility] [place] [address] 04/09/2024 8:20 AM EDT Office Visit General Internal Medicine [facility] [address] [facility] [place] [address] Yenny Miller MD [address] [facility] [place] [address] Pending Results Name Type Priority Associated Diagnoses Date /Time TSH WITH FREE T4 IF INDICATED Lab Routine Hyponatremia 11/01/2023 11:10 AM EDT OSMOLALITY, SERUM Lab Routine Hyponatremia 11/01/2023 11:10 AM EDT HEPATIC FUNCTION PANEL Lab Routine Hyponatremia 11/01/2023 11:10 AM EDT BASIC METABOLIC PANEL Lab Routine Hyponatremia 11/01/2023 11:10 AM EDT SODIUM, RANDOM URINE Lab Routine Hyponatremia 11/01/2023 12:24 PM EDT OSMOLALITY, URINE Lab Routine Hyponatremia 11/01/2023 12:24 PM EDT Health Maintenance Due Date Last [...] this encounter Medical Devices Implanted Type Area Metal Furniture Glazier Device Identifier Shelf Expiration Date Model / Serial / Lot Lens Intraoc 17.0 - [id number] - [id number] Implanted:Qty: 1 on 10/19/2022 by Monty Farmer MD at OR [facility] Left: Eye BAUSCH & LOMB 01/10/2027 [id number] / [id number] / [id number] Lens Intraoc 15.5 - [id number] - [id number] Implanted:Qty: 1 on 10/26/2022 by Monty Farmer MD at OR [facility] Right: Eye BAUSCH & LOMB 05/12/2027 [id number] / [id number] / [id number] documented as of this encounter Visit Diagnoses [...] Power of Attor rocío? No Care Teams Cotton Presser Relationship Specialty Start Date End Date Yenny Miller MD [address] [facility] [place] [address] PCP - General Internal Medicine 07/30/19 documented as of this encounter
--- OUTSIDE RECORDS SUMMARY | 2023-12-03 20:59 | External Medical Summary | Summary of Care ---
Author Name Unknown Organization [facility] Address [address] [place] [address] Phone [phone] Care Team Providers Care Communication Spec Name Role Phone Yenny Mliler MD Primary Care Provider [phone] Encounter Details Date Type Department Care Team (Late st Contact Info) Description 11/15/2023 Orders Only PATIENT PORTAL DO NOT DELETE THIS DEPT USED BY JOSEFINA [place] [id number] Allergies Active Allergy Reactions Criticality Noted Date Comments Albuterol Sulfate 03/23/2006 Heart racing documented as of this encounter (statuses as of 11/15/2023) Medications Medication Sig Dispensed Refills Start Date [...] eluting coronary stent placement,Coronary artery disease involving [place] coronary artery of [place]ib[place] heart without angina pectoris Place 1 Tablet [...] goal LDL below 70,Coronary artery disease involving [place] coronary artery of [place] heart without angina pectoris,S/P drug eluting coronary stent placement TAKE ONE TABLET BY MOUTH EVERY day 90 Tablet 1 09/30/2023 09/29/2024 Active Metoprolol Succinate ER 25 MG Oral Tablet Extended Release 24 Hour (toPROL XL)Indications:Old [place] (myocardial infarction),Paroxy smal SVT (supraventricular tachycardia) ([facility]) TAKE ONE AND ONE-HALF TABLETS BY MOUTH EVERY MORNING 135 Tablet 2 11/08/2023 Active documented as of this encounter (statuses as of 11/15/2023) Active Problems Problem Noted Date Diagnosed Date [...] (NSTEMI) 10/28/2017 Coronary artery disease invo lving [place] coronary artery of [place] heart without angina pectoris 10/28/2017 Dyslipidemia, goal LDL below 70 10/28/2017 HTN, goal below 140/80 01/31/2012 Overview: Per HTN Protocol #27. Type 2 diabetes mellitus wit h hemoglobin A1c goal of less than 8.0% 04/10/2009 Overview: Per Diabetes Taxonomy. ICD-10 update of inactive term History of nonadherence to medical treatment 05/2006 documented as of this encounter (statuses as of 11/15/2023) Resolved Problems Problem Noted Date Diagnosed Date [...] as of this encounter (statuses as of 11/15/2023) Immunizations Name Administration Dates Next Due COVID-19 [...] 12/13/2023 1:40 PM EDT [facility] [address] [address] Russell Morales MD [address] [address] 01/03/2024 11:45 AM EDT Imaging [facility] 2nd Floor Cardiology, [place] [address] [address] Gw, Excess Time Radiology [address] [address] 02/02/2024 1:30 PM EDT Office Visit Cardiology, [facility] [address] [place] [address] Devin Fish DO [address] [place] [address] 03/06/2024 2:30 PM EDT Imaging Radiology, [facility] [address] [facility] [place] [address] 04/09/2024 8:20 AM EDT Office Visit General Internal Medicine [facility] [address] [facility] [place] [address] Yenny Miller MD [address] [facility] [place] [address] 05/22/2024 8:30 AM EST Therapy Neuropsychology [facility] [address] [facility] [place] [address] Prince Horner, PhD [address] [place] [address] Health Maintenance Due Date Last Done Comments [...] this encounter Medical Devices Implanted Type Area Equipment Operat0R Device Identifier Shelf Expiration Date Model / Serial / Lot Lens Intraoc 17.0 - [id number] - [id number] Implanted:Qty: 1 on 10/19/2022 by Monty Farmer MD at OR [facility] Left: Eye BAUSCH & LOMB 01/10/2027 [id number] / [id number] / [id number] Lens Intraoc 15.5 - [id number] - [id number] Implanted:Qty: 1 on 10/26/2022 by Monty Farmer MD at [facility] Right: Eye BAUSCH & LOMB 05/12/2027 [id number] / [id number] / [id number] documented as of this encounter Advance Directives [...] Power of Attor rocío? No Care Teams Communication Spec Relationship Specialty Start Date End Date Yenny Miller MD [address] [place] [address] PCP - General Internal Medicine 07/30/19 documented as of this encounter
--- OUTSIDE RECORDS SUMMARY | 2023-12-03 20:59 | External Medical Summary ---
Author Name Unknown Address Unknown Organization K01:LABORATORY [facility] - [address] [facility] [address] Laboratory Report Ordering Provider Test Date Status GUALBERTO DIAZ 11/01/2023 11:10:36 Final Observation Date Value Abnormality Reference (Units ) Status TSH 11/01/2023 11:10:36 0.99 0.27-4.20 (uIU/mL) Final Performing Location LABORATORY [facility] - [address] [facility] [address]
--- OUTSIDE RECORDS SUMMARY | 2023-12-03 20:59 | External Medical Summary ---
Author Name Unknown Address Unknown Organization K01:LABORATORY [facility] - [address] [place] [address] Laboratory Report Ordering Provider Test Date Status GUALBERTO DIAZ 11/01/2023 11:10:36 Final Observation Date Value Abnormality Reference (Units ) Status Osmolality 11/01/2023 11:10:36 278 278-305 ( mOsm/kg) Final Performing Location [facility] - [address] [place] [address]
--- OUTSIDE RECORDS SUMMARY | 2023-12-03 20:59 | External Medical Summary | Summary of Care ---
Author Name Unknown Organization [facility] Address [address] [place] [address] Phone [phone] Care Team Providers Care Cold Roll Packer Sheet Iron Name Role Phone Yenny Miller MD Primary Care Provider [phone] Encounter Details Date Type Department Care Team (Late st Contact Info) Description 11/21/2023 Orders Only Outcomes Research Department [address], [place] [id number] Yolanda Smith CHRA [employer] Other*[id number] Allergies Active Allergy Reactions Criticality Noted Date Comments Albuterol Sulfate 03/23/2006 Heart racing documented as of this encounter (statuses as of 11/21/2023) Medications Medication Sig Dispensed Refills Start Date [...] eluting coronary stent placement,Coronary artery disease involving [place] coronary artery of [place] heart without angina pectoris Place 1 [...] goal LDL below 70,Coronary artery disease involving [place] coronary artery of [place] heart without angina pectoris,S/P drug eluting coronary stent placement TAKE ONE TABLET BY MOUTH EVERY day 90 Tablet 1 09/30/2023 09/29/2024 Active Metoprolol Succinate ER 25 MG Oral Tablet Extended Release 24 Hour (toPROL XL)Indications:[place] (myocardial infarction),Paroxy smal SVT (supraventricular tachycardia) (HCC) TAKE ONE AND ONE-HALF TABLETS BY MOUTH EVERY MORNING 135 Tablet 2 11/08/2023 Active documented as of this encounter (statuses as of 11/21/2023) Active Problems Problem Noted Date Diagnosed Date Paroxysmal SVT (supraventricular tachycardia) Hyponatremia 10/09/2021 Arthritis of knee 10/01/2021 FHx: breast cancer in first degree relative 0 01/2021 Thyroid nodule 06/30/2020 Overview: 09/01--Stable thyroid [...] (NSTEMI) 10/28/2017 Coronary artery disease invo lving [place] coronary artery of [place] heart without angina pectoris 10/28/2017 Dyslipidemia, goal LDL below 70 10/28/2017 HTN, goal below 140/80 01/31/2012 Overview: Per HTN Protocol #27. Type 2 diabetes mellitus wit h hemoglobin A1c goal of less than 8.0% 04/10/2009 Overview: Per Diabetes Taxonomy. ICD-10 update of inactive term History of nonadherence to medical treatment 05/2006 documented as of this encounter (statuses as of 11/21/2023) Resolved Problems Problem Noted Date Diagnosed Date [...] as of this encounter (statuses as of 11/21/2023) Immunizations Name Administration Dates Next Due COVID-19 [...] 1:40 PM EDT Office Visit NephrologyRay [address] [place] [address] Russell Morales MD [address] [place] [address] 01/03/2024 11:45 AM EDT Imaging [place] 2nd Floor Cardiology, [place] [address] [facility] [place] [id number] Gw, Excess Time Radiology [address] [place] [address] 02/02/2024 1:30 PM EDT Office Visit Cardiology, [facility] [address] [place] [address] Devin Fish, [address] [place] [address] 03/06/2024 2:30 PM EDT Imaging Radiology, [address] [place] [address] 04/09/2024 8:20 AM EDT Office Visit General Internal Medicine [facility] [address] [facility] [place] [address] Yenny Miller MD [address] [facility] [place] [address] 05/22/2024 8:30 AM EST Therapy Neuropsychology [facility] [address] [facility] [place] [address] Prince Horner, PhD [address] [facility] [place] [address] Scheduled Orders Name Type Priority Associated Diagnoses Orde r Schedule MYCODE INITIAL ADULT Lab Routine [employer] Research Other*[id number] Expected: 11/21/2023 (Approximate), Expires: 12/10/2024 Health Maintenance Due Date Last Done Comments [...] 11/09/2024 11/10/2023, 10/12, 10/07/2023, Additional history exists Diabetic Eye Exam 11/14/2024 11/15/2023, , 07/14/2022, Additional history exists Colonoscopy 02/12/2030 02/13/2020, 07/2019, [...] this encounter Medical Devices Implanted Type Area Telecommunicator Device Identifier Shelf Expiration Date Model / Serial / Lot Lens Intraoc 17.0 - [id number] - [id number] Implanted:Qty: 1 on 10/19/2022 by Monty Farmer MD at OR [facility] Left: Eye [employer]OM[employer] 01/10/2027 [id number] / [id number] / [id number] Lens Intraoc 15.5 - [id number] - [id number] Implanted:Qty: 1 on 10/26/2022 by Monty Farmer MD at OR [facility] Right: Eye [employer]USCH [employer] LOMB 05/12/2027 [id number] / [id number] / [id number] documented as of this encounter Visit Diagnoses Diagnosis [employer] [facility] Other*[id number] documented in this encounter Advance Directives * [...] Power of Attor rocío? No Care Teams Cold Roll Packer Sheet Iron Relationship Specialty Start Date End Date Yenny Miller MD [address] [facility] [place] [address] PCP - General Internal Medicine 07/30/19 documented as of this encounter
--- OUTSIDE RECORDS SUMMARY | 2023-12-03 20:59 | External Medical Summary | Summary of Care ---
Author Name Unknown Organization [facility] Address [address] [place] [address] Phone [phone] Care Team Providers Care Organizational Research Consultant Name Role Phone Yenny Miller MD Primary Care Provider [phone] Reason for Visit * Reason Comments Medication Refill Encounter Details Date Type Department Care Team (Late st Contact Info) Description 11/08/2023 Refill General Internal Medicine [facility] [place] [address] [facility] [place] [phone] Yenny Miller MD [facility] [address] [place] (myocardial infarction); Paroxysmal SVT (supraventricular tachycardia) ([facility]) Allergies Active Allergy Reactions Criticality Noted Date Comments Albuterol Sulfate 03/23/2006 Heart racing documented as of this encounter (statuses as of 11/08/2023) Medications Medication Sig Dispensed Refills Start Date End Date Status Glucose Blood (FASTTAKE TEST) STRP Test up to 4 times a day 100 Strip 5 04/12/2016 Active Aspirin 81 MG Tablet Take 1 Tablet by mouth in the morning. Active Co Q 10 100 MG Oral Capsule one pill each day 10/01/2021 Active Glucosamine-Juan droitin 500-400 MG Oral Capsule Take 1 Capsule by mouth in the morning. 10/01/2021 Active NATURAL SUPPLEMENT Take by mouth daily. Melva curcumin supplement. Takes it once daily. Also has boswellin in it Active Nitroglycerin 0.4 MG Sublingual Tablet Sublingual (Nitrostat)Indic ations:Chest discomfort,S/P drug eluting coronary stent placement,[place] ry artery disease involving [place] coronary artery of [place] heart without angina pectoris Place 1 Tablet under the tongue as needed for Chest pain. May repeat 3 times. If chest pain continues, call 911. 25 Tablet 1 03/14/2023 Active Niacinamide 100 MG Oral Tablet Take 100 mg by mouth in the morning. Active metFORMIN HCl 850 MG Oral Tablet (Glucophage)Alka cations:Type 2 diabetes mellitus with hemoglobin A1c goal of less than 7.0% (HCC) TAKE ONE TABLET BY MOUTH TWICE A DAY 200 Tablet 1 09/20/2023 09/19/2024 Active glipiZIDE ER 5 MG Oral Tablet Extended Release 24 Hour (Glucotrol XL)Indications:T ype 2 diabetes mellitus with hemoglobin A1c goal of less than 8.0% (HCC) TAKE ONE TABLET BY MOUTH EVERY DAY 100 Tablet 2 09/26/2023 Active Rosuvastatin Calcium 5 MG Oral Tablet (Crestor)Indicat ions:Dyslipidemi a, goal LDL below 70,Coronary artery disease involving [place] coronary artery of [place] heart without angina pectoris,S/P drug eluting coronary stent placement TAKE ONE TABLET BY MOUTH EVERY day 90 Tablet 1 09/30/2023 09/29/2024 Active Metoprolol Succinate ER 25 MG Oral Tablet Extended Release 24 Hour (toPROL XL)Indications:[place] (myocardial infarction),Paro xysmal SVT (supraventricula r tachycardia) (HCC) TAKE ONE AND ONE-HALF TABLETS BY MOUTH EVERY MORNING 135 Tablet 2 11/08/2023 Active Metoprolol Succinate ER 25 MG Oral Tablet Extended Release 24 Hour (toPROL XL)Indications:O [place] (myocardial infarction),Paro xysmal SVT (supraventricula r tachycardia) (HCC) TAKE ONE AND ONE-HALF TABLETS BY MOUTH EVERY MORNING 135 Tablet 2 02/15/2023 11/08/2023 Discontinued (Refill) documented as of this encounter (statuses as of 11/08/2023) Active Problems Problem Noted Date Diagnosed Date [...] (NSTEMI) 10/28/2017 Coronary artery disease invo lving [place] coronary artery of [place] heart without angina pectoris 10/28/2017 Dyslipidemia, goal LDL below 70 10/28/2017 HTN, goal below 140/80 01/31/2012 Overview: Per HTN Protocol #27. Type 2 diabetes mellitus wit h hemoglobin A1c goal of less than 8.0% 04/10/2009 Overview: Per Diabetes Taxonomy. ICD-10 update of inactive term History of nonadherence to medical treatment 05/2006 documented as of this encounter (statuses as of 11/08/2023) Resolved Problems Problem Noted Date Diagnosed Date [...] as of this encounter (statuses as of 11/08/2023) Immunizations Name Administration Dates Next Due COVID-19 [...] encounter Miscellaneous Notes * Telephone Encounter - Erika Avendano, [facility] - 11/08/2023 8:48 PM EDT Signed Prescriptions: Disp Refills Metoprolol Succinate ER 25 MG Oral Tablet *135 Ta*2 Sig: TAKE ONE AND ONE-HALF TABLETS BY MOUTH EVERY MORNINGAuthorizing Provider: Neelima MILLER User: ERIKA AVENDANO documented in this encounter Plan of Treatment Upcoming Encounters Date Type Department Care Team (Late st Contact Info) Description 12/13/2023 1:40 PM EDT Office Visit Nephrology, [facility] [address] [place] [address] Russell Morales MD [address] [place] [address] 01/03/2024 11:45 AM EDT Imaging [facility] 2nd Floor [facility] [address] [facility] [place] [address] Gw, Excess Time Radiology [address] [facility] [place] [address] 02/02/2024 1:30 PM EDT Office Visit Cardiology, [facility] [address] [facility] [place] [address] Devin Fish, [address] [facility] [place] [address] 03/06/2024 2:30 PM EDT Imaging Radiology, [place] [id number] [facility] [place] [address] 04/09/2024 8:20 AM EDT Office Visit General Internal Medicine [facility] [place] [address] [place] [address] Yenny Miller MD 200 [facility] [place], [place] [address] Health Maintenance Due Date Last Done Comments [...] 04/05/2023, Additional history exists Colonoscopy 02/12/2030 02/13/2020, 0907/2019, [...] this encounter Medical Devices Implanted Type Area Gardening Instructor Device Identifier Shelf Expiration Date Model / Serial / Lot Lens Intraoc 17.0 - [id number] - [id number] Implanted:Qty: 1 on 10/19/2022 by Monty Farmer MD at OR [facility] Left: Eye BAUSCH [employer] LOMB 01/10/2027 [id number] / [id number] / [id number] Lens Intraoc 15.5 - [id number] - [id number] Implanted:Qty: 1 on 10/26/2022 by Monty Farmer MD at OR [facility] Right: Eye BAUSCH & LOMB 05/12/2027 [id number] / [id number] / [id number] documented as of this encounter Visit Diagnoses Diagnosis [place] (myocardial infarction) Old myocardial infarction Paroxysmal SVT (supraventricular tachycardia) (HCC) Paroxysmal supraventricular tachycardia documented in this encounter Advance Directives * [...] Power of Attor rocío? No Care Teams Organizational Research Consultant Relationship Specialty Start Date End Date Yenny Miller MD [address] [facility] [place] [address] PCP - General Internal Medicine 07/30/19 documented as of this encounter
--- OUTSIDE RECORDS SUMMARY | 2023-12-03 21:00 | External Medical Summary ---
Author Name Unknown Address Unknown Organization K01:[facility] [place] [address] [place] [address] Laboratory Report Ordering Provider Test Date Status JOE,GUALBERTO 10/07/2023 12:25:33 Final Observation Date Value Abnormality Reference (Units) Status Hepatitis B virus surface Ab [Units/volume] in Serum or Plasma by Immunoassay 10/07/2023 12:25:33 10.6 (mIU/mL) Final Hepatitis B virus surface Ab [Presence] in Serum by Immunoassay 10/07/2023 12:25:33 Indeterminate Final HEPATITIS B SURFACE ANTIBODY, INTERPRETATION 10/07/2023 12:25:33 Suggest repeat testing in 1 to 3 months. Final POSITIVE: >=11.5 mIU/mL
INDETERMINATE: 8.5-<11.5 mIU/mL
NEGATIVE: <8.5 mIU/mL Performing Location [facility] [place] [address] [place] [address]
--- OUTSIDE RECORDS SUMMARY | 2023-12-03 21:00 | External Medical Summary ---
Author Name Unknown Address Unknown Organization K01:[facility] [place] [place] - [address] [facility] [address] Laboratory Report Ordering Provider Test Date Status GUALBERTO DIAZ 10/07/2023 12:25:33 Final Observation Date Value Abnormality Reference (Units ) Status HbA1C 10/07/2023 12:25:33 6.3 Above high normal 4. 0-5.6 (%) Final The use of HbA1c to monitor glycemic status is based on normal hemoglobin and HbA composition. This test should not be used in patients with abnormal hemoglobin that affects the half life of the red blood cell or the in vivo glycation rates. Glucose, estimated average 10/07/2023 12:25:33 134 Above high normal <126 (mg/dL) Virgil blackwood Performing Location [facility] [place] [place] [facility] [address] [facility] [address]
--- OUTSIDE RECORDS SUMMARY | 2023-12-03 21:00 | External Medical Summary ---
Author Name Unknown Address Unknown Organization K01:[facility] [place] - [address] [address] Laboratory Report Ordering Provider Test Date Status GUALBERTO DIAZ 10/07/2023 12:29:05 Final Normal: <30 mg/g creatinine< br/>High: 30-300 mg/g creatinine
Very High: >300 mg/g creatinine
Nephrotic: >2200 mg/g creatinine Observation Date Value Abnormality Reference (Units ) Status Albumin, Urine 10/07/2023 12:29:05 <1.20 (mg/dL) Final Creatinine, Urine 10/07/2023 12:29:05 54 (mg/dL) Final Albumin/Creatinine [Mass Ratio] in Urine 10/07/2023 12:29:05 <22 <30 (mg/g Creat) Final Performing Location [facility] [place] - [address] [place] [address]
--- OUTSIDE RECORDS SUMMARY | 2023-12-03 21:00 | External Medical Summary ---
Author Name Unknown Address Unknown Organization K09:[facility] [place] [address] Laboratory Report Ordering Provider Test Date Status GUALBERTO DIAZ 10/07/2023 12:25:33 Final Observation Date Value Abnormality Reference (Units ) Status BUN 10/07/2023 12:25:33 18 6-20 (mg/dL) Final Creatinine 10/07/2023 12:25:33 0.7 0.5-1.0 (mg/dL) Final Glomerular filtration rate/1.73 sq M.predicted [Volume Rate/Area] in Serum, Plasma or Blood by Creatinine-based formula (CKD-EPI) 10/07/2023 12:25:33 >90 >=60 (mL/min) Final eGFR is calculated based on the CKD-EPI 2020 equation Sodium 10/07/2023 12:25:33 133 Below low normal 135 -146 (mmol/L) Final Potassium 10/07/2023 12:25:33 4.6 3.5-5.1 (m mol/L) Final Cl 10/07/2023 12:25:33 95 Below low normal 98- 107 (mmol/L) Final CO2 10/07/2023 12:25:33 28 22-32 (mmo l/L) Final Anion gap 10/07/2023 12:25:33 10 7-15 (mmol /L) Final Glucose 10/07/2023 12:25:33 130 Above high normal 70 -120 (mg/dL) Final Calcium 10/07/2023 12:25:33 10.0 8.4-10.2 ( mg/dL) Final Performing Location [facility] [place] [address]
--- OUTSIDE RECORDS SUMMARY | 2023-12-03 21:00 | External Medical Summary | Summary of Care ---
Author Name Unknown Organization [facility] Address [address] [place] [address] Phone [phone] Care Team Providers Care Flight Purser Name Role Phone Yenny Miller MD Primary Care Provider [phone] Reason for Referral * Evaluate & Treat - Unlimited Visits (Within 30 days (routine)) - Authorized Specialty Diagnoses / Procedures Referred By Carlton marte Referred To Contact Optometry Diagnoses Type 2 diabetes mellitus with hemoglobin A1c goal of less than 8.0% ([facility]) Yenny Miller MD [facility] [address] Chang Boyce, OD [facility] [address] [address] Referral ID Status Reason Start Date Expiration Date Visits Requested Visits Authorized [id number] Authorized Specialty Services Required 10/07/[phone] Question Answer Referral Priority Within 30 days (routine) Where should this appointment be scheduled? [facility] Referring for: Optometry Conditions Optometry Conditions Diabetic Eye Exam without Retinopathy * Evaluate & Treat - Unlimited Visits (Within 30 days (routine)) - Authorized Specialty Diagnoses / Procedures Referred By Carlton marte Referred To Contact Psychiatry / Psychology Diagnoses Memory problem Yenny Miller MD [address] [place] [address] Referral ID Status Reason Start Date Expiration Date Visits Requested Visits Authorized [id number] Authorized Specialty Services Required 10/07/[phone] Question Answer Referral Priority Within 30 days (routine) Where should this appointment be scheduled? [facility] Is this referral for medication management? No What condition is this patient being seen for? 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 (MoCA/MMSE <= 10) No Comments Neuropsychological evaluations are INTERACTIVE and use materials that require a patient to SEE, HEAR, and often WRITE. If a patient is unable to engage in this way, neurocognitive assessment may be abbreviated or deemed inappropriate. Please use caution in establishing expectations with your patient, and note any limitations in the comments section of the referral order. * Precert (Within 10 days (routine)) - Pending Review Specialty Diagnoses / Procedures Referred By Contac t Referred To Contact Radiology Diagnoses Coronary artery disease involving chenega coronary artery of chenega heart without angina pectoris Paroxysmal SVT (supraventricular tachycardia) (HCC) Abnormal EKG Procedures NM MYOCARD PERF IMG SPECT MULT STUDIES WITH PHARM INTERV Yenny Miller MD [address] [place] [address] Referral ID Status Reason Start Date Expiration Date Visits Requested Visits Authorized [id number] Pending Review Precert 10/07/2023 999 999 * Evaluate & Treat - Unlimited Visits (Within 30 days (routine)) - Authorized Specialty Diagnoses / Procedures Referred By Contact Referred To Contact Cardiovascular Medicine / Cardiology Diagnoses Coronary artery disease involving chenega coronary artery of chenega heart without angina pectoris Paroxysmal SVT (supraventricular tachycardia) (HCC) Abnormal EKG Yenny Miller MD [address] [place] [address] Referral ID Status Reason Start Date Expiration Date Visits Requested Visits Authorized [id number] Authorized Specialty Services Required 10/07/2023 999 999 Question Answer Referral Priority Within 30 days (routine) Where should this appointment be scheduled? [facility] To which of the following clinics are you referring your patient? General [facility]iology [facility] Reason for Visit * Reason Comments Follow Up 6mo return Encounter Details Date Type Department Care Team (Late st Contact Info) Description 10/07/2023 11:00 AM EDT Office Visit General Internal Medicine [facility] [address] [place], [place] [address] Yenny Miller MD [address] [place] [address] Type 2 diabetes mellitus with hemoglobin A1c goal of less than 8.0% ([facility])*; DM type 2 nursing care encounter ([facility]); Dyslipidemia, goal LDL below 70; HTN, goal below 140/80; Coronary artery disease involving chenega coronary artery of chenega heart without angina pectoris; Paroxysmal SVT (supraventricular tachycardia) ([facility]); History of wrist fracture; Screening for osteoporosis; Abnormal EKG; Hyponatremia; History of hepatitis B vaccination; Memory problem Allergies Active Allergy Reactions Criticality Noted Date Comments Albuterol Sulfate 03/23/2006 Heart racing documented as of this encounter (statuses as of 10/07/2023) Medications Medication Sig Dispensed Refills Start Date [...] Tablet Extended Release 24 Hour (toPROL XL)Indications:Old VA (myocardial infarction),Paroxy smal SVT (supraventricular tachycardia) ([facility]) TAKE ONE AND ONE-HALF TABLETS BY MOUTH EVERY MORNING 135 Tablet 2 02/15/2023 Active Nitroglycerin 0.4 MG Sublingual Tablet Sublingual (Nitrostat)Indicat ions:Chest discomfort,S/P drug eluting coronary stent placement,Coronary artery disease involving chenega coronary artery of chenega heart without angina pectoris Place 1 Tablet [...] TWICE A DAY 200 Tablet 1 09/20/2023 5 Active glipiZIDE ER 5 MG Oral Tablet Extended Release 24 Hour (Glucotrol XL)Indications:Typ e 2 diabetes mellitus with hemoglobin A1c goal of less than 8.0% (HCC) TAKE ONE TABLET BY MOUTH EVERY DAY 100 Tablet 2 09/26/2023 Active Rosuvastatin Calcium 5 MG Oral Tablet (Crestor)Indicatio ns:Dyslipidemia, goal LDL below 70,Coronary artery disease involving chenega coronary artery of chenega heart without angina pectoris,S/P drug eluting coronary stent placement TAKE ONE TABLET BY MOUTH EVERY day 90 Tablet 1 09/30/2023 5 Active Zoster Vac Recomb Adjuvanted 50 MCG/0.5ML Intramuscular Suspension Reconstituted (Shingrix)Indicati ons:Need for shingles vaccine Inject 0.5 mL into a large muscle now and repeat dose in 60 to 180 days 1 Each 1 04/05/2023 4 Discontinued documented as of this encounter (statuses as of 10/07/2023) Active Problems Problem Noted Date Diagnosed Date Paroxysmal SVT (supraventricular tachycardia) Hyponatremia 10/09/2021 Arthritis of knee 10/01/2021 FHx: breast cancer in first degree relative /0 01/2021 Thyroid nodule 06/30/2020 Overview: 09/01--Stable thyroid [...] (NSTEMI) 10/28/2017 Coronary artery disease invo lving chenega coronary artery of chenega heart without angina pectoris 10/28/2017 Dyslipidemia, goal LDL below 70 10/28/2017 HTN, goal below 140/80 01/31/2012 Overview: Per HTN Protocol #27. Type 2 diabetes mellitus wit h hemoglobin A1c goal of less than 8.0% 04/10/2009 Overview: Per Diabetes Taxonomy. ICD-10 update of inactive term History of nonadherence to medical treatment 05/2006 documented as of this encounter (statuses as of 10/07/2023) Resolved Problems Problem Noted Date Diagnosed Date [...] as of this encounter (statuses as of 10/07/2023) Immunizations Name Administration Dates Next Due COVID-19 [...] Sign Reading Time Taken Comments Blood Pressure 106/50 10/07/2023 11:23 AM EDT Pulse 72 10/07/2023 11:23 AM EDT Temperature 36.3 C (97.3 F) 10/07/2023 11:23 AM E DT Respiratory Rate - - Oxygen Saturation 98% 10/07/2023 11:23 AM EDT Inhaled Oxygen Concentration - - Weight 64 kg (141 lb 1.6 oz) 10/07/2023 11:23 AM EDT Height 165.1 cm (5' 5") 10/07/2023 11:23 AM EDT Body Mass Index 23.48 10/07/2023 11:23 AM EDT documented in this encounter Patient Instructions * Patient Instructions* Sisi Orellana, SUPERVISOR BUILDING MAINTENANCE - 10/07/2023 11:20 AM EDT Diabetes: Keeping Feet Healthy Inspect your feet every day for signs of a problem. Diabetes can damage nerves in your feet and cause neuropathy. This condition makes it hard for you to feel injuries or sore spots. Diabetes can also change blood flow, making it harder for small problems, like a blister, to heal properly. In fact, minor injuries can quickly become serious infections that send you to the hospital. Practice self-care to protect your feet and keep them healthy. Take Special Care Inspect your feet daily for problems such as redness, blisters, cracks, dry skin, or numbness. Use a mirror to see the bottoms of your feet. Or, ask for help. Manage your diabetes. Monitor and control your blood sugar. Take all your medications as prescribed. Avoid walking barefoot, even indoors. Wash your feet with warm water and mild soap. Dry well, especially between toes. Dont treat corns or calluses yourself. Talk to your doctor or pastry cook apprentice (a doctor who specializes in foot care) if you need assistance trimming your toenails. Use moisturizing cream or lotion if you have dry skin, but dont use it between toes. Dont use heating pads on your feet. If you have neuropathy, you could get a burn and not feel it. Stop smoking. Smoking restricts blood flow and can make it harder for wounds to heal. Have Regular Checkups Foot problems can develop quickly. So be sure to follow your healthcare teams schedule for regular checkups. During office visits, take off your shoes and socks as soon as you get in the exam room. Ask your healthcare provider to examine your feet for problems. This will make it easier to find and treat small skin irritations before they get worse. Regular checkups can also help keep track of the blood flow and feeling in your feet. If you have neuropathy, you may need to have checkups more often. Wear Proper Footwear Wearing proper footwear is very important. If areas of your feet have been damaged by too much pressure, your healthcare provider may recommend changing your footwear. In some cases, avoiding high heels or tight work boots may be all thats needed. Or, your healthcare provider may recommend special shoes or custom inserts. These help protect your feet and keep existing irritations from getting worse. If you need special footwear, ask your healthcare provider if you qualify for [employer] diabetic shoe program. Make Sure Shoes and Socks Fit Any pair of shoes--new or old--should feel comfortable as soon as you put them on. There shouldnt be any rubbing when you walk. Wear the right shoe for any activity. For instance, a running shoe is designed to keep your feet injury-free while jogging. Buy shoes at the end of the day, when your feet are larger. Make sure they provide support without feeling too loose. Make sure your socks fit, t oo. Wear soft, seamless, well-padded socks for activity. Cotton or microfiber socks are best to help to absorb sweat. To protect your feet, avoid shoes that are open-toed or open-heeled. If you have questions about what kinds of shoes and socks are best, talk to your healthcare team. Get Regular Exercise Regular exercise improves blood flow in your feet. It also increases foot strength and flexibility.Gentle exercises, like walking or riding a stationary bicycle, are best. You can also do special foot exercises. Just be sure to talk with your healthcare provider before starting any exercise program. Also mention if any exercise causes pain, redness, or other signs of foot problems. Note: If you have any kind of break in the skin of your foot or ankle, keep the area clean. Then call your doctor--especially if the area doesnt appear to be healing. [phone] [employer], [address] [place] [address], [place] [address]. All rights reserved. This information is not intended as a substitute for professional medical care. Always follow your healthcare professional's instructions. documented in this encounter Progress Notes * Yenny Miller MD - 10/07/2023 11:32 AM EDT SUBJECTIVE: Virgen Patterson is a 71 year old female. 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 Hypertension, dyslipidemia, Non ST-elevation VA 10/28, had drug-eluting stent to the RCA, [...] lbs in last yr--is eating less since assisted, has more energy, no symptoms ofdizziness, all other ROS neg 10/04--on 05/19/23-Fell while playing with dog and had Rt wrist fracture which was reduced by Romeo ---was admitted and seen by Liz for EKG chg, echo--ml EF, subtle hypokinesis inf/post base She cx hosp f/u here Per card f/u note 05/20/23-> Patient was hospitalized following a mechanical fall and right wristfracture on 05/19/[address] elevation during episode of pain with return to baseline and no troponin elevation. Known coronary artery disease with prior right coronary stent Recommendations: Stress Lexiscan to be scheduled Cardiology follow-up-- --was not [facility]--willing to yunier No cp/sob/leg eedma 07/03--c/o mild short term memory problem few months--inc in last 2 mths. No safety issues. Older sister 06/01 from compln diabetes. No LOPEZ. No weakness/numbness/tingling of face or extremities. -reads novels. -does not do puzzles-has ordered books, MRI brain 2018--chr sm vs ds. [id number]- and refer to Neurology--had eval 09/24/20--rec neuropsych testing--was not [facility] and she defesr now in December 3104/03--states she received a call to schedule her neuropsychology appointment and she is to call them back. Did not [facility] 10/04--to be scha appt neurosych Type 2 diabetes for greater than 20 years. Urine for microalbumin-10/29.-, 07/03; 10/02;10/03 Eye exam -05/03/19.DrTalone->05/12/21->03/05 Foot exam normal-07/30/2019, 06/23/2020, 10/02;10/03 B12 normal at 05/31.,10/03 Was on lisinopril 10mg dc -since 2016 after nstemi when bb added--consider adding 2.5mg--defers today SP cataract surgery by Dr. Farmer Left 10/19/2022, Right 10/26/2022 at [facility]. Got bifocals line which she ware [...] antibiotic use recently, had a yeast infection-saw master printer 12/26/19 and was treated with Lotrisone and [...] at age 59, sister age 66. Mammogram [facility] Neg 04/2017-benign, fatty, boo like Ca+-stable--rpt 1 yr>neg 08/05/21;08/20/22;M neg 08/23/23 Willing to yunier dexa now-ordered 10/01/2022-not yunier yet, 04/04; 10/04 No headache,UR symptoms, neck swelling, chest pain, [...] depression or anxiety, sleeps good. 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 Immunization History Administered Date(s) Administered COVID-19 mRNA, LNP-s, No Preserve, 2-Dose Series (Moderna) 07/21/2020, 08/18/2020 COVID-19, mRNA, LNP-s, PF, Booster, 100mcg/0.5mg (Moderna) 04/17/2021, 01/25/2022 Pneumococcal Conjugate Vacc, 13 Valent (Prevnar) 02/21/2017 Pneumococcal Conjugate Vaccine, 20-valent ([id number]) 05/09/2023 Pneumococcal Polysaccharide PPV23 (Pneumovax) 03/12/2003 Seasonal Influenza, Quadrivalent Hd (Fluzone Hd) 04/02/2022 Seasonal Influenza, Quadrivalent, No Preserve, IM 03/24/2018, 04/13/2019 Seasonal Influenza, Split, IIV3, With Preserve, Inj 04/19/2007 TD, Preservative Free 12/18/2020 TDAP (age 11 and older)(Adacel) 03/04/2009 Varicella Zoster Vaccine (Adult) 09/24/2014 Zoster Vaccine Recombinant (Shingrix) 04/05/2023, 06/15/2023 Hemoglobin AIC Results: Lab Results Component Value Date/Time HEMOGLOBIN A1C - [facility] 6.1 (H) 04/05/2023 03:17 PM HEMOGLOBIN A1C - [facility] 6.3 (H) 09/29/2022 11:01 AM HEMOGLOBIN A1C - [facility] 6.3 (H) 05/07/2022 11:08 AM HEMOGLOBIN A1C - [facility] 6.2 (H) 06/23/2020 04:20 PM HEMOGLOBIN A1C - [facility] 7.4 (H) 11/29/2019 04:35 PM HEMOGLOBIN A1C - [facility] 7.3 (H) 05/18/2019 02:41 PM Hemoglobin Results: Lab Results Component Value Date/Time HGB 13.1 09/29/2022 11:01 AM HGB 12.8 05/25/2022 01:20 PM HGB 14.4 01/01/2020 01:32 PM HGB 14.1 06/21/2014 03:38 PM HGB 13.4 03/21/2008 09:34 AM TSH Results: Lab Results Component Value Date/Time TSH - [facility] 1.08 04/30/2022 12:40 PM TSH - [facility] 0.92 03/18/2021 11:49 AM TSH - [facility] 1.02 09/24/2020 09:04 AM TSH - [facility] 0.42 01/01/2020 01:32 PM TSH - [facility] 1.33 12/16/2011 09:13 AM TSH - [facility] 1.04 03/21/2008 09:34 AM Sodium Results: Lab Results Component Value Date/Time SODIUM - [facility] 135 04/05/2023 03:17 PM SODIUM - [facility] 136 09/29/2022 11:01 AM SODIUM - [facility] 134 (L) 04/30/2022 12:40 PM SODIUM - [facility] 132 (L) 06/23/2020 04:20 PM SODIUM - [facility] 141 01/12/2020 12:07 PM SODIUM - [facility] 142 01/07/2020 11:29 AM SODIUM, RANDOM URINE - [facility] 25 04/30/2022 12:40 PM SODIUM, RANDOM URINE - [facility] 53 03/03/2022 12:27 PM SODIUM, RANDOM URINE - [facility] 69 10/19/2021 04:11 PM Results for orders placed or performed in visit on 04/05/23 ALT Result Value Ref Range ALT 18 10 - 35 U/L HEMOGLOBIN A1C Result Value Ref Range Hemoglobin A1C 6.1 (H) 4.0 - 5.6 % Estimated Average Glucose 128 (H) <126 mg/dL LDL CHOLESTEROL (DIRECT MEASURE) Result Value Ref Range LDL Cholesterol (Direct Measure) 51 <=129 mg/dL BASIC METABOLIC PANEL Result Value Ref Range BUN 13 6 - 20 mg/dL Creatinine 0.7 0.5 - 1.0 mg/dL Estimated Glomerular Filtration Rate >90 >=60 mL/min Sodium 135 135 - 146 mmol/L Potassium 4.3 3.5 - 5.1 mmol/L Chloride 97 (L) 98 - 107 mmol/L CO2 27 22 - 32 mmol/L Anion Gap 11 7 - 15 mmol/L Glucose 251 (H) 70 - 120 mg/dL Calcium 10.1 8.4 - 10.2 mg/dL HEPATITIS B SURFACE ANTIBODY Result Value Ref Range Hepatitis B Surface Antibody, Quantitative 10.9 mIU/mL Hepatitis B Surface Antibody, Qualitative Indeterminate Hepatitis B Surface Antibody, Interpretation Suggest repeat testing in 1 to 3 months. . Patient Active Problem List Diagnosis Code History of nonadherence to medical treatment Z91.199 Type 2 diabetes mellitus with hemoglobin A1c goal of less than 8.0% ([facility]) E11.9 HTN, goal below 140/80 I10 S/P drug eluting coronary stent placement Z95.5 History of non-ST elevation myocardial infarction (NSTEMI) I25.2 Coronary artery disease involving chenega coronary artery of chenega heart without angina pectoris I25.10 Dyslipidemia, goal LDL below 70 E78.5 Bilateral hearing loss H91.93 History of colonoscopy Z98.890 Microscopic colitis K52.839 Thyroid nodule E04.1 FHx: breast cancer in first degree relative Z80.3 Arthritis of knee M17.10 Hyponatremia E87.1 Paroxysmal SVT (supraventricular tachycardia) ([facility]) I47.10 Current Outpatient Medications Medication Sig Dispense Refill Aspirin 81 MG Tablet Take 1 Tablet by mouth in the morning. Co Q 10 100 MG Oral Capsule one pill each day glipiZIDE ER 5 MG Oral Tablet Extended Release 24 Hour (Glucotrol XL) TAKE ONE TABLET BY MOUTH EVERY DAY 100 Tablet 2 Glucosamine-Chondroitin 500-400 MG Oral Capsule Take 1 [...] (Crestor) TAKE ONE TABLET BY MOUTH EVERY day 90 Tablet 1 No current facility-administered medications for this visit. Review of patient's allergies indicates: Allergen Reactions Albuterol Sulfate Heart racing Social History Tobacco Use Smoking status: Former Current packs/day: 1.50 Average packs/day: 1.5 packs/day for 15.0 years (22.5 ttl pk-yrs) Types: Cigarettes Smokeless tobacco: Never Tobacco comments: quit 1980 Vaping Use Vaping Use: Never used Substance Use Topics Alcohol use: Yes Alcohol/week: 2.0 standard drinks of alcohol Types: 2 5 oz of wine per week Comment: week Drug use: No OBJECTIVE: BP 106/50 | Pulse 72 | Temp 36.3 C (97.3 F) (Tympanic) | Ht 1.651 m (5' 5") | Wt 64 kg (141 lb 1.6 oz) | LMP 02/24/1998 | SpO2 98% | BMI 23.48 kg/m | BSA 1.71 m PHYSICAL EXAM: General: alert, healthy, no [...] Soft, loose skin folds from wt loss ,, normal bowel sounds, no masses or organomegaly, no bruits Extremities: no edema, no clubbing, no cyanosis. FROM hips, Rt knee, sl dec flexion lt knee with crepitus left >rt Rt wrist--bony swelling lat aspect, dec ROM(fracture 06/04) Neuro Exam: alert & oriented x 3 with fluent speech, no focal motor/sensory deficits, gait normal Skin: skin color, texture, turgor are normal, no rashes ASSESSMENT/PLAN: Type 2 diabetes mellitus with hemoglobin A1c goal of less than 8.0% ([facility]) (Primary) - ADULT/PEDS OPHTHALMOLOGY/OPTOMETRY REFERRAL OP - ALT; Future; Expected date: 04/07/2024 - HEMOGLOBIN A1C; Future; Expected date: 04/07/2024 - LDL CHOLESTEROL (DIRECT MEASURE); Future; Expected date: 04/07/2024 - BASIC METABOLIC PANEL; Future; Expected date: 04/07/2024 DM type 2 nursing care encounter (HCC) - DIABETES FOOT EXAM Dyslipidemia, goal LDL below 70 - ALT; Future; Expected date: 04/07/2024 - LDL CHOLESTEROL (DIRECT MEASURE); Future; Expected date: 04/07/2024 HTN, goal below 140/80 Coronary artery disease involving chenega coronary artery of chenega heart without angina pectoris - CARDIOLOGY REFERRAL OP - NM MYOCARD PERF IMG SPECT MULT STUDIES WITH PHARM INTERV; Future; Expected date: 10/07/2023 - ALT; Future; Expected date: 04/07/2024 - LDL CHOLESTEROL (DIRECT MEASURE); Future; Expected date: 04/07/2024 Paroxysmal SVT (supraventricular tachycardia) ([facility]) - CARDIOLOGY REFERRAL OP - NM MYOCARD PERF IMG SPECT MULT STUDIES WITH PHARM INTERV; Future; Expected date: 10/07/2023 History of wrist fracture Screening for osteoporosis Abnormal EKG - CARDIOLOGY REFERRAL OP - NM MYOCARD PERF IMG SPECT MULT STUDIES WITH PHARM INTERV; Future; Expected date: 10/07/2023 Hyponatremia History of hepatitis B vaccination Memory problem - ADULT/PEDS NEUROPSYCHOLOGY REFERRAL OP ct current meds Await labs See below Follow Up: Return in about 6 months (around 04/07/2024), or if symptoms worsen or fail to improve, for Labs Today, Labs 2-5 Days Before Next Visit, Return with Physician. | For: Labs Today, Labs 2-5 Days Before Next Visit, Return with Physician | Check-out note: Call for copy EKG tracings, echo [facility] 05/2023 admission Yunier lab appt 6 mths Yunier dexa soon Yunier stress test, card appt (This note was completed using the dictation [...] with plan of care. Yenny Miller MD 10/07/2023 * Sisi Orellana LPN - 10/07/2023 11:20 AM EDT DM Foot Exam completed today. Provider aware. Sisi rOellana LPN Socks and Shoes Removed for Annual Diabetic Foot Screening RIGHT FOOT: No Reddened, Cracking, Or Open Areas Noted. RIGHT Dorsalis Pedis Pulse: Palpable RIGHT Posterior Tibial Pulse: Palpable RIGHT Monofilament:Patient reports feeling monofilament pressure on plantar surface of foot LEFT FOOT: No Reddened, Cracking or Open Areas Noted. LEFT Dorsalis Pedis Pulse: Palpable LEFT Posterior Tibial Pulse: Palpable LEFT Monofilament:Patient reports feeling monofilament pressure on plantar surface of foot Do you need diabetic shoes: No documented in this encounter Nursing Notes * Sisi Orellana LPN - 10/07/2023 11:19 AM EDT Chief Complaint Patient presents with Follow Up 6mo return documented in this encounter Plan of Treatment Upcoming Encounters Date Type Department Care Team (Late st Contact Info) Description 10/07/2023 12:20 PM EDT Laboratory Laboratory [facility] [address] [place] [id number] Kaylene Morrison [place] [address] [address] [facility] [place], [place] [address] 03/06/2024 2:30 PM EDT Imaging Radiology, [address] [place] [address] 04/09/2024 8:20 AM EDT Office Visit General Internal Medicine [facility] [address] [facility] [address] [place], [place] [address] Yenny Miller MD [address] [facility] [place], [place] [address] Scheduled Orders Name Type Priority Associated Diagnoses Orde r Schedule NM MYOCARD PERF IMG SPECT MULT STUDIES WITH PHARM INTERV Cardiology Routine Coronary artery disease involving chenega coronary artery of chenega heart without angina pectoris Paroxysmal SVT (supraventricular tachycardia) (HCC) Abnormal EKG Expected: 10/07/2023, Expires: 11/05/2024 ALT Lab Routine Type 2 diabetes mellitus with hemoglobin A1c goal of less than 8.0% (HCC) Dyslipidemia, goal LDL below 70 Coronary artery disease involving chenega coronary artery of chenega heart without angina pectoris Expected: 04/07/2024 (Approximate), Expires: 10/06/2024 HEMOGLOBIN A1C Lab Routine Type 2 diabetes mellitus with hemoglobin A1c goal of less than 8.0% (HCC) Expected: 04/07/2024 (Approximate), Expires: 10/06/2024 LDL CHOLESTEROL (DIRECT MEASURE) Lab Routine Type 2 diabetes mellitus with hemoglobin A1c goal of less than 8.0% (HCC) Dyslipidemia, goal LDL below 70 Coronary artery disease involving chenega coronary artery of chenega heart without angina pectoris Expected: 04/07/2024 (Approximate), Expires: 10/06/2024 BASIC METABOLIC PANEL Lab Routine Type 2 diabetes mellitus with hemoglobin A1c goal of less than 8.0% (HCC) Expected: 04/07/2024 (Approximate), Expires: 10/06/2024 Scheduled Referrals Name Type Priority Associated Diagnoses Order Schedule CARDIOLOGY REFERRAL OP Referral Within 30 days (routine) Coronary artery disease involving chenega coronary artery of chenega heart without angina pectoris Paroxysmal SVT (supraventricular tachycardia) (HCC) Abnormal EKG Ordered: 10/07/2023 ADULT/PEDS NEUROPSYCHOLOGY REFERRAL OP Referral Within 30 days (routine) Memory problem Ordered: 10/07/2023 ADULT/PEDS OPHTHALMOLOGY/OPTOMETRY REFERRAL OP Referral Within 30 days (routine) Type 2 diabetes mellitus with hemoglobin A1c goal of less than 8.0% (HCC) Ordered: 10/07/2023 Health Maintenance Due Date Last Done Comments DXA Scan 1950 Hepatitis C Screening 1969 Cologuard 1996 Fecal Occult Blood Test 1996 Sigmoidoscopy 1996 COVID-19 Vaccine ( season) 2023 01/25/2022, 04/17/2021, 08/18/2020, Additional history exists Diabetic Eye Exam 09/08/2023 09/07/2022, , 07/14/2022, Additional history exists Albumin/Creatinine Ratio 09/30/2023 023, 10/01/2021, 06/23/2020, Additional history exists B-12 09/30/2023 09/29/2022, 05/13, 10/01/2021, Additional history exists HbA1c 10/05/2023 04/05/2023, 09/11, 05/07/2022, Additional history exists Influenza Vaccine (FLU shot) (Season Ended) 2024 04/02/2022, 04/13/2019, 03/24/2018, Additional history exists GFR 04/05/2024 04/05/2023, 09/11, 04/30/2022, Additional history exists Mammogram 08/22/2024 08/23/2023, 08/11, 08/20/2022, Additional history exists Depression Screening 10/06/2024 10/07/2023, 10/07/19 24 Diabetic Foot Exam 10/06/2024 10/07/2023, 0 10/01/2022, 10/01/2021, Additional history exists Colonoscopy 02/12/2030 02/13/2020, 0907/2019, [...] this encounter Medical Devices Implanted Type Area Marketing Proposal Specialist Device Identifier Shelf Expiration Date Model / Serial / Lot Lens Intraoc 17.0 - [id number] - [id number] Implanted:Qty: 1 on 10/19/2022 by Monty Farmer MD at OR [facility] Left: Eye [employer] 01/10/2027 [id number] / [id number] / [id number] Lens Intraoc 15.5 - [id number] - [id number] Implanted:Qty: 1 on 10/26/2022 by Monty Farmer MD at OR [facility] Right: Eye [employer]CH [employer] LOMB 05/12/2027 [id number] / [id number] / [id number] documented as of this encounter Visit Diagnoses Diagnosis Type 2 diabetes mellitus with hemoglobin A1c goal of less than 8.0% ([facility])- Primary DM type 2 nursing care encounter (HCC) Type II or unspecified type diabetes mellitus without mention of complication, not stated as uncontrolled Dyslipidemia, goal LDL below 70 Other and unspecified hyperlipidemia HTN, goal below 140/80 Unspecified essential hypertension Coronary artery disease involving chenega coronary artery of chenega heart without angina pectoris Paroxysmal SVT (supraventricular tachycardia) (HCC) Paroxysmal supraventricular tachycardia History of wrist fracture Personal history of traumatic fracture Screening for osteoporosis Special screening for osteoporosis Abnormal EKG Nonspecific abnormal electrocardiogram (ECG) (EKG) Hyponatremia Hyposmolality and/or hyponatremia History of hepatitis B vaccination Other specified conditions influencing health status Memory problem Memory loss documented in this encounter Advance Directives Latest Code Status on File Code Status Date Activated Date Inactivated Comments No Code 10/26/2022 7:56 AM 10/26/2022 1:58 PM This order reflects the patients wishes and were consensually agreed upon. Question Answer Comments Discussion of Advance Directives occurred with: Patient Does the patient have a Living Will? No Does the patient have Health Care Power of Health Workers? No Code Status History Code Status Date Activated Date Inactivated Comments No Code 10/19/2022 6:54 AM 10/19/2022 1:31 PM This or daksha reflects the patients wishes and were consensually agreed upon. Question Answer Comments Discussion of Advance Directives occurred with: Patient Does the patient have a Living Will? No Does the patient have Health Care Power of Health Workers? No Care Teams Flight Purser Relationship Specialty Start Date End Date Yenny Miller MD [address] [place] [address] PCP - General Internal Medicine 07/30/19 documented as of this encounter
--- OUTSIDE RECORDS SUMMARY | 2023-12-03 21:00 | External Medical Summary | Summary of Care ---
Author Name Unknown Organization [facility] Address [address] [place] [address] Phone [phone] Care Team Providers Care Vp Construction Name Role Phone Yenny Miller MD Primary Care Provider [phone] Reason for Visit * Reason Onset Date Comments Appointment 10/07/2023 Encounter Details Date Type Department Care Team (Late st Contact Info) Description 10/07/2023 Telephone General Internal Medicine [facility] [address] [facility] [place] [address] Yenny iMller MD [address] [place] [address] Appointment Allergies Active Allergy Reactions Criticality Noted Date [...] Tablet Extended Release 24 Hour (toPROL XL)Indications:Old [place] (myocardial infarction),Paroxy smal SVT (supraventricular tachycardia) (HCC) TAKE ONE AND ONE-HALF TABLETS BY MOUTH EVERY MORNING 135 Tablet 2 02/15/2023 Active Nitroglycerin 0.4 MG Sublingual Tablet Sublingual (Nitrostat)Indicat ions:Chest discomfort,S/P drug eluting coronary stent placement,Coronary artery disease involving eyak coronary artery of eyak heart without angina pectoris Place 1 Tablet [...] hemoglobin A1c goal of less than 7.0% ([facility]) TAKE ONE TABLET BY MOUTH TWICE A DAY 200 Tablet 1 09/20/2023 09/19/2024 Active glipiZIDE ER 5 MG Oral Tablet Extended Release 24 Hour (Glucotrol XL)Indications:Typ e 2 diabetes mellitus with hemoglobin A1c goal of less than 8.0% ([facility]) TAKE ONE TABLET BY MOUTH EVERY DAY 100 Tablet 2 09/26/2023 Active Rosuvastatin Calcium 5 MG Oral Tablet (Crestor)Indicatio ns:Dyslipidemia, goal LDL below 70,Coronary artery disease involving eyak coronary artery of eyak heart without angina pectoris,S/P drug eluting coronary [...] (NSTEMI) 10/28/2017 Coronary artery disease invo lving eyak coronary artery of eyak heart without angina pectoris 10/28/2017 Dyslipidemia, goal [...] ICD-10 update of inactive term Mixed dyslipidemia 03/31/199805/26/200 9 Overview: Per Lipid Taxonomy. Menstruation, irregular [...] encounter Miscellaneous Notes * Telephone Encounter - Solis Ramirez OSA - 10/07/2023 12:30 PM EDT Procedure: NM MYOCARD PERF IMG SPECT MULT STUDIES WITH PHARM INTERV Status: Needs Scheduling Requested appt date: 10/07/2023 Authorizing: Yenny Miller MD in GEN INT MED [facility] POD[facility] Referral: [id number] (Pending Review) Expires: 11/05/2024 Priority: Routine Diagnosis: Coronary artery disease involving eyak coronary artery of eyak heart without... Paroxysmal SVT (supraventricular tachycardia) (HCC) [I47.10] Abnormal EKG [R94.31] Please assist pt with scheduling appointment documented in this encounter Plan of Treatment Upcoming Encounters Date Type Department Care Team (Late st Contact Info) Description 03/06/2024 2:30 PM EDT Imaging Radiology, [facility] [address] [facility] [place] [address] 04/09/2024 8:20 AM EDT Office Visit General Internal Medicine [facility] [address] [facility] [place] [address] Yenny Miller MD [address] [facility] [place] [address] Health Maintenance Due Date Last Done Comments [...] 10/01/2021, Additional history exists Colonoscopy 02/12/2030 02/13/2020, 07/2019, [...] this encounter Medical Devices Implanted Type Area Biometrics Analyst Device Identifier Shelf Expiration Date Model / Serial / Lot Lens Intraoc 17.0 - [id number] - [id number] Implanted:Qty: 1 on 10/19/2022 by Monty Farmer MD at OR [facility] Left: Eye [employer]OM[employer] 01/10/2027 [id number] / [id number] / [id number] Lens Intraoc 15.5 - [id number] - [id number] Implanted:Qty: 1 on 10/26/2022 by Monty Farmer MD at OR [facility] Right: Eye [employer] LOMB 05/12/2027 [id number] / [id number] / [id number] documented as of this encounter Advance Directives [...] patient have Health Care Power of Power Transformer Inspector? No Code Status History Code Status Date Activated Date Inactivated Comments No Code 10/19/2022 6:54 AM 10/19/2022 1:31 PM This or daksha reflects the patients wishes and were consensually agreed upon. Question Answer Comments Discussion of Advance Directives occurred with: Patient Does the patient have a Living Will? No Does the patient have Health Care Power of Power Transformer Inspector? No Care Teams Vp Construction Relationship Specialty Start Date End Date Yenny Miller MD [address] [place] [id number] PCP - General Internal Medicine 07/30/19 documented as of this encounter
--- OUTSIDE RECORDS SUMMARY | 2023-12-03 21:00 | External Medical Summary | Summary of Care ---
Author Name Unknown Organization [facility] Address [address] [place] [address] Phone [phone] Care Team Providers Care Maintenance Man Name Role Phone Yenny Miller MD Primary Care Provider [phone] Reason for Visit * Reason Comments Outpatient Testing Encounter Details Date Type Department Care Team (Late st Contact Info) Description 10/07/2023 12:20 PM EDT Laboratory Laboratory [facility] [address] [place] [address] [facility] [address] [facility] [place] [address] Type 2 diabetes mellitus with hemoglobin A1c goal of less than 8.0% ([facility]); Encounter for long-term (current) use of medications; Dyslipidemia, goal LDL below 70; Coronary artery disease involving squaxin coronary artery of squaxin heart without angina pectoris; HTN, goal below 140/80; Hepatitis B vaccination status unknown Allergies Active Allergy Reactions Criticality Noted Date [...] Tablet Extended Release 24 Hour (toPROL XL)Indications:Old [place] (myocardial infarction),Paroxy smal SVT (supraventricular tachycardia) (HCC) TAKE ONE AND ONE-HALF TABLETS BY MOUTH EVERY MORNING 135 Tablet 2 02/15/2023 Active Nitroglycerin 0.4 MG Sublingual Tablet Sublingual (Nitrostat)Indicat ions:Chest discomfort,S/P drug eluting coronary stent placement,Coronary artery disease involving squaxin coronary artery of squaxin heart without angina pectoris Place 1 Tablet [...] goal LDL below 70,Coronary artery disease involving squaxin coronary artery of squaxin heart without angina pectoris,S/P drug eluting coronary [...] (NSTEMI) 10/28/2017 Coronary artery disease invo lving squaxin coronary artery of squaxin heart without angina pectoris 10/28/2017 Dyslipidemia, goal [...] Description 03/06/2024 2:30 PM EDT Imaging Radiology, [place], [place] [address] [facility] [facility] [place] [address] 04/09/2024 8:20 AM EDT Office Visit General Internal Medicine [facility] [address] [facility] [place] [place] [address] Yenny Miller MD 200 [facility] [place] [address] Pending Results Name Type Priority Associated Diagnoses Date /Time VITAMIN B12 Lab Routine Type 2 diabetes mellitus with hemoglobin A1c goal of less than 8.0% (HCC) Encounter for long-term (current) use of medications 10/07/2023 12:25 PM EDT ALT Lab Routine Type 2 diabetes mellitus with hemoglobin A1c goal of less than 8.0% (HCC) Dyslipidemia, goal LDL below 70 Coronary artery disease involving squaxin coronary artery of squaxin heart without angina pectoris 10/07/2023 12:25 PM EDT BASIC METABOLIC PANEL Lab Routine Type 2 diabetes mellitus with hemoglobin A1c goal of less than 8.0% (HCC) HTN, goal below 140/80 10/07/2023 12:25 PM EDT LIPID PANEL WITH DIRECT LDL IF TG IS HIGH Lab Routine Type 2 diabetes mellitus with hemoglobin A1c goal of less than 8.0% (HCC) Dyslipidemia, goal LDL below 70 Coronary artery disease involving squaxin coronary artery of squaxin heart without angina pectoris 10/07/2023 12:25 PM EDT HEMOGLOBIN A1C Lab Routine Type 2 diabetes mellitus with hemoglobin A1c goal of less than 8.0% (HCC) 10/07/2023 12:25 PM EDT HEPATITIS B SURFACE ANTIBODY Lab Routine Hepatitis B vaccination status unknown 10/07/2023 12:25 PM EDT ALBUMIN / CREATININE RATIO, URINE Lab Routine Type 2 diabetes mellitus with hemoglobin A1c goal of less than 8.0% (HCC) 10/07/2023 12:29 PM EDT Health Maintenance Due Date Last [...] this encounter Medical Devices Implanted Type Area Afternoon Babysitter Device Identifier Shelf Expiration Date Model / Serial / Lot Lens Intraoc 17.0 - [id number] - [id number] Implanted:Qty: 1 on 10/19/2022 by Monty Farmer MD at OR [facility] Left: Eye [employer]OM[employer] 01/10/2027 [id number] / [id number] / [id number] Lens Intraoc 15.5 - [id number] - [id number] Implanted:Qty: 1 on 10/26/2022 by Monty Farmer MD at OR [facility] Right: Eye [employer]OMB 05/12/2027 [id number] / [id number] / [id number] documented as of this encounter Visit Diagnoses Diagnosis Type 2 diabetes mellitus with hemoglobin A1c goal of less than 8.0% (HCC) Encounter for long-term (current) use of medications Encounter for long-term (current) use of other medications Dyslipidemia, goal LDL below 70 Other and unspecified hyperlipidemia Coronary artery disease involving squaxin coronary artery of squaxin heart without angina pectoris HTN, goal below 140/80 Unspecified essential hypertension Hepatitis B vaccination status unknown documented in this encounter Advance Directives Latest Code Status on File Code Status Date Activated Date Inactivated Comments No Code 10/26/2022 7:56 AM 10/26/2022 1:58 PM This order reflects the patients wishes and were consensually agreed upon. Question Answer Comments Discussion of Advance Directives occurred with: Patient Does the patient have a Living Will? No Does the patient have Health Care Power of Boiler Operator Helper? No Code Status History Code Status Date Activated Date Inactivated Comments No Code 10/19/2022 6:54 AM 10/19/2022 1:31 PM This or daksha reflects the patients wishes and were consensually agreed upon. Question Answer Comments Discussion of Advance Directives occurred with: Patient Does the patient have a Living Will? No Does the patient have Health Care Power of Boiler Operator Helper? No Care Teams Maintenance Man Relationship Specialty Start Date End Date Yenny Miller MD [address] [facility] [place] [address] PCP - General Internal Medicine 07/30/19 documented as of this encounter
--- OUTSIDE RECORDS SUMMARY | 2023-12-03 21:00 | External Medical Summary | Summary of Care ---
Author Name Unknown Organization [facility] Address [address] [place] [address] Phone [phone] Care Team Providers Care Nurse Charge Rn Name Role Phone Yenny Miller MD Primary Care Provider [phone] Reason for Visit * Reason Comments Outpatient Testing Encounter Details Date Type Department Care Team (Late st Contact Info) Description 10/07/2023 12:20 PM EDT Laboratory Laboratory [facility] [address] [place] [address] [facility] [address] [facility] [place] [address] Type 2 diabetes mellitus with hemoglobin A1c goal of less than 8.0% ([facility]); Encounter for long-term (current) use of medications; Dyslipidemia, goal LDL below 70; Coronary artery disease involving [place] coronary artery of [place] heart without angina pectoris; HTN, goal below [...] eluting coronary stent placement,Coronary artery disease involving [place] coronary artery of o[place] heart without angina pectoris Place 1 Tablet [...] goal LDL below 70,Coronary artery disease involving [place] coronary artery of [place] heart without angina pectoris,S/P drug eluting coronary [...] (NSTEMI) 10/28/2017 Coronary artery disease invo lving [place] coronary artery of [place] heart without angina pectoris 10/28/2017 Dyslipidemia, goal [...] 03/06/2024 2:30 PM EDT Imaging Radiology, [place], [place] [address] [facility] [place] [address] 04/09/2024 8:20 AM EDT Office Visit General Internal Medicine [facility] [address] [facility] [address] Yenny Miller MD [address] [facility] [place] [address] Pending Results Name Type Priority Associated Diagnoses Date /Time VITAMIN B12 Lab Routine Type 2 diabetes mellitus with hemoglobin A1c goal of less than 8.0% (HCC) Encounter for long-term (current) use of medications 10/07/2023 12:25 PM EDT ALT Lab Routine Type 2 diabetes mellitus with hemoglobin A1c goal of less than 8.0% (HCC) Dyslipidemia, goal LDL below 70 Coronary artery disease involving [place]ou[place] coronary artery of [place] heart without angina pectoris 10/07/2023 12:25 PM [...] LDL below 70 Coronary artery disease involving [place] coronary artery of o[place]ou[place] heart without angina pectoris 10/07/2023 12:25 PM [...] this encounter Medical Devices Implanted Type Area Forms Analysis Manager Device Identifier Shelf Expiration Date Model / Serial / Lot Lens Intraoc 17.0 - [id number] - [id number] Implanted:Qty: 1 on 10/19/2022 by Monty Farmer MD at OR [facility] Left: Eye [employer] LOMB 01/10/2027 [id number] / [id number] / [id number] Lens Intraoc 15.5 - [id number] - [id number] Implanted:Qty: 1 on 10/26/2022 by Monty Farmer MD at OR [facility] Right: Eye [employer]CH [employer] LOMB 05/12/2027 [id number] / [id number] / [id number] documented as of this encounter Visit Diagnoses Diagnosis Type 2 diabetes mellitus with hemoglobin A1c goal of less than 8.0% (HCC) Encounter for long-term (current) use of medications Encounter for long-term (current) use of other medications Dyslipidemia, goal LDL below 70 Other and unspecified hyperlipidemia Coronary artery disease involving otoe-[place]ou[place] coronary artery of o[place]ou[place] heart without angina pectoris HTN, goal below [...] the patient have Health Care Power of Vp Medical? No Code Status History Code Status Date Activated Date Inactivated Comments No Code 10/19/2022 6:54 AM 10/19/2022 1:31 PM This or daksha reflects the patients wishes and were consensually agreed upon. Question Answer Comments Discussion of Advance Directives occurred with: Patient Does the patient have a Living Will? No Does the patient have Health Care Power of Vp Medical? No Care Teams Nurse Charge Rn Relationship Specialty Start Date End Date Yenny Miller MD [address] [facility] [place] [address] PCP - General Internal Medicine 07/30/19 documented as of this encounter
--- OUTSIDE RECORDS SUMMARY | 2023-12-03 21:00 | External Medical Summary ---
Author Name Unknown Address Unknown Organization K09:[facility] [place] [address] Laboratory Report Ordering Provider Test Date Status GUALBERTO DIAZ 10/07/2023 12:25:33 Final Observation Date Value Abnormality Reference (Units ) Status ALT (Alanine aminotransferase) 10/07/2023 12:25:33 19 10-35 (U/L) Final Performing Location [facility] [place] [address]
--- OUTSIDE RECORDS SUMMARY | 2023-12-03 21:00 | External Medical Summary ---
Author Name Unknown Address Unknown Organization [id number]:[facility] [place] - [address] [facility] [address] Laboratory Report Ordering Provider Test Date Status JOEGUALBERTO 10/07/2023 12:25:33 Final Observation Date Value Abnormality Reference (Units ) Status Triglyceride 10/07/2023 12:25:33 50 <=174 ( mg/dL) Final Triglyceride Reference Range s (mg/dL):
<150 Acceptable
150-174 Borderline high
175-499 High
>=500 Very high Cholesterol 10/07/2023 12:25:33 134 <200 (mg /dL) Final Total Cholesterol Reference Ranges (mg/dL):
<200 Desirable
200-239 Borderline high
>=240 High HDL 10/07/2023 12:25:33 74 >49 (mg/dL ) Final HDL Cholesterol Reference Ra nges (mg/dL):
>=60 High (Desirable)
<50 Low (Undesirable) For Females
<40 Low (Undesirable) For Males NON-HDL CHOLESTEROL 10/07/2023 12:25:33 60 <=159 (mg/dL) Final Non-HDL Cholesterol Referenc e Range (mg/dL):
<100 Target level for high risk ASCVD patient
<130 Optimal for general population
130-159 Near optimal for general population
160-189 Borderline High
190-219 High
>=220 Very High LDL, (calculated) 10/07/2023 12:25:33 50 <= 129 (mg/dL) Final LDL Cholesterol Reference Ra nges (mg/dL):
<70 Target level for high risk ASCVD patient
<100 Optimal for general population
100-129 Near optimal for general population
130-159 Borderline high
160-189 High
>=190 Very high Performing Location LABORATORY [facility] [place] - [address] [facility] [address]
--- OUTSIDE RECORDS SUMMARY | 2023-12-03 21:00 | External Medical Summary ---
Author Name Unknown Address Unknown Organization [id number]:LAB[facility]ATORY [facility] [place] - [address] [place] [address] Laboratory Report Ordering Provider Test Date Status GUALBERTO DIAZ 10/07/2023 12:25:33 Final Observation Date Value Abnormality Reference (Units ) Status Vitamin B12 10/07/2023 12:25:33 [phone] (pg/mL) Final Performing Location LABORATORY [facility] - [address] [place] [address]
[2023-12-03 21:57] LABS: Alanine Aminotransferase 22 U/L (7-52); Albumin Globulin Ratio 1.1 (0.9-2); Albumin Level 4.6 gm/dl (3.4-5.0); Alkaline Phosphatase 42 U/L (34-104); Anion Gap 11 (3-11); Aspartate Aminotransferase 36 U/L (13-39); BUN Creatinine Ratio 18.8 (10-20); Bilirubin,Total 0.6 mg/dl (0.2-1.0); Blood Urea Nitrogen 15 mg/dl (6-23); Calcium 9.9 mg/dl (8.6-10.3); Carbon Dioxide 23 mmol/L (21-32); Chloride 94 mmol/L (98-107); Est GFR (African American) 85.4 ml/min; Est GFR (Non-African American) 73.7 ml/min; Globulin 4.3 gm/dl (2.5-4.0); Glucose 168 mg/dl (70-99(Fasting)); Potassium 3.9 mmol/L (3.5-5.1); Sodium 128 mmol/L (136-145); Total Protein 8.9 gm/dl (6.0-8.3)
[2023-12-03 21:59] LABS: Basophils # (auto) 0.02 K/uL (0.00-0.20); Basophils % (auto) 0.5 %; Hematocrit (blood only) 40.4 % (37.0-47.0); Hemoglobin 14.1 g/dl (12.0-16.0); Immature Granulocytes # (auto) 0.02 K/uL (0.01-0.20); Immature Granulocytes % (auto) 0.5 %; Lymphocytes # (auto) 0.73 K/uL (1.20-3.40); Lymphocytes % (auto) 16.7 %; Mean Corpuscular Hemoglobin 28.8 pg (25.0-34.0); Mean Corpuscular Hgb Conc 34.9 g/dL (32.0-36.0); Mean Corpuscular Volume 82.4 fL (80.0-100.0); Mean Platelet Volume 9.8 fL (9.4-12.4); Monocytes # (auto) 0.41 K/uL (0.11-0.59); Monocytes % (auto) 9.4 %; Neutrophils % (auto) 72.9 %; Platelet Count 207 K/uL (130-400); RDW Coefficient of Variation 13.9 % (11.5-14.5); RDW Standard Deviation 40.8 fL (36.4-46.3); White Blood Count 4.38 K/ul (4.8-10.8)
--- NOTE | 2023-12-03 22:02 | Emergency Department Note ---
History of Present Illness General Chief complaint: Altered Mental Status Stated complaint: CONFUSION, DIFFICULTY WALKING, FATIGUE Time Seen by Provider: 12/03/23 21:26 History of Present Illness This 73-year-old female presents the ER for increased confusion with difficulty speaking and slow response for the past few days. states the other day she was working outside when it was hot and she seemed to be confused when he went to go check on her. He had a hard time getting her to go inside but finally she did and seem to be improved. Family states today the sister went to go check on her and she seemed confused and had difficulty figuring out what to say and was slow to response. Feel was concerned she was having a stroke and brought her in. Patient had intermittent symptoms for the past few days. Patient does have a fever here. Family was not aware. Patient herself states she just feels fatigued. Patient specific denies chest pain, dyspnea, headache, cough, congestion, abdominal pain, vomiting, diarrhea, urinary symptoms. She is following all commands moving all extremities. Home Medications Medication Instructions Recorded Confirmed Type aspirin 81 mg tablet,delayed 81 mg PO DAILY 12/04/23 12/04/23 History release coQ10 (ubiquinol) 100 mg capsule 100 mg PO DAILY 12/04/23 12/04/23 History glipizide 5 mg tablet, extended 5 mg PO DAILY 12/04/23 12/04/23 History release 24 hr glucosamine-chondroitin 500 mg-400 1 cap PO DAILY 12/04/23 12/04/23 History mg capsule metformin 850 mg tablet 850 mg PO BID 12/04/23 12/04/23 History metoprolol succinate 25 mg 37.5 mg PO QAM 12/04/23 12/04/23 History tablet,extended release 24 hr niacinamide 100 mg tablet 100 mg PO DAILY 12/04/23 12/04/23 History nitroglycerin 0.4 mg sublingual 0.4 mg sublingual DIRECTED PRN 12/04/23 12/04/23 History tablet Chest Pain rosuvastatin 5 mg tablet 5 mg PO DAILY 12/04/23 12/04/23 History Allergies Allergy/AdvReac Type Severity Reaction Status Date / Time albuterol Allergy Unknown tachycardia Verified 12/04/23 01:34 Past Med/Surg History Problem List (Updated 12/04/23 @ 02:09 by Yolanda Meza PA-C) Acute hyponatremia (Acute) AMS (altered mental status) (Acute) Acute UTI (Acute) Abnormal EKG Fracture of wrist (Acute) Diabetes mellitus, type II Chest pain Medical History Chronic coronary artery disease Surgical History Stented coronary artery Social History Smoking Status: Former smoker Tobacco Type: Cigarettes Second Hand Exposure: No; Do You Dip or Chew Tobacco: No; Hx Alcohol Use: Yes Alcohol type: wine and hard liquor Hx Substance Use: No Preferred Language: Lao Communication Ability: Effective Residence Life Director Required: No Beliefs That Will Affect Care: None Current Living Situation: Spouse Feels Safe at Home: Yes Assistive Devices: None Review of Systems A total of 10 systems reviewed and were otherwise negative Physical Exam Vital Signs Vital Signs - 24 hr 12/03/23 20:54 12/03/23 20:57 12/03/23 21:35 Temperature 37.5 C 39.2 C H Temperature Source Temporal Artery Scan Oral Pulse Rate 110 H Pulse Rate [Apical] Pulse Rate from SpO2 Sensor Pulse Rhythm [Apical] Pulse Strength [Apical] Respiratory Rate 20 Respiratory Effort / Characteristics Respiratory Depth Normal Respiratory Pattern Blood Pressure 150/76 H Blood Pressure [Right Arm] Blood Pressure Mean 100 Blood Pressure Mean [Right Arm] Blood Pressure Position Sitting Pulse Oximetry 97 98 Oxygen Delivery Method Room Air Room Air Sepsis Recent Fever Within 48 Hours No Sepsis New/Unexplained Change in Mental Status No Sepsis Action Taken by Nursing No Action Required 12/03/23 21:36 12/03/23 21:39 12/03/23 21:45 Temperature Temperature Source Pulse Rate 96 H 94 H 93 H Pulse Rate [Apical] Pulse Rate from SpO2 Sensor 95 H 95 H Pulse Rhythm [Apical] Pulse Strength [Apical] Respiratory Rate 19 20 Respiratory Effort / Characteristics Respiratory Depth Respiratory Pattern Blood Pressure Blood Pressure [Right Arm] Blood Pressure Mean Blood Pressure Mean [Right Arm] Blood Pressure Position Pulse Oximetry 97 97 Oxygen Delivery Method Sepsis Recent Fever Within 48 Hours Sepsis New/Unexplained Change in Mental Status Sepsis Action Taken by Nursing 12/03/23 22:45 12/03/23 22:45 12/03/23 22:51 Temperature Temperature Source Pulse Rate 84 86 Pulse Rate [Apical] Pulse Rate from SpO2 Sensor 84 Pulse Rhythm [Apical] Pulse Strength [Apical] Respiratory Rate 19 18 Respiratory Effort / Characteristics Respiratory Depth Respiratory Pattern Blood Pressure 139/64 Blood Pressure [Right Arm] Blood Pressure Mean 115 Blood Pressure Mean [Right Arm] Blood Pressure Position Pulse Oximetry 98 Oxygen Delivery Method Sepsis Recent Fever Within 48 Hours Sepsis New/Unexplained Change in Mental Status Sepsis Action Taken by Nursing 12/03/23 23:00 12/03/23 23:00 12/03/23 23:45 Temperature Temperature Source Pulse Rate 85 Pulse Rate [Apical] Pulse Rate from SpO2 Sensor Pulse Rhythm [Apical] Pulse Strength [Apical] Respiratory Rate 16 Respiratory Effort / Characteristics Respiratory Depth Respiratory Pattern Blood Pressure 125/61 113/50 L Blood Pressure [Right Arm] Blood Pressure Mean 87 83 Blood Pressure Mean [Right Arm] Blood Pressure Position Pulse Oximetry Oxygen Delivery Method Sepsis Recent Fever Within 48 Hours Sepsis New/Unexplained Change in Mental Status Sepsis Action Taken by Nursing 12/03/23 23:45 12/03/23 23:54 12/04/23 00:15 Temperature Temperature Source Pulse Rate 79 81 Pulse Rate [Apical] Pulse Rate from SpO2 Sensor 68 81 Pulse Rhythm [Apical] Pulse Strength [Apical] Respiratory Rate 12 7 L Respiratory Effort / Characteristics Respiratory Depth Respiratory Pattern Blood Pressure 84/51 L Blood Pressure [Right Arm] Blood Pressure Mean 60 Blood Pressure Mean [Right Arm] Blood Pressure Position Pulse Oximetry 97 92 Oxygen Delivery Method Sepsis Recent Fever Within 48 Hours Sepsis New/Unexplained Change in Mental Status Sepsis Action Taken by Nursing 12/04/23 00:24 12/04/23 00:30 12/04/23 00:42 Temperature Temperature Source Pulse Rate 73 73 69 Pulse Rate [Apical] Pulse Rate from SpO2 Sensor 72 71 68 Pulse Rhythm [Apical] Pulse Strength [Apical] Respiratory Rate 15 15 14 Respiratory Effort / Characteristics Respiratory Depth Respiratory Pattern Blood Pressure Blood Pressure [Right Arm] Blood Pressure Mean Blood Pressure Mean [Right Arm] Blood Pressure Position Pulse Oximetry 93 91 93 Oxygen Delivery Method Sepsis Recent Fever Within 48 Hours Sepsis New/Unexplained Change in Mental Status Sepsis Action Taken by Nursing 12/04/23 00:51 12/04/23 01:06 12/04/23 01:18 Temperature Temperature Source Pulse Rate 69 72 Pulse Rate [Apical] 75 Pulse Rate from SpO2 Sensor 70 71 Pulse Rhythm [Apical] Regular Pulse Strength [Apical] Normal Respiratory Rate 14 17 16 Respiratory Effort / Characteristics Non-Labored Respiratory Depth Normal Respiratory Pattern Regular Blood Pressure Blood Pressure [Right Arm] 106/53 L Blood Pressure Mean Blood Pressure Mean [Right Arm] 70 Blood Pressure Position Pulse Oximetry 93 94 95 Oxygen Delivery Method Room Air Sepsis Recent Fever Within 48 Hours Sepsis New/Unexplained Change in Mental Status Sepsis Action Taken by Nursing 12/04/23 01:28 Temperature Temperature Source Pulse Rate 79 Pulse Rate [Apical] Pulse Rate from SpO2 Sensor Pulse Rhythm [Apical] Pulse Strength [Apical] Respiratory Rate Respiratory Effort / Characteristics Respiratory Depth Respiratory Pattern Blood Pressure Blood Pressure [Right Arm] Blood Pressure Mean Blood Pressure Mean [Right Arm] Blood Pressure Position Pulse Oximetry Oxygen Delivery Method Sepsis Recent Fever Within 48 Hours Sepsis New/Unexplained Change in Mental Status Sepsis Action Taken by Nursing VITALS: Vitals are noted on the nurse's note and reviewed by myself. Vital signs febrile. GENERAL: Pleasant female following commands, in no acute distress, nondiaphoretic, well-developed well-nourished. SKIN: The skin was without rashes, erythema, edema, or bruising. There is no tenting of the skin. Capillary reflex less than 2 seconds. HEAD: Normocephalic atraumatic. EARS: External auditory canals clear EYES: Pupils equal round and reactive to light and accommodation. Conjunctivae without injection, sclerae without icterus. Extraocular movements intact. NOSE: Patent, no discharge. MOUTH: Mucous membranes moist. Pharynx without erythema or exudate. Uvula midline. Airway patent. Tongue does not deviate. NECK: Supple without nuchal rigidity. No lymphadenopathy. No thyromegaly. Cervical spine is nontender. No JVD. HEART: Regular rate and rhythm LUNGS: Clear to auscultation bilaterally without wheezes, rales or rhonchi. No retractions or accessory muscle use. ABDOMEN: Positive bowel sounds x 4. Normal tympanic percussion. Soft, nontender, without masses or organomegaly. Vega sign negative. No guarding or rebound tenderness. No CVA tenderness MUSCULOSKELETAL: No muscle atrophy, erythema, or edema noted. 5 out of 5 strength throughout NEURO: Patient was alert and oriented to person place and time. Normal sensation to light and sharp touch. Cranial nerves II through XII grossly intact. No pronator drift. Cerebellar exam intact. No focal neurological deficits. Course Administered Medications Doxycycline Hyclate 100 mg/ (Dextrose) 100 mls @ 50 mls/hr IV NOW STA Stop: 12/04/23 02:12 Last Admin: 12/04/23 00:53 Dose: 50 mls/hr Documented By: KG Discontinued Medications Sodium Chloride (Nss) 500 mls @ 999 mls/hr IV .Q31M ONE Stop: 12/03/23 22:23 Last Infusion: 12/03/23 23:34 Dose: Infused Documented By: Admin: 12/03/23 22:35 Dose: 999 mls/hr Documented By: KG Acetaminophen (Ofirmev) 1,000 mg in 100 mls @ 400 mls/hr IV NOW STA Stop: 12/03/23 22:07 Last Infusion: 12/03/23 23:34 Dose: Infused Documented By: Admin: 12/03/23 22:35 Dose: 400 mls/hr Documented By: KG Sodium Chloride (Nss) 1,000 mls @ 999 mls/hr IV .Q1H1M ONE Stop: 12/03/23 22:55 Last Infusion: 12/03/23 23:51 Dose: Infused Documented By: Admin: 12/03/23 22:35 Dose: 999 mls/hr Documented By: KG Ioversol (Optiray 320 125ml) 119 ml IV ONCE ONE Stop: 12/03/23 22:26 Last Admin: 12/03/23 22:26 Dose: 119 ml Documented By: YADI Critical Care Time Critical Care Time: Yes Total Critical Care Time: 35 I have personally spent 35 minutes of critical care time in the direct management of this patient. This includes bedside care, interpretation of diagnostic studies, and testing, discussion with consultants, patient, and family members, and other required patient management activities. This 35 minutes is in excess of all separately billable procedures. Medical Decision Making Medical Records Attestation: I reviewed the patient's medical records. Home Medications Current Medication List: was personally reviewed by me Laboratory Data Attestation: I reviewed the patient's lab results. 12/03/23 21:25 12/03/23 21:25 Lab Results 12/03/23 12/03/23 12/03/23 Range/Units 21:25 22:05 23:30 WBC 4.38 L (4.8-10.8) K/ul RBC 4.90 (4.20-5.40) M/uL Hgb 14.1 (12.0-16.0) g/dl Hct 40.4 (37.0-47.0) % MCV 82.4 (80.0-100.0) fL MCH 28.8 (25.0-34.0) pg MCHC 34.9 (32.0-36.0) g/dL RDW Std Deviation 40.8 (36.4-46.3) fL RDW Coeff of Kirill 13.9 (11.5-14.5) % Plt Count 207 (130-400) K/uL MPV 9.8 (9.4-12.4) fL Immature Gran % (Auto) 0.5 % Neut % (Auto) 72.9 % Lymph % (Auto) 16.7 % [place] % (Auto) 9.4 % Eos % (Auto) 0.0 % Baso % (Auto) 0.5 % Neut # (Auto) 3.20 (1.40-6.50) K/uL Lymph # (Auto) 0.73 L (1.20-3.40) K/uL [place] # (Auto) 0.41 (0.11-0.59) K/uL Eos # (Auto) 0.00 (0.00-0.50) K/uL Baso # (Auto) 0.02 (0.00-0.20) K/uL Immature Gran # (Auto) 0.02 (0.01-0.20) K/uL Sodium 128 L (136-145) mmol/L Potassium 3.9 (3.5-5.1) mmol/L Chloride 94 L (98-107) mmol/L Carbon Dioxide 23 (21-32) mmol/L Anion Gap 11 (3-11) BUN 15 (6-23) mg/dl Creatinine 0.80 (0.6-1.2) mg/dl Est Cr Clr Drug Dosing Not Reportable Est GFR ( Amer) 85.4 ml/min Est GFR (Non-Af Amer) 73.7 ml/min BUN/Creatinine Ratio 18.8 (10-20) Glucose 168 H (70-99(Fasting)) mg/dl Osmolality 273 L (280-300) mOsm/kg Lactate 1.0 (0.4-2.0) mmol/L Calcium 9.9 (8.6-10.3) mg/dl Magnesium 1.8 (1.7-2.4) mg/dl Total Bilirubin 0.6 (0.2-1.0) mg/dl AST 36 (13-39) U/L ALT 22 (7-52) U/L Alkaline Phosphatase 42 (34-104) U/L Troponin I High Sens 11.0 (0-14) pg/ml Total Protein 8.9 H (6.0-8.3) gm/dl Albumin 4.6 (3.4-5.0) gm/dl Globulin 4.3 H (2.5-4.0) gm/dl Albumin/Globulin Ratio 1.1 (0.9-2) Procalcitonin 0.98 H (0-0.5) ng/ml TSH 1.339 (0.300-4.500) uIu/ml Urine Color Yellow Urine Appearance Clear (Clear) Urine pH 5.5 (4.5-7.5) Ur Specific [place] > 1.045 H (1.000-1.030) Urine Protein 1+ H (Negative) Urine Glucose (UA) Negative (Negative) Urine Ketones 1+ H (Negative) Urine Blood 2+ H (Negative) Urine Nitrite Negative (Negative) Urine Bilirubin Negative (Negative) Urine Urobilinogen Negative (Negative) Ur Leukocyte Esterase Negative (Negative) Urine WBC (Auto) 21-50 H (0-5) /hpf Urine RBC (Auto) 6-10 H (0-2) /hpf U Hyaline Cast (Auto) 0-2 (0-2) /lpf U Epithel Cells (Auto) 0-2 (0-2) /hpf Urine Bacteria (Auto) None Seen (None Seen) Urine Osmolality (500-800) mOsm/kg Adenovirus (PCR) Not Detected (NotDetected) B. pertussis DNA (PCR) Not Detected (NotDetected) B.parapertussis DNA PCR Not Detected (NotDetected) Lyme Disease Screen Negative (Negative) C. pneumoniae DNA (PCR) Not Detected (NotDetected) Coronavirus OC43 (PCR) Not Detected (NotDetected) Coronavirus HKU1 (PCR) Not Detected (NotDetected) Coronavirus 229E (PCR) Not Detected (NotDetected) SARS-CoV-2 (PCR) Not Detected (NotDetected) Coronavirus NL63 (PCR) Not Detected (NotDetected) Human Metapneumovir PCR Not Detected (NotDetected) Influenza Type A (PCR) Not Detected (NotDetected) Influenza Type B (PCR) Not Detected (NotDetected) M. pneumoniae (PCR) Not Detected (NotDetected) Parainfluenza 1 (PCR) Not Detected (NotDetected) Parainfluenza 2 (PCR) Not Detected (NotDetected) Parainfluenza 3 (PCR) Not Detected (NotDetected) Parainfluenza 4 (PCR) Not Detected (NotDetected) RSV (PCR) Not Detected (NotDetected) Entero/Rhino (PCR) Not Detected (NotDetected) 12/03/23 Range/Units Unknown WBC (4.8-10.8) K/ul RBC (4.20-5.40) M/uL Hgb (12.0-16.0) g/dl Hct (37.0-47.0) % MCV (80.0-100.0) fL MCH (25.0-34.0) pg MCHC (32.0-36.0) g/dL RDW Std Deviation (36.4-46.3) fL RDW Coeff of Kirill (11.5-14.5) % Plt Count (130-400) K/uL MPV (9.4-12.4) fL Immature Gran % (Auto) % Neut % (Auto) % Lymph % (Auto) % [place] % (Auto) % Eos % (Auto) % Baso % (Auto) % Neut # (Auto) (1.40-6.50) K/uL Lymph # (Auto) (1.20-3.40) K/uL [place] # (Auto) (0.11-0.59) K/uL Eos # (Auto) (0.00-0.50) K/uL Baso # (Auto) (0.00-0.20) K/uL Immature Gran # (Auto) (0.01-0.20) K/uL Sodium (136-145) mmol/L Potassium (3.5-5.1) mmol/L Chloride (98-107) mmol/L Carbon Dioxide (21-32) mmol/L Anion Gap (3-11) BUN (6-23) mg/dl Creatinine (0.6-1.2) mg/dl Est Cr Clr Drug Dosing Est GFR ( Amer) ml/min Est GFR (Non-Af Amer) ml/min BUN/Creatinine Ratio (10-20) Glucose (70-99(Fasting)) mg/dl Osmolality (280-300) mOsm/kg Lactate (0.4-2.0) mmol/L Calcium (8.6-10.3) mg/dl Magnesium (1.7-2.4) mg/dl Total Bilirubin (0.2-1.0) mg/dl AST (13-39) U/L ALT (7-52) U/L Alkaline Phosphatase (34-104) U/L Troponin I High Sens (0-14) pg/ml Total Protein (6.0-8.3) gm/dl Albumin (3.4-5.0) gm/dl Globulin (2.5-4.0) gm/dl Albumin/Globulin Ratio (0.9-2) Procalcitonin (0-0.5) ng/ml TSH (0.300-4.500) uIu/ml Urine Color Urine Appearance (Clear) Urine pH (4.5-7.5) Ur Specific [place] (1.000-1.030) Urine Protein (Negative) Urine Glucose (UA) (Negative) Urine Ketones (Negative) Urine Blood (Negative) Urine Nitrite (Negative) Urine Bilirubin (Negative) Urine Urobilinogen (Negative) Ur Leukocyte Esterase (Negative) Urine WBC (Auto) (0-5) /hpf Urine RBC (Auto) (0-2) /hpf U Hyaline Cast (Auto) (0-2) /lpf U Epithel Cells (Auto) (0-2) /hpf Urine Bacteria (Auto) (None Seen) Urine Osmolality 671 (500-800) mOsm/kg Adenovirus (PCR) (NotDetected) B. pertussis DNA (PCR) (NotDetected) B.parapertussis DNA PCR (NotDetected) Lyme Disease Screen (Negative) C. pneumoniae DNA (PCR) (NotDetected) Coronavirus OC43 (PCR) (NotDetected) Coronavirus HKU1 (PCR) (NotDetected) Coronavirus 229E (PCR) (NotDetected) SARS-CoV-2 (PCR) (NotDetected) Coronavirus NL63 (PCR) (NotDetected) Human Metapneumovir PCR (NotDetected) Influenza Type A (PCR) (NotDetected) Influenza Type B (PCR) (NotDetected) M. pneumoniae (PCR) (NotDetected) Parainfluenza 1 (PCR) (NotDetected) Parainfluenza 2 (PCR) (NotDetected) Parainfluenza 3 (PCR) (NotDetected) Parainfluenza 4 (PCR) (NotDetected) RSV (PCR) (NotDetected) Entero/Rhino (PCR) (NotDetected) Imaging Data Attestation: I personally reviewed and interpreted this imaging study as follows: Radiologist's Impression: Head CT 12/03/23 21:54 CR Exam(s): CT HEAD Without Contrast EXAM: CT Head Without Intravenous Contrast CLINICAL HISTORY: Reason for exam: neuro deficit, acute stroke suspected. TECHNIQUE: Axial computed tomography images of the head/brain without intravenous contrast. CTDI is 36.31 mGy and DLP is 971.85 mGy-cm. Automated exposure control was utilized for the study. A dose lowering technique was utilized adhering to the principles of ALARA. COMPARISON: No relevant prior studies available. FINDINGS: Brain: Age-appropriate generalized atrophy. No acute stroke. Moderate diffuse supratentorial periventricular and subcortical white matter changes. No acute hemorrhage or abnormal extra-axial fluid collection. Ventricles: No hydrocephalus. No midline shift. Bones/joints: Unremarkable. No acute fracture. Soft tissues: Unremarkable. Sinuses: Opacified partially visualized right maxillary sinus. IMPRESSION: No acute stroke or hemorrhage Non-specific white matter changes, most commonly seen with small vessel disease. Communications: Call Doctor Stroke Electronically signed by: Chang Guido M.D. 12/03/23 23:27 PM Head CTA 12/03/23 21:54 CR Exam(s): CTA HEAD With Contrast IV Amt: 119 ml optiray 320 EXAM: CT Angiography Head With Intravenous Contrast CLINICAL HISTORY: Reason for exam: neuro deficit, acute stroke suspected. TECHNIQUE: Axial computed tomographic angiography images of the head with intravenous contrast. CTDI is 36.31 mGy and DLP is 971.85 mGy-cm. Automated exposure control was utilized for the study. A dose lowering technique was utilized adhering to the principles of ALARA. 3D and MIP reconstructed images were created and reviewed. CONTRAST: Patient received 119 ml optiray 320 of IV contrast COMPARISON: CT Head 12-03-2023. FINDINGS: Right internal carotid artery: Mild calcified plaque at the cavernous internal carotid artery with intact distal runoff. No aneurysm. Right anterior cerebral artery: Unremarkable. No occlusion or significant stenosis. No aneurysm. Right middle cerebral artery: Unremarkable. No occlusion or significant stenosis. No aneurysm. Right posterior cerebral artery: Unremarkable. No occlusion or significant stenosis. No aneurysm. Right vertebral artery: Moderate calcified plaque with intact distal runoff. Left internal carotid artery: Mild calcified plaque at the cavernous internal carotid artery with intact distal runoff. No aneurysm. Left anterior cerebral artery: Unremarkable. No occlusion or significant stenosis. No aneurysm. Left middle cerebral artery: Unremarkable. No occlusion or significant stenosis. No aneurysm. Left posterior cerebral artery: Unremarkable. No occlusion or significant stenosis. No aneurysm. Left vertebral artery: Unremarkable as visualized. Basilar artery: Unremarkable. No occlusion or significant stenosis. No aneurysm. IMPRESSION: No large vessel occlusion. Calcified plaque in the right vertebral artery and bilateral cavernous internal carotid arteries with intact distal runoff. Communications: Call Doctor Stroke Electronically signed by: Chang Guido M.D. 12/03/23 23:31 PM Neck CTA 12/03/23 21:54 CR Exam(s): CTA NECK With Contrast IV Amt: 119 ml optiray 320 EXAM: CT Angiography Neck With Intravenous Contrast CLINICAL HISTORY: Reason for exam: neuro deficit, acute stroke suspected. TECHNIQUE: Routine carotid CT angiography protocol was performed with intravenous contrast. NASCET criteria using the distal ICAs for comparison were used for evaluation of stenoses. CTDI is 36.31 mGy and DLP is 971.85 mGy-cm. Automated exposure control was utilized for the study. A dose lowering technique was utilized adhering to the principles of ALARA. 3D and MIP reconstructed images were created and reviewed. CONTRAST: Patient received 119 ml optiray 320 of IV contrast COMPARISON: None. FINDINGS: VASCULATURE: Right common carotid artery: Unremarkable. No occlusion or significant stenosis. No dissection. Right internal carotid artery: Mild calcified plaque at the right carotid bulb without a hemodynamically significant stenosis. No dissection. Right external carotid artery: Unremarkable. No occlusion. Right vertebral artery: Unremarkable. No occlusion or significant stenosis. No dissection. Left common carotid artery: Unremarkable. No occlusion or significant stenosis. No dissection. Left internal carotid artery: Moderate calcified plaque at the left carotid bulb without a hemodynamically significant stenosis. No dissection. Left external carotid artery: Unremarkable. No occlusion. Left vertebral artery: Unremarkable. No occlusion or significant stenosis. No dissection. NECK: Bones/joints: Degenerative changes of the spine. No acute fracture. Soft tissues: Unremarkable. Lung apices: Clear. CAROTID STENOSIS REFERENCE USING NASCET CRITERIA: % ICA stenosis = (1 - narrowest ICA diameter/diameter of distal cervical ICA) x 100. Mild - <50% stenosis. Moderate - 50-69% stenosis. Severe - 70-94% stenosis. Near occlusion - 95-99% stenosis. Occluded - 100% stenosis. IMPRESSION: Left greater than right carotid bulb plaque without a hemodynamically significant stenosis. Communications: Call Doctor Stroke Electronically signed by: Chang Giudo M.D. 12/03/23 23:35 PM MDM Narrative Prior records/ancillary studies reviewed. Triage Nursing notes reviewed. Additional history obtained from family. The patient's history was concerning for increased confusion and fever. Differential diagnosis: Etiologies such as neurologic, viral syndrome, otitis, pharyngitis, pneumonia, influenza, meningitis, urinary tract infection, sepsis, bacteremia, as well as others were entertained. Physical examination: As above ER treatment provided: An order was placed for continuous cardiac monitoring. The monitor shows a rate of 60-100 with a sinus rhythm per my interpretation. IV fluids, Tylenol, Zosyn On reassessment the patient felt better. Diagnostics interpreted by me: ECG: Ordered for weakness EKG: Normal sinus, left axis, no acute ST-T wave changes, rate of 92. Impression normal sinus rhythm with a left axis deviation septal infarct independently interpreted by myself The labs Independently Interpreted by myself revealed urine concerning for infection sent for culture. No prior urine culture for review Hyponatremia. Osmolarity levels were sent. Stable H&H. Euthyroid. Negative lactic. Slightly elevated procalcitonin Blood cultures pending Imaging studies: Chest x-ray with no acute consolidation, pneumothorax or free air per my independent or potation CTs as above Consultation: A consultation was placed with hospitalist. The case was discussed and diagnostics were reviewed. The patient was evaluated in the ER for further treatment. This appears to be consistent with acute UTI with fever with concerns of developing sepsis and hyponatremia. Patient was given septic protocol fluids as above. She was given Zosyn. CTA was negative for acute stroke. Medicine was consulted and the case was discussed. Patient be admitted to the medical service. Patient is agreeable. By the evaluation outlined above emergent etiologies such as otitis, pharyngitis, pneumonia, meningitis, urinary tract infection, as well as others were deemed relatively unlikely. The pt informed about the findings as listed above. All questions were answered and pleased with the treatment. The chart was completed utilizing [employer] Speech voice recognition software. Grammatical errors, random word insertions, pronoun errors, and incomplete sentences are an occassional consequence of this system due to software limitations, ambient noise, and hardware issues. Any formal questions or concerns about the content, text, or information contained within the body of this dictation should be directly addressed to the physician material assistant for clarification. Impression & Plan Acute UTI, AMS (altered mental status), Acute hyponatremia Discharge Plan Visit Data Chief Complaint: Altered Mental Status Stated Complaint: CONFUSION, DIFFICULTY WALKING, FATIGUE ED Provider: Ang Patel ED Midlevel Provider: Yolanda Meza Discharge Problem: Acute UTI, AMS (altered mental status), Acute hyponatremia Forms Stand Alone Forms: [employer] [facility] [employer] Prescriptions Prescriptions: No Action glipizide 5 mg tablet extended release 24hr 5 mg PO DAILY metformin 850 mg tablet 850 mg PO BID aspirin [Aspir-Low] 81 mg Tablet,Delayed Release (Dr/Ec) 81 mg PO DAILY nitroglycerin 0.4 mg tablet, sublingual 0.4 mg sublingual DIRECTED PRN (Reason: Chest Pain) metoprolol succinate 25 mg tablet extended release 24 hr 37.5 mg PO QAM Rx Instructions: Take 1 & 1/2 tab glucosamine-chondroitin 500-400 mg Capsule 1 cap PO DAILY Rx Instructions: give with meal/snack niacinamide 100 mg Tablet 100 mg PO DAILY rosuvastatin 5 mg tablet 5 mg PO DAILY coQ10 (ubiquinol) 100 mg Capsule 100 mg PO DAILY Referrals Referrals: Yenny Miller MD [Primary Care Provider] -
[2023-12-03 22:14] LABS: Magnesium 1.8 mg/dl (1.7-2.4)
[2023-12-03] MEDS: OPTIRAY 320 125ml IV ONE (22:26)
[2023-12-03 22:31] LABS: Thyroid Stimulating Hormone 1.339 uIu/ml (0.300-4.500)
[2023-12-03] MEDS: SODIUM CHLORIDE 0.9% 500 ML IV ONE (22:35)
[2023-12-03] MEDS: ACETAMINOPHEN 1,000 MG/100 ML VIAL IV STA (22:35)
[2023-12-03] MEDS: SODIUM CHLORIDE 0.9% 1,000 ML IV ONE (22:35)
[2023-12-03 23:13] LABS: Adenovirus PCR Not Detected (NotDetected); Bordetella parapertussis PCR Not Detected (NotDetected); Bordetella pertussis PCR Not Detected (NotDetected); Chlamydia pneumoniae PCR Not Detected (NotDetected); Coronavirus 229E PCR Not Detected (NotDetected); Coronavirus CoV-2 (COVID19)PCR Not Detected (NotDetected); Coronavirus HKU1 PCR Not Detected (NotDetected); Coronavirus NL63 PCR Not Detected (NotDetected); Coronavirus OC43PCR Not Detected (NotDetected); Human Metapneumovirus PCR Not Detected (NotDetected); Influenza A PCR Not Detected (NotDetected); Influenza B PCR Not Detected (NotDetected); Mycoplasma pneumoniae PCR Not Detected (NotDetected); Parainfluenza Virus 1 PCR Not Detected (NotDetected); Parainfluenza Virus 2 PCR Not Detected (NotDetected); Parainfluenza Virus 3 PCR Not Detected (NotDetected); Parainfluenza Virus 4 PCR Not Detected (NotDetected); Respiratory Syncytial VirusPCR Not Detected (NotDetected); Rhinovirus/Enterovirus PCR Not Detected (NotDetected)
--- NOTE | 2023-12-03 23:28 | CT Scan Report ---
Exam(s): CT HEAD Without Contrast EXAM: CT Head Without Intravenous Contrast CLINICAL HISTORY: Reason for exam: neuro deficit, acute stroke suspected. TECHNIQUE: Axial computed tomography images of the head/brain without intravenous contrast. CTDI is 36.31 mGy and DLP is 971.85 mGy-cm. Automated exposure control was utilized for the study. A dose lowering technique was utilized adhering to the principles of ALARA. COMPARISON: No relevant prior studies available. FINDINGS: Brain: Age-appropriate generalized atrophy. No acute stroke. Moderate diffuse supratentorial periventricular and subcortical white matter changes. No acute hemorrhage or abnormal extra-axial fluid collection. Ventricles: No hydrocephalus. No midline shift. Bones/joints: Unremarkable. No acute fracture. Soft tissues: Unremarkable. Sinuses: Opacified partially visualized right maxillary sinus. IMPRESSION: No acute stroke or hemorrhage Non-specific white matter changes, most commonly seen with small vessel disease. Communications: Call Doctor Stroke Electronically signed by: Chang Guido M.D. 12/03/23 23:27 PM
--- NOTE | 2023-12-03 23:32 | CT Scan Report ---
Exam(s): CTA HEAD With Contrast IV Amt: 119 ml optiray 320 EXAM: CT Angiography Head With Intravenous Contrast CLINICAL HISTORY: Reason for exam: neuro deficit, acute stroke suspected. TECHNIQUE: Axial computed tomographic angiography images of the head with intravenous contrast. CTDI is 36.31 mGy and DLP is 971.85 mGy-cm. Automated exposure control was utilized for the study. A dose lowering technique was utilized adhering to the principles of ALARA. 3D and MIP reconstructed images were created and reviewed. CONTRAST: Patient received 119 ml optiray 320 of IV contrast COMPARISON: CT Head 12-03-2023. FINDINGS: Right internal carotid artery: Mild calcified plaque at the cavernous internal carotid artery with intact distal runoff. No aneurysm. Right anterior cerebral artery: Unremarkable. No occlusion or significant stenosis. No aneurysm. Right middle cerebral artery: Unremarkable. No occlusion or significant stenosis. No aneurysm. Right posterior cerebral artery: Unremarkable. No occlusion or significant stenosis. No aneurysm. Right vertebral artery: Moderate calcified plaque with intact distal runoff. Left internal carotid artery: Mild calcified plaque at the cavernous internal carotid artery with intact distal runoff. No aneurysm. Left anterior cerebral artery: Unremarkable. No occlusion or significant stenosis. No aneurysm. Left middle cerebral artery: Unremarkable. No occlusion or significant stenosis. No aneurysm. Left posterior cerebral artery: Unremarkable. No occlusion or significant stenosis. No aneurysm. Left vertebral artery: Unremarkable as visualized. Basilar artery: Unremarkable. No occlusion or significant stenosis. No aneurysm. IMPRESSION: No large vessel occlusion. Calcified plaque in the right vertebral artery and bilateral cavernous internal carotid arteries with intact distal runoff. Communications: Call Doctor Stroke Electronically signed by: Chang Guido M.D. 12/03/23 23:31 PM
--- NOTE | 2023-12-03 23:36 | CT Scan Report ---
Exam(s): CTA NECK With Contrast IV Amt: 119 ml optiray 320 EXAM: CT Angiography Neck With Intravenous Contrast CLINICAL HISTORY: Reason for exam: neuro deficit, acute stroke suspected. TECHNIQUE: Routine carotid CT angiography protocol was performed with intravenous contrast. NASCET criteria using the distal ICAs for comparison were used for evaluation of stenoses. CTDI is 36.31 mGy and DLP is 971.85 mGy-cm. Automated exposure control was utilized for the study. A dose lowering technique was utilized adhering to the principles of ALARA. 3D and MIP reconstructed images were created and reviewed. CONTRAST: Patient received 119 ml optiray 320 of IV contrast COMPARISON: None. FINDINGS: VASCULATURE: Right common carotid artery: Unremarkable. No occlusion or significant stenosis. No dissection. Right internal carotid artery: Mild calcified plaque at the right carotid bulb without a hemodynamically significant stenosis. No dissection. Right external carotid artery: Unremarkable. No occlusion. Right vertebral artery: Unremarkable. No occlusion or significant stenosis. No dissection. Left common carotid artery: Unremarkable. No occlusion or significant stenosis. No dissection. Left internal carotid artery: Moderate calcified plaque at the left carotid bulb without a hemodynamically significant stenosis. No dissection. Left external carotid artery: Unremarkable. No occlusion. Left vertebral artery: Unremarkable. No occlusion or significant stenosis. No dissection. NECK: Bones/joints: Degenerative changes of the spine. No acute fracture. Soft tissues: Unremarkable. Lung apices: Clear. CAROTID STENOSIS REFERENCE USING NASCET CRITERIA: % ICA stenosis = (1 - narrowest ICA diameter/diameter of distal cervical ICA) x 100. Mild - <50% stenosis. Moderate - 50-69% stenosis. Severe - 70-94% stenosis. Near occlusion - 95-99% stenosis. Occluded - 100% stenosis. IMPRESSION: Left greater than right carotid bulb plaque without a hemodynamically significant stenosis. Communications: Call Doctor Stroke Electronically signed by: Chang Guido M.D. 12/03/23 23:35 PM
[2023-12-03 23:53] LABS: Appearance Urine Clear (Clear); Bacteria Urine Automated None Seen (None Seen); Bilirubin Urine Negative (Negative); Blood Urine 2+ (Negative); Cast Urine Automated 0-2 /lpf (0-2); Color Urine Yellow; Epithelial Cell Urine Auto 0-2 /hpf (0-2); Glucose Urine UA Negative (Negative); Ketones Urine 1+ (Negative); Leukocyte Esterase Urine Negative (Negative); Nitrite Urine Negative (Negative); Protein Urine 1+ (Negative); Specific Gravity Urine > 1.045 (1.000-1.030); Urobilinogen Urine Negative (Negative); WBC Urine Automated 21-50 /hpf (0-5); pH Urine 5.5 (4.5-7.5)
[2023-12-04] MEDS: DOXYCYCLINE HYCLATE 100 MG in DEXTROSE 5% MINI-B 100 ML IV STA (00:53)
--- NOTE | 2023-12-04 01:08 | Emergency Department Note ---
ED Visit Note Staff note: I have reviewed the Patients chart and have discussed this case with my PA including the MDM. I generally agree with the ED note and findings. .
[2023-12-04] MEDS: PIPERACILLIN/TAZOBACTAM 4.5 GM/100ML D5W IV ONE (03:49)
[2023-12-04] MEDS: PIPERACILLIN/TAZOBACTAM 4.5 GM/100 ML BAG IV ONE (04:03)
[2023-12-04] MEDS: SODIUM CHLORIDE 0.9% 1,000 ML IV SCH (04:24)
[2023-12-04] MEDS: KETOROLAC TROMETHAMINE 15 MG/ML VIAL IV ONE (04:24)
--- NOTE | 2023-12-04 05:35 | History & Physical Report ---
Date of Service December 04, 2023 Assessment & Plan (1) AMS (altered mental status): Plan: 73-year-old female with past medical history significant for type 2 diabetes, hyperlipidemia, history of paroxysmal SVT, hypertension, history of CAD s/p stent, history of microscopic colitis, history of hyponatremia who lives at home with her was brought in because of fevers and confusion. Seems patient was having increased confusion and difficulty speaking and slow to respond for last few days. And family brought to the hospital today and seems worried about stroke. Currently patient is alert and oriented x 3. Able to give her history. Patient states last few days she is having temperature. Denies any chest pain . Denies shortness of breath. Denies cough. Denies headache. No neck pain. No back pain. Today she also noticed having some bilateral hip pain radiating to the knees Improved with the pain medications. Appetite is down. No nausea. No abdominal pain. Normal bowel and bladder movements. Patient states she had a tick bite in her abdominal region few weeks back could not tell exact time. Small healing tick bite wound seen on abdomen. No rash seen. Altered mental status. Fevers. Currently mental status is okay. Has leukopenia. elevated procalcitonin LFTs okay. UA is okay. Chest x-ray okay. Respiratory bio fire negative. Lyme screen negative. Recently had a tick bite. Will follow-up tickborne labs. Empirically Doxy and Rocephin. IV fluids. Follow cultures CT head, CTA head and neck no acute findings close monitor abnormal EKG patient had transient ST elevation inferior leads when she was admitted in May with mechanical fall and right distal radius and ulnar fractures supposed to get Lexiscan nuclear stress test as outpatient but seems not followed up initial troponin negative. Will follow serial cardiac enzymes, and repeat EKG and echo consult cardiology for further recommendations history of hyponatremia sodium 128 getting gentle fluids will follow repeat labs nephro consult in a.m. bilateral hip pains will follow CT scan pain control type 2 diabetes hold p.o. medications sliding scale we will monitor history of CAD s/p stent on aspirin, statin and metoprolol succinate history of paroxysmal SVT on metoprolol succinate hyperlipidemia on statin DVT prophylaxis heparin subcu disposition telemetry full code History of Present Illness Chief Complaint: fevers and confusion Primary Care Provider: Yenny Miller MD 73-year-old female with past medical history significant for type 2 diabetes, hyperlipidemia, history of paroxysmal SVT, hypertension, history of CAD s/p stent, history of microscopic colitis, history of hyponatremia who lives at home with her was brought in because of fevers and confusion. Seems patient was having increased confusion and difficulty speaking and slow to respond for last few days. And family brought to the hospital today and seems worried about stroke. Currently patient is alert and oriented x 3. Able to give her history. Patient states last few days she is having temperature. Denies any chest pain . Denies shortness of breath. Denies cough. Denies headache. No neck pain. No back pain. Today she also noticed having some bilateral hip pain radiating to the knees Improved with the pain medications. Appetite is down. No nausea. No abdominal pain. Normal bowel and bladder movements. Patient states she had a tick bite in her abdominal region few weeks back could not tell exact time. Small healing tick bite wound seen on abdomen. No rash seen. past medical history. As mentioned above. Past surgical history. Cardiac cath .colonoscopy. Bilateral cataracts. Social history. Smoked 1.5 pack a day for 15 years. Quit in 1980. Alcohol 2 standard drinks of alcohol per week. No drug use. Family history. Mother had breast cancer. Father had stroke. Sister had diabetes, hypertension, heart disorder. Brother has diabetes. Allergies Allergy/AdvReac Type Severity Reaction Status Date / Time albuterol Allergy Unknown tachycardia Verified 12/04/23 01:34 Home Medications Medication Instructions Recorded Confirmed Type aspirin 81 mg tablet,delayed 81 mg PO DAILY 12/04/23 12/04/23 History release coQ10 (ubiquinol) 100 mg capsule 100 mg PO DAILY 12/04/23 12/04/23 History glipizide 5 mg tablet, extended 5 mg PO DAILY 12/04/23 12/04/23 History release 24 hr glucosamine-chondroitin 500 mg-400 1 cap PO DAILY 12/04/23 12/04/23 History mg capsule metformin 850 mg tablet 850 mg PO BID 12/04/23 12/04/23 History metoprolol succinate 25 mg 37.5 mg PO QAM 12/04/23 12/04/23 History tablet,extended release 24 hr niacinamide 100 mg tablet 100 mg PO DAILY 12/04/23 12/04/23 History nitroglycerin 0.4 mg sublingual 0.4 mg sublingual DIRECTED PRN 12/04/23 12/04/23 History tablet Chest Pain rosuvastatin 5 mg tablet 5 mg PO DAILY 12/04/23 12/04/23 History Past Med/Surg History Problem List (Updated 12/04/23 @ 02:09 by Yolanda Meza PA-C) Acute hyponatremia (Acute) AMS (altered mental status) (Acute) Acute UTI (Acute) Abnormal EKG Fracture of wrist (Acute) Diabetes mellitus, type II Chest pain Medical History Chronic coronary artery disease Surgical History Stented coronary artery Social History Smoking Status: Former smoker Tobacco Type: Cigarettes Second Hand Exposure: No; Do You Dip or Chew Tobacco: No; Tobacco Cessation Education Requested by Patient: No Hx Alcohol Use: No Hx Substance Use: No Preferred Language: Telugu Communication Ability: Effective Plater Production Required: No Beliefs That Will Affect Care: None Current Living Situation: Family Other Information That Helps Us Care for You: No Feels Safe at Home: Yes Safety Concerns: Feels Safe At This Time Assistive Devices: None Review of Systems Review of Systems: All systems reviewed & are unremarkable except as noted in HPI & below Physical Exam Physical Exam: General- Not in distress Head- atraumatic Eyes- PERRL. ENT- oropharynx clear Neck- supple, no JVD. Lungs- clear to auscultation no wheezing or crackles. Heart- regular rate and rhythm; no murmur, no gallop. Abdomen- normal bowel sounds, soft, nontender, no distension. Extremities- no pretibial edema, no erythema seen. Neuro- alert, oriented x 3; PERRL, no facial palsy; no dysarthria; motor 5/5 bilaterally; no pronator drift, sensations intact. Skin- warm & dry Results & Data Results & Data Vital Signs (Past 12 Hours) Vital Signs Temp Pulse Pulse Resp BP BP Pulse Ox 12/04/23 05:26 91 H 12/04/23 01:28 79 12/04/23 01:18 75 16 106/53 L 95 12/04/23 01:06 72 17 94 06/23/24 00:51 69 14 93 12/04/23 00:42 69 14 93 12/04/23 00:30 73 15 91 12/04/23 00:24 73 15 93 12/04/23 00:15 84/51 L 12/03/23 23:54 81 7 L 92 12/03/23 23:45 79 12 97 12/03/23 23:45 113/50 L 12/03/23 23:00 85 16 12/03/23 23:00 125/61 12/03/23 22:51 86 18 12/03/23 22:45 84 19 98 12/03/23 22:45 139/64 12/03/23 21:45 93 H 20 97 12/03/23 21:39 94 H 19 97 12/03/23 21:36 96 H 12/03/23 21:35 39.2 C H 12/03/23 20:57 37.5 C 110 H 20 150/76 H 98 12/03/23 20:54 97 O2 Del Method 12/04/23 05:26 12/04/23 01:28 12/04/23 01:18 Room Air 12/04/23 01:06 12/04/23 00:51 12/04/23 00:42 12/04/23 00:30 12/04/23 00:24 12/04/23 00:15 12/03/23 23:54 12/03/23 23:45 12/03/23 23:45 12/03/23 23:00 12/03/23 23:00 12/03/23 22:51 12/03/23 22:45 12/03/23 22:45 12/03/23 21:45 12/03/23 21:39 12/03/23 21:36 12/03/23 21:35 12/03/23 20:57 Room Air 12/03/23 20:54 Room Air Diagnostic Findings Laboratory Results WBC 4.38 K/ul (4.8-10.8) L 12/03/23 21:25 RBC 4.90 M/uL (4.20-5.40) 12/03/23 21:25 Hgb 14.1 g/dl (12.0-16.0) 12/03/23 21:25 Hct 40.4 % (37.0-47.0) 12/03/23: MCV 82.4 fL (80.0-100.0) 12/03/23: MCH 28.8 pg (25.0-34.0) 12/03/23: MCHC 34.9 g/dL (32.0-36.0) 12/03/23: RDW Std Deviation 40.8 fL (36.4-46.3) 12/03/23: RDW Coeff of Kirill 13.9 % (11.5-14.5) 12/03/23: Plt Count 207 K/uL (130-400) 12/03/23: MPV 9.8 fL (9.4-12.4) 12/03/23: Immature Gran % (Auto) 0.5 % 12/03/23: Neut % (Auto) 72.9 % 12/03/23: Lymph % (Auto) 16.7 % 12/03/23: Miller % (Auto) 9.4 % 12/03/23: Eos % (Auto) 0.0 % 12/03/23: Baso % (Auto) 0.5 % 12/03/23: Neut # (Auto) 3.20 K/uL (1.40-6.50) 12/03/23: Lymph # (Auto) 0.73 K/uL (1.20-3.40) L 12/03/23: Miller # (Auto) 0.41 K/uL (0.11-0.59) 12/03/23: Eos # (Auto) 0.00 K/uL (0.00-0.50) 12/03/23: Baso # (Auto) 0.02 K/uL (0.00-0.20) 12/03/23: Immature Gran # (Auto) 0.02 K/uL (0.01-0.20) 12/03/23: Sodium 128 mmol/L (136-145) L 12/03/23: Potassium 3.9 mmol/L (3.5-5.1) 12/03/23: Chloride 94 mmol/L (98-107) L 12/03/23 21:25 Carbon Dioxide 23 mmol/L (21-32) 12/03/23 21:25 Anion Gap 11 (3-11) 12/03/23 21:25 BUN 15 mg/dl (6-23) 12/03/23 21:25 Creatinine 0.80 mg/dl (0.6-1.2) 12/03/23: Est Cr Clr Drug Dosing Not Reportable 12/03/23 21: Est GFR ( Amer) 85.4 ml/min 12/03/23 21: Est GFR (Non-Af Amer) 73.7 ml/min 12/03/23: BUN/Creatinine Ratio 18.8 (10-20) 12/03/23: Glucose 168 mg/dl (70-99(Fasting)) H 12/03/23 21:25 Osmolality 273 mOsm/kg (280-300) L 12/03/23: Lactate 1.0 mmol/L (0.4-2.0) 12/03/23 22:05 Calcium 9.9 mg/dl (8.6-10.3) 12/03/23: Magnesium 1.8 mg/dl (1.7-2.4) 12/03/23: Total Bilirubin 0.6 mg/dl (0.2-1.0) 12/03/23:25 AST 36 U/L (13-39) 12/03/23: ALT 22 U/L (7-52) 12/03/23: Alkaline Phosphatase 42 U/L (34-104) 12/03/23 21: Troponin I High Sens 11.0 pg/ml (0-14) 12/03/23: Total Protein 8.9 gm/dl (6.0-8.3) H 12/03/23: Albumin 4.6 gm/dl (3.4-5.0) 12/03/23: Globulin 4.3 gm/dl (2.5-4.0) H 12/03/23:25 Albumin/Globulin Ratio 1.1 (0.9-2) 12/03/23 21: Procalcitonin 0.98 ng/ml (0-0.5) H 12/03/23 21:25 TSH 1.339 uIu/ml (0.300-4.500) 12/03/23 21:25 Urine Color Yellow 12/03/23 23:30 Urine Appearance Clear (Clear) 12/03/23 23:30 Urine pH 5.5 (4.5-7.5) 12/03/23 23:30 Ur Specific [place] > 1.045 (1.000-1.030) H 12/03/23 23:30 Urine Protein 1+ (Negative) H 12/03/23 23:30 Urine Glucose (UA) Negative (Negative) 12/03/23 23: Urine Ketones 1+ (Negative) H 12/03/23 23: Urine Blood 2+ (Negative) H 12/03/23 23: Urine Nitrite Negative (Negative) 12/03/23 23: Urine Bilirubin Negative (Negative) 12/03/23 23: Urine Urobilinogen Negative (Negative) 12/03/23 23:30 Ur Leukocyte Esterase Negative (Negative) 12/03/23 23:30 Urine WBC (Auto) 21-50 /hpf (0-5) H 12/03/23 23:30 Urine RBC (Auto) 6-10 /hpf (0-2) H 12/03/23 23:30 U Hyaline Cast (Auto) 0-2 /lpf (0-2) 12/03/23 23:30 U Epithel Cells (Auto) 0-2 /hpf (0-2) 12/03/23 23:30 Urine Bacteria (Auto) None Seen (None Seen) 12/03/23 23:30 Urine Osmolality 671 mOsm/kg (500-800) 12/03/23 Unknown Adenovirus (PCR) Not Detected (NotDetected) 12/03/23 22:05 B. pertussis DNA (PCR) Not Detected (NotDetected) 12/03/23 22:05 B.parapertussis DNA PCR Not Detected (NotDetected) 12/03/23 22:05 Lyme Disease Screen Negative (Negative) 12/03/23 21:25 C. pneumoniae DNA (PCR) Not Detected (NotDetected) 12/03/23 22:05 Coronavirus OC43 (PCR) Not Detected (NotDetected) 12/03/23 22:05 Coronavirus HKU1 (PCR) Not Detected (NotDetected) 12/03/23 22:05 Coronavirus 229E (PCR) Not Detected (NotDetected) 12/03/23 22:05 SARS-CoV-2 (PCR) Not Detected (NotDetected) 12/03/23 22:05 Coronavirus NL63 (PCR) Not Detected (NotDetected) 12/03/23 22:05 Human Metapneumovir PCR Not Detected (NotDetected) 12/03/23 22:05 Influenza Type A (PCR) Not Detected (NotDetected) 12/03/23 22:05 Influenza Type B (PCR) Not Detected (NotDetected) 12/03/23 22:05 M. pneumoniae (PCR) Not Detected (NotDetected) 12/03/23 22:05 Parainfluenza 1 (PCR) Not Detected (NotDetected) 12/03/23 22:05 Parainfluenza 2 (PCR) Not Detected (NotDetected) 12/03/23 22:05 Parainfluenza 3 (PCR) Not Detected (NotDetected) 12/03/23 22:05 Parainfluenza 4 (PCR) Not Detected (NotDetected) 12/03/23 22:05 RSV (PCR) Not Detected (NotDetected) 12/03/23 22:05 Entero/Rhino (PCR) Not Detected (NotDetected) 12/03/23 22:[address] 12/03/23 21:54 CR Exam(s): CT HEAD Without Contrast EXAM: CT Head Without Intravenous Contrast CLINICAL HISTORY: Reason for exam: neuro deficit, acute stroke suspected. TECHNIQUE: Axial computed tomography images of the head/brain without intravenous contrast. CTDI is 36.31 mGy and DLP is 971.85 mGy-cm. Automated exposure control was utilized for the study. A dose lowering technique was utilized adhering to the principles of ALARA. COMPARISON: No relevant prior studies available. FINDINGS: Brain: Age-appropriate generalized atrophy. No acute stroke. Moderate diffuse supratentorial periventricular and subcortical white matter changes. No acute hemorrhage or abnormal extra-axial fluid collection. Ventricles: No hydrocephalus. No midline shift. Bones/joints: Unremarkable. No acute fracture. Soft tissues: Unremarkable. Sinuses: Opacified partially visualized right maxillary sinus. IMPRESSION: No acute stroke or hemorrhage Non-specific white matter changes, most commonly seen with small vessel disease. Communications: Call Doctor Stroke Electronically signed by: Chang Guido M.D. 12/03/23 23:27 PM Head CTA 12/03/23 21:54 CR Exam(s): CTA HEAD With Contrast IV Amt: 119 ml optiray 320 EXAM: CT Angiography Head With Intravenous Contrast CLINICAL HISTORY: Reason for exam: neuro deficit, acute stroke suspected. TECHNIQUE: Axial computed tomographic angiography images of the head with intravenous contrast. CTDI is 36.31 mGy and DLP is 971.85 mGy-cm. Automated exposure control was utilized for the study. A dose lowering technique was utilized adhering to the principles of ALARA. 3D and MIP reconstructed images were created and reviewed. CONTRAST: Patient received 119 ml optiray 320 of IV contrast COMPARISON: CT Head 12-03-2023. FINDINGS: Right internal carotid artery: Mild calcified plaque at the cavernous internal carotid artery with intact distal runoff. No aneurysm. Right anterior cerebral artery: Unremarkable. No occlusion or significant stenosis. No aneurysm. Right middle cerebral artery: Unremarkable. No occlusion or significant stenosis. No aneurysm. Right posterior cerebral artery: Unremarkable. No occlusion or significant stenosis. No aneurysm. Right vertebral artery: Moderate calcified plaque with intact distal runoff. Left internal carotid artery: Mild calcified plaque at the cavernous internal carotid artery with intact distal runoff. No aneurysm. Left anterior cerebral artery: Unremarkable. No occlusion or significant stenosis. No aneurysm. Left middle cerebral artery: Unremarkable. No occlusion or significant stenosis. No aneurysm. Left posterior cerebral artery: Unremarkable. No occlusion or significant stenosis. No aneurysm. Left vertebral artery: Unremarkable as visualized. Basilar artery: Unremarkable. No occlusion or significant stenosis. No aneurysm. IMPRESSION: No large vessel occlusion. Calcified plaque in the right vertebral artery and bilateral cavernous internal carotid arteries with intact distal runoff. Communications: Call Doctor Stroke Electronically signed by: Chang Guido M.D. 12/03/23 23:31 PM Neck CTA 12/03/23 21:54 CR Exam(s): CTA NECK With Contrast IV Amt: 119 ml optiray 320 EXAM: CT Angiography Neck With Intravenous Contrast CLINICAL HISTORY: Reason for exam: neuro deficit, acute stroke suspected. TECHNIQUE: Routine carotid CT angiography protocol was performed with intravenous contrast. NASCET criteria using the distal ICAs for comparison were used for evaluation of stenoses. CTDI is 36.31 mGy and DLP is 971.85 mGy-cm. Automated exposure control was utilized for the study. A dose lowering technique was utilized adhering to the principles of ALARA. 3D and MIP reconstructed images were created and reviewed. CONTRAST: Patient received 119 ml optiray 320 of IV contrast COMPARISON: None. FINDINGS: VASCULATURE: Right common carotid artery: Unremarkable. No occlusion or significant stenosis. No dissection. Right internal carotid artery: Mild calcified plaque at the right carotid bulb without a hemodynamically significant stenosis. No dissection. Right external carotid artery: Unremarkable. No occlusion. Right vertebral artery: Unremarkable. No occlusion or significant stenosis. No dissection. Left common carotid artery: Unremarkable. No occlusion or significant stenosis. No dissection. Left internal carotid artery: Moderate calcified plaque at the left carotid bulb without a hemodynamically significant stenosis. No dissection. Left external carotid artery: Unremarkable. No occlusion. Left vertebral artery: Unremarkable. No occlusion or significant stenosis. No dissection. NECK: Bones/joints: Degenerative changes of the spine. No acute fracture. Soft tissues: Unremarkable. Lung apices: Clear. CAROTID STENOSIS REFERENCE USING NASCET CRITERIA: % ICA stenosis = (1 - narrowest ICA diameter/diameter of distal cervical ICA) x 100. Mild - <50% stenosis. Moderate - 50-69% stenosis. Severe - 70-94% stenosis. Near occlusion - 95-99% stenosis. Occluded - 100% stenosis. IMPRESSION: Left greater than right carotid bulb plaque without a hemodynamically significant stenosis. Communications: Call Doctor Stroke Electronically signed by: Chang Guido M.D. 12/03/23 23:35 PM ECG Additional Comments: ECG. Normal sinus rhythm rate of 92. Left axis deviation. ST changes seen in leads V1 and V2. Septal infarct. Abnormal ECG. QTc 393. Code Status & VTE Plan VTE Prophylaxis Plan VTE Prophylaxis will be ordered: Yes
[2023-12-04] MEDS ORDERED: GLUCOSE 40% GEL 15 GM TUBE PO PRN (05:50)
[2023-12-04] MEDS ORDERED: GLUCAGON FOR INJ 1 MG VIAL SQ PRN (05:50)
[2023-12-04] MEDS ORDERED: DEXTROSE 50% 50 ML SYRINGE IV PRN (05:50)
[2023-12-04] MEDS ORDERED: GLUCOSE 10 TAB/TUBE PO PRN (05:50)
[2023-12-04] MEDS ORDERED: NITROGLYCERIN SL 0.4 MG/TAB TAB SL PRN (05:50)
[2023-12-04] MEDS ORDERED: CARBOHYDRATES FOR HYPOGLYCEMIA PO PRN (05:50)
[2023-12-04 06:34] LABS: Hematocrit (blood only) 30.7 % (37.0-47.0); Hemoglobin 10.7 g/dl (12.0-16.0); Mean Corpuscular Hemoglobin 28.8 pg (25.0-34.0); Mean Corpuscular Hgb Conc 34.9 g/dL (32.0-36.0); Mean Corpuscular Volume 82.7 fL (80.0-100.0); Mean Platelet Volume 9.5 fL (9.4-12.4); Platelet Count 147 K/uL (130-400); RDW Coefficient of Variation 13.7 % (11.5-14.5); RDW Standard Deviation 41.8 fL (36.4-46.3); Red Blood Count 3.71 M/uL (4.20-5.40); White Blood Count 4.36 K/ul (4.8-10.8)
[2023-12-04 06:53] LABS: Basophils # (auto) 0.01 K/uL (0.00-0.20); Basophils % (auto) 0.2 %; Immature Granulocytes # (auto) 0.03 K/uL (0.01-0.20); Immature Granulocytes % (auto) 0.7 %; Lymphocytes # (auto) 0.26 K/uL (1.20-3.40); Monocytes # (auto) 0.49 K/uL (0.11-0.59); Monocytes % (auto) 11.2 %; Neutrophils # (auto) 3.57 K/uL (1.40-6.50); Neutrophils % (auto) 81.9 %
--- NOTE | 2023-12-04 06:55 | CT Scan Report ---
Exam(s): CT PELVIS Without Contrast EXAM: CT Pelvis Without Intravenous Contrast CLINICAL HISTORY: Reason for exam: b/l hip pain. TECHNIQUE: Axial computed tomography images of the pelvis without intravenous contrast. CTDI is 17.86 mGy and DLP is 526.82 mGy-cm. Automated exposure control was utilized for the study. A dose lowering technique was utilized adhering to the principles of ALARA. COMPARISON: No relevant prior studies available. FINDINGS: Bowel: There is diverticulosis. No obstruction. No mucosal thickening. Appendix: No findings to suggest acute appendicitis. Intraperitoneal space: Unremarkable. No free air. No significant fluid collection. Bladder: Unremarkable. No stones. Reproductive: The uterus is retroverted. Bones/joints: There is some mild bony sclerosis and osteophytosis demonstrated to the bilateral acetabular roofs. Extensive facet bony sclerosis and osteophytosis and narrowing to the visualized lower lumbar spine. No acute fracture. No dislocation. Soft tissues: Unremarkable. Vasculature: Probable at least moderate stenosis demonstrated bilateral common femoral arteries incompletely assessed. There is extensive calcific atherosclerotic vascular disease. No lower abdominal aortic aneurysm. Lymph nodes: Unremarkable. No enlarged lymph nodes. IMPRESSION: Degenerative and chronic change, no acute fracture. Electronically signed by: Ras Craft MD 12/04/23 06:54 AM
[2023-12-04 07:38] LABS: BUN Creatinine Ratio 19.2 (10-20); Calcium 8.5 mg/dl (8.6-10.3); Creatinine Clr Calc Pharmacy 62.7 ml/min; Est GFR (African American) 95.4 ml/min; Est GFR (Non-African American) 82.3 ml/min; Magnesium 1.5 mg/dl (1.7-2.4); Potassium 3.5 mmol/L (3.5-5.1)
[2023-12-04] MEDS: cefTRIAXone SODIUM 2,000 MG/50 ML BAG IV SCH (07:42)
[2023-12-04 07:53] LABS: Troponin I High Sensitivity 15.4 pg/ml (0-14)
--- NOTE | 2023-12-04 07:54 | XRay Report ---
SINGLE VIEW CHEST CLINICAL HISTORY: Change in mental status. FINDINGS: An AP, portable, upright chest radiograph is compared to study dated 10/24/2017. The cardiom ediastinal silhouette is top normal for projection. The lungs and pleural spaces are clear. No pneumo thorax is seen. The skeletal structures are osteopenic. The bony thorax is grossly intact. IMPRESSION: No active disease in the chest. ACT 112: Negative or not required by law. Electronically signed by: Harrison Poe M.D. 12/04/2023 7:53 AM
[2023-12-04] MEDS: INSULIN ASPART PER UNIT CHARGE SC SCH (08:04)
[2023-12-04] MEDS ORDERED: NIACINAMIDE 100 MG PO SCH (09:00)
[2023-12-04] MEDS: MAGNESIUM SULFATE / D5W 1 GM/100 ML BAG IV ONE (09:00)
[2023-12-04] MEDS: METOPROLOL SUCC 25MG EXT REL TAB PO SCH (09:02)
[2023-12-04] MEDS: POTASSIUM CHLORIDE CRTAB 20 MEQ TABCR PO STA (09:02)
[2023-12-04] MEDS: ROSUVASTATIN CALCIUM 5 MG TAB PO SCH (09:02)
[2023-12-04] MEDS: ASPIRIN 81 MG ECTAB PO SCH (09:05)
[2023-12-04] MEDS: HEPARIN SOD 5,000 UNIT/0.5 ML VIAL SQ SCH (09:05)
--- NOTE | 2023-12-04 09:11 | Electrocardiogram Report ---
Test Reason : Blood Pressure : / mmHG Vent. 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
--- NOTE | 2023-12-04 10:24 | Cardiology Consultation ---
Date of Consultation December 04, 2023 Assessment & Plan (1) AMS (altered mental status): (2) Abnormal EKG: (3) Chest pain: Plan 1. Remote hx chest discomfort 2. AMS 3. UTI? 4.Hyponatremia 5. CAD -SHARLENE x1 mRCA 2018 6. HTN 7. T2 DM 8. HLD 9. Aortic valve sclerosis Remote hx chest discomfort, HPI limited. -EKG without acute changes. -Troponin flat -Patient remains chest pain free -Echocardiogram ordered to ensure no WMA AMS -CTA head/neck unremarkable -UTI?, recent tick bite -Work-up per primary team Case discussed with Dr. Reina. I spent a total of 42 minutes on the date of service in preparation, delivery, and documentation of the care provided to this patient, excluding any time spent in the performance of separately billed services. Angeles Najera PA-C Department of Cardiology, [facility] This chart was completed in part utilizing Speech Voice Recognition Software. Grammatical errors, random word insertions, pronoun errors, and incomplete sentences are an occasional consequence of this system due to software limitations, ambient noise, and hardware issues. Any formal questions or concerns about the content, text, or information contained within the body of this dictation should be directly addressed to the provider for clarification. Supervising Physician Co-Signing Physician Notes I have reviewed the advance practitioner's documentation, and I agree with, and take responsibility for the plan of care. I have personally performed a history and physical examination on the patient. 73-year-old female with past medical history of CAD (SHARLENE to mid RCA in 2018) HLD, DM presented to the hospital today and was brought in by her for altered mental status. Difficulty obtaining history from patient but patient's states that the has been fretful and not responding at times which is not like her. Patient otherwise currently denies any chest pain, dyspnea, troponin, PND, recent edema, palpitations, or syncope. Back in May she was admitted to [facility] after having mechanical fall cardiology was consulted due to transient ST elevations in inferior leads which subsequently improved patient denied having any chest pain and plan was to have an outpatient nuclear stress test which patient did not schedule. Patient then followed up with her PCP back in September who had ordered the stress test again and patient states that she forgot to get this scheduled. Echocardiogram done today showed preserved left ventricular ejection fraction. She denies any chest discomfort. She is currently being worked up for altered mental status. She has had a tick bite in the past and agree with Lyme workup as well. Timing of stress testing will consider once patient's acute issues resolve. I spent a total of 40 minutes on the date of service in preparation, delivery, and documentation of the care provided to this patient, excluding any time spent in the performance of separately billed service History of Present Illness Reason for Consultation: chest pain Requesting Physician: Dr. Kim Attending Physician: Shad Kim MD History of Present Illness Virgen Patterson is a 73 year old female with PMHx CAD (SHARLENE to RCA 2018, nonobstructive disease elsewhere), HLD, T2 DM, aortic valve sclerosis, hyponatremia that presented to [facility] ED with altered mental status and subjective fevers x couple of days. Denies chest pain. Reports some mild heaviness when she was outside working in the hot sun recently. Unsure of date or specifics. HPI is limited due to AMS. Memory is limited. A&Ox3. 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 Per [facility] review, patient follows with [facility] cardiology. Last evaluated by Sheeba Thao PA-C 03/14/2023. Evaluated by PCP Dr. Miller 10/07/2023. Nuclear stress test ordered and cardiology referral placed for abnormal EKG during [facility] admission 05/2023. This was not completed. It should be noted patient sustained a tick bite 09/21/2023, tells me she was treated with doxycycline 200mg x1. She is being treated empirically with doxy and rocephin. CTA head with no large vessel occlusion. EKG without acute changes. Initial troponin 15. Echocardiogram ordered. Allergies Allergy/AdvReac Type Severity Reaction Status Date / Time albuterol Allergy Unknown tachycardia Verified 12/04/23 01:34 Home Medications Medication Instructions Recorded Confirmed Type aspirin 81 mg tablet,delayed 81 mg PO DAILY 12/04/23 12/04/23 History release coQ10 (ubiquinol) 100 mg capsule 100 mg PO DAILY 12/04/23 12/04/23 History glipizide 5 mg tablet, extended 5 mg PO DAILY 12/04/23 12/04/23 History release 24 hr glucosamine-chondroitin 500 mg-400 1 cap PO DAILY 12/04/23 12/04/23 History mg capsule metformin 850 mg tablet 850 mg PO BID 12/04/23 12/04/23 History metoprolol succinate 25 mg 37.5 mg PO QAM 12/04/23 12/04/23 History tablet,extended release 24 hr niacinamide 100 mg tablet 100 mg PO DAILY 12/04/23 12/04/23 History nitroglycerin 0.4 mg sublingual 0.4 mg sublingual DIRECTED PRN 12/04/23 12/04/23 History tablet Chest Pain rosuvastatin 5 mg tablet 5 mg PO DAILY 12/04/23 12/04/23 History Patient History Medical History Chronic coronary artery disease Surgical History Stented coronary artery Social History Smoking Status: Former smoker Tobacco Type: Cigarettes Second Hand Exposure: No; Do You Dip or Chew Tobacco: No; Tobacco Cessation Education Requested by Patient: No Hx Alcohol Use: No Hx Substance Use: No Preferred Language: Telugu Communication Ability: Effective Rope Cutter Required: No Beliefs That Will Affect Care: None Current Living Situation: Family Other Information That Helps Us Care for You: No Feels Safe at Home: Yes Safety Concerns: Feels Safe At This Time Assistive Devices: None Review of Systems Review of Systems: All systems reviewed & are unremarkable except as noted in HPI & below Constitutional: + fever Physical Exam Constitutional: WD/WN, vitals as above Respiratory: normal respiratory effort, lungs clear to auscultation Cardiovascular: RRR, no murmur, no edema Gastrointestinal (Abdomen): normal bowel sounds, soft, nontender, no hepatosplenomegaly Musculoskeletal: no cyanosis or clubbing, extremities motor strength 5/5 Skin: no rashes, warm and dry Psychiatric: A+Ox3, euthymic affect Cognition: + remote memory not intact Results & Data Vital Signs (Past 12 Hours) Vital Signs Temp Pulse Pulse Resp BP BP Pulse Ox 12/04/23 09:20 69 20 106/56 L 98 12/04/23 07:48 71 12/04/23 07:47 12/04/23 07:42 36.8 C 74 16 119/58 L 97 12/04/23 05:26 91 H 12/04/23 01:28 79 12/04/23 01:18 75 16 106/53 L 95 12/04/23 01:06 72 17 94 12/04/23 00:51 69 14 93 12/04/23 00:42 69 14 93 12/04/23 00:30 73 15 91 12/04/23 00:24 73 15 93 12/04/23 00:15 84/51 L 12/03/23 23:54 81 7 L 92 12/03/23 23:45 79 12 97 12/03/23 23:45 113/50 L 12/03/23 23:00 85 16 12/03/23 23:00 125/61 12/03/23 22:51 86 18 12/03/23 22:45 84 19 98 12/03/23 22:45 139/64 Pulse Ox O2 Del Method O2 Del Method 12/04/23 09:20 Room Air 12/04/23 07:48 12/04/23 07:47 97 Room Air 12/04/23 07:42 Room Air 12/04/23 05:26 12/04/23 01:28 12/04/23 01:18 Room Air 12/04/23 01:06 12/04/23 00:51 12/04/23 00:42 12/04/23 00:30 12/04/23 00:24 12/04/23 00:15 12/03/23 23:54 12/03/23 23:45 12/03/23 23:45 12/03/23 23:00 12/03/23 23:00 12/03/23 22:51 12/03/23 22:45 12/03/23 22:45 Laboratory Results Cardiac Enzymes 12/03/23 12/04/23 Range/Units 21:25 06:50 AST 36 (13-39) U/L Troponin I High Sens 11.0 15.4 H D (0-14) pg/ml CBC 12/03/23 12/04/23 Range/Units 21:25 05:52 WBC 4.38 L 4.36 L (4.8-10.8) K/ul RBC 4.90 3.71 L (4.20-5.40) M/uL Hgb 14.1 10.7 L D (12.0-16.0) g/dl Hct 40.4 30.7 L (37.0-47.0) % Plt Count 207 147 (130-400) K/uL Neut # (Auto) 3.20 3.57 (1.40-6.50) K/uL Lymph # (Auto) 0.73 L 0.26 L (1.20-3.40) K/uL [place] # (Auto) 0.41 0.49 (0.11-0.59) K/uL Eos # (Auto) 0.00 0.00 (0.00-0.50) K/uL Baso # (Auto) 0.02 0.01 (0.00-0.20) K/uL Comprehensive Metabolic Panel 12/03/23 12/04/23 Range/Units 21:25 06:50 Sodium 128 L 131 L (136-145) mmol/L Potassium 3.9 3.5 (3.5-5.1) mmol/L Chloride 94 L 102 (98-107) mmol/L Carbon Dioxide 23 23 (21-32) mmol/L BUN 15 14 (6-23) mg/dl Creatinine 0.80 0.73 (0.6-1.2) mg/dl Glucose 168 H 174 H (70-99(Fasting)) mg/dl Calcium 9.9 8.5 L (8.6-10.3) mg/dl AST 36 (13-39) U/L ALT 22 (7-52) U/L Alkaline Phosphatase 42 (34-104) U/L Total Protein 8.9 H (6.0-8.3) gm/dl Albumin 4.6 (3.4-5.0) gm/dl Intake and Output 12/03/23 12/04/23 12/04/23 22:59 06:59 14:59 Intake Total 1800 / 1800 50 / 50 Balance 1800 / 1800 50 / 50 Intake: IV 1800 / 1800 50 / 50 Acetaminophen 1,000 mg In 100 100 / 100 ml @ 400 mls/hr IV NOW STA Rx#: [id number] Doxycycline Hyclate 100 mg In 100 / 100 Dextrose 5% Mini-B 100 ml @ 50 mls/hr IV NOW STA Rx#:[id number] Piperacillin/Tazobactam 4.5 gm 100 / 100 In 100 ml @ 200 mls/hr IV NOW ONE Rx#:[id number] Sodium Chloride 0.9% 1,000 ml @ 1500 / 1500 999 mls/hr IV .Q1H1M ONE Rx#: [id number] cefTRIAXone SODIUM 2,000 mg In 50 / 50 50 ml @ 100 mls/hr IV Q24H [facility] Rx#:[id number] Other: Weight 65.4 kg 65.4 kg Weight Measurement Method Built in [facility] Built in [facility] Diagnostic Findings CATH 2017 NSTEMI; 90% culprit midRCA stenosis treated with SHARLENE with nonobstructive disease elsewhere. 30% distal left main stenosis, mild luminal irregularities in the circumflex coronary artery 20-30% stenosis in the proximal to mid LAD 20-30% stenosis at the ostium of the first diagonal Exercise stress echo 2021 The stress echo demonstrates a fixed inferior and inferoseptal wall motion abnormality without ischemia Exercise capacity below average LVEF 55-59% wall thickness mildly incresaed with normal wall motion base inferior wall scarred and akinetic base inferseptum is hypokinetic left ventricular diastolic function is mildly abnormal mild aortic valve sclerosis no evidence of pulmonary HTN
[2023-12-04] MEDS: DOXYCYCLINE HYCLATE 100 MG in DEXTROSE 5% MINI-B 100 ML IV SCH (11:37)
--- NOTE | 2023-12-04 12:25 | Nephrology Consultation ---
Date of Consultation December 04, 2023 Assessment & Plan (1) Acute hyponatremia: She has mild Hyponatremia with Na in early 130's over the last one year- unclear cause. A/dmitting Na was 128 which has improved to 131 with Iv Fluids. - this is behaving like hyptonic hypovolemia at the moment. - continue with Iv Fluid at the current rate fo 1 day. Repeat Uosm Posm , w/ [place] w/ am labs. (2) Abnormal EKG: (3) Chest pain: History of Present Illness Reason for Consultation: Hyponatremia Attending Physician: Shad Kim MD History of Present Illness 73-year-old female who p/ w fevers and confusion.alert on oriented on my examination. She c/o " fevers" over the last few days. No chest pain ,shortness of breath.Oral intake has been poor.She had a tick bite in her abdominal region few weeks back. Labs were significant for NA 128 w/ Normal renal functions, U osm 671, with soft BP. . PMH-type 2 diabetes, hyperlipidemia, history of paroxysmal SVT, hypertension, history of CAD s/p stent, history of microscopic colitis, history of hyponatremia who lives at home with her was brought in because of fevers and confusion. Allergies Allergy/AdvReac Type Severity Reaction Status Date / Time albuterol Allergy Unknown tachycardia Verified 12/04/23 01:34 Home Medications Medication Instructions Recorded Confirmed Type aspirin 81 mg tablet,delayed 81 mg PO DAILY 12/04/23 12/04/23 History release coQ10 (ubiquinol) 100 mg capsule 100 mg PO DAILY 12/04/23 12/04/23 History glipizide 5 mg tablet, extended 5 mg PO DAILY 12/04/23 12/04/23 History release 24 hr glucosamine-chondroitin 500 mg-400 1 cap PO DAILY 12/04/23 12/04/23 History mg capsule metformin 850 mg tablet 850 mg PO BID 12/04/23 12/04/23 History metoprolol succinate 25 mg 37.5 mg PO QAM 12/04/23 12/04/23 History tablet,extended release 24 hr niacinamide 100 mg tablet 100 mg PO DAILY 12/04/23 12/04/23 History nitroglycerin 0.4 mg sublingual 0.4 mg sublingual DIRECTED PRN 12/04/23 12/04/23 History tablet Chest Pain rosuvastatin 5 mg tablet 5 mg PO DAILY 12/04/23 12/04/23 History Patient History Medical History Chronic coronary artery disease Surgical History Stented coronary artery Social History Smoking Status: Former smoker Tobacco Type: Cigarettes Second Hand Exposure: No; Do You Dip or Chew Tobacco: No; Tobacco Cessation Education Requested by Patient: No Hx Alcohol Use: No Hx Substance Use: No Preferred Language: Greenlandic Communication Ability: Effective Corporate Attorney Required: No Beliefs That Will Affect Care: None Current Living Situation: Family Other Information That Helps Us Care for You: No Feels Safe at Home: Yes Safety Concerns: Feels Safe At This Time Assistive Devices: None Review of Systems 2 Review of Systems: Comfortable. No complains Physical Exam 2 Physical Exam: General- Not in distress Neck- supple, no JVD. Lungs- clear to auscultation no wheezing or crackles. Heart- regular rate and rhythm; no murmur, no gallop. Abdomen- normal bowel sounds, soft, nontender, no distension. Extremities- no pretibial edema, no erythema seen. Neuro- alert, oriented x 3; PERRL. Results & Data Vital Signs (Past 12 Hours) Vital Signs Temp Pulse Pulse Resp BP Pulse Ox Pulse Ox 12/04/23 09:20 69 20 106/56 L 98 12/04/23 07:48 71 12/04/23 07:47 97 12/04/23 07:42 36.8 C 74 16 119/58 L 97 12/04/23 05:26 91 H 12/04/23 01:28 79 12/04/23 01:18 75 16 106/53 L 95 12/04/23 01:06 72 17 94 12/04/23 00:51 69 14 93 12/04/23 00:42 69 14 93 12/04/23 00:30 73 15 91 12/04/23 00:24 73 15 93 O2 Del Method O2 Del Method 12/04/23 09:20 Room Air 12/04/23 07:48 12/04/23 07:47 Room Air 12/04/23 07:42 Room Air 12/04/23 05:26 12/04/23 01:28 12/04/23 01:18 Room Air 12/04/23 01:06 12/04/23 00:51 12/04/23 00:42 12/04/23 00:30 12/04/23 00:24 Laboratory Results 12/04/23 05:52 12/04/23 06:50
[2023-12-04 13:36] LABS: BUN Creatinine Ratio 17.4 (10-20); Calcium 8.8 mg/dl (8.6-10.3); Creatinine Clr Calc Pharmacy 66.3 ml/min; Est GFR (African American) 100.8 ml/min; Potassium 3.7 mmol/L (3.5-5.1)
[2023-12-04 13:43] LABS: Troponin I High Sensitivity 12.8 pg/ml (0-14)
[2023-12-04 20:11] LABS: BUN Creatinine Ratio 17.5 (10-20); Calcium 8.6 mg/dl (8.6-10.3); Creatinine Clr Calc Pharmacy 72.6 ml/min; Est GFR (African American) 103.9 ml/min; Est GFR (Non-African American) 89.6 ml/min; Potassium 3.5 mmol/L (3.5-5.1)
[2023-12-04 20:18] LABS: Troponin I High Sensitivity 13.3 pg/ml (0-14)
[2023-12-04] MEDS: ACETAMINOPHEN 1,000 MG/100 ML VIAL IV PRN (21:50)
[2023-12-05 07:29] LABS: Estimated Average Glucose 140 mg/dl; Hemoglobin A1C 6.5 % (4.5-5.6)
--- NOTE | 2023-12-05 07:42 | Electrocardiogram Report ---
Test Reason : Blood Pressure : / mmHG Vent. Rate : 066 BPM Atrial Rate : 066 BPM P-R Int : 154 ms QRS Dur : 110 ms QT Int : 404 ms P-R-T Axes : 037 -34 028 degrees QTc Int : 423 ms Sinus rhythm with sinus arrhythmia with occasional Premature ventricular complexes Left axis deviation Incomplete left bundle block Abnormal ECG When compared with ECG of 03-DEC-2023 21:29, Premature ventricular complexes are now Present Incomplete left bundle block is now Present Criteria for Septal infarct are no longer Present Confirmed by Prince Parada ([id number]) on 12/05/2023 7:42:01 AM Referred By: REFERRED SELF Confirmed By:Prince Parada
--- NOTE | 2023-12-05 10:52 | Nephrology Progress Note ---
Date of Service December 05, 2023 Assessment & Plan (1) Acute hyponatremia: Plan: She has chronic mild Hyponatremia with Na in early 130's over the last one year- unclear cause. Admitting Na was 128 which has improved to 132 at appropriate improvement rate with IV Fluids. - this is behaving like hypotonic hypovolemia at the moment. - continue with Iv Fluid at the current rate for another day >> repeat urine studies show some improvement in volume status -daily bmp -maintain eukalemia -for now no FR -consider LP/meningitis w/u if no improvement in MS concerns will sign off NEPHRO D/C RECOMMENDATIONS -ok to resume prior to admission meds at d/c -avoid nsaids and thiazide diuretics at d/c -encourage high protein intake at hospital d/c > at least 50 gm daily protein intake; recommend dietary consult to review how to do this best w/ her diet -encourage at least 50 oz daily fluid intake and no more than 90 oz, most of which should be water -BMP at PCP hospital d/c visit -recommend nephro referral for hyponatremia if ongoing sodium issues despite measures above in weeks/months after hospital d/c Admission and Anticipated Discharge Date Admission Date: December 04, 2023 Subjective nopain or n/v. no sob. ongoing concerns when I saw her late this am about confusion Review of Systems 2 Review of Systems: All systems reviewed & are unremarkable except as noted in Subjective Physical Exam 2 Constitutional: well developed (sitting in bed on RA), well nourished and cooperative Eyes: EOM intact bilaterally ENMT: Ears: no external ear abnormality Nose: no external nose abnormality Mouth: + dry oral mucous membranes Neck: no nuchal rigidity Respiratory: normal respiratory effort Auscultation: + diminished lung sounds Gastrointestinal (Abdomen): Inspection/Auscultation: normal bowel sounds P ercussion/Palpation: abdomen soft; abdomen nontender Musculoskeletal: Extremities: strength 5/5 throughout Skin: no rashes, warm and dry Neurologic: santiago, fluent speech w/ occasional word finding issues, no tremor Psychiatric: Orientation: alert and oriented x 3 Results & Data Vital Signs (Past 12 Hours) Vital Signs Temp Pulse Pulse Resp BP Pulse Ox O2 Del Method 12/05/23 08:51 90 12/05/23 07:30 36.5 C 81 16 154/76 H 98 Room Air 12/05/23 03:07 36.3 C L 60 18 114/67 96 Room Air 12/04/23 23:18 36.8 C 74 18 115/59 L 97 Room Air 12/04/23 23:06 76 Laboratory Results 12/04/23 05:52 12/04/23 19:19
--- NOTE | 2023-12-05 11:50 | Hospitalist Progress Note ---
Date of Service December 05, 2023 Assessment & Plan (1) AMS (altered mental status): Plan: 73 yo F with past medical history significant for type 2 diabetes, hyperlipidemia, history of paroxysmal SVT, hypertension, history of CAD s/p stent, history of microscopic colitis, history of hyponatremia who lives at home with her was brought in because of fevers and confusion. Seems patient was having increased confusion and difficulty speaking and slow to respond for last few days. And family brought to the hospital today and seems worried about stroke. Currently patient is alert and oriented x 3. Able to give her history. Patient states last few days she is having temperature. Denies any chest pain . Denies shortness of breath. Denies cough. Denies headache. No neck pain. No back pain. Today she also noticed having some bilateral hip pain radiating to the knees Improved with the pain medications. Appetite is down. No nausea. No abdominal pain. Normal bowel and bladder movements. Patient states she had a tick bite in her abdominal region few weeks back could not tell exact time. Small healing tick bite wound seen on abdomen. No rash seen. Altered mental status. Fevers. Currently mental status is okay. Has leukopenia. elevated procalcitonin LFTs okay. UA negat. Chest x-ray negat. Respiratory bio fire negative. Lyme screen negative. Recently had a tick bite. Follow-up tickborne labs - pending Empirically Doxy and Rocephin. IV fluids. Follow cultures CT head, CTA head and neck no acute findings Mental status much improved / back to baseline Abnormal EKG patient had transient ST elevation inferior leads when she was admitted in May with mechanical fall and right distal radius and ulnar fractures supposed to get Lexiscan nuclear stress test as outpatient but seems not followed up initial troponin negative. Will follow serial cardiac enzymes, and repeat EKG and echo Echo - LVEF 55 to 60%. RV cavity size is normal. RV systolic function is normal. There is mild mitral regurg. Cardiology consulted for further recommendations - plan for outpt stress test (which was already recommended as outpt) history of hyponatremia sodium 128 getting gentle fluids follow repeat labs Nephrology consulted bilateral hip pains will follow CT scan -Degenerative and chronic change, no acute fracture. pain control type 2 diabetes hold p.o. medications sliding scale we will monitor history of CAD s/p stent on aspirin, statin and metoprolol succinate history of paroxysmal SVT on metoprolol succinate hyperlipidemia on statin DVT prophylaxis - heparin subcu disposition- telemetry full code Admission and Anticipated Discharge Date Admission Date: December 04, 2023 Subjective Pt seen in follow up of altered mental status, hyponatremia, fever Currently sitting up in bed in NAD, reports feeling much better. Sister present at the bedside. Currently denies any fever, chills, chest pain, shortness of breath. Review of Systems Review of Systems: All systems reviewed & are unremarkable except as noted in Subjective Physical Exam Physical Exam: General- WD/WN in NAD Head- atraumatic Eyes- PERRL. Neck- supple, no JVD. Lungs- clear to auscultation no wheezing or crackles. Heart- regular rate and rhythm; no murmur Abdomen- normal bowel sounds, soft, nontender, no distension. Extremities- no pretibial edema, no erythema seen. Neuro- alert, oriented x 3; PERRL, no facial palsy; no dysarthria; motor 5/5 bilaterally Skin- warm & dry Results & Data Results & Data Vital Signs (Past 12 Hours) Vital Signs Temp Pulse Pulse Resp BP Pulse Ox O2 Del Method 12/05/23 10:50 36.3 C L 67 17 138/62 92 Room Air 12/05/23 08:51 90 12/05/23 07:30 36.5 C 81 16 154/76 H 98 Room Air 12/05/23 07:00 80 12/05/23 03:07 36.3 C L 60 18 114/67 96 Room Air Medications Administered Current Inpatient Medications Aspirin (Aspirin 81 Mg Ectab) 81 mg PO DAILY [facility] Stop: 01/03/24 08:59 Last Admin: 12/05/23 08:54 Dose: 81 mg Dextrose (Dextrose 50% 50 Ml Syringe) 25 - 50 ml IV UD PRN; Protocol PRN Reason: Hypoglycemia Protocol Stop: 01/03/24 05:49 Glucagon (Glucagon For Inj 1 Mg Vial) 1 mg SQ UD PRN; Protocol PRN Reason: Hypoglycemia Protocol Stop: 01/03/24 05:49 Glucose (Glucose 40% Gel 15 Gm Tube) 15 - 30 gm PO UD PRN; Protocol PRN Reason: Hypoglycemia Protocol Stop: 01/03/24 05:49 Glucose (Glucose 10 Tab/Tube) 4 - 8 tab PO UD PRN; Protocol PRN Reason: Hypoglycemia Treatment Stop: 01/03/24 05:49 Heparin Sodium (Porcine) (Heparin Sod 5,000 Unit/0.5 Ml Vial) 5,000 units SQ Q12 [facility] Stop: 01/03/24 08:59 Last Admin: 12/05/23 08:54 Dose: 5,000 units Sodium Chloride (Nss) 1,000 mls @ 75 mls/hr IV .[id number] [facility] Stop: 01/03/24 04:14 Last Admin: 12/05/23 06:03 Dose: 75 mls/hr Ceftriaxone Sodium (Rocephin) 2,000 mg in 50 mls @ 100 mls/hr IV Q24H [facility] Stop: 12/14/23 05:59 Last Infusion: 12/05/23 06:33 Dose: Infused Doxycycline Hyclate 100 mg/ (Dextrose) 100 mls @ 50 mls/hr IV Q12H [facility] Stop: 12/14/23 08:59 Last Infusion: 12/05/23 11:35 Dose: Infused Acetaminophen (Ofirmev) 1,000 mg in 100 mls @ 400 mls/hr IV Q8H PRN PRN Reason: Pain or Fever Stop: 12/07/23 05:49 Last Infusion: 12/04/23 22:05 Dose: Infused Insulin Aspart (Insulin Aspart Per Unit Charge) 0 units SC Q6 [facility] Stop: 01/03/24 05:59 Last Admin: 12/05/23 06:05 Dose: Not Given Metoprolol Succinate (Metoprolol Succ 25mg Ext Rel Tab) 37.5 mg PO QAM [facility] Stop: 01/03/24 08:59 Last Admin: 12/05/23 08:54 Dose: 37.5 mg Miscellaneous (Carbohydrates For Hypoglycemia ) 15 - 30 gm PO UD PRN PRN Reason: Hypoglycemia Protocol Stop: 01/03/24 05:49 Nitroglycerin (Nitroglycerin Sl 0.4 Mg/Tab Tab) 0.4 mg SL Q5M PRN PRN Reason: Chest Pain Stop: 01/03/24 05:49 Rosuvastatin Calcium (Rosuvastatin Calcium 5 Mg Tab) 5 mg PO DAILY [facility] Stop: 01/03/24 08:59 Last Admin: 12/05/23 08:54 Dose: 5 mg
[2023-12-05 18:34] LABS: Hematocrit (blood only) 36.1 % (37.0-47.0); Hemoglobin 12.5 g/dl (12.0-16.0); Mean Corpuscular Hemoglobin 28.8 pg (25.0-34.0); Mean Corpuscular Hgb Conc 34.6 g/dL (32.0-36.0); Mean Corpuscular Volume 83.2 fL (80.0-100.0); Mean Platelet Volume 9.9 fL (9.4-12.4); Platelet Count 177 K/uL (130-400); RDW Coefficient of Variation 13.6 % (11.5-14.5); RDW Standard Deviation 41.5 fL (36.4-46.3); Red Blood Count 4.34 M/uL (4.20-5.40); White Blood Count 3.57 K/ul (4.8-10.8)
--- NOTE | 2023-12-05 18:35 | Cardiology Progress Note ---
Date of Service December 05, 2023 Assessment & Plan (1) AMS (altered mental status): (2) Abnormal EKG: Plan: -Poor R wave progression, chronic finding (3) Chest pain: Plan 1. Remote hx chest discomfort 2. AMS 3. UTI? 4.Hyponatremia 5. CAD -SHARLENE x1 mRCA 2017 6. HTN 7. T2 DM 8. HLD 9. Aortic valve sclerosis Remote hx chest discomfort, HPI limited. -EKG without acute changes. -Troponin flat -Patient remains chest pain free -Echocardiogram ordered to ensure no WMA AMS -CTA head/neck unremarkable -UTI?, recent tick bite Cardiac workup reassuring thus far. She does have a history of past RCA stent, but I do not think she would be presenting with such subtle symptoms if she was to have progression of her coronary disease in that territory. Previous plan had been for a repeat stress test as an outpatient as initially recommended in May but is yet to be performed. Admission and Anticipated Discharge Date Admission Date: December 04, 2023 Subjective Patient seen in cardiology follow-up. Spouse at bedside. Patient without acute complaint. She is oriented to person and place, did not know the day of the week. Telemetry reveals sinus rhythm in the 70s to 80s with 1 brief episode of supraventricular tachycardia earlier today. Physical Exam Constitutional: WD/WN, vitals as above Respiratory: normal respiratory effort, lungs clear to auscultation Cardiovascular: RRR, no murmur, no edema Gastrointestinal (Abdomen): normal bowel sounds, soft, nontender, no hepatosplenomegaly Neurologic: PERRL, EOMI, accommodation nl, no face palsy, no dysarthria Results & Data Vital Signs (Past 12 Hours) Vital Signs Temp Pulse Pulse Resp BP Pulse Ox O2 Del Method 12/05/23 14:52 36.5 C 82 17 154/80 H 99 Room Air 12/05/23 10:50 36.3 C L 67 17 138/62 92 Room Air 12/05/23 08:51 90 12/05/23 07:30 36.5 C 81 16 154/76 H 98 Room Air 12/05/23 07:00 80 Laboratory Results Cardiac Enzymes 12/04/23 Range/Units 19:19 Troponin I High Sens 13.3 (0-14) pg/ml Comprehensive Metabolic Panel 12/04/23 Range/Units 19:19 Sodium 132 L (136-145) mmol/L Potassium 3.5 (3.5-5.1) mmol/L Chloride 102 (98-107) mmol/L Carbon Dioxide 24 (21-32) mmol/L BUN 11 (6-23) mg/dl Creatinine 0.63 (0.6-1.2) mg/dl Glucose 103 H (70-99(Fasting)) mg/dl Calcium 8.6 (8.6-10.3) mg/dl Intake and Output 12/05/23 12/05/23 12/05/23 06:59 14:59 22:59 Intake Total 1006.25 / 2456.25 915 / 915 Output Total 250 / 601 Balance 756.25 / 1855.25 915 / 915 Intake: IV 1006.25 / 2456.25 715 / 715 Doxycycline Hyclate 100 mg In 100 / 100 Dextrose 5% Mini-B 100 ml @ 50 mls/hr IV Q12H [facility] Rx#:[id number] Sodium Chloride 0.9% 1,000 ml @ 956.25 / 1956.25 615 / 615 75 mls/hr IV .[id number] [facility] Rx#: [id number] [id number] SODIUM 2,000 mg In 50 / 100 50 ml @ 100 mls/hr IV Q24H [facility] Rx#:[id number] Oral 200 / 200 Output: Urine 250 / 600 Other: # Unmeasured Voids 2 Weight 69.3 kg Weight Measurement Method Built in [facility] Diagnostic Findings EKG performed 12/03/2023 and again today 12/05/2023 with poor R wave progression, no acute repolarization abnormalities. 1 PVC noted on today's EKG. Echocardiogram performed 12/04/2023 revealed normal LV wall motion, normal LVEF, 55 to 60%, mild MR. Initial troponin normal at 11 PG per mL, trended up to minimally abnormal at 15.4, and 2 additional measurements have been within normal limits at 12.8 and 13.3 PG per mL.
[2023-12-05 18:45] LABS: Est GFR (African American) 100.8 ml/min; Magnesium 1.5 mg/dl (1.7-2.4); Phosphorus 2.3 mg/dl (2.5-4.9); Potassium 3.8 mmol/L (3.5-5.1)
[2023-12-05 20:12] LABS: Calcium 9.1 mg/dl (8.6-10.3)
[2023-12-06 06:23] LABS: Hematocrit (blood only) 31.1 % (37.0-47.0); Hemoglobin 10.7 g/dl (12.0-16.0); Mean Corpuscular Hemoglobin 28.3 pg (25.0-34.0); Mean Corpuscular Hgb Conc 34.4 g/dL (32.0-36.0); Mean Corpuscular Volume 82.3 fL (80.0-100.0); Mean Platelet Volume 10.4 fL (9.4-12.4); Platelet Count 161 K/uL (130-400); RDW Coefficient of Variation 13.6 % (11.5-14.5); RDW Standard Deviation 40.6 fL (36.4-46.3); Red Blood Count 3.78 M/uL (4.20-5.40); White Blood Count 4.05 K/ul (4.8-10.8)
[2023-12-06 06:35] LABS: BUN Creatinine Ratio 14.3 (10-20); Calcium 8.7 mg/dl (8.6-10.3); Creatinine Clr Calc Pharmacy 81.7 ml/min; Est GFR (Non-African American) 93.2 ml/min; Magnesium 1.5 mg/dl (1.7-2.4); Phosphorus 2.5 mg/dl (2.5-4.9); Potassium 3.4 mmol/L (3.5-5.1)
[2023-12-06] MEDS ORDERED: POTASSIUM CHLORIDE CRTAB 20 MEQ TABCR PO STA (07:41)
[2023-12-06] MEDS ORDERED: Nursing to Pharmacy Communication SCH (08:30)
[2023-12-06] MEDS: MAGNESIUM SULFATE / D5W 1 GM/100 ML BAG IV SCH (09:05)
[2023-12-06] MEDS: POTASSIUM CHLORIDE 10 MEQ TABCR PO ONE (09:58)
[2023-12-06] MEDS: INSULIN ASPART PER UNIT CHARGE SC SCH (09:58)
--- NOTE | 2023-12-06 10:38 | Electrocardiogram Report ---
Test Reason : Blood Pressure : / mmHG Vent. Rate : 072 BPM Atrial Rate : 072 BPM P-R Int : 158 ms QRS Dur : 108 ms QT Int : 394 ms P-R-T Axes : 057 -41 002 degrees QTc Int : 431 ms Normal sinus rhythm with sinus arrhythmia Left axis deviation Incomplete left bundle block Abnormal ECG When compared with ECG of 05-DEC-2023 05:49, Premature ventricular complexes are no longer Present Confirmed by Prince Parada ([id number]) on 12/06/2023 10:37:43 AM Referred By: REFERRED SELF Confirmed By:Prince Parada
--- NOTE | 2023-12-06 15:44 | Discharge Summary ---
Date of Service December 06, 2023 Admission HPI Per Admitting Provider 73-year-old female with past medical history significant for type 2 diabetes, hyperlipidemia, history of paroxysmal SVT, hypertension, history of CAD s/p stent, history of microscopic colitis, history of hyponatremia who lives at home with her was brought in because of fevers and confusion. Seems patient was having increased confusion and difficulty speaking and slow to respond for last few days. And family brought to the hospital today and seems worried about stroke. Currently patient is alert and oriented x 3. Able to give her history. Patient states last few days she is having temperature. Denies any chest pain . Denies shortness of breath. Denies cough. Denies headache. No neck pain. No back pain. Today she also noticed having some bilateral hip pain radiating to the knees Improved with the pain medications. Appetite is down. No nausea. No abdominal pain. Normal bowel and bladder movements. Patient states she had a tick bite in her abdominal region few weeks back could not tell exact time. Small healing tick bite wound seen on abdomen. No rash seen. past medical history. As mentioned above. Past surgical history. Cardiac cath .colonoscopy. Bilateral cataracts. Social history. Smoked 1.5 pack a day for 15 years. Quit in 1980. Alcohol 2 standard drinks of alcohol per week. No drug use. Family history. Mother had breast cancer. Father had stroke. Sister had diabetes, hypertension, heart disorder. Brother has diabetes. Admission Exam Per Admitting Provider General- Not in distress Head- atraumatic Eyes- PERRL. ENT- oropharynx clear Neck- supple, no JVD. Lungs- clear to auscultation no wheezing or crackles. Heart- regular rate and rhythm; no murmur, no gallop. Abdomen- normal bowel sounds, soft, nontender, no distension. Extremities- no pretibial edema, no erythema seen. Neuro- alert, oriented x 3; PERRL, no facial palsy; no dysarthria; motor 5/5 bilaterally; no pronator drift, sensations intact. Skin- warm & dry Principal Diagnosis Fever, altered mental status Dehydration Hyponatremia Discharge Exam General- WD/WN in NAD Head- atraumatic Eyes- PERRL. Neck- supple, no JVD. Lungs- clear to auscultation no wheezing or crackles. Heart- regular rate and rhythm; no murmur Abdomen- normal bowel sounds, soft, nontender, no distension. Extremities- no pretibial edema, no erythema seen. Neuro- alert, oriented x 3; PERRL, no facial palsy; no dysarthria; motor 5/5 bilaterally Skin- warm & dry Discharge Data Allergies Allergy/AdvReac Type Severity Reaction Status Date / Time albuterol Allergy Unknown tachycardia Verified 12/04/23 01:34 Consultations 12/04/23 01:01 ED Decision to Admit Stat 12/04/23 08:00 Consult Cardiology Routine Consult Nephrology Routine Ordered Studies 12/03/23 21:54 CT angio head w con Stat IMPRESSION: No large vessel occlusion. Calcified plaque in the right vertebral artery and bilateral cavernous internal carotid arteries with intact distal runoff. CT angio neck with con Stat IMPRESSION: Left greater than right carotid bulb plaque without a hemodynamically significant stenosis. CT head/brain wo con Stat FINDINGS: Brain: Age-appropriate generalized atrophy. No acute stroke. Moderate diffuse supratentorial periventricular and subcortical white matter changes. No acute hemorrhage or abnormal extra-axial fluid collection. Ventricles: No hydrocephalus. No midline shift. Bones/joints: Unremarkable. No acute fracture. Soft tissues: Unremarkable. Sinuses: Opacified partially visualized right maxillary sinus. IMPRESSION: No acute stroke or hemorrhage Non-specific white matter changes, most commonly seen with small vessel disease. 12/04/23 05:50 CT pelvis wo con Routine FINDINGS: Bowel: There is diverticulosis. No obstruction. No mucosal thickening. Appendix: No findings to suggest acute appendicitis. Intraperitoneal space: Unremarkable. No free air. No significant fluid collection. Bladder: Unremarkable. No stones. Reproductive: The uterus is retroverted. Bones/joints: There is some mild bony sclerosis and osteophytosis demonstrated to the bilateral acetabular roofs. Extensive facet bony sclerosis and osteophytosis and narrowing to the visualized lower lumbar spine. No acute fracture. No dislocation. Soft tissues: Unremarkable. Vasculature: Probable at least moderate stenosis demonstrated bilateral common femoral arteries incompletely assessed. There is extensive calcific atherosclerotic vascular disease. No lower abdominal aortic aneurysm. Lymph nodes: Unremarkable. No enlarged lymph nodes. IMPRESSION: Degenerative and chronic change, no acute fracture. Hospital Course (1) AMS (altered mental status): 73 yo F with past medical history significant for type 2 diabetes, h yperlipidemia, history of paroxysmal SVT, hypertension, history of CAD s/p stent, history of microscopic colitis, history of hyponatremia who lives at home with her was brought in because of fevers and confusion. Seems patient was having increased confusion and difficulty speaking and slow to respond for last few days. And family brought to the hospital today and seems worried about stroke. Currently patient is alert and oriented x 3. Able to give her history. Patient states last few days she is having temperature. Denies any chest pain . Denies shortness of breath. Denies cough. Denies headache. No neck pain. No back pain. Today she also noticed having some bilateral hip pain radiating to the knees Improved with the pain medications. Appetite is down. No nausea. No abdominal pain. Normal bowel and bladder movements. Patient states she had a tick bite in her abdominal region few weeks back could not tell exact time. Small healing tick bite wound seen on abdomen. No rash seen. Altered mental status. Fevers. Currently mental status is okay. Has leukopenia. elevated procalcitonin LFTs okay. UA negat. Chest x-ray negat. Respiratory bio fire negative. Lyme screen negative. Recently had a tick bite. Follow-up tickborne labs - pending Empirically Doxy and Rocephin while inpt. -> will DC on doxycycline empirically- until tick born panel finalized - follow up with PCP on results IV fluids. Follow cultures CT head, CTA head and neck no acute findings Mental status much improved / back to baseline Abnormal EKG patient had transient ST elevation inferior leads when she was admitted in May with mechanical fall and right distal radius and ulnar fractures supposed to get Lexiscan nuclear stress test as outpatient but seems not followed up initial troponin negative. Will follow serial cardiac enzymes, and repeat EKG and echo Echo - LVEF 55 to 60%. RV cavity size is normal. RV systolic function is normal. There is mild mitral regurg. Cardiology consulted for further recommendations - plan for outpt stress test (which was already recommended as outpt) history of hyponatremia sodium 128 getting gentle fluids follow repeat labs Nephrology consulted - -avoid nsaids and thiazide diuretics at d/c -encourage high protein intake -encourage at least 50 oz daily fluid intake and no more than 90 oz, most of which should be water -BMP at PCP hospital d/c visit -recommend nephro referral for hyponatremia if ongoing sodium issues despite measures above in weeks/months after hospital d/c Hypomagnesemia, hypokalemia - replace and monitor bilateral hip pains will follow CT scan -Degenerative and chronic change, no acute fracture. pain control type 2 diabetes hold p.o. medications while inpt sliding scale we will monitor history of CAD s/p stent on aspirin, statin and metoprolol succinate history of paroxysmal SVT on metoprolol succinate hyperlipidemia on statin Total Time Total Time Spent Total Time Spent (In Minutes): 40 Discharge Plan Discharge Items Patient Disposition: Home - Home Health Services Reason For Visit: FEVERS, CONFUSION, ABNORMAL EKG Discharge Diagnosis: Fever, altered mental status Dehydration Hyponatremia Activity: Per Instructions section Non-emergency contact: Primary Care Provider Call non-emergency contact if: you have any medication questions and your symptoms worsen Follow-up/Referrals: Russell Morales MD [Surgeon] - (Date & Time 12/13/2023 1:40 PM Provider Russell Morales MD Department Nephrology, [facility] ) Yenny Miller MD [Primary Care Provider] - (Date & Time 12/09/2023 9:00 AM Provider Yenny Miller MD Department General Internal Medicine [facility] ) Diet: Carb Consistent or DM2 Addtl Attending Provider Instructions: Follow up with your primary care physician and nephrology. You are also supposed to follow up with cardiology and have a stress test done. Make sure to stay well hydrated. Recommend to have a good protein intake. In addition, take potassium and magnesium supplement. Finish antibiotic treatment and follow up on tick born panel results at your next primary care doctor appointment. You will also need blood work - to check your sodium level. Pending Studies at Discharge: Yes Studies:: tick borne panel, final blood cultx results Stand-Alone Forms: My [facility] [employer], Smoking Cessation Medications and DC Order Prescriptions: New doxycycline hyclate 100 mg capsule 100 mg PO BID Qty: 10 0RF potassium chloride 20 mEq Tablet,Er Particles/Crystals 20 meq PO QAM Qty: 7 0RF magnesium oxide 400 mg (241.3 mg magnesium) Tablet 400 mg PO QAM Qty: 7 0RF Continued glipizide 5 mg tablet extended release 24hr 5 mg PO DAILY metformin 850 mg tablet 850 mg PO BID aspirin [Aspir-Low] 81 mg Tablet,Delayed Release (Dr/Ec) 81 mg PO DAILY nitroglycerin 0.4 mg tablet, sublingual 0.4 mg sublingual DIRECTED PRN (Reason: Chest Pain) metoprolol succinate 25 mg tablet extended release 24 hr 37.5 mg PO QAM Rx Instructions: Take 1 & 1/2 tab glucosamine-chondroitin 500-400 mg Capsule 1 cap PO DAILY Rx Instructions: give with meal/snack niacinamide 100 mg Tablet 100 mg PO DAILY rosuvastatin 5 mg tablet 5 mg PO DAILY coQ10 (ubiquinol) 100 mg Capsule 100 mg PO DAILY Discharge Orders: Discharge Order (Routine); Ordered 12/06/23 Ordered By: Shad Rodriguez/Other Patient Handouts: Managing Type 2 Diabetes Admission Data Admit Date/Time: 12/04/23 05:23 Attending Provider: Shad Kim Admit Provider: Bradford Tapia Primary Care Provider: Yenny Miller Other Providers: Bradford Tapia; Dorie Oneill; Devin Fish; Jarrett Mclean; Chase Orta; Chang Duncan; Lazarus Shankar; Sheeba Thao; Gudelia Merlos Sowmya; Enciso, Ashley M.; Donato Dietz; Dwayne Reina; Carleen Cuevas; Jillian Mendez; Noemy Fagan; Aly Lora; Sourav Snyder; Angeles Najera
--- NOTE | 2023-12-06 15:45 | Cardiology Progress Note ---
Date of Service December 06, 2023 Assessment & Plan (1) AMS (altered mental status): (2) Abnormal EKG: Plan: -Poor R wave progression, chronic finding (3) Chest pain: Plan Cardiac workup reassuring thus far. She does have a history of past RCA stent, but I do not think she would be presenting with such subtle symptoms if she was to have progression of her coronary disease in that territory. Previous plan had been for a repeat stress test as an outpatient as initially recommended in May but is yet to be performed. Stable for discharge, will reorder stress test. Admission and Anticipated Discharge Date Admission Date: December 04, 2023 Subjective Patient without subjective complaint. Telemetry reveals sinus rhythm in the 70s. Physical Exam Constitutional: WD/WN, vitals as above Respiratory: normal respiratory effort, lungs clear to auscultation Cardiovascular: RRR, no murmur, no edema Gastrointestinal (Abdomen): normal bowel sounds, soft, nontender, no hepatosplenomegaly Neurologic: No focal deficits, some degree of cognitive impairment and confabulation noted, pleasant, conversant Results & Data Vital Signs (Past 12 Hours) Vital Signs Temp Pulse Pulse Resp BP Pulse Ox O2 Del Method 12/06/23 15:22 36.3 C L 69 16 151/75 H 99 12/06/23 14:54 36.3 C L 69 16 151/75 H 99 Room Air 12/06/23 10:52 36.5 C 69 16 152/77 H 97 Room Air 12/06/23 08:00 66 12/06/23 07:39 36.4 C L 77 16 149/69 H 97 Room Air
[2023-12-07] MEDS ORDERED: MAGNESIUM OXIDE 400 MG TAB PO SCH (09:00)
[2023-12-07] MEDS ORDERED: POTASSIUM CHLORIDE CRTAB 20 MEQ TABCR PO SCH (09:00)
[2023-12-07 23:28] LABS: Babesia microti DNA Not Detected (Not Detected)
[2023-12-08 11:10] LABS: Ehrlichia chaff DNA Bld Negative (Negative)
== END 2023-12-06 16:25 | disposition home health service (06) | DRG 641 ==
LOC: ED 20:53 → EDINP 12-04 05:23 → 4W 12-04 05:51